=== PATIENT | female | born 1940 | race Caucasian/White ===

== ENCOUNTER 2016-06-06 19:12 | Emergency (ER) | payer MEDICARE ==
[2016-06-06] MEDS ORDERED: MAG HYDROX/AL HYDROX/SIMETH 30 ML, HYOSCYAMINE ELIXIR 10 ML, CIMETIDINE HCL 300 MG, LID... PO STA ×4 (19:51)
--- NOTE | 2016-06-06 20:31 | XR ---
EXAMINATION TYPE: XR chest 1V portable DATE OF EXAM: 06/06/2016 8:16 PM COMPARISON: April 16, 2016 HISTORY: Steak stuck in esophagus TECHNIQUE: 2 portable AP upright views FINDINGS: The prominent hiatal hernia seen on the prior study is redemonstrated. There is no radiopa que foreign body over the expected course of the thoracic esophagus. There is no focal air space opac ity, pleural effusion, or pneumothorax seen. Chronic pulmonary and skeletal changes are noted. The c ardiac silhouette size is within normal limits. No acute bony or soft tissue findings. IMPRESSION: No definite acute radiographic process.
--- NOTE | 2016-06-06 20:41 | ED ---
General Adult HPI - General Chief complaint: ENT Stated complaint: FB /in esophagus Time Seen by Provider: 06/06/16 19:37 Source: patient, RN notes reviewed, old records reviewed Mode of arrival: ambulatory Limitations: no limitations - History of Present Illness Initial comments: This is a 76-year-old female the ER for reevaluation of possible foreign body in esophagus. Patient has history of stricture and history of GI foreign body. Patient states she was eating steak tonight and felt like it got stuck. She did try to drink some water and it did help but she still feels like she can feel a foreign body in there. She denies any shortness of breath. Denies any significant anxiety. Denies any other complaints. - Related Data Home Medications Medication Instructions Recorded Confirmed Budesonide [Pulmicort Flexhaler] 1 puff INHALATION RT-BID 09/10/13 06/06/16 Clopidogrel [Plavix] 75 mg PO AC-SUPPER 09/10/13 06/06/16 Levothyroxine Sodium [Synthroid] 100 mcg PO MOTUWETHFR 09/10/13 06/06/16 Salmeterol Xinafoate [Serevent 1 puff INHALATION RT-BID 09/10/13 06/06/16 Diskus] Albuterol Nebulized [Ventolin 2.5 mg INHALATION RT-Q4H PRN 06/06/16 06/06/16 Nebulized] Albuterol Sulfate [Proair Hfa] 1 - 2 puff INHALATION RT-Q4H PRN 06/06/16 Allergies Allergy/AdvReac Type Severity Reaction Status Date / Time Iodinated Contrast Media - Allergy FLUSHING, Verified 06/06/16 20:00 Oral and ITCHING [Iodinated Contrast Media - IV Dye] Macrolide Antibiotics Allergy Unknown Verified 06/06/16 20:00 Sulfa (Sulfonamide Allergy FLUSHING , Verified 06/06/16 20:00 Antibiotics) ITCHING fungus Allergy ASTHMA Uncoded 06/06/16 19:30 SYMPTOMS SMOKE Allergy ASTHMA Uncoded 06/06/16 20:00 SYMPTOMS Review of Systems ROS Statement: Those systems with pertinent positive or pertinent negative responses have been documented in the HPI. ROS Other: All systems not noted in ROS Statement are negative. Past Medical History Past Medical History: Asthma, COPD, CVA/TIA, GERD/Reflux, Hyperlipidemia, Thyroid Disorder Additional Past Medical History / Comment(s): hiatel hernia, Hypotension, Possible TIA, hypothyroid, deviated septum, states LBBB, chronic constipation, past hx of low blood sugar ., esophageal stricture with difficulty swallowing . Osteoporosis, . states she coughed up a little blood this morning-she will notify the Dr. History of Any Multi-Drug Resistant Organisms: None Reported Past Surgical History: Bowel Resection, Cholecystectomy, Tubal Ligation Additional Past Surgical History / Comment(s): sinus surgery for removal of polyps x3, varicose vein stripping, foot surgery RT, states polyp removed from uterus and bowel and uterus were ruptured . 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 Smoking Status: Never smoker Past Alcohol Use History: None Reported Past Drug Use History: None Reported - Past Family History Brother(s) Family Medical History: Cancer Additional Family Medical History / Comment(s): PROSTATE General Exam Limitations: no limitations General appearance: alert, in no apparent distress Head exam: Present: atraumatic, normocephalic, normal inspection Eye exam: Present: normal appearance, PERRL, EOMI. Absent: scleral icterus, conjunctival injection, periorbital swelling ENT exam: Present: normal exam, mucous membranes moist Neck exam: Present: normal inspection. Absent: tenderness, meningismus, lymphadenopathy Respiratory exam: Present: normal lung sounds bilaterally. Absent: respiratory distress, wheezes, rales, rhonchi, stridor Cardiovascular Exam: Present: regular rate, normal rhythm, normal heart sounds. Absent: systolic murmur, diastolic murmur, rubs, gallop, clicks GI/Abdominal exam: Present: soft, normal bowel sounds. Absent: distended, tenderness, guarding, rebound, rigid Extremities exam: Present: normal inspection, full ROM, normal capillary refill. Absent: tenderness, pedal edema, joint swelling, calf tenderness Back exam: Present: normal inspection Neurological exam: Present: alert, oriented X3, CN II-XII intact Psychiatric exam: Present: normal affect, normal mood Skin exam: Present: warm, dry, intact, normal color. Absent: rash Course Vital Signs 06/06/16 19:26 Temperature 98.6 F Pulse Rate 80 Respiratory 20 Rate Blood Pressure 122/69 O2 Sat by Pulse 98 Oximetry - Reevaluation(s) Reevaluation #1: 06/06/16 20:39 Patient is able to swallow GI cocktail without difficulty, no vomiting, Medical Decision Making - Medical Decision Making 68 female here for evaluation of GI foreign body, foreign body has resolved, patient can be discharged home` - Radiology Data Radiology results: report reviewed (Chest x-ray negative for acute disease), image reviewed Disposition Clinical Impression: Esophageal foreign body Disposition: HOME SELF-CARE Condition: Good Instructions: Esophageal Foreign Body (ED) Referrals: Jace Casas DO [Primary Care Provider] - 1-2 days
[2016-06-06 20:55] VITALS: BP 120/68; PULSE 72; RESP 16; TEMP 97.8
== END 2016-06-06 20:54 | disposition home or self-care (01) ==
LOC: EC 19:12
DX: T18.108A Unspecified foreign body in esophagus causing other injury, initial encounter (principal); J45.909 Unspecified asthma, uncomplicated; E07.9 Disorder of thyroid, unspecified; K21.9 Gastro-esophageal reflux disease without esophagitis; J44.9 Chronic obstructive pulmonary disease, unspecified; Z86.73 Personal history of transient ischemic attack (TIA), and cerebral infarction without residual deficits; Z79.51 Long term (current) use of inhaled steroids; Z79.899 Other long term (current) drug therapy; Z79.02 Long term (current) use of antithrombotics/antiplatelets; Z91.041 Radiographic dye allergy status; Z88.1 Allergy status to other antibiotic agents; Z88.2 Allergy status to sulfonamides
CPT/HCPCS: 71010; 99283

== ENCOUNTER → 2016-06-21 | Outpatient (CLI) | payer MEDICARE ==
--- NOTE | 2016-06-21 15:21 | US ---
EXAMINATION TYPE: US venous doppler duplex LE RT DATE OF EXAM: 06/21/2016 3:12 PM COMPARISON: prior us in pacs CLINICAL HISTORY: edema lower ext right R60.0. rle leg pain and swelling, no prev dvt SIDE PERFORMED: right VESSELS IMAGED: External Iliac Vein (EIV) Common Femoral Vein Deep Femoral Vein Femoral Vein Popliteal Vein Proximal Calf Veins IMPRESSION: l Right Leg: neg for RLE dvt Results called to Xuan Diaz in the office at the time of the exam.
== END ==
LOC: RADUSWWP 14:56
PROVIDERS: ATTEND Family Medicine
DX: R60.0 Localized edema (principal)

== ENCOUNTER 2016-09-14 18:42 | Emergency (ER) | payer MEDICARE ==
[2016-09-14] MEDS ORDERED: GLUCAGON 1 MG/ML VIAL IVP STA (18:59)
--- NOTE | 2016-09-14 19:15 | ED ---
Skin/Abscess/FB HPI - General Chief complaint: Skin/Abscess/Foreign Body Stated complaint: FB in throat Time Seen by Provider: 09/14/16 18:55 Source: patient, RN notes reviewed Mode of arrival: ambulatory Limitations: no limitations - History of Present Illness Initial comments: Patient is a 76-year-old female presents to the emergency room for evaluation of foreign body sensation in esophagus. Patient states she has a history of esophageal stricture. Patient states she will occasionally have get food stuck in her esophagus. Patient states she was eating chicken today and felt that it did not pass through to her stomach. Patient states on the way here she had a bump and feels like it went down a little more. Patient states she is still having trouble swallowing. Patient denies trouble breathing. Patient denies chest pain. - Related Data Home Medications Medication Instructions Recorded Confirmed Budesonide [Pulmicort Flexhaler] 1 puff INHALATION RT-BID 09/10/13 09/14/16 Clopidogrel [Plavix] 75 mg PO AC-SUPPER 09/10/13 09/14/16 Levothyroxine Sodium [Synthroid] 100 mcg PO MOTUWETHFR 09/10/13 09/14/16 Salmeterol Xinafoate [Serevent 1 puff INHALATION RT-BID 09/10/13 09/14/16 Diskus] Albuterol Nebulized [Ventolin 2.5 mg INHALATION RT-Q4H PRN 06/06/16 09/14/16 Nebulized] Albuterol Sulfate [Proair Hfa] 1 - 2 puff INHALATION RT-Q4H PRN 06/06/16 Allergies Allergy/AdvReac Type Severity Reaction Status Date / Time Iodinated Contrast Media - Allergy FLUSHING, Verified 09/14/16 18:47 Oral and ITCHING [Iodinated Contrast Media - IV Dye] Macrolide Antibiotics Allergy Unknown Verified 09/14/16 18:47 Sulfa (Sulfonamide Allergy FLUSHING , Verified 09/14/16 18:47 Antibiotics) ITCHING fungus Allergy ASTHMA Uncoded 09/14/16 18:47 SYMPTOMS SMOKE Allergy ASTHMA Uncoded 09/14/16 18:47 SYMPTOMS Review of Systems ROS Statement: Those systems with pertinent positive or pertinent negative responses have been documented in the HPI. ROS Other: All systems not noted in ROS Statement are negative. Past Medical History Past Medical History: Asthma, COPD, CVA/TIA, GERD/Reflux, Hyperlipidemia, Thyroid Disorder Additional Past Medical History / Comment(s): hiatel hernia, Hypotension, Possible TIA, hypothyroid, deviated septum, states LBBB, chronic constipation, past hx of low blood sugar ., esophageal stricture with difficulty swallowing . Osteoporosis, . states she coughed up a little blood this morning-she will notify the Dr. History of Any Multi-Drug Resistant Organisms: None Reported Past Surgical History: Bowel Resection, Cholecystectomy, Tubal Ligation Additional Past Surgical History / Comment(s): sinus surgery for removal of polyps x3, varicose vein stripping, foot surgery RT, states polyp removed from uterus and bowel and uterus were ruptured . 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 Smoking Status: Never smoker Past Alcohol Use History: None Reported Past Drug Use History: None Reported - Past Family History Brother(s) Family Medical History: Cancer Additional Family Medical History / Comment(s): PROSTATE General Exam - General Exam Comments Initial Comments: Sitting in exam room, no acute distress. Limitations: no limitations General appearance: alert, in no apparent distress Head exam: Present: atraumatic, normocephalic, normal inspection Eye exam: Present: normal appearance ENT exam: Present: normal exam Neck exam: Present: normal inspection Respiratory exam: Present: normal lung sounds bilaterally. Absent: respiratory distress Cardiovascular Exam: Present: regular rate, normal rhythm, normal heart sounds Extremities exam: Present: normal inspection Back exam: Present: normal inspection Neurological exam: Present: alert, oriented X3, CN II-XII intact, normal gait Psychiatric exam: Present: normal affect, normal mood Skin exam: Present: warm, dry, intact, normal color. Absent: rash Course Vital Signs 09/14/16 18:44 Temperature 97.4 F L Pulse Rate 92 Respiratory 16 Rate Blood Pressure 114/56 O2 Sat by Pulse 100 Oximetry Medical Decision Making - Medical Decision Making Patient is a 76-year-old female presents to the emergency room for evaluation of esophageal foreign body. Patient was given glucagon and was able to swallow warm water. Patient states the sensation has subsided. Patient states she is feeling a lot better. Chest x-ray shows no acute findings. Patient will be discharged home and advised follow-up with primary care provider. Patient states she understands everything that was discussed with her. Return parameters discussed. Case discussed with Dr. Pires. - Radiology Data Radiology results: report reviewed, image reviewed Disposition Clinical Impression: Esophageal foreign body Disposition: HOME SELF-CARE Condition: Good Instructions: Esophageal Foreign Body (ED) Additional Instructions: Please follow up with primary care provider in 1-2 days. If any new symptom arises or symptoms worsen, return to ER as soon as possible. Referrals: Jace Casas DO [Primary Care Provider] - 1-2 days Time of Disposition: 19:51
--- NOTE | 2016-09-14 19:51 | XR ---
EXAMINATION TYPE: XR chest 2V DATE OF EXAM: 09/14/2016 7:35 PM COMPARISON: 06/06/2016 and 04/16/2016 HISTORY: 76-year-old female with pain and shortness of breath TECHNIQUE: PA and lateral views FINDINGS: Heart is normal size. Aorta within normal limits. Diffuse interstitial prominence and hyperinflation. There appears to be prior right-sided thoracotomy change. Stable right apical pleural parenchymal sc arring. Moderate sized hiatal hernia. No pleural effusion. IMPRESSION: COPD with chronic parenchymal changes. Moderate-sized hilar hernia. No new infiltrate seen.
[2016-09-14 20:04] VITALS: BP 127/67; PULSE 80; RESP 18; TEMP 97.9
== END 2016-09-14 20:04 | disposition home or self-care (01) ==
LOC: EC 18:42
DX: T18.128A Food in esophagus causing other injury, initial encounter (principal); J45.909 Unspecified asthma, uncomplicated; J44.9 Chronic obstructive pulmonary disease, unspecified; E07.9 Disorder of thyroid, unspecified; Z79.02 Long term (current) use of antithrombotics/antiplatelets; Z79.51 Long term (current) use of inhaled steroids; Z88.1 Allergy status to other antibiotic agents; Z88.2 Allergy status to sulfonamides; Z91.041 Radiographic dye allergy status; Z91.048 Other nonmedicinal substance allergy status; Z86.73 Personal history of transient ischemic attack (TIA), and cerebral infarction without residual deficits; X58.XXXA Exposure to other specified factors, initial encounter
CPT/HCPCS: 71020; 99283; 96374; J1610

== ENCOUNTER 2016-10-19 19:23 | Emergency (ER) | payer MEDICARE ==
[2016-10-19 19:40] VITALS: BP 149/70; PULSE 72; RESP 20; TEMP 97.2
--- NOTE | 2016-10-19 20:03 | ED ---
Fall HPI - General Chief Complaint: Fall Stated Complaint: Fall Time Seen by Provider: 10/19/16 19:43 Source: patient Mode of arrival: wheelchair - History of Present Illness Initial Comments: 76-year-old female presents to clinic after falling when running out her car in the rain. Patient states she fell on a concrete driveway and fell on outstretched hand. Patient states she fell forward onto her knees and wrists. She had multiple abrasions on her knees and wrists. Patient having a lot of pain in that area as well. Patient did try to clean it at home as well. Patient unaware of when her tetanus was updated. Patient states she did ice it at home as well she denies any head injury or dizziness. No loss of consciousness. Patient does admit to slight neck pain that has no numbness or tingling. Patient denies back pain. MD Complaint: fall -: hour(s) Fall From: standing When Fall Occurred: 1-3 hours [employer] Fall Witnessed: no Place Fall Occurred: home Symptoms Prior to Fall: none Associated Symptoms: other - Related Data Home Medications Medication Instructions Recorded Confirmed Budesonide [Pulmicort Flexhaler] 1 puff INHALATION RT-BID 09/10/13 09/14/16 Clopidogrel [Plavix] 75 mg PO AC-SUPPER 09/10/13 09/14/16 Levothyroxine Sodium [Synthroid] 100 mcg PO MOTUWETHFR 09/10/13 09/14/16 Salmeterol Xinafoate [Serevent 1 puff INHALATION RT-BID 09/10/13 09/14/16 Diskus] Albuterol Nebulized [Ventolin 2.5 mg INHALATION RT-Q4H PRN 06/06/16 09/14/16 Nebulized] Albuterol Sulfate [Proair Hfa] 1 - 2 puff INHALATION RT-Q4H PRN 06/06/16 Allergies Allergy/AdvReac Type Severity Reaction Status Date / Time Iodinated Contrast Media - Allergy FLUSHING, Verified 10/19/16 19:40 Oral and ITCHING [Iodinated Contrast Media - IV Dye] Macrolide Antibiotics Allergy Unknown Verified 10/19/16 19:40 Sulfa (Sulfonamide Allergy FLUSHING , Verified 10/19/16 19:40 Antibiotics) ITCHING fungus Allergy ASTHMA Uncoded 10/19/16 19:40 SYMPTOMS SMOKE Allergy ASTHMA Uncoded 10/19/16 19:40 SYMPTOMS Review of Systems ROS Statement: Those systems with pertinent positive or pertinent negative responses have been documented in the HPI. ROS Other: All systems not noted in ROS Statement are negative. Musculoskeletal: Reports: other (left knee pain and right wrist pain) Skin: Reports: other (multiple abrasions on b/l knees and wrists) Neurological: Denies: headache Past Medical History Past Medical History: Asthma, COPD, CVA/TIA, GERD/Reflux, Hyperlipidemia, Thyroid Disorder Additional Past Medical History / Comment(s): hiatel hernia, Hypotension, Possible TIA, hypothyroid, deviated septum, states LBBB, chronic constipation, past hx of low blood sugar ., esophageal stricture with difficulty swallowing . Osteoporosis, . states she coughed up a little blood this morning-she will notify the Dr. History of Any Multi-Drug Resistant Organisms: None Reported Past Surgical History: Bowel Resection, Cholecystectomy, Tubal Ligation Additional Past Surgical History / Comment(s): sinus surgery for removal of polyps x3, varicose vein stripping, foot surgery RT, states polyp removed from uterus and bowel and uterus were ruptured . Past Anesthesia/Blood Transfusion Reactions: Previous Problems w/ Anesthesia Additional Past Anesthesia/Blood Transfusion Reaction / Comment(s): STATES DIFFICULTY WAKING UP Past Psychological History: Depression Smoking Status: Never smoker Past Alcohol Use History: None Reported Past Drug Use History: None Reported - Past Family History Brother(s) Family Medical History: Cancer Additional Family Medical History / Comment(s): PROSTATE General Exam Limitations: no limitations General appearance: alert, in no apparent distress Head exam: Present: atraumatic, normocephalic, normal inspection Eye exam: Present: normal appearance, PERRL, EOMI. Absent: scleral icterus, conjunctival injection, periorbital swelling ENT exam: Present: normal exam, mucous membranes moist Neck exam: Present: normal inspection. Absent: tenderness, meningismus, lymphadenopathy Respiratory exam: Present: normal lung sounds bilaterally. Absent: respiratory distress, wheezes, rales, rhonchi, stridor Cardiovascular Exam: Present: regular rate, normal rhythm, normal heart sounds. Absent: systolic murmur, diastolic murmur, rubs, gallop, clicks Left Shoulder Exam: Present: normal inspection, full ROM. Absent: tenderness, swelling Upper Arm exam: Present: normal inspection, full ROM. Absent: tenderness, swelling Elbow exam: Present: normal inspection, full ROM. Absent: tenderness, swelling Forearm Wrist exam: Present: normal inspection, full ROM, abrasion Hand Wrist exam: Present: full ROM, tenderness, abrasion Right Shoulder Exam: Present: normal inspection, full ROM. Absent: tenderness, swelling Upper Arm exam: Present: normal inspection, full ROM. Absent: tenderness, swelling Elbow exam: Present: normal inspection, full ROM, abrasion. Absent: tenderness , swelling Forearm Wrist exam: Present: normal inspection, full ROM, tenderness, abrasion. Absent: swelling Hand Wrist exam: Present: normal inspection, full ROM, tenderness, abrasion. Absent: swelling Neuro motor exam: Present: wrist extension intact, thumb opposition intact Vascular: Present: normal capillary refill Left Hip exam: Present: normal inspection, full ROM. Absent: tenderness, swelling Upper Leg exam: Present: normal inspection, full ROM. Absent: tenderness, swelling Knee exam: Present: full ROM, tenderness, abrasion, ecchymosis Lower Leg exam: Present: normal inspection. Absent: full ROM, tenderness Ankle exam: Present: normal inspection, full ROM. Absent: tenderness, swelling Foot/Toe exam: Present: normal inspection, full ROM. Absent: tenderness, swelling Gait: observed and normal Right Hip exam: Present: normal inspection, full ROM. Absent: tenderness, swelling Upper Leg exam: Present: normal inspection, full ROM. Absent: tenderness, swelling Knee exam: Present: full ROM, tenderness, swelling, abrasion Lower Leg exam: Present: normal inspection, full ROM. Absent: tenderness, swelling Ankle exam: Present: normal inspection, full ROM. Absent: tenderness, swelling Gait: observed and normal Back exam: Present: normal inspection Course Vital Signs 10/19/16 19:36 Temperature 97.2 F L Pulse Rate 72 Respiratory 20 Rate Blood Pressure 149/70 O2 Sat by Pulse 99 Oximetry Medical Decision Making - Medical Decision Making Reviewed x-ray negative for any acute changes. Patient aware. Patient was prepped and draped appropriately normal saline was used Umanzor's along with bacitracin dressing. Patient Adacel was updated as well. Patient may take over -the-counter Tylenol for aches and pains continue to ice wounds and keep wounds clean dry and covered. Disposition Clinical Impression: Fall, Abrasion, Contusion Disposition: HOME SELF-CARE Condition: Good Instructions: Fall Prevention for Older Adults (ED), Contusion in Adults (ED), Abrasion (ED), Knee Pain (ED) Referrals: Jace Casas DO [Primary Care Provider] - 1-2 days Time of Disposition: 20:41
[2016-10-19] MEDS ORDERED: DIPH,PERTUS(ACELL)TETVAC-LF 0.5 ML VIAL IM ONE (20:29)
--- NOTE | 2016-10-19 20:46 | XR ---
EXAMINATION TYPE: XR knee 4V LT DATE OF EXAM: 10/19/2016 COMPARISON: NONE HISTORY: Knee pain TECHNIQUE: 3 views FINDINGS: I see no fracture nor dislocation. Joint spaces are normal. There is no sign of joint effus ion. There is some soft tissue deformity on the lateral view that could relate to laceration above th e patella. IMPRESSION: No fracture.
--- NOTE | 2016-10-19 20:47 | XR ---
EXAMINATION TYPE: XR wrist complete RT DATE OF EXAM: 10/19/2016 COMPARISON: NONE HISTORY: Fall and wrist pain TECHNIQUE: 4 views FINDINGS: I see no fracture nor dislocation. There is mild deformity of the distal radius that could relate to an old healed fracture. IMPRESSION: No acute abnormality of the right wrist.
--- NOTE | 2016-10-19 20:48 | XR ---
EXAMINATION TYPE: XR cervical spine comp DATE OF EXAM: 10/19/2016 COMPARISON: NONE HISTORY: Pain TECHNIQUE: 5 views FINDINGS: Vertebra have normal alignment. Disc spaces are fairly well-maintained for the patient's ag e. Posterior elements are intact. I see no compression fracture. Atlantoaxial facet joint is normal. There are no cervical ribs. There is minor spurring in the lower cervical spine. IMPRESSION: Mild degenerative changes. No fracture.
== END 2016-10-19 20:52 | disposition home or self-care (01) ==
LOC: EC 19:23
DX: S80.01XA Contusion of right knee, initial encounter (principal); S80.02XA Contusion of left knee, initial encounter; S60.812A Abrasion of left wrist, initial encounter; S60.811A Abrasion of right wrist, initial encounter; S50.319A Abrasion of unspecified elbow, initial encounter; M54.2 Cervicalgia; J45.909 Unspecified asthma, uncomplicated; J44.9 Chronic obstructive pulmonary disease, unspecified; E03.9 Hypothyroidism, unspecified; Z79.02 Long term (current) use of antithrombotics/antiplatelets; Z79.51 Long term (current) use of inhaled steroids; Z79.899 Other long term (current) drug therapy; Z88.1 Allergy status to other antibiotic agents; Z88.2 Allergy status to sulfonamides; Z91.041 Radiographic dye allergy status; Z91.09 Other allergy status, other than to drugs and biological substances; Z86.73 Personal history of transient ischemic attack (TIA), and cerebral infarction without residual deficits; Z23 Encounter for immunization; W01.0XXA Fall on same level from slipping, tripping and stumbling without subsequent striking against object, initial encounter; Y92.480 Sidewalk as the place of occurrence of the external cause; Y93.89 Activity, other specified
CPT/HCPCS: 72050; 90471; 90715; 99283

== ENCOUNTER → 2016-11-20 | Outpatient (CLI) | payer MEDICARE ==
--- NOTE | 2016-11-21 08:13 | MM ---
Reason for exam: screening (asymptomatic). Last mammogram was performed 1 year ago. History: Patient is postmenopausal. Physical Findings: A clinical breast exam by your physician is recommended on an annual basis and results should be correlated with mammographic findings. MG Screening Mammo w CAD Bilateral CC and MLO view(s) were taken. Prior study comparison: November 06, 2015, bilateral MG screening mammo w CAD. May 27, 2014, bilateral MG screening mammo w CAD. December 10, 2012, bilateral digital screening mammo w/CAD. There are scattered fibroglandular densities. Finding: There are typically benign vascular, round calcifications in both breasts. There is a chronic nodularity in the right breast. There is no discrete abnormality. ASSESSMENT: Benign, BI-RAD 2 RECOMMENDATION: Routine screening mammogram of both breasts in 1 year.
== END | disposition home or self-care (01) ==
LOC: RADMAMWWP 16:33
PROVIDERS: ATTEND Family Medicine
DX: Z12.31 Encounter for screening mammogram for malignant neoplasm of breast (principal)

== ENCOUNTER 2017-04-14 09:02 | Emergency (ER) | payer MEDICARE ==
[2017-04-14] MEDS ORDERED: SODIUM CHLORIDE 0.9% 500 ML IV STA (09:08)
[2017-04-14] MEDS ORDERED: RX INFO: IV CONTRAST WAS GIVEN 1 EACH MISC MISCELLANE PRN (09:08)
[2017-04-14] MEDS ORDERED: FAMOTIDINE 20 MG/2 ML VIAL IV STA (09:09)
[2017-04-14] MEDS ORDERED: diphenhydrAMINE 50 MG/ML 1 ML VIAL IVP STA (09:09)
--- NOTE | 2017-04-14 09:22 | ED ---
Abdominal Pain HPI - General Chief Complaint: Abdominal Pain Stated Complaint: ABDOMINAL PAIN, CONSTIPATION/DIARRHEA Time Seen by Provider: 04/14/17 09:08 Source: patient, RN notes reviewed Mode of arrival: ambulatory Limitations: no limitations - History of Present Illness Initial Comments: This a 77-year-old female presents emergency Department chief complaint abdominal pain started on Friday. She states that the night before she ate some waffles and strawberries. She states she woke up and felt that she's had pain from eating. Patient states pain has now resolved it does wax and wane. She primary complaint of upper abdominal pain and left lower quadrant abdominal pain. Patient states that she was told that she had an ulcer in her stomach in the years past and a blockage in her transverse colon. Patient also states that she had perforated bowel secondary to compilations during uterine biopsy. Patient states that she had surgery at the time of Dr. Cade. Patient states she has she's had minimal nausea denies vomiting, dysuria, hematuria. Patient states that she felt constipated yesterday she had 3 episodes of diarrhea. Patient denies fever, chills, chest pain, shortness of breath. Patient has not taken anything for the discomfort this time. Patient went to urgent care who sent her here for evaluation. - Related Data Home Medications Medication Instructions Recorded Confirmed Budesonide [Pulmicort Flexhaler] 1 puff INHALATION RT-BID 09/10/13 04/14/17 Clopidogrel [Plavix] 75 mg PO AC-SUPPER 09/10/13 04/14/17 Levothyroxine Sodium [Synthroid] 100 mcg PO MOTUWETHFR 09/10/13 04/14/17 Salmeterol Xinafoate [Serevent 1 puff INHALATION RT-BID 09/10/13 04/14/17 Diskus] Albuterol Nebulized [Ventolin 2.5 mg INHALATION RT-QID PRN 06/06/16 04/14/17 Nebulized] Albuterol Sulfate [Proair Hfa] 1 - 2 puff INHALATION RT-QID PRN 06/06/16 Previous Rx's Medication Instructions Recorded Ciprofloxacin HCl [Cipro] 500 mg PO Q12HR #14 tablet 04/14/17 metroNIDAZOLE [Flagyl] 500 mg PO TID #21 tab 04/14/17 Allergies Allergy/AdvReac Type Severity Reaction Status Date / Time Iodinated Contrast- Oral and Allergy FLUSHING, Verified 04/14/17 09:28 IV Dye ITCHING [Iodinated Contrast Media - IV Dye] Macrolide Antibiotics Allergy Unknown Verified 04/14/17 09:28 Sulfa (Sulfonamide Allergy FLUSHING , Verified 04/14/17 09:28 Antibiotics) ITCHING fungus Allergy ASTHMA Uncoded 04/14/17 09:07 SYMPTOMS SMOKE Allergy ASTHMA Uncoded 04/14/17 09:07 SYMPTOMS Review of Systems ROS Statement: Those systems with pertinent positive or pertinent negative responses have been documented in the HPI. ROS Other: All systems not noted in ROS Statement are negative. Past Medical History Past Medical History: Asthma, COPD, CVA/TIA, GERD/Reflux, Hyperlipidemia, Thyroid Disorder Additional Past Medical History / Comment(s): hiatel hernia, Hypotension, Possible TIA, hypothyroid, deviated septum, states LBBB, chronic constipation, past hx of low blood sugar ., esophageal stricture with difficulty swallowing . Osteoporosis, History of Any Multi-Drug Resistant Organisms: None Reported Past Surgical History: Bowel Resection, Cholecystectomy, Tubal Ligation Additional Past Surgical History / Comment(s): sinus surgery for removal of polyps x3, varicose vein stripping, foot surgery RT, states polyp removed from uterus and bowel and uterus were ruptured . Past Anesthesia/Blood Transfusion Reactions: Previous Problems w/ Anesthesia Additional Past Anesthesia/Blood Transfusion Reaction / Comment(s): STATES DIFFICULTY WAKING UP Past Psychological History: Depression Smoking Status: Never smoker Past Alcohol Use History: None Reported Past Drug Use History: None Reported - Past Family History Brother(s) Family Medical History: Cancer Additional Family Medical History / Comment(s): PROSTATE General Exam Limitations: no limitations General appearance: alert, in no apparent distress Head exam: Present: atraumatic, normocephalic, normal inspection Eye exam: Present: normal appearance, PERRL, EOMI. Absent: scleral icterus, conjunctival injection, periorbital swelling ENT exam: Present: normal exam, normal oropharynx, mucous membranes moist Neck exam: Present: normal inspection. Absent: tenderness, meningismus, lymphadenopathy Respiratory exam: Present: normal lung sounds bilaterally. Absent: respiratory distress, wheezes, rales, rhonchi, stridor Cardiovascular Exam: Present: regular rate, normal rhythm, normal heart sounds. Absent: systolic murmur, diastolic murmur, rubs, gallop, clicks GI/Abdominal exam: Present: soft, tenderness (Minimal upper left-sided and left lower quadrant), normal bowel sounds, other (Old midline scar noted). Absent: distended, guarding, rebound, rigid Back exam: Absent: CVA tenderness (R), CVA tenderness (L) Skin exam: Present: warm, dry, intact, normal color. Absent: rash Course Vital Signs 04/14/17 04/14/17 09:04 10:18 Temperature 97.0 F L Pulse Rate 73 67 Respiratory 18 18 Rate Blood Pressure 135/62 132/72 O2 Sat by Pulse 98 97 Oximetry - Reevaluation(s) Reevaluation #1: 04/14/17 09:21 Patient states that she has had CTs in the past with no difficulty other than feeling warm and flushed one time. She states she is given Benadryl she's had no difficulty breathing or rash Medical Decision Making - Medical Decision Making 77-year-old female presented emergency tomorrow for abdominal discomfort, episodes of diarrhea. Patient CT shows evidence of mild colitis. Patient will be started on Cipro Flagyl for 7 days will follow-up with PCP for recheck and return for any worsening symptoms. All lab work and diagnostics were reviewed lab work is essentially unremarkable vitals have been stable no fever. - Lab Data Result diagrams: 04/14/17 09:28 04/14/17 09:28 Lab Results 04/14/17 04/14/17 04/14/17 Range/Units 09:21 09:28 09:28 WBC 5.4 (3.8-10.6) k/uL RBC 5.15 (3.80-5.40) m/uL Hgb 14.7 (11.4-16.0) gm/dL Hct 47.6 H (34.0-46.0) % MCV 92.3 (80.0-100.0) fL MCH 28.6 (25.0-35.0) pg MCHC 31.0 (31.0-37.0) g/dL RDW 15.3 (11.5-15.5) % Plt Count 298 (150-450) k/uL Neutrophils % 45 % Lymphocytes % 29 % Monocytes % 10 % Eosinophils % 14 % Basophils % 1 % Neutrophils # 2.4 (1.3-7.7) k/uL Lymphocytes # 1.6 (1.0-4.8) k/uL Monocytes # 0.5 (0-1.0) k/uL Eosinophils # 0.7 (0-0.7) k/uL Basophils # 0.1 (0-0.2) k/uL PT (9.0-12.0) sec INR (<1.2) APTT (22.0-30.0) sec Sodium 139 (137-145) mmol/L Potassium 4.0 (3.5-5.1) mmol/L Chloride 103 (98-107) mmol/L Carbon Dioxide 28 (22-30) mmol/L Anion Gap 8 mmol/L BUN 13 (7-17) mg/dL Creatinine 0.79 (0.52-1.04) mg/dL Est GFR (MDRD) Af Amer >60 (>60 ml/min/1.73 sqM) Est GFR (MDRD) Non-Af >60 (>60 ml/min/1.73 sqM) Glucose 107 H (74-99) mg/dL Plasma Lactic Acid Geo (0.7-2.0) mmol/L Calcium 10.1 (8.4-10.2) mg/dL Total Bilirubin 0.7 (0.2-1.3) mg/dL AST 19 (14-36) U/L ALT 22 (9-52) U/L Alkaline Phosphatase 112 (38-126) U/L Total Protein 7.3 (6.3-8.2) g/dL Albumin 4.4 (3.5-5.0) g/dL Amylase 111 H (30-110) U/L Lipase 121 (23-300) U/L Urine Color Light Yellow Urine Appearance Clear (Clear) Urine pH 7.0 (5.0-8.0) Ur Specific [place] 1.004 (1.001-1.035) Urine Protein Negative (Negative) Urine Glucose (UA) Negative (Negative) Urine Ketones Negative (Negative) Urine Blood Negative (Negative) Urine Nitrite Negative (Negative) Urine Bilirubin Negative (Negative) Urine Urobilinogen <2.0 (<2.0) mg/dL Ur Leukocyte Esterase Negative (Negative) 04/14/17 04/14/17 Range/Units 09:28 09:28 WBC (3.8-10.6) k/uL RBC (3.80-5.40) m/uL Hgb (11.4-16.0) gm/dL Hct (34.0-46.0) % MCV (80.0-100.0) fL MCH (25.0-35.0) pg MCHC (31.0-37.0) g/dL RDW (11.5-15.5) % Plt Count (150-450) k/uL Neutrophils % % Lymphocytes % % Monocytes % % Eosinophils % % Basophils % % Neutrophils # (1.3-7.7) k/uL Lymphocytes # (1.0-4.8) k/uL Monocytes # (0-1.0) k/uL Eosinophils # (0-0.7) k/uL Basophils # (0-0.2) k/uL PT 9.5 (9.0-12.0) sec INR 1.0 (<1.2) APTT 22.7 (22.0-30.0) sec Sodium (137-145) mmol/L Potassium (3.5-5.1) mmol/L Chloride (98-107) mmol/L Carbon Dioxide (22-30) mmol/L Anion Gap mmol/L BUN (7-17) mg/dL Creatinine (0.52-1.04) mg/dL Est GFR (MDRD) Af Amer (>60 ml/min/1.73 sqM) Est GFR (MDRD) Non-Af (>60 ml/min/1.73 sqM) Glucose (74-99) mg/dL Plasma Lactic Acid Geo 0.9 (0.7-2.0) mmol/L Calcium (8.4-10.2) mg/dL Total Bilirubin (0.2-1.3) mg/dL AST (14-36) U/L ALT (9-52) U/L Alkaline Phosphatase (38-126) U/L Total Protein (6.3-8.2) g/dL Albumin (3.5-5.0) g/dL Amylase (30-110) U/L Lipase (23-300) U/L Urine Color Urine Appearance (Clear) Urine pH (5.0-8.0) Ur Specific [place] (1.001-1.035) Urine Protein (Negative) Urine Glucose (UA) (Negative) Urine Ketones (Negative) Urine Blood (Negative) Urine Nitrite (Negative) Urine Bilirubin (Negative) Urine Urobilinogen (<2.0) mg/dL Ur Leukocyte Esterase (Negative) Disposition Clinical Impression: Colitis Disposition: HOME SELF-CARE Condition: Stable Instructions: Colitis (ED) Additional Instructions: Please return to the Emergency Department if symptoms worsen or any other concerns. Prescriptions: Ciprofloxacin HCl [Cipro] 500 mg PO Q12HR #14 tablet metroNIDAZOLE [Flagyl] 500 mg PO TID #21 tab Referrals: Jace Casas DO [Primary Care Provider] - 1-2 days Time of Disposition: 12:02
[2017-04-14 09:38] LABS: Appearance,Urine Clear (Clear); Bilirubin,Urine Negative (Negative); Glucose,Urine (UA) Negative (Negative); Ketones,Urine Negative (Negative); Leukocyte Esterase,Urine Negative (Negative); Nitrite,Urine Negative (Negative); Protein,Urine Negative (Negative); Specific Gravity,Urine 1.004 (1.001-1.035); UA Billing (MACRO vs. MICRO) CHEM; Urobilinogen,Urine <2.0 mg/dL (<2.0)
[2017-04-14 09:46] LABS: Basophils # (A) 0.1 k/uL (0-0.2); Basophils % (A) 1 %; CH 29.1; CHCM 31.7; Eosinophils # (A) 0.7 k/uL (0-0.7); Eosinophils % (A) 14 %; HCT 47.6 % (34.0-46.0); HDW 2.38; HGB 14.7 gm/dL (11.4-16.0); Luc % (Auto) 2; Lymphocytes # (A) 1.6 k/uL (1.0-4.8); Lymphocytes % (A) 29 %; MCH 28.6 pg (25.0-35.0); MCV 92.3 fL (80.0-100.0); Mean Platelet Volume 7.5; Monocytes # (A) 0.5 k/uL (0-1.0); Monocytes % (A) 10 %; Neutrophils # (A) 2.4 k/uL (1.3-7.7); Neutrophils % (A) 45 %; RBC 5.15 m/uL (3.80-5.40); RDW 15.3 % (11.5-15.5); WBC 5.4 k/uL (3.8-10.6); WBC (Perox) 5.39
[2017-04-14 10:04] LABS: ALT 22 U/L (9-52); AST 19 U/L (14-36); Alkaline Phosphatase 112 U/L (38-126); Amylase 111 U/L (30-110); Anion Gap 8 mmol/L; Blood Urea Nitrogen 13 mg/dL (7-17); Calcium 10.1 mg/dL (8.4-10.2); Carbon Dioxide 28 mmol/L (22-30); Chloride 103 mmol/L (98-107); Glucose 107 mg/dL (74-99); Non-African American GFR(MDRD) >60 (>60 ml/min/1.73 sqM); Sodium 139 mmol/L (137-145); Total Bilirubin 0.7 mg/dL (0.2-1.3); Total Protein 7.3 g/dL (6.3-8.2)
[2017-04-14 10:09] LABS: Partial Thromboplastin Time 22.7 sec (22.0-30.0); Prothrombin Time 9.5 sec (9.0-12.0)
--- NOTE | 2017-04-14 11:53 | CT ---
EXAMINATION TYPE: CT abdomen pelvis w con DATE OF EXAM: 04/14/2017 HISTORY: Abdominal pain not further specified per order with constipation and diarrhea per patient. CT DLP: 348.0mGycm Automated Exposure Control for Dose Reduction was Utilized. CONTRAST: CT scan of the abdomen and pelvis is performed without oral but with IV Contrast, patient injected wi th 100 mL of Omnipaque 300. COMPARISON: CT chest January 06, 2012. FINDINGS: LUNG BASES: Dependent atelectatic changes seen. There is additional linear scarring and/or atelectasi s medially in both bases. LIVER/GB: Cholecystectomy clips are redemonstrated. There is mild extrahepatic biliary dilatation wit hout suspicious intrahepatic biliary dilatation. There is mild pancreatic ductal dilatation in the he ad measuring up to 4 mm in size. No obstructing calculus is present. PANCREAS: Mild pancreatic ductal dilatation towards head measuring up to 4 mm in size. SPLEEN: No significant abnormality is seen. ADRENALS: No significant abnormality is seen. KIDNEYS: There is 6.0 cm simple appearing cyst lower pole level left kidney on axial image 29. There are few scattered pelvic phleboliths. Symmetric cortical medullary uptake and excretion is seen. Ther e is prominent bilateral renal pelvis without calyceal dilatation. Findings are consistent with extra renal pelvises. BOWEL: There is large size hiatal hernia with abnormal twisting of herniated stomach. This is not sig nificantly changed from chest CT 2011. Evaluation bowel is suboptimal secondary to lack of enteric co ntrast. There is no suspicious small or large bowel dilatation. Some diverticula are seen in the sigm oid colon. Mild wall thickening at this level is present. A mild colitis cannot be entirely excluded. UTERUS/ADNEXA: Uterus is anteverted in shape. Prominent draining left ovarian vein is noted. Underlyi ng pelvic congestion syndrome is not excluded. LYMPH NODES: No greater than 1cm abdominal or pelvic lymph nodes are appreciated. OSSEOUS STRUCTURES: There is grade 1 anterolisthesis of L4 on L5. There is moderate to advanced disc space narrowing with vacuum disc phenomenon L4-L5 level. There is facet arthropathy lower lumbar leve ls. Slight underlying scoliosis is present. 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 OTHER: No significant additional abnormality is seen. IMPRESSION: Possible mild sigmoid colitis, correlate clinically. No bowel obstruction is seen. Persis tent moderate to large size hiatal hernia. Possible pelvic congestion syndrome on the left, correlate clinically.
[2017-04-14 12:33] VITALS: BP 174/71; PULSE 62; RESP 16; TEMP 96.9
== END 2017-04-14 12:32 | disposition home or self-care (01) ==
LOC: EC 09:02
DX: K52.9 Noninfective gastroenteritis and colitis, unspecified (principal); J44.9 Chronic obstructive pulmonary disease, unspecified; E03.9 Hypothyroidism, unspecified; Z90.49 Acquired absence of other specified parts of digestive tract; Z98.51 Tubal ligation status; Z86.73 Personal history of transient ischemic attack (TIA), and cerebral infarction without residual deficits; Z79.51 Long term (current) use of inhaled steroids; Z79.01 Long term (current) use of anticoagulants; Z79.899 Other long term (current) drug therapy; Z91.041 Radiographic dye allergy status; Z88.1 Allergy status to other antibiotic agents; Z88.2 Allergy status to sulfonamides; Z91.048 Other nonmedicinal substance allergy status
CPT/HCPCS: 36415; 80053; 82150; 83605; 83690; 85025; 85610; 85730; 81003; 74177; 99284; 96374; 96375; J1200; Q9967

== ENCOUNTER → 2017-06-26 | Outpatient (CLI) | payer MEDICARE ==
[2017-06-26 12:24] LABS: HGB 14.7 gm/dL (11.4-16.0); MCH 29.1 pg (25.0-35.0); MCHC 32.1 g/dL (31.0-37.0); MCV 90.8 fL (80.0-100.0); Platelet Count 275 k/uL (150-450); RBC 5.06 m/uL (3.80-5.40); RDW 13.6 % (11.5-15.5); WBC 5.3 k/uL (3.8-10.6)
[2017-06-26 12:37] LABS: ALT 26 U/L (9-52); AST 18 U/L (14-36); Albumin 4.3 g/dL (3.5-5.0); Alkaline Phosphatase 116 U/L (38-126); Anion Gap 11 mmol/L; Blood Urea Nitrogen 16 mg/dL (7-17); Calcium 10.2 mg/dL (8.4-10.2); Carbon Dioxide 25 mmol/L (22-30); Chloride 106 mmol/L (98-107); Glucose 102 mg/dL (74-99); Potassium 4.9 mmol/L (3.5-5.1); Sodium 142 mmol/L (137-145); Total Bilirubin 0.6 mg/dL (0.2-1.3); Total Protein 7.1 g/dL (6.3-8.2)
== END | disposition home or self-care (01) ==
LOC: LABWHC1 11:55
PROVIDERS: ATTEND Nurse Practitioner Adult Health
DX: I44.7 Left bundle-branch block, unspecified (principal); E78.2 Mixed hyperlipidemia
CPT/HCPCS: 36415; 80053; 83704; 85027

== ENCOUNTER 2017-08-25 07:47 | Observation (INO) | payer MEDICARE ==
[2017-08-25] MEDS ORDERED: NITROGLYCERIN OINT 1 INCH/GM PACKET TOPICAL STA (07:55)
--- NOTE | 2017-08-25 08:01 | ED ---
General Adult HPI - General Chief complaint: Chest Pain Stated complaint: Chest Pain Time Seen by Provider: 08/25/17 07:47 Source: patient, EMS, RN notes reviewed Mode of arrival: EMS Limitations: no limitations - History of Present Illness Initial comments: This is a 77-year-old female presents emergency Department stating that when she woke up this when she reached up to get a robe off the hook started having excruciating pain between her shoulder blades. Patient states that subsided and then she started having some chest pressure. Patient denies any associated pain besides back pain previously mentioned. Patient denies any difficulty breathing shortness of breath worsened normal. Patient denies any diaphoresis. Patient denies any nausea vomiting or abdominal pain. Patient states she still has a little bit of back discomfort. But mostly chest pressure at this point. Patient denies any recent fever chills or cough. Patient denies any swelling of the legs. Patient denies any calf tenderness. Patient states the nitro initially seemed to help but then the second nitro didn't help at all. Patient did receive aspirin in route - Related Data Home Medications Medication Instructions Recorded Confirmed Budesonide [Pulmicort Flexhaler] 1 puff INHALATION RT-BID 09/10/13 04/14/17 Clopidogrel [Plavix] 75 mg PO AC-SUPPER 09/10/13 04/14/17 Levothyroxine Sodium [Synthroid] 100 mcg PO MOTUWETHFR 09/10/13 04/14/17 Salmeterol Xinafoate [Serevent 1 puff INHALATION RT-BID 09/10/13 04/14/17 Diskus] Albuterol Nebulized [Ventolin 2.5 mg INHALATION RT-QID PRN 06/06/16 04/14/17 Nebulized] Albuterol Sulfate [Proair Hfa] 1 - 2 puff INHALATION RT-QID PRN 06/06/16 Previous Rx's Medication Instructions Recorded Ciprofloxacin HCl [Cipro] 500 mg PO Q12HR #14 tablet 04/14/17 Ciprofloxacin [Ciprofloxacin Oral 500 mg PO BID #140 ml 04/14/17 Susp] metroNIDAZOLE [Flagyl] 500 mg PO TID #21 tab 04/14/17 Allergies Allergy/AdvReac Type Severity Reaction Status Date / Time Iodinated Contrast- Oral and Allergy FLUSHING, Verified 04/14/17 09:28 IV Dye ITCHING [Iodinated Contrast Media - IV Dye] Macrolide Antibiotics Allergy Unknown Verified 04/14/17 09:28 Sulfa (Sulfonamide Allergy FLUSHING , Verified 04/14/17 09:28 Antibiotics) ITCHING fungus Allergy ASTHMA Uncoded 04/14/17 09:07 SYMPTOMS SMOKE Allergy ASTHMA Uncoded 04/14/17 09:07 SYMPTOMS Review of Systems ROS Statement: Those systems with pertinent positive or pertinent negative responses have been documented in the HPI. ROS Other: All systems not noted in ROS Statement are negative. Past Medical History Past Medical History: Asthma, COPD, CVA/TIA, GERD/Reflux, Hyperlipidemia, Thyroid Disorder Additional Past Medical History / Comment(s): hiatel hernia, Hypotension, Possible TIA, hypothyroid, deviated septum, states LBBB, chronic constipation, past hx of low blood sugar ., esophageal stricture with difficulty swallowing . Osteoporosis, History of Any Multi-Drug Resistant Organisms: None Reported Past Surgical History: Bowel Resection, Cholecystectomy, Tubal Ligation Additional Past Surgical History / Comment(s): sinus surgery for removal of polyps x3, varicose vein stripping, foot surgery RT, states polyp removed from uterus and bowel and uterus were ruptured . Past Anesthesia/Blood Transfusion Reactions: Previous Problems w/ Anesthesia Additional Past Anesthesia/Blood Transfusion Reaction / Comment(s): STATES DIFFICULTY WAKING UP Past Psychological History: Depression Smoking Status: Never smoker Past Alcohol Use History: None Reported Past Drug Use History: None Reported - Past Family History Brother(s) Family Medical History: Cancer Additional Family Medical History / Comment(s): PROSTATE General Exam - General Exam Comments Initial Comments: GENERAL: Patient is well-developed and well-nourished. Patient is nontoxic and well- hydrated and is in mild distress. ENT: Neck is soft and supple. No significant lymphadenopathy is noted. Oropharynx is clear. Moist mucous membranes. Neck has full range of motion without eliciting any pain. EYES: The sclera were anicteric and conjunctiva were pink and moist. Extraocular movements were intact and pupils were equal round and reactive to light. Eyelids were unremarkable. PULMONARY: Unlabored respirations. Good breath sounds bilaterally. No audible rales rhonchi or wheezing was noted. CARDIOVASCULAR: There is a regular rate and rhythm patient is a 1/6 systolic murmur ABDOMEN: Soft and nontender with normal bowel sounds. No palpable organomegaly was noted. There is no palpable pulsatile mass. SKIN: Skin is clear with no lesions or rashes and otherwise unremarkable. NEUROLOGIC: Patient is alert and oriented x3. Cranial nerves II through XII are grossly intact. Motor and sensory are also intact. Normal speech, volume and content. Symmetrical smile. MUSCULOSKELETAL: Normal extremities with adequate strength and full range of motion. Patient has significant scoliosis LYMPHATICS: No significant lymphadenopathy is noted PSYCHIATRIC: Normal psychiatric evaluation. Normal interpersonal interactions appears functionally intact in deals appropriately with others. No signs of depression. No signs of anxiety. Limitations: no limitations Course Vital Signs 08/25/17 07:51 Temperature 98.7 F Pulse Rate 92 Respiratory 16 Rate Blood Pressure 129/73 O2 Sat by Pulse 95 Oximetry Medical Decision Making - Medical Decision Making EKG shows a normal sinus rhythm at 94 bpm MD interval 244 QRS is under 12 QT interval 382 QTC is 477. I compared this EKG to an old EKG there are no significant EKG findings. Patient continues to complain of chest pressure and states that she has back pain which is typical now of her normal back pain. Patient states she also scrubbed the floor yesterday on her hands and knees and she thinks that's what exacerbated her pain now. But because the patient continues to have chest pressure started the patient on heparin. - Lab Data Result diagrams: 08/25/17 08:01 08/25/17 08:01 Lab Results 08/25/17 08/25/17 08/25/17 Range/Units 08:01 08:01 08:01 WBC 5.8 (3.8-10.6) k/uL RBC 4.82 (3.80-5.40) m/uL Hgb 13.9 (11.4-16.0) gm/dL Hct 42.9 (34.0-46.0) % MCV 89.0 (80.0-100.0) fL MCH 28.8 (25.0-35.0) pg MCHC 32.3 (31.0-37.0) g/dL RDW 13.7 (11.5-15.5) % Plt Count 288 (150-450) k/uL Neutrophils % 40 % Lymphocytes % 34 % Monocytes % 8 % Eosinophils % 14 % Basophils % 1 % Neutrophils # 2.3 (1.3-7.7) k/uL Lymphocytes # 2.0 (1.0-4.8) k/uL Monocytes # 0.5 (0-1.0) k/uL Eosinophils # 0.8 H (0-0.7) k/uL Basophils # 0.1 (0-0.2) k/uL PT (9.0-12.0) sec INR (<1.2) APTT (22.0-30.0) sec D-Dimer (<0.60) mg/L FEU Sodium 145 (137-145) mmol/L Potassium 4.2 (3.5-5.1) mmol/L Chloride 107 (98-107) mmol/L Carbon Dioxide 27 (22-30) mmol/L Anion Gap 11 mmol/L BUN 15 (7-17) mg/dL Creatinine 0.73 (0.52-1.04) mg/dL Est GFR (CKD-EPI)AfAm >90 (>60 ml/min/1.73 sqM) Est GFR (CKD-EPI)NonAf 79 (>60 ml/min/1.73 sqM) Glucose 129 H (74-99) mg/dL Calcium 9.9 (8.4-10.2) mg/dL Magnesium 2.5 H (1.6-2.3) mg/dL Total Bilirubin 0.4 (0.2-1.3) mg/dL AST 14 (14-36) U/L ALT 16 (9-52) U/L Alkaline Phosphatase 130 H (38-126) U/L Total Creatine Kinase 62 (30-135) U/L CK-MB (CK-2) 1.6 (0.0-2.4) ng/mL CK-MB (CK-2) Rel Index 2.6 Troponin I <0.012 (0.000-0.034) ng/mL NT-Pro-B Natriuret Pep pg/mL Total Protein 6.2 L (6.3-8.2) g/dL Albumin 3.9 (3.5-5.0) g/dL 08/25/17 08/25/17 Range/Units 08:01 08:01 WBC (3.8-10.6) k/uL RBC (3.80-5.40) m/uL Hgb (11.4-16.0) gm/dL Hct (34.0-46.0) % MCV (80.0-100.0) fL MCH (25.0-35.0) pg MCHC (31.0-37.0) g/dL RDW (11.5-15.5) % Plt Count (150-450) k/uL Neutrophils % % Lymphocytes % % Monocytes % % Eosinophils % % Basophils % % Neutrophils # (1.3-7.7) k/uL Lymphocytes # (1.0-4.8) k/uL Monocytes # (0-1.0) k/uL Eosinophils # (0-0.7) k/uL Basophils # (0-0.2) k/uL PT 9.6 (9.0-12.0) sec INR 1.0 (<1.2) APTT 22.9 (22.0-30.0) sec D-Dimer 0.37 (<0.60) mg/L FEU Sodium (137-145) mmol/L Potassium (3.5-5.1) mmol/L Chloride (98-107) mmol/L Carbon Dioxide (22-30) mmol/L Anion Gap mmol/L BUN (7-17) mg/dL Creatinine (0.52-1.04) mg/dL Est GFR (CKD-EPI)AfAm (>60 ml/min/1.73 sqM) Est GFR (CKD-EPI)NonAf (>60 ml/min/1.73 sqM) Glucose (74-99) mg/dL Calcium (8.4-10.2) mg/dL Magnesium (1.6-2.3) mg/dL Total Bilirubin (0.2-1.3) mg/dL AST (14-36) U/L ALT (9-52) U/L Alkaline Phosphatase (38-126) U/L Total Creatine Kinase (30-135) U/L CK-MB (CK-2) (0.0-2.4) ng/mL CK-MB (CK-2) Rel Index Troponin I (0.000-0.034) ng/mL NT-Pro-B Natriuret Pep 78 pg/mL Total Protein (6.3-8.2) g/dL Albumin (3.5-5.0) g/dL Disposition Clinical Impression: Unstable angina pectoris Disposition: ADMITTED IP TO THIS HOSP Referrals: Jace Casas DO [Primary Care Provider] - 1-2 days Time of Disposition: 09:02
[2017-08-25 08:14] LABS: Basophils # (A) 0.1 k/uL (0-0.2); Basophils % (A) 1 %; Eosinophils # (A) 0.8 k/uL (0-0.7); Eosinophils % (A) 14 %; HCT 42.9 % (34.0-46.0); HGB 13.9 gm/dL (11.4-16.0); Lymphocytes % (A) 34 %; MCH 28.8 pg (25.0-35.0); MCHC 32.3 g/dL (31.0-37.0); Mean Platelet Volume 7.4; Monocytes # (A) 0.5 k/uL (0-1.0); Monocytes % (A) 8 %; Neutrophils # (A) 2.3 k/uL (1.3-7.7); Neutrophils % (A) 40 %; Platelet Count 288 k/uL (150-450); RBC 4.82 m/uL (3.80-5.40); RDW 13.7 % (11.5-15.5); WBC 5.8 k/uL (3.8-10.6)
--- NOTE | 2017-08-25 08:25 | XR ---
EXAMINATION TYPE: XR chest 2V DATE OF EXAM: 08/25/2017 COMPARISON: Chest x-ray September 14, 2016 HISTORY: Chest and upper back pain. TECHNIQUE: Frontal and lateral views of the chest are obtained. FINDINGS: There is chronic parenchymal change without suspicious focal air space opacity, pleural ef fusion, or pneumothorax seen. The cardiac silhouette size is enlarged with ectatic and atherosclerot ic aorta. Retrocardiac opacity is consistent with moderate size hiatal hernia. The osseous structures remain demineralized. Right lateral rib deformities are redemonstrated. IMPRESSION: Chronic changes and cardiomegaly without acute pulmonary process.
[2017-08-25 08:27] LABS: D-Dimer 0.37 mg/L FEU (<0.60); Partial Thromboplastin Time 22.9 sec (22.0-30.0); Prothrombin Time 9.6 sec (9.0-12.0)
[2017-08-25 08:28] LABS: ALT 16 U/L (9-52); AST 14 U/L (14-36); Albumin 3.9 g/dL (3.5-5.0); Alkaline Phosphatase 130 U/L (38-126); Anion Gap 11 mmol/L; Blood Urea Nitrogen 15 mg/dL (7-17); Calcium 9.9 mg/dL (8.4-10.2); Carbon Dioxide 27 mmol/L (22-30); Chloride 107 mmol/L (98-107); Glucose 129 mg/dL (74-99); Magnesium 2.5 mg/dL (1.6-2.3); Potassium 4.2 mmol/L (3.5-5.1); Sodium 145 mmol/L (137-145); Total Bilirubin 0.4 mg/dL (0.2-1.3); Total Protein 6.2 g/dL (6.3-8.2)
[2017-08-25 08:36] LABS: Creatine Kinase 62 U/L (30-135)
[2017-08-25 08:50] LABS: Creatine Kinase MB 1.6 ng/mL (0.0-2.4); Troponin I <0.012 ng/mL (0.000-0.034)
[2017-08-25] MEDS ORDERED: HEPARIN SODIUM,PORCINE 5,000 UNIT/ML 1 ML VIAL IV ONE (09:01)
[2017-08-25] MEDS ORDERED: NITROGLYCERIN SL TABS 0.4 MG TAB SUBLINGUAL PRN (09:02)
[2017-08-25] MEDS ORDERED: HEPARIN SOD,PORK IN 0.45% NACL 25,000 UNIT in 0.45% NACL 1 500ML.BAG IV SCH (09:15)
[2017-08-25] MEDS ORDERED: ALBUTEROL INHALER 60 PUFF/8 GM INHALER INHALATION PRN (12:05)
[2017-08-25] MEDS ORDERED: ALBUTEROL NEBULIZED 2.5 MG/3 ML INHALATION PRN (12:05)
[2017-08-25] MEDS: CHOLECALCIFEROL 1,000 UNIT TAB PO SCH (12:48)
[2017-08-25] MEDS: LEVOTHYROXINE 100 MCG TAB PO SCH (12:49)
[2017-08-25] MEDS: CLOPIDOGREL 75 MG TAB PO SCH (12:49)
[2017-08-25] MEDS: NITROGLYCERIN OINT 1 INCH/GM PACKET TOPICAL SCH ×3 (12:51→23:41)
--- NOTE | 2017-08-25 14:07 | P.CRDCN ---
History of Present Illness Consult date: 08/25/17 History of present illness: Mrs. Bassett is a pleasant 77-year-old female past medical history significant for COPD, gastroesophageal reflux disease, hiatal hernia, TIA, dyslipidemia, esophageal stricture and former tobacco use. She sees Dr. Argueta in the office. We have been asked to see her in consultation for chest pain. She states last night she was washing her floor on her hand and knees and felt some palpitations. No pain, shortness of breath, dizziness or nausea at that time. She went to bed last night with no complaints. She woke up this morning and reached up to get her robe off the hook and felt an intense sharp pain between her shoulder blades that radiated around to her anterior chest wall. She denies shortness of breath, dizziness, palpitations, nausea, vomiting or diaphoresis. EMS gave her nitroglycerin x2 and she felt no relief. The pain in her chest ultimately subsided on its own and the back pain remained. At the time of my exam she is chest pain free. EKG reveals left bundle branch block. Chest xray shows cardiomegaly. Laboratory data reviewed, hemoglobin 13.9, platelets 288, d-dimer 0.37, sodium 145, potassium 4.2, creatinine 0.73, magnesium 2.5, cardiac enzymes negative 1. She currently takes Synthroid, Plavix, vitamin D, Pulmicort, albuterol. She takes plavix secondary to TIA. Most recent echocardiogram and doppler study performed 06/2017 in the office reveals preserved LV systolic function and mild TR. Most recent Lexiscan stress test performed 06/2017 in the office reveals a fixed septal defect secondary to bundle branch block with no reversible cardiac ischemia. Review of Systems At the time of my exam: CONSTITUTIONAL: Denies fever. Denies chills. EYES: Denies blurred vision. Denies vision changes. Denies eye pain. EARS, NOSE, MOUTH & THROAT: Denies headache. Denies sore throat. Denies ear pain. CARDIOVASCULAR: Denies chest pain. Denies shortness of breath. Denies orthopnea. Denies PND. Denies palpitations. RESPIRATORY: Denies cough. GASTROINTESTINAL: Denies abdominal pain. Denies diarrhea. Denies constipation. Denies nausea. Denies vomiting. MUSCULOSKELETAL: Denies myalgias. INTEGUMENTARY: Denies pruitis. Denies rash. NEUROLOGIC: Denies numbness. Denies tingling. Denies weakness. PSYCHIATRIC: Denies anxiety. Denies depression. ENDOCRINE: Denies fatigue. Denies weight change. Denies polydipsia. Denies polyurina. GENITOURINARY: Denies burning, hematuria or urgency with micturation. HEMATOLOGIC: Denies history of anemia. Denies bleeding. Past Medical History Past Medical History: Asthma, COPD, CVA/TIA, GERD/Reflux, Hyperlipidemia, Thyroid Disorder Additional Past Medical History / Comment(s): hiatel hernia, Hypotension, Possible TIA, hypothyroid, deviated septum, states LBBB, chronic constipation, past hx of low blood sugar ., esophageal stricture with difficulty swallowing . Osteoporosis, History of Any Multi-Drug Resistant Organisms: None Reported Past Surgical History: Bowel Resection, Cholecystectomy, Tubal Ligation Additional Past Surgical History / Comment(s): sinus surgery for removal of polyps x3, varicose vein stripping, foot surgery RT, states polyp removed from uterus and bowel and uterus were ruptured . Past Anesthesia/Blood Transfusion Reactions: Previous Problems w/ Anesthesia Additional Past Anesthesia/Blood Transfusion Reaction / Comment(s): STATES DIFFICULTY WAKING UP Past Psychological History: Depression Smoking Status: Never smoker Past Alcohol Use History: None Reported Past Drug Use History: None Reported - Past Family History Brother(s) Family Medical History: Cancer Additional Family Medical History / Comment(s): PROSTATE Mother Family Medical History: Myocardial Infarction ([place]) Additional Family Medical History / Comment(s): Mother of a [place] at the age of 44 yrs. Father Family Medical History: Diabetes Mellitus Medications and Allergies Home Medications Medication Instructions Recorded Confirmed Type Budesonide [Pulmicort Flexhaler] 1 puff INHALATION RT-BID 09/10/13 08/25/17 History Clopidogrel [Plavix] 75 mg PO DAILY 09/10/13 08/25/17 History Levothyroxine Sodium [Synthroid] 100 mcg PO MOTUWETHFR 09/10/13 08/25/17 History Salmeterol Xinafoate [Serevent 1 puff INHALATION RT-BID 09/10/13 08/25/17 History Diskus] Albuterol Nebulized [Ventolin 2.5 mg INHALATION RT-QID PRN 06/06/16 08/25/17 History Nebulized] Albuterol Sulfate [Proair Hfa] 1 - 2 puff INHALATION RT-QID PRN 06/06/16 History Cholecalciferol (Vitamin D3) 2,000 unit PO DAILY 08/25/17 08/25/17 History [Vitamin D3] Allergies Allergy/AdvReac Type Severity Reaction Status Date / Time Iodinated Contrast- Oral and Allergy FLUSHING, Verified 08/25/17 09:55 IV Dye ITCHING [Iodinated Contrast Media - IV Dye] Macrolide Antibiotics Allergy Unknown Verified 08/25/17 09:55 Sulfa (Sulfonamide Allergy FLUSHING , Verified 08/25/17 09:55 Antibiotics) ITCHING fungus Allergy ASTHMA Uncoded 04/14/17 09:07 SYMPTOMS SMOKE Allergy ASTHMA Uncoded 04/14/17 09:07 SYMPTOMS Physical Exam Vitals: Vital Signs Temp Pulse Pulse Resp BP BP Pulse Ox 08/25/17 10:20 97.6 F 68 18 119/73 99 08/25/17 09:48 97.5 F L 72 16 114/65 98 08/25/17 07:51 98.7 F 92 16 129/73 95 Intake and Output 08/24/17 08/25/17 08/25/17 22:59 06:59 14:59 Other: Weight 49.2 kg Blood pressure 119/73 heart rate 68 afebrile maintaining oxygen saturations on room air GENERAL: This is a 77-year-old occasion female in no apparent distress at the time of my examination. HEENT: Head is atraumatic, normocephalic. Pupils are equal, round. Sclerae anicteric. Conjunctivae are clear. Mucous membranes of the mouth are moist. Neck is supple. There is no jugular venous distention. No carotid bruit is heard. LUNGS: Clear to auscultation no wheezes, rales or rhonchi. No chest wall tenderness is noted on palpation or with deep breathing. HEART: Regular rate and rhythm with murmur left sternal border, no rubs or gallops. S1 and S2 heard. ABDOMEN: Soft, nontender. Bowel sounds are heard. No organomegaly noted. EXTREMITIES: No evidence of peripheral edema and no calf tenderness noted. VASCULAR: Radial and dorsalis pedis pulses palpated, no evidence of clubbing. NEUROLOGIC: Patient is awake, alert and oriented x3. Results 08/25/17 08:01 08/25/17 08:01 Cardiac Enzymes 08/25/17 08/25/17 Range/Units 08:01 08:01 AST 14 (14-36) U/L CK-MB (CK-2) 1.6 (0.0-2.4) ng/mL Troponin I <0.012 (0.000-0.034) ng/mL Coagulation 08/25/17 Range/Units 08:01 PT 9.6 (9.0-12.0) sec APTT 22.9 (22.0-30.0) sec CBC 08/25/17 Range/Units 08:01 WBC 5.8 (3.8-10.6) k/uL RBC 4.82 (3.80-5.40) m/uL Hgb 13.9 (11.4-16.0) gm/dL Hct 42.9 (34.0-46.0) % Plt Count 288 (150-450) k/uL Comprehensive Metabolic Panel 08/25/17 Range/Units 08:01 Sodium 145 (137-145) mmol/L Potassium 4.2 (3.5-5.1) mmol/L Chloride 107 (98-107) mmol/L Carbon Dioxide 27 (22-30) mmol/L BUN 15 (7-17) mg/dL Creatinine 0.73 (0.52-1.04) mg/dL Glucose 129 H (74-99) mg/dL Calcium 9.9 (8.4-10.2) mg/dL AST 14 (14-36) U/L ALT 16 (9-52) U/L Alkaline Phosphatase 130 H (38-126) U/L Total Protein 6.2 L (6.3-8.2) g/dL Albumin 3.9 (3.5-5.0) g/dL Current Medications Generic Name Dose Route Start Last Admin Trade Name Freq PRN Reason Stop Dose Admin Aspirin 325 mg 08/26/17 09:00 Aspirin PO DAILY NOEMI Heparin Sodium/Sodium Chloride 500 mls @ 11.97 mls/hr 08/25/17 09:15 09:42 25,000 unit/ Sodium Chloride IV 12 units/kg/hr .Q24H NOEMI 11.97 mls/hr Protocol Administration 12 UNITS/KG/HR Nitroglycerin 1 inch 08/25/17 12:00 Nitro-Bid Oint TOPICAL Q6HR NOEMI Nitroglycerin 0.4 mg 08/25/17 09:02 Nitrostat SUBLINGUAL Q5M PRN Chest Pain Intake and Output 08/24/17 08/25/17 08/25/17 22:59 06:59 14:59 Other: Weight 49.2 kg Patient Weight 08/26/17 06:59 Weight 49.2 kg 08/25/17 08:01 08/25/17 08:01 Assessment and Plan Assessment: ASSESSMENT 1. Chest pain, atypical. Musculoskeletal in nature. Recent normal stress test and echocardiogram. 2. History of TIA 3. COPD 4. GERD 5. Hiatal hernia 6. History of esophageal stricture 7. History of TIA PLAN Continue to obtain serial cardiac enzymes to rule out an acute coronary event. Patient may eat a heart healthy diet. Once second set of enzymes is obtained if negative she is stable from a cardiac perspective. Follow up with Dr. Argueta upon discharge. Thank you kindly for this consultation. Nurse Practitioner note has been reviewed, I agree with a documented findings and plan of care. Patient was seen and examined.
[2017-08-25 15:52] LABS: Creatine Kinase 44 U/L (30-135)
[2017-08-25 16:06] LABS: Creatine Kinase MB 0.9 ng/mL (0.0-2.4); Troponin I <0.012 ng/mL (0.000-0.034)
--- NOTE | 2017-08-25 17:24 | P.HPIM ---
History of Present Illness H&P Date: 08/25/17 Chief Complaint: Chest pressure Ms. Bassett is a 77-year-old female with a past medical history of Asthma, COPD, CVA/TIA, GERD/Reflux, Hyperlipidemia, Thyroid Disorder coming in with the chief complaint of chest pressure behind her sternum since this morning. She states that she has been doing some household work yesterday and woke up this chest pressure this morning. Patient denies having any difficulty in breathing, diaphoresis, nausea vomiting. Patient denies having any orthopnea PND or lower extremity swelling. No history of recent travel. No calf tenderness. Patient denies having any abdominal pain, constipation or diarrhea. No complaints of any fever cough, palpitations or difficulty in breathing. She denies having any hematuria or dysuria. Review of Systems REVIEW OF SYSTEMS: PSYCH: Normal psychiatric exam NEURO:No c/o weakness of the extremties, No facial droop, No speech abnormalities. VASCULAR: Peripheral nervous system within the normal limits no edema HEMATOLOGIC: No history of easy bleeding and bruising . No recent infections . RESPIRATORY: No cough, No SOB IMMUNE: No infections INTEGUMENT: no rashes OPHTHALMOLOGIC: No blurry vision and no eye discharge : No dysuria or hematuria NEWS CLIPPING CUTTER: No bleeding PV CARDIAC: denies any shortness of breath or paroxysmal nocturnal dyspnea MUSCULOSKELETAL : Severe kyphosis GI: No abdominal pain, Nausea or vomiting. No constipation or diarrhea. Past Medical History Past Medical History: Asthma, COPD, CVA/TIA, GERD/Reflux, Hyperlipidemia, Thyroid Disorder Additional Past Medical History / Comment(s): hiatel hernia, Hypotension, Possible TIA, hypothyroid, deviated septum, states LBBB, chronic constipation, past hx of low blood sugar ., esophageal stricture with difficulty swallowing . Osteoporosis, History of Any Multi-Drug Resistant Organisms: None Reported Past Surgical History: Bowel Resection, Cholecystectomy, Tubal Ligation Additional Past Surgical History / Comment(s): sinus surgery for removal of polyps x3, varicose vein stripping, foot surgery RT, states polyp removed from uterus and bowel and uterus were ruptured . Past Anesthesia/Blood Transfusion Reactions: Previous Problems w/ Anesthesia Additional Past Anesthesia/Blood Transfusion Reaction / Comment(s): STATES DIFFICULTY WAKING UP Past Psychological History: Depression Smoking Status: Never smoker Past Alcohol Use History: None Reported Past Drug Use History: None Reported - Past Family History Mother Family Medical History: Myocardial Infarction ([place]) Additional Family Medical History / Comment(s): Mother of a [place] at the age of 44 yrs. Father Family Medical History: Diabetes Mellitus Brother(s) Family Medical History: Cancer Additional Family Medical History / Comment(s): PROSTATE Medications and Allergies Home Medications Medication Instructions Recorded Confirmed Type Budesonide [Pulmicort Flexhaler] 1 puff INHALATION RT-BID 09/10/13 08/25/17 History Clopidogrel [Plavix] 75 mg PO DAILY 09/10/13 08/25/17 History Levothyroxine Sodium [Synthroid] 100 mcg PO MOTUWETHFR 09/10/13 08/25/17 History Salmeterol Xinafoate [Serevent 1 puff INHALATION RT-BID 09/10/13 08/25/17 History Diskus] Albuterol Nebulized [Ventolin 2.5 mg INHALATION RT-QID PRN 06/06/16 08/25/17 History Nebulized] Albuterol Sulfate [Proair Hfa] 1 - 2 puff INHALATION RT-QID PRN 06/06/16 History Cholecalciferol (Vitamin D3) 2,000 unit PO DAILY 08/25/17 08/25/17 History [Vitamin D3] Allergies Allergy/AdvReac Type Severity Reaction Status Date / Time Iodinated Contrast- Oral and Allergy FLUSHING, Verified 08/25/17 09:55 IV Dye ITCHING [Iodinated Contrast Media - IV Dye] Macrolide Antibiotics Allergy Unknown Verified 08/25/17 09:55 Sulfa (Sulfonamide Allergy FLUSHING , Verified 08/25/17 09:55 Antibiotics) ITCHING fungus Allergy ASTHMA Uncoded 04/14/17 09:07 SYMPTOMS SMOKE Allergy ASTHMA Uncoded 04/14/17 09:07 SYMPTOMS Physical Exam Vitals: Vital Signs Temp Pulse Pulse Resp BP BP Pulse Ox 08/25/17 12:00 18 08/25/17 10:20 97.6 F 68 18 119/73 99 08/25/17 09:48 97.5 F L 72 16 114/65 98 08/25/17 07:51 98.7 F 92 16 129/73 95 Intake and Output 08/25/17 08/25/17 08/25/17 06:59 14:59 22:59 Other: Voiding Method Toilet Weight 49.2 kg GENERAL EXAM GEN. APPEARANCE: Thin and not in acute in distress HEAD EXAM: atraumatic, normocephalic, normal inspection EYE EXAM: normal appearance, PERRL, EOMI. Absent: scleral icterus, conjunctival injection, periorbital swelling ENT EXAM: normal exam, mucous membranes moist NECK EXAM: normal inspection. Absent: tenderness, meningismus, full ROM, lymphadenopathy RESPIRATORY EXAM: normal lung sounds bilaterally. Absent: respiratory distress , wheezes, rales, rhonchi, stridor CARDIOVASCULAR EXAM: regular rate, normal rhythm, normal heart sounds. Absent : systolic murmur, diastolic murmur, rubs, gallop, clicks GI/ABDOMINAL EXAM: soft, normal bowel sounds. Absent: distended, tenderness, guarding, rebound, rigid EXTREMITIES EXAM: normal inspection, full ROM, normal capillary refill. Absent : tenderness, pedal edema, joint swelling, calf tenderness BACK EXAM: Severe kyphoscoliosis NEUROLOGICAL EXAM: alert, oriented X3, no focal neurological deficits on gross exam PSYCHIATRIC EXAM: normal affect, normal mood SKIN EXAM: warm, dry, intact, normal color. Absent: rash Results CBC & Chem 7: 08/25/17 08:01 08/25/17 08:01 Labs: Abnormal Lab Results - Last 24 Hours (Table) 08/25/17 08/25/17 08/25/17 Range/Units 08:01 08:01 15:07 Eosinophils # 0.8 H (0-0.7) k/uL APTT 40.9 H (22.0-30.0) sec Glucose 129 H (74-99) mg/dL Magnesium 2.5 H (1.6-2.3) mg/dL Alkaline Phosphatase 130 H (38-126) U/L Total Protein 6.2 L (6.3-8.2) g/dL Thrombosis Risk Factor Assmnt - Choose All That Apply Any of the Below Risk Factors Present?: Yes Each Factor Represents 1 point: Abnormal pulmonary function (COPD) Other Risk Factors: Yes Each Risk Factor Represents 3 Points: Age 75 years or older Other congenital or acquired thrombophilia - If yes, enter type in comment: No Thrombosis Risk Factor Assessment Total Risk Factor Score: 4 Thrombosis Risk Factor Assessment Level: Moderate Risk Assessment and Plan Assessment: ASSESSMENT Unstable angina History of TIA COPD Severe kyphoscoliosis History of esophageal stricture Hiatal hernia PLAN: Patient has been started on IV heparin drip. We'll monitor serial EKGs and troponins. As per cardio reports patient had a recent stress test done couple of months back that was within normal limits. If the enzymes are negative and no EKG changes anticipate discharge. Patient has some epigastric discomfort- will give her trial of Maalox. Resume her home medications.
[2017-08-25] MEDS ORDERED: ACETAMINOPHEN TAB 325 MG TAB PO PRN (17:28)
[2017-08-25] MEDS ORDERED: MAG HYDROX/AL HYDROX/SIMETH 30 ML CUP PO PRN (17:28)
[2017-08-25] MEDS: FORMOTEROL FUMARATE 20 MCG/2 ML NEBU INHALATION SCH (19:13)
[2017-08-25] MEDS: BUDESONIDE 0.5 MG/2 ML NEBU INHALATION SCH (19:13)
[2017-08-25 21:03] LABS: Creatine Kinase 39 U/L (30-135)
[2017-08-25 21:16] LABS: Creatine Kinase MB 0.9 ng/mL (0.0-2.4); Troponin I <0.012 ng/mL (0.000-0.034)
[2017-08-26] MEDS: NITROGLYCERIN OINT 1 INCH/GM PACKET TOPICAL SCH (04:27)
[2017-08-26 05:39] LABS: Cholesterol 238 mg/dL (<200); HDL Cholesterol 78 mg/dL (40-60); LDL Cholesterol,Calculated 141 mg/dL (0-99); Triglycerides 93 mg/dL (<150)
[2017-08-26] MEDS: LEVOTHYROXINE 100 MCG TAB PO SCH (06:15)
[2017-08-26] MEDS: FORMOTEROL FUMARATE 20 MCG/2 ML NEBU INHALATION SCH (08:07)
[2017-08-26] MEDS: BUDESONIDE 0.5 MG/2 ML NEBU INHALATION SCH (08:07)
[2017-08-26 08:30] VITALS: RESP 18; TEMP 97.6
[2017-08-26] MEDS: CHOLECALCIFEROL 1,000 UNIT TAB PO SCH (08:39)
[2017-08-26] MEDS: CLOPIDOGREL 75 MG TAB PO SCH (08:45)
[2017-08-26] MEDS ORDERED: ASPIRIN 325 MG TAB PO SCH (09:00)
[2017-08-26 11:45] VITALS: BP 121/59; PULSE 73
--- NOTE | 2017-08-27 22:38 | P.DS ---
Providers Date of admission: 08/25/17 09:13 Expected date of discharge: 08/26/17 Attending physician: Marii Caicedo Consults: 08/25/17 09:03 Consult Physician Urgent Consulting Provider: [facility] Consult Reason/Comments: Chest pain Do you want consulting provider notified?: Yes Primary care physician: [facility] Course: Ms. Bassett is a 77-year-old female with a past medical history of Asthma, COPD, CVA/TIA, GERD/Reflux, Hyperlipidemia, Thyroid Disorder coming in with the chief complaint of chest pressure behind her sternum since this morning. She states that she has been doing some household work yesterday and woke up this chest pressure this morning. Patient denies having any difficulty in breathing, diaphoresis, nausea vomiting. Patient denies having any orthopnea PND or lower extremity swelling. No history of recent travel. No calf tenderness. Patient denies having any abdominal pain, constipation or diarrhea. No complaints of any fever cough, palpitations or difficulty in breathing. She denies having any hematuria or dysuria. Most recent echocardiogram and doppler study performed 06/2017 in the office reveals preserved LV systolic function and mild TR. Most recent Lexiscan stress test performed 06/2017 in the office reveals a fixed septal defect secondary to bundle branch block with no reversible cardiac ischemia. Cardiology services recommended that the patient have serial troponins and EKGs done. No elevation in troponins or EKG changes after overnight observation. Patient states that her symptoms have resolved completely.Discharge physical examination was done and vitals reviewed. Patient is being discharged home in a stable condition. DISCHARGE DIAGNOSIS Unstable angina History of TIA COPD Severe kyphoscoliosis History of esophageal stricture Hiatal hernia Plan - Discharge Summary Discharge Rx Participant: No New Discharge Prescriptions: Continue Salmeterol Xinafoate [Serevent Diskus] 1 puff INHALATION RT-BID Levothyroxine Sodium [Synthroid] 100 mcg PO MOTUWETHFR Budesonide [Pulmicort Flexhaler] 1 puff INHALATION RT-BID Clopidogrel [Plavix] 75 mg PO DAILY Albuterol Sulfate [Proair Hfa] 1 - 2 puff INHALATION RT-QID PRN PRN Reason: Shortness Of Breath Albuterol Nebulized [Ventolin Nebulized] 2.5 mg INHALATION RT-QID PRN PRN Reason: Shortness Of Breath Cholecalciferol (Vitamin D3) [Vitamin D3] 2,000 unit PO DAILY Discharge Medication List Budesonide [Pulmicort Flexhaler] 1 puff INHALATION RT-BID 09/10/13 [History] Clopidogrel [Plavix] 75 mg PO DAILY 09/10/13 [History] Levothyroxine Sodium [Synthroid] 100 mcg PO MOTUWETHFR 09/10/13 [History] Salmeterol Xinafoate [Serevent Diskus] 1 puff INHALATION RT-BID 09/10/13 [ History] Albuterol Nebulized [Ventolin Nebulized] 2.5 mg INHALATION RT-QID PRN 06/06/16 [ History] Albuterol Sulfate [Proair Hfa] 1 - 2 puff INHALATION RT-QID PRN 06/06/16 [ History] Cholecalciferol (Vitamin D3) [Vitamin D3] 2,000 unit PO DAILY 08/25/17 [History] Follow up Appointment(s)/Referral(s): Jace Casas DO [Primary Care Provider] - 1-2 days Galdino Argueta MD [STAFF PHYSICIAN] - 09/11/17 2:45 pm Patient Instructions/Handouts: Chest Pain (DC) Discharge Disposition: HOME SELF-CARE
== END 2017-08-26 12:50 | disposition home or self-care (01) ==
LOC: EC 07:47 → 3OBS 09:13
PROVIDERS: ADMIT Internal Medicine; ATTEND Internal Medicine
DX: I20.0 Unstable angina (principal); E78.5 Hyperlipidemia, unspecified; F32.9 Major depressive disorder, single episode, unspecified; I44.7 Left bundle-branch block, unspecified; J44.9 Chronic obstructive pulmonary disease, unspecified; K21.9 Gastro-esophageal reflux disease without esophagitis; Z87.891 Personal history of nicotine dependence; K44.9 Diaphragmatic hernia without obstruction or gangrene; M41.9 Scoliosis, unspecified; M81.0 Age-related osteoporosis without current pathological fracture; Z86.73 Personal history of transient ischemic attack (TIA), and cerebral infarction without residual deficits; I51.7 Cardiomegaly; Z82.49 Family history of ischemic heart disease and other diseases of the circulatory system; Z83.3 Family history of diabetes mellitus; Z79.02 Long term (current) use of antithrombotics/antiplatelets; Z79.51 Long term (current) use of inhaled steroids; Z79.899 Other long term (current) drug therapy; Z79.890 Hormone replacement therapy; Z88.1 Allergy status to other antibiotic agents; Z91.041 Radiographic dye allergy status; Z88.2 Allergy status to sulfonamides; Z91.09 Other allergy status, other than to drugs and biological substances
CPT/HCPCS: 96365; 96366; 96372; 99285; 36415; 94640 ×4; 93005; 85379; 83880; 80061; 80053; 82550; 82553; 83735; 84484; 85025; 85610; 85730; 71046; G0378 ×2; J1644 ×2

== ENCOUNTER → 2017-12-10 | Outpatient (CLI) | payer MEDICARE ==
--- NOTE | 2017-12-15 11:26 | MM ---
Reason for exam: screening (asymptomatic). Last mammogram was performed 1 year and 1 month ago. History: Patient is postmenopausal. Physical Findings: A clinical breast exam by your physician is recommended on an annual basis and results should be correlated with mammographic findings. MG Screening Mammo w CAD Bilateral CC and MLO view(s) were taken. Prior study comparison: November 20, 2016, bilateral MG screening mammo w CAD. November 06, 2015, bilateral MG screening mammo w CAD. There are scattered fibroglandular densities. Benign appearing bilateral calcifications. No suspicious abnormality. Stable right intramammary lymph node. No significant changes when compared with prior studies. ASSESSMENT: Benign, BI-RAD 2 RECOMMENDATION: Routine screening mammogram of both breasts in 1 year.
== END | disposition home or self-care (01) ==
LOC: RADMAMWWP 10:08
PROVIDERS: ATTEND Family Medicine
DX: Z12.31 Encounter for screening mammogram for malignant neoplasm of breast (principal)
CPT/HCPCS: 77067

== ENCOUNTER 2018-01-13 10:41 | Day surgery (SDC) | payer MEDICARE ==
[2018-01-08 16:04] VITALS: BMI 21.4
[~2018-01-13 10:41] MED LIST: DEXAMETHASONE SOD PHOSPHATE 10 MG/ML 1 ML VIAL IV ONE; LACTATED RINGERS 1,000 ML IV SCH; LIDOCAINE 1% 20 ML VIAL (10MG/ML) FOR IV START INTRADERMA PRN; MORPHINE SULFATE 2 MG/ML SYRINGE IV PRN; ONDANSETRON 4 MG/2 ML VIAL IVP ONE
[2018-01-13 11:35] VITALS: RESP 16; TEMP 98.6
[2018-01-13] MEDS: PHENYLEPHRINE 10% OPHTH DROPS 5 ML BTL OP ONE ×3 (11:35→11:52)
[2018-01-13] MEDS: CYCLOPENTOLATE 1% OPHTH SOLN 2 ML BTL OP ONE ×3 (11:37→11:55)
[2018-01-13] MEDS: FLURBIPROFEN 0.03% OPHTH DROPS 2.5 ML BTL OP ONE ×3 (11:40→11:59)
[2018-01-13 12:00] LABS: Glucose,Whole Blood 100 mg/dL (75-99)
[2018-01-13] MEDS ORDERED: PROPOFOL 10 MG/ML 20 ML VIAL IV ONE (12:36)
[2018-01-13] MEDS ORDERED: HYALURONATE SODIUM INTRAOCULAR 1 EACH SYRINGE (10MG/ML) INTRAOCULA ONE (12:43)
[2018-01-13] MEDS ORDERED: BALANCED SALT IRRIG SOLN COMB2 15 ML IRRIG.SOLN IRRIGATION ONE (12:43)
[2018-01-13] MEDS ORDERED: EPINEPHrine (PF) 0.5 ML in BALANCED SALT IRRIG SOLN COMB2 500 ML IRRIGATION ONE (12:44)
[2018-01-13] MEDS ORDERED: CHONDROITIN-SOD HYALURONATE 1 EACH SYRINGE (0.75 ML) INTRAOCULA ONE (12:58)
--- NOTE | 2018-01-13 13:09 | P.OP ---
Date of Procedure: 01/13/18 Procedure(s) Performed: PREOPERATIVE DIAGNOSIS: Cataract, right eye. POSTOPERATIVE DIAGNOSIS: Cataract, right eye. OPERATION: Phacoemulsification cataract, right eye. DESCRIPTION OF PROCEDURE: The patient was taken to the preoperative holding area. Intravenous Propofol was given so as to bring about adequate sedation. The following mixture was given for local anesthesia: 5 mL of 2% lidocaine, 5 mL of 0.75% Marcaine, and 1 mL of Wydase. Approximately 4 mL was injected in the retrobulbar space of the surgical eye. Additional 1 mL was then directed to the temporal area of the surgical eye. This was performed to allow adequate neurological block of the facial muscles. The patient was revived and then taken into the operative room. The patient was prepped and draped in the usual sterile manner for the operative eye. A lid speculum was put into position. The conjunctiva was resected back from the limbus in the 12 o'clock position. Bleeding was controlled with electrocautery. A #69 blade was then used and a half-thickness scleral incision approximately 1-mm posterior to the limbus was made on bare sclera. This was shelved in the clear cornea using a crescent knife. Next a 15-degree blade was used to make a stab incision at the 3 o' clock position at the corneolimbal interface. Keratome blade was then used and the superior wound was extended into the anterior chamber. Viscoelastic was injected into the anterior chamber and to maintain its form. Next, a cystotome was used and a continuous anterior capsulotomy was made without difficulty. Hydrodissection using a blunt cannula and BSS was performed. Phaco probe was then employed and a groove extending from 12 to 6 o'clock in the lens was created. A Adebayo wand was used through the stab incision so as to perform a divide and conquer technique. Next an irrigation aspiration probe was utilized and any residual cortex was removed from the eye. Again, viscoelastic was injected into the anterior chamber. An Betito posterior chamber lens implant was placed in the cartridge and injected into the anterior chamber without difficulty. The [employer]comey hook was utilized to spin the lens into position and this was again performed without any difficulty. The irrigation and aspiration probe was again employed and any residual viscoelastic was removed from the eye. Then BSS was injected into the limbal stab incision and the anterior chamber re-inflated. The conjunctiva was reapproximated using electrocautery. One drop of 0.25% Timoptic was placed over the corneal along with TobraDex ophthalmic ointment. Two sterile patches and a Becerril eye shield were taped into position. The patient was transported to the recovery room in stable condition. Pathology: none sent Condition: stable Disposition: same day
[2018-01-13 13:34] VITALS: BP 129/82; PULSE 70
[2018-01-13] MEDS ORDERED: TIMOLOL 0.5% OPHTH DROPS 5 ML BTL OP ONE (23:00)
[2018-01-13] MEDS ORDERED: GENTAMICIN/PREDNISOL AC OPHTH OINT 3.5GM OPHTHALMIC ONE (23:00)
[2018-01-13] MEDS ORDERED: BUPIVACAINE (PF) 0.75% 5 ML, HYALURONIDASE, HUMAN RECOMB 150 UNIT, LIDOCAINE 2% (PF) 10... MISCELLANE ONE ×3 (23:00)
== END 2018-01-13 13:52 | disposition home or self-care (01) ==
LOC: OR 10:41
PROVIDERS: ATTEND Ophthalmology
DX: H25.13 Age-related nuclear cataract, bilateral (principal); H04.129 Dry eye syndrome of unspecified lacrimal gland; E07.9 Disorder of thyroid, unspecified; Z79.02 Long term (current) use of antithrombotics/antiplatelets; Z79.890 Hormone replacement therapy; Z79.51 Long term (current) use of inhaled steroids; Z79.899 Other long term (current) drug therapy; Z88.1 Allergy status to other antibiotic agents; Z88.2 Allergy status to sulfonamides; Z91.041 Radiographic dye allergy status; E78.5 Hyperlipidemia, unspecified; I44.7 Left bundle-branch block, unspecified; R94.39 Abnormal result of other cardiovascular function study; J44.9 Chronic obstructive pulmonary disease, unspecified; G43.909 Migraine, unspecified, not intractable, without status migrainosus; K21.9 Gastro-esophageal reflux disease without esophagitis; K44.9 Diaphragmatic hernia without obstruction or gangrene
CPT/HCPCS: 66984; V2632; J3470; J2001; J0171; J2704

== ENCOUNTER → 2018-02-27 | Outpatient (CLI) | payer MEDICARE ==
--- NOTE | 2018-02-27 11:36 | CT ---
EXAMINATION TYPE: CT image guided sinus DATE OF EXAM: 02/27/2018 COMPARISON: None HISTORY: Pre OP scan. Image guided CT DLP: 511 mGycm. Automated Exposure Control for Dose Reduction was Utilized. TECHNIQUE: CT scan of the sinuses is performed without contrast, axial images are obtained, coronal r eformatted images are also reviewed. FINDINGS: There is circumferential mucosal thickening of the frontal sinuses, maxillary sinuses, ethm oid sinuses, and hypoplastic sphenoid sinuses. Complete opacification is seen of the frontal and left maxillary sinuses. There is leftward bowing of the nasal septum. High density within the left maxill sena sinus and ethmoid sinuses suggests complicated infectious process such as fungal etiology. Multip le osseous septa have developed within the frontal sinuses suggestive of a more chronic etiology. No cortical erosion is appreciated. Mastoid air cells appear well aerated. Mucoperiosteal thickening is seen of the maxillary sinuses also indicative of a chronic nature. Prior surgical augmentation of th e ostia medial complexes is seen although there remains occlusion. No Pito cells or charla bullosa. Osseous fragments are seen within the maxillary sinuses from chronic periosteal thickening presumabl y. Osseous structures appear intact. Visualized portions of the brain are suboptimally evaluated give n technique. Right ocular lenses surgically absent. IMPRESSION: Extensive complicated pansinusitis with findings suggesting of internal hemorrhage or fun gal etiology. No osseous erosion.
== END ==
LOC: RADCTMAIN 10:35
PROVIDERS: ATTEND Otolaryngology
DX: J32.4 Chronic pansinusitis (principal); Z88.2 Allergy status to sulfonamides; Z91.048 Other nonmedicinal substance allergy status
CPT/HCPCS: 70486

== ENCOUNTER 2018-03-12 09:33 | Day surgery (SDC) | payer MEDICARE ==
[2018-03-10 16:26] VITALS: BMI 22.4
[~2018-03-12 09:33] MED LIST changes: +DEXAMETHASONE SOD PHOSPHATE 4 MG/ML 1 ML VIAL IV ONE; +FAMOTIDINE 20 MG/2 ML VIAL IV ONE; +MIDAZOLAM 2 MG/2 ML VIAL IV PRN; -MORPHINE SULFATE 2 MG/ML SYRINGE IV PRN; +OXYMETAZOLINE 0.05% NASL SPRAY 1 SPRAY BOTTLE NASAL ONE; +ceFAZolin 1,000 MG in DEXTROSE/WATER 1 50ML.BAG IV ONE; +fentaNYL (PF) 50 MCG/ML 2 ML AMP IV PRN
[2018-03-12 10:18] LABS: Glucose,Whole Blood 105 mg/dL (75-99)
[2018-03-12] MEDS ORDERED: PROPOFOL 10 MG/ML 20 ML VIAL IV ONE (12:31)
[2018-03-12] MEDS ORDERED: MIDAZOLAM 2 MG/2 ML VIAL ONE (12:31)
[2018-03-12] MEDS ORDERED: SUCCINYLCHOLINE CHLORIDE 100 MG/5 ML SYR IV ONE (12:31)
[2018-03-12] MEDS ORDERED: LABETALOL 5 MG/ML VIAL MDV ONE (12:31)
[2018-03-12] MEDS ORDERED: fentaNYL (PF) 50 MCG/ML 2 ML AMP ONE (12:31)
[2018-03-12] MEDS ORDERED: LIDOCAINE 1% INJ 10MG/ML (20 ML MDV) ONE (12:31)
[2018-03-12] MEDS ORDERED: CIPROFLOXACIN-DEXAMETH 0.3-0.1% DROPS 7.5 ML BTL BOTH EARS ONE (13:00)
[2018-03-12] MEDS ORDERED: EPINEPHrine 1 MG/ML (MDV) 30 ML VIAL IRRIGATION ONE ×2 (13:01)
[2018-03-12] MEDS ORDERED: BUPIVACAIN-EPI 0.5%-1:200,000 30 ML VIAL SQ ONE ×2 (13:01)
[2018-03-12] MEDS ORDERED: LIDOCAINE 1%-EPI 1:100,000 20 ML VIAL SQ ONE ×2 (13:01)
[2018-03-12] MEDS ORDERED: FLUORESCEIN STRIPS 1 MG STRIP MISCELLANE ONE (13:01)
[2018-03-12 14:22] VITALS: TEMP 97.3
[2018-03-12 14:31] VITALS: RESP 16
--- NOTE | 2018-03-12 14:38 | P.OP ---
Date of Procedure: 03/12/18 Preoperative Diagnosis: Chronic sinusitis Sinonasal polyposis Eustachian tube dysfunction Postoperative Diagnosis: Same Procedure(s) Performed: Image guided bilateral functional endoscopic sinus surgery of all sinuses with polypectomy Placement of propel and contour drug-eluting stents bilaterally Bilateral direct microscopic tympanostomy and tube placement utilizing ultraseal tubes. Anesthesia: GETA Surgeon: Robbie Burrell Estimated Blood Loss (ml): 25 Pathology: other (Sinonasal) Condition: stable Disposition: PACU Indications for Procedure: Patient has massive sinonasal polyposis eustachian tube dysfunction middle ear effusion etc. Patient has failed medical therapy was found have chronic pansinusitis with sinonasal polyposis and middle ear effusion. She's failed medical therapy and surgery was recommended. All risks, benefits, and alternative therapies were discussed. Consent was obtained and all questions were answered. Operative Findings: Massive sinonasal polyposis bilateral middle ear effusion. Pus was seen throughout the sinuses with a large amount of in supinated mucus. Description of Procedure: This patient was taken to the operative room and placed in the supine position. A general inhalation anesthetic was administered to the patient by the department of anesthesia with a functioning IV line in place. The patient was monitored throughout the entire case by the department of anesthesia. The eyes were taped shut for protection. The patient was placed in a slight reverse Trendelenburg position. The patient had previously utilize Afrin nasal spray preoperatively. The nose was evaluated and the septum lateral nasal wall and inferior turbinates were injected with lidocaine 1% with epinephrine 1 100,000 bilaterally. Approximately 10 minutes were allowed wait for full vasoconstrictive effects to take place. Both tympanic membranes were visualized with an operating Zeiss microscope. Cerumen and epithelial debris was removed from the external auditory canals bilaterally. The tympanic membranes were visualized under an operative microscope. Tympanostomy incisions were made inferiorly. Fluid was suctioned from the middle ear space with use of a #3 and #5 Timmons suction with care to avoid any trauma to the middle ear structures. Ventilation tubes were then inserted bilaterally. Excellent placement was obtained. We registered this patient with an image guided [employer] system. This patient underwent image guided registration this patient underwent image guided registration. We utilized the system and followed anatomic points throughout the entire surgery. This was used frequently through the entire surgery because of her massive polyps we needed anatomic verification. We then entered the nose with a 0 and 30 Singh carmella endoscope. Previous to this we did inject the lateral nasal wall and middle turbinate and uncinate process with lidocaine 1% with epinephrine 1 100,000. Approximately 10 minutes were allowed wait for full vasoconstrictive effects to take place. Intranasal polyps were noted. They were noted bilaterally. The intranasal polyps were removed with use of a microdebrider. With use of a microdebrider and a pediatric backbiter, we took down the uncinate process bilaterally. We then opened the maxillary sinuses bilaterally. We utilized a microdebrider for this and entered the maxillary sinuses and removed diseased tissue and polypoid tissue. This was done bilaterally. After the maxillary sinuses were opened and the diseased tissue and polyps were removed we entered the ethmoid bulla and with use of a microdebrider and up-biting rajwinder and Na, we remove the anterior septations and remove diseased tissue from the anterior ethmoids with direct visualization. We then followed the fovea frontalis through the basal lamella and into the posterior ethmoid air cells and did a total ethmoidectomy with removal of polypoid material. Once the ethmoids cells were all taken down we then entered the sphenoid sinus medially and inferiorly underneath the inferior attachment of the superior turbinate. The sphenoid sinus was opened entered and diseased tissue and polyps were removed bilaterally. This was done with a microdebrider and Blakesley. We then entered the frontal sinuses with a giraffe and up-biting Blakesley entered on the agar nasi cells. We open the frontal sinuses and removed sinus tissue and polypoid tissue that was diseased. We explored the frontal sinuses bilaterally. To summarize all sinuses were open all sinuses were explored and we remove diseased tissue and polyps from the sphenoid maxillary and frontal sinuses. Polyps were removed from the nose. Ethmoid sinuses were opened totally. Nasal pore was inserted and minimal bleeding was encountered. We reinspected the skull base there is no signs of any orbital penetration or signs of any intracranial penetration. Propel and contour was placed bilaterally is a drug-eluting stent. The sugical site was reinspected after the xerogel propel and Surgicel powder was placed and no bleeding was seen. This patient
[2018-03-12] MEDS ORDERED: HYDROmorphone 1 MG/ML 1 ML SYRINGE IVP ONE ×2 (14:44→14:51)
[2018-03-12] MEDS ORDERED: HYDROcodone/APAP 5-325MG 1 EACH TAB PO ONE (16:10)
[2018-03-12 16:39] VITALS: BP 144/82; PULSE 64
== END 2018-03-12 17:03 | disposition home or self-care (01) ==
LOC: OR 09:33
PROVIDERS: ATTEND Otolaryngology
DX: J32.4 Chronic pansinusitis (principal); J33.8 Other polyp of sinus; H69.90 Unspecified Eustachian tube disorder, unspecified ear; J43.9 Emphysema, unspecified; J45.909 Unspecified asthma, uncomplicated; H93.19 Tinnitus, unspecified ear; H91.90 Unspecified hearing loss, unspecified ear; I51.9 Heart disease, unspecified; E78.5 Hyperlipidemia, unspecified; Z86.73 Personal history of transient ischemic attack (TIA), and cerebral infarction without residual deficits; K21.9 Gastro-esophageal reflux disease without esophagitis; E78.00 Pure hypercholesterolemia, unspecified; M81.0 Age-related osteoporosis without current pathological fracture; E07.9 Disorder of thyroid, unspecified; Z79.02 Long term (current) use of antithrombotics/antiplatelets; Z79.890 Hormone replacement therapy; Z79.51 Long term (current) use of inhaled steroids; Z79.899 Other long term (current) drug therapy; Z91.041 Radiographic dye allergy status; Z88.2 Allergy status to sulfonamides; Z91.048 Other nonmedicinal substance allergy status; Z91.09 Other allergy status, other than to drugs and biological substances
CPT/HCPCS: 88305; 69436; 31267; 31259; 31253; C2625 ×2; C1726; J0171; J2250; J1100; J2405; J2001; J3010; J1170; J0690; J0330; J2704

== ENCOUNTER 2018-04-20 11:15 | Emergency (ER) | payer MEDICARE ==
[2018-04-20 11:34] VITALS: RESP 18
--- NOTE | 2018-04-20 11:42 | ED ---
General Adult HPI - General Chief complaint: Head Injury Stated complaint: Head Injury Source: patient Mode of arrival: ambulatory Limitations: no limitations - History of Present Illness Initial comments: Dictation was produced using Viewglass dictation software. please excuse any grammatical, word or spelling errors. Chief Complaint: 78-year-old female with history of asthma, COPD, dyslipidemia on Plavix presents with head injury. History of Present Illness: Patient was at the local [facility] when she was pulling. Patella out of the dispenser. The front door of the dispenser became loose and struck her on the right frontal forehead. Patient denies any loss of consciousness. This allegedly happened 1 hour prior to arrival. Patient was concerned about a brain bleed because she is on Plavix. Patient has no other complaints at this time. The ROS documented in this emergency department record has been reviewed and confirmed by me. Those systems with pertinent positive or negative responses have been documented in the HPI. All other systems are other negative and/or noncontributory. - Related Data Home Medications Medication Instructions Recorded Confirmed Budesonide [Pulmicort Flexhaler] 1 puff INHALATION RT-BID 09/10/13 04/20/18 Levothyroxine Sodium [Synthroid] 100 mcg PO MOTUWETHFR 09/10/13 04/20/18 Salmeterol Xinafoate [Serevent 1 puff INHALATION RT-BID 09/10/13 04/20/18 Diskus] Albuterol Nebulized [Ventolin 2.5 mg INHALATION RT-Q6H PRN 06/06/16 04/20/18 Nebulized] Albuterol Inhaler [Ventolin Hfa 1 - 2 puff INHALATION RT-Q6H PRN 03/10/18 Inhaler] Cholecalciferol (Vitamin D3) 2,000 unit PO DAILY 04/20/18 04/20/18 [Vitamin D3] Clopidogrel [Plavix] 75 mg PO DAILY 04/20/18 04/20/18 Allergies Allergy/AdvReac Type Severity Reaction Status Date / Time Iodinated Contrast- Oral and Allergy FLUSHING, Verified 04/20/18 12:12 IV Dye ITCHING, [Iodinated Contrast Media - felt warm IV Dye] Macrolide Antibiotics Allergy INTERACTS Verified 04/20/18 12:12 WITH ASTHMA MEDS mold Allergy asthma Verified 04/20/18 12:12 symptoms Sulfa (Sulfonamide Allergy FLUSHING , Verified 04/20/18 12:12 Antibiotics) ITCHING fungus Allergy ASTHMA Uncoded 04/20/18 11:34 SYMPTOMS SMOKE Allergy ASTHMA Uncoded 04/20/18 11:34 SYMPTOMS Review of Systems ROS Statement: Those systems with pertinent positive or pertinent negative responses have been documented in the HPI. ROS Other: All systems not noted in ROS Statement are negative. Past Medical History Past Medical History: Asthma, COPD, CVA/TIA, GERD/Reflux, Hyperlipidemia, Thyroid Disorder Additional Past Medical History / Comment(s): large hiatel hernia, hypotension, possible TIA, hx migraines, deviated septum, chronic constipation, past hx of low blood sugar, esophageal stricture with difficulty swallowing . 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, states polyp removed from uterus (got punctured uterus and intestine and had to have surgery to repair uterus and intestine) Past Anesthesia/Blood Transfusion Reactions: Previous Problems w/ Anesthesia Additional Past Anesthesia/Blood Transfusion Reaction / Comment(s): STATES DIFFICULTY WAKING UP Past Psychological History: Depression Smoking Status: Never smoker Past Alcohol Use History: None Reported Past Drug Use History: None Reported - Past Family History Mother Family Medical History: Myocardial Infarction ([place]) Additional Family Medical History / Comment(s): Mother of a [place] at the age of 44 yrs. Father Family Medical History: Diabetes Mellitus Brother(s) Family Medical History: Cancer Additional Family Medical History / Comment(s): PROSTATE General Exam - General Exam Comments Initial Comments: PHYSICAL EXAM: General Impression: Alert and oriented x3, not in acute distress HEENT: Normocephalic atraumatic, extra-ocular movements intact, pupils equal and reactive to light bilaterally, mucous membranes moist. Cardiovascular: Heart regular rate and rhythm, S1&S2 audible, no murmurs, rubs or gallops Chest: Lungs clear to auscultation bilaterally, no rhonchi, no wheeze, no rales Abdomen: Bowel sounds present, abdomen soft, non-tender, non-distended, no organomegaly Musculoskeletal: Pulses present and equal in all extremities, no peripheral edema Motor: Power 5/5 bilaterally, no focal deficits noted Neurological: CN II-XII grossly intact, no focal motor or sensory deficits noted Skin: Intact with no visualized rashes Psych: Normal affect and mood Limitations: no limitations Course Vital Signs 04/20/18 11:32 Temperature 97.8 F Pulse Rate 82 Respiratory 18 Rate Blood Pressure 111/58 O2 Sat by Pulse 99 Oximetry Medical Decision Making - Medical Decision Making ED course: 78-year-old female presents with concerns of brain bleed after a trauma. History is consistent with low mechanism injury. Physical examination is benign. Vital signs upon arrival are within acceptable limits. CT was obtained showing no acute intracranial processes. Patient does have sinusitis bilaterally that she is informed about. Patient appears well. She is to be discharge. Told to return to emergency Department with any worsening symptoms including worsening headache, lethargy or altered mental status. Patient understandable agreeable to plan. Told to follow-up with primary care physician upon discharge. presentation consistent with head contusion. Disposition Clinical Impression: Head contusion Disposition: HOME SELF-CARE Condition: Good Instructions: Scalp Contusion in Adults (ED) Is patient prescribed a controlled substance at d/c from ED?: No Referrals: Jace Casas DO [Primary Care Provider] - 1-2 days Time of Disposition: 12:18
--- NOTE | 2018-04-20 12:02 | CT ---
EXAMINATION TYPE: CT brain wo con DATE OF EXAM: 04/20/2018 HISTORY: Head injury with headache. CT DLP: 1099.4 mGycm. Automated Exposure Control for Dose Reduction was Utilized. TECHNIQUE: CT scan of the head is performed without contrast. COMPARISON: CT brain October 01, 2014. FINDINGS: There is no acute intracranial hemorrhage or midline shift identified. There is diffuse v entricular and sulcal prominence consistent with diffuse age-related cerebral atrophy. There is more prominent low-attenuation in the periventricular white matter most likely on basis of product of chr onic small vessel ischemic change redemonstrated. There is air-fluid level in the left frontal sinus. There is persistent near complete opacification o f ethmoid sinuses bilaterally. There is moderate mucosal thickening in the left sphenoid sinus. There is patchy fluid in the right sphenoid sinus. Parr are sclerotic and thickened. There is evidence of prior surgery at level of ostiomeatal complex bilaterally. There is moderate to severe mucosal thick ening with dependent air-fluid levels in bilateral maxillary sinuses. Right lens is now not well seen . IMPRESSION: No acute intracranial hemorrhage or midline shift. There is mild diffuse age-related ce rebral atrophy and fairly severe chronic small vessel ischemic change redemonstrated. Persistent acu te on chronic paranasal pansinusitis despite surgery.
[2018-04-20 12:40] VITALS: BP 108/60; PULSE 98; TEMP 97.7
== END 2018-04-20 12:38 | disposition home or self-care (01) ==
LOC: EC 11:15
DX: S00.83XA Contusion of other part of head, initial encounter (principal); J32.9 Chronic sinusitis, unspecified; J44.9 Chronic obstructive pulmonary disease, unspecified; E06.3 Autoimmune thyroiditis; Z88.1 Allergy status to other antibiotic agents; Z88.2 Allergy status to sulfonamides; Z91.041 Radiographic dye allergy status; Z91.048 Other nonmedicinal substance allergy status; Z79.02 Long term (current) use of antithrombotics/antiplatelets; Z79.51 Long term (current) use of inhaled steroids; Z79.899 Other long term (current) drug therapy; Z86.73 Personal history of transient ischemic attack (TIA), and cerebral infarction without residual deficits; Z98.890 Other specified postprocedural states; W22.8XXA Striking against or struck by other objects, initial encounter; Y93.89 Activity, other specified; Y92.511 Restaurant or cafe as the place of occurrence of the external cause
CPT/HCPCS: 70450; 99283

== ENCOUNTER 2018-05-29 18:02 | Emergency (ER) | payer MEDICARE ==
[2018-05-29 18:13] VITALS: TEMP 97.6
--- NOTE | 2018-05-29 19:03 | ED ---
General Adult HPI - General Chief complaint: Abdominal Pain Stated complaint: poss bowel obstruction Time Seen by Provider: 05/29/18 18:19 Source: patient, RN notes reviewed Mode of arrival: ambulatory Limitations: no limitations - History of Present Illness Initial comments: 78-year-old female with a past medical history of hiatal hernia, COPD, TIA, asthma, GERD, chronic constipation presents for chief with constipation. Patient states this has been ongoing her whole life but is worsened in the past few days. Patient states she has a small hard bowel movement earlier today that feels like she has to pass more. Patient has a rectocele states this makes it a difficult. Patient denies any abdominal pain besides pressure over her bladder which she states is from the rectocele. Patient is passing gas without difficulty. Patient has no other complaints at this time including shortness of breath, chest pain, abdominal pain, nausea or vomiting, headache, or visual changes. - Related Data Home Medications Medication Instructions Recorded Confirmed Budesonide [Pulmicort Flexhaler] 1 puff INHALATION RT-BID 09/10/13 05/29/18 Levothyroxine Sodium [Synthroid] 100 mcg PO MOTUWETHFR 09/10/13 05/29/18 Salmeterol Xinafoate [Serevent 1 puff INHALATION RT-BID 09/10/13 05/29/18 Diskus] Albuterol Inhaler [Ventolin Hfa 1 - 2 puff INHALATION RT-Q6H PRN 03/10/18 Inhaler] Clopidogrel [Plavix] 75 mg PO HS 04/20/18 05/29/18 Cephalexin [Keflex] 500 mg PO Q8HR 05/29/18 05/29/18 L.acidoph,Paracasei, B.lactis 1 cap PO DAILY 05/29/18 05/29/18 [Probiotic] Mupirocin 2% Oint [Bactroban 2% 1 applic TOPICAL TID 05/29/18 05/29/18 Oint] Allergies Allergy/AdvReac Type Severity Reaction Status Date / Time Iodinated Contrast- Oral and Allergy FLUSHING, Verified 05/29/18 18:40 IV Dye ITCHING, [Iodinated Contrast Media - felt warm IV Dye] Macrolide Antibiotics Allergy INTERACTS Verified 05/29/18 18:40 WITH ASTHMA MEDS mold Allergy asthma Verified 02/01/19 18:40 symptoms Sulfa (Sulfonamide Allergy FLUSHING , Verified 05/29/18 18:40 Antibiotics) ITCHING fungus Allergy ASTHMA Uncoded 05/29/18 18:13 SYMPTOMS SMOKE Allergy ASTHMA Uncoded 05/29/18 18:13 SYMPTOMS Review of Systems ROS Statement: Those systems with pertinent positive or pertinent negative responses have been documented in the HPI. ROS Other: All systems not noted in ROS Statement are negative. Past Medical History Past Medical History: Asthma, COPD, CVA/TIA, GERD/Reflux, Hyperlipidemia, Thyroid Disorder Additional Past Medical History / Comment(s): large hiatel hernia, hypotension, possible TIA, hx migraines, deviated septum, chronic constipation, past hx of low blood sugar, esophageal stricture with difficulty swallowing . 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, states polyp removed from uterus (got punctured uterus and intestine and had to have surgery to repair uterus and intestine) cataract Past Anesthesia/Blood Transfusion Reactions: Previous Problems w/ Anesthesia Additional Past Anesthesia/Blood Transfusion Reaction / Comment(s): STATES DIFFICULTY WAKING UP Past Psychological History: Depression Smoking Status: Never smoker Past Alcohol Use History: None Reported Past Drug Use History: None Reported - Past Family History Mother Family Medical History: Myocardial Infarction ([place]) Additional Family Medical History / Comment(s): Mother of a [place] at the age of 44 yrs. Father Family Medical History: Diabetes Mellitus Brother(s) Family Medical History: Cancer Additional Family Medical History / Comment(s): PROSTATE General Exam Limitations: no limitations General appearance: alert, in no apparent distress Head exam: Present: atraumatic, normocephalic, normal inspection Eye exam: Present: normal appearance, PERRL, EOMI. Absent: scleral icterus, conjunctival injection, periorbital swelling ENT exam: Present: normal exam, mucous membranes moist Neck exam: Present: normal inspection, full ROM. Absent: tenderness, meningismus, lymphadenopathy Respiratory exam: Present: normal lung sounds bilaterally. Absent: respiratory distress, wheezes, rales, rhonchi, stridor Cardiovascular Exam: Present: regular rate, normal rhythm, normal heart sounds. Absent: systolic murmur, diastolic murmur, rubs, gallop, clicks GI/Abdominal exam: Present: soft, normal bowel sounds. Absent: distended, tenderness (no abdominal tenderness to light or deep palpation), guarding, rebound, rigid Rectal exam: Present: fecal impaction Neurological exam: Present: alert, oriented X3, CN II-XII intact Psychiatric exam: Present: normal affect, normal mood Course Vital Signs 05/29/18 18:09 Temperature 97.6 F Pulse Rate 80 Respiratory 18 Rate Blood Pressure 113/76 O2 Sat by Pulse 99 Oximetry Medical Decision Making - Medical Decision Making 78-year-old female presents to the emergency department for a chief constipation. Patient states she had a small hard bowel movement earlier today and states she feels that she needs to pass more stool. Patient states is a common occurrence because she has a rectocele. On exam patient has no abdominal tenderness whatsoever. She denies any abdominal pain. She is passing gas normally and passed a small stool earlier today. No significant concern for obstruction. On rectal exam patient does have impaction noted. However was unable to digitally disimpact patient. Milk of molasses was given which allowed patient to have 3 large bowel movements. She states the pressure above her bladder is completely gone. Patient states she has MiraLAX at home. She will take this tonight. She will follow up with primary care in 1-2 days. Discussed returning here to the emergency department if patient has worsening symptoms such as abdominal pain. Disposition Clinical Impression: Fecal impaction Disposition: HOME SELF-CARE Condition: Good Instructions (If sedation given, give patient instructions): Constipation (ED) Additional Instructions: Please take MiraLAX tonight and tomorrow. Please follow-up with primary care in 1-2 days. If you start to have abdominal pain or worsening symptoms return immediately to the emergency department. Is patient prescribed a controlled substance at d/c from ED?: No Referrals: Jace Casas DO [Primary Care Provider] - 1-2 days Time of Disposition: 19:58
[2018-05-29 20:08] VITALS: BP 108/72; PULSE 76; RESP 16
== END 2018-05-29 20:09 | disposition home or self-care (01) ==
LOC: EC 18:02
DX: K56.41 Fecal impaction (principal); N81.6 Rectocele; J44.9 Chronic obstructive pulmonary disease, unspecified; E06.3 Autoimmune thyroiditis; Z79.51 Long term (current) use of inhaled steroids; Z79.890 Hormone replacement therapy; Z79.02 Long term (current) use of antithrombotics/antiplatelets; Z88.1 Allergy status to other antibiotic agents; Z88.2 Allergy status to sulfonamides; Z91.041 Radiographic dye allergy status; Z91.018 Allergy to other foods; Z91.048 Other nonmedicinal substance allergy status; Z91.09 Other allergy status, other than to drugs and biological substances; Z86.73 Personal history of transient ischemic attack (TIA), and cerebral infarction without residual deficits; Z95.5 Presence of coronary angioplasty implant and graft
CPT/HCPCS: 99283

== ENCOUNTER 2018-06-26 11:16 | Day surgery (SDC) | payer MEDICARE ==
[2018-06-23 15:42] VITALS: BMI 21.7
[~2018-06-26 11:16] MED LIST changes: -DEXAMETHASONE SOD PHOSPHATE 10 MG/ML 1 ML VIAL IV ONE; -DEXAMETHASONE SOD PHOSPHATE 4 MG/ML 1 ML VIAL IV ONE; -FAMOTIDINE 20 MG/2 ML VIAL IV ONE; -LIDOCAINE 1% 20 ML VIAL (10MG/ML) FOR IV START INTRADERMA PRN; -MIDAZOLAM 2 MG/2 ML VIAL IV PRN; -ONDANSETRON 4 MG/2 ML VIAL IVP ONE; -OXYMETAZOLINE 0.05% NASL SPRAY 1 SPRAY BOTTLE NASAL ONE; -ceFAZolin 1,000 MG in DEXTROSE/WATER 1 50ML.BAG IV ONE; -fentaNYL (PF) 50 MCG/ML 2 ML AMP IV PRN
[2018-06-26 11:32] VITALS: RESP 18; TEMP 97.8
[2018-06-26] MEDS ORDERED: LACTATED RINGERS 1,000 ML IV ONE (11:34)
[2018-06-26] MEDS ORDERED: LIDOCAINE 1% 20 ML VIAL (10MG/ML) FOR IV START INTRADERMA ONE (11:35)
[2018-06-26] MEDS ORDERED: PROPOFOL 10 MG/ML 20 ML VIAL IV ONE (12:14)
[2018-06-26] MEDS ORDERED: LIDOCAINE 1% INJ 10MG/ML (20 ML MDV) ONE (12:14)
--- NOTE | 2018-06-26 12:29 | P.PCN ---
Date of Procedure: 06/26/18 Procedure(s) Performed: BRIEF HISTORY: Patient is a 78-year-old, pleasant, white female, scheduled for an upper endoscopy for progressive dysphagia to solids for the last 1 year duration. She had prior episodes of acute for dysphagia requiring an upper endoscopy on an emergency basis in 2015. However the last 1 year has worsening symptoms and lost 15 pounds.. PROCEDURE PERFORMED: Esophagogastroduodenoscopy with balloon dilation. PREOPERATIVE DIAGNOSIS: Progressive dysphagia to solids and weight loss. IV sedation per anesthesia. PROCEDURE: After informed consent was obtained, the patient was brought into the endoscopy unit. IV sedation was administered by Anesthesia under continuous monitoring. Initially the Olympus GIF-140 video endoscope was inserted into the mouth. Esophagus intubated without any difficulty. It was gradually advanced into the distal esophagus. There was a distal esophageal stricture identified. Scope could not be advanced through the stricture. At this time I proceeded with a balloon dilation using 10-12 TTS balloon and the stricture was dilated in a sequential manner for 90 seconds. Following this there was a brisk oozing identified. I was able to advance the scope into the stomach and duodenum and carefully examined. The bulb and the second part of the duodenum appeared normal. The scope at this time was withdrawn to the stomach, adequately insufflated with air, and upon careful examination, mucosa of the antrum, body, cardia and the fundus appeared normal. The scope was then withdrawn into the esophagus. Moderate size hiatal hernia noted. The GE junction was located at 33 cm from the incisors. There was a mucosal tear noted at the site of dilation. The rest of the esophagus appeared normal. There were no erosions or ulcerations seen and the patient tolerated the procedure well. IMPRESSION: 1. Distal esophageal stricture status post balloon dilation using and 12 mm TTS balloon as described above. 2. Moderate size hiatal hernia. RECOMMENDATIONS: The findings of this examination were discussed with the patient well as her family. She will remain on a clear liquid diet today. She will be started on Prilosec 20 mg daily and will be seen in the office in 6 weeks..
[2018-06-26 13:02] VITALS: BP 120/83; PULSE 67
== END 2018-06-26 13:41 | disposition home or self-care (01) ==
LOC: ORWHC2ENDO 11:16
PROVIDERS: ATTEND Internal Medicine Gastroenterology
DX: K22.2 Esophageal obstruction (principal); K44.9 Diaphragmatic hernia without obstruction or gangrene; E06.3 Autoimmune thyroiditis; I95.9 Hypotension, unspecified; E78.5 Hyperlipidemia, unspecified; J44.9 Chronic obstructive pulmonary disease, unspecified; J33.9 Nasal polyp, unspecified; Z86.73 Personal history of transient ischemic attack (TIA), and cerebral infarction without residual deficits; Z79.02 Long term (current) use of antithrombotics/antiplatelets; Z79.890 Hormone replacement therapy; Z87.11 Personal history of peptic ulcer disease; Z79.51 Long term (current) use of inhaled steroids; Z79.899 Other long term (current) drug therapy; Z88.1 Allergy status to other antibiotic agents; Z88.2 Allergy status to sulfonamides; Z91.048 Other nonmedicinal substance allergy status; Z91.041 Radiographic dye allergy status; Z91.09 Other allergy status, other than to drugs and biological substances
CPT/HCPCS: 43249; J2001; J2704; C1726

== ENCOUNTER 2018-09-24 18:32 | Emergency (ER) | payer MEDICARE ==
[2018-09-24 19:51] VITALS: TEMP 97.7
--- NOTE | 2018-09-24 20:52 | ED ---
General Adult HPI - General Chief complaint: Headache Stated complaint: head pain/bulging vein Time Seen by Provider: 09/24/18 20:31 Source: patient Mode of arrival: ambulatory Limitations: no limitations - History of Present Illness Initial comments: Dictation was produced using [employer] dictation software. please excuse any grammatical, word or spelling errors. Chief Complaint: 78-year-old female presents with episodic right temporal pain. History of Present Illness: 78-year-old female she was at home washing dishes wh en she all of a sudden experience sharp stabbing pain to the right amish area. She did noted that her right eye became watery. She states that this is 1 all the lights are on. Patient states she does complain of some clotting to her vision on the right eye. Patient was concerned this was a stroke so she came to the emergency department. Patient denies any neuro deficits. Denies any weakness to the face. Patient has history of sinusitis. She thinks this is somehow related to her sinus symptoms. Patient did not convert sprints anything like this in the past. The ROS documented in this emergency department record has been reviewed and confirmed by me. Those systems with pertinent positive or negative responses have been documented in the HPI. All other systems are other negative and/or noncontributory. PHYSICAL EXAM: General Impression: Alert and oriented x3, not in acute distress HEENT: Normocephalic atraumatic, extra-ocular movements intact, pupils equal and reactive to light bilaterally, mucous membranes moist, no conjunctival injection, no mid dilated pupil, near vision is intact Cardiovascular: Heart regular rate and rhythm, S1&S2 audible, no murmurs, rubs or gallops Chest: Lungs clear to auscultation bilaterally, no rhonchi, no wheeze, no rales Abdomen: Bowel sounds present, abdomen soft, non-tender, non-distended, no organomegaly Musculoskeletal: Pulses present and equal in all extremities, no peripheral edema Motor: no focal deficits noted Neurological: CN II-XII grossly intact, no focal motor or sensory deficits noted Skin: Intact with no visualized rashes Psych: Normal affect and mood ED course: 78-year-old female with multiple comorbidities presents with 2 minute episode of sharp right-sided temporal pain with some clotting of the vision in the right eye. Signs upon arrival are within acceptable limits. Patient clinical presentation consistent with acute angle closure glaucoma. There is some suspicion of superficial temporal arteritis.Abdomen evaluation obtained showing no acute processes. Patient is negative ESR and CRP. There is no clinical suspicion of giant cell arteritis. Patient reevaluated and is continued to be pain-free. Patient clear for discharge. Return parameters discussed. Told to follow up with primary care physician upon discharge. - Related Data Home Medications Medication Instructions Recorded Confirmed Budesonide [Pulmicort Flexhaler] 1 puff INHALATION RT-BID 09/10/13 09/24/18 Levothyroxine Sodium [Synthroid] 100 mcg PO MOTUWETHFR 09/10/13 09/24/18 Salmeterol Xinafoate [Serevent 1 puff INHALATION RT-BID 09/10/13 09/24/18 Diskus] Albuterol Inhaler [Ventolin Hfa 1 - 2 puff INHALATION RT-Q6H PRN 03/10/18 09/24/18 Inhaler] Clopidogrel [Plavix] 75 mg PO AC-SUPPER 04/20/18 09/24/18 Allergies Allergy/AdvReac Type Severity Reaction Status Date / Time Iodinated Contrast- Oral and Allergy FLUSHING, Verified 09/24/18 21:16 IV Dye ITCHING, [Iodinated Contrast Media - felt warm IV Dye] Macrolide Antibiotics Allergy INTERACTS Verified 09/24/18 21:16 WITH ASTHMA MEDS mold Allergy asthma Verified 09/24/18 21:16 symptoms Sulfa (Sulfonamide Allergy FLUSHING , Verified 09/24/18 21:16 Antibiotics) ITCHING fungus Allergy ASTHMA Uncoded 06/23/18 15:33 SYMPTOMS SMOKE Allergy ASTHMA Uncoded 06/23/18 15:33 SYMPTOMS Review of Systems ROS Statement: Those systems with pertinent positive or pertinent negative responses have been documented in the HPI. ROS Other: All systems not noted in ROS Statement are negative. Past Medical History Past Medical History: Asthma, COPD, CVA/TIA, GERD/Reflux, Hyperlipidemia, Thyroid Disorder Additional Past Medical History / Comment(s): large hiatel hernia, hypotension, possible TIA, hx migraines, deviated septum, chronic constipation, past hx of low blood sugar, esophageal stricture with difficulty swallowing . 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 Father Family Medical History: Diabetes Mellitus Brother(s) Family Medical History: Cancer Additional Family Medical History / Comment(s): PROSTATE General Exam Limitations: no limitations Course Vital Signs 09/24/18 09/24/18 09/24/18 19:47 20:50 22:40 Temperature 97.7 F Pulse Rate 65 74 Respiratory 20 18 16 Rate Blood Pressure 139/93 115/70 O2 Sat by Pulse 97 99 Oximetry Medical Decision Making - Lab Data Result diagrams: 09/24/18 21:45 09/24/18 21:45 Lab Results 09/24/18 09/24/18 09/24/18 Range/Units 21:45 21:45 21:45 WBC 5.2 (3.8-10.6) k/uL RBC 4.54 (3.80-5.40) m/uL Hgb 13.2 (11.4-16.0) gm/dL Hct 40.8 (34.0-46.0) % MCV 89.7 (80.0-100.0) fL MCH 29.1 (25.0-35.0) pg MCHC 32.5 (31.0-37.0) g/dL RDW 14.3 (11.5-15.5) % Plt Count 243 (150-450) k/uL Neutrophils % 43 % Lymphocytes % 32 % Monocytes % 8 % Eosinophils % 13 % Basophils % 1 % Neutrophils # 2.2 (1.3-7.7) k/uL Lymphocytes # 1.7 (1.0-4.8) k/uL Monocytes # 0.4 (0-1.0) k/uL Eosinophils # 0.7 (0-0.7) k/uL Basophils # 0.1 (0-0.2) k/uL ESR 5 (0-20) mm/hr PT 9.9 (9.0-12.0) sec INR 0.9 (<1.2) Sodium 138 (137-145) mmol/L Potassium 4.2 (3.5-5.1) mmol/L Chloride 108 H (98-107) mmol/L Carbon Dioxide 24 (22-30) mmol/L Anion Gap 6 mmol/L BUN 17 (7-17) mg/dL Creatinine 0.78 (0.52-1.04) mg/dL Est GFR (CKD-EPI)AfAm 83 (>60 ml/min/1.73 sqM) Est GFR (CKD-EPI)NonAf 72 (>60 ml/min/1.73 sqM) Glucose 105 H (74-99) mg/dL Calcium 9.8 (8.4-10.2) mg/dL C-Reactive Protein <5.0 (<10.0) mg/L Disposition Clinical Impression: Headache Disposition: HOME SELF-CARE Condition: Good Instructions (If sedation given, give patient instructions): Acute Headache (ED) Is patient prescribed a controlled substance at d/c from ED?: No Referrals: Jace Casas DO [Primary Care Provider] - 1-2 days Time of Disposition: 23:41
[2018-09-24 22:13] LABS: INR 0.9 (<1.2); Prothrombin Time 9.9 sec (9.0-12.0)
[2018-09-24 22:15] LABS: Anion Gap 6 mmol/L; Blood Urea Nitrogen 17 mg/dL (7-17); C Reactive Protein <5.0 mg/L (<10.0); Calcium 9.8 mg/dL (8.4-10.2); Carbon Dioxide 24 mmol/L (22-30); Chloride 108 mmol/L (98-107); Glucose 105 mg/dL (74-99); Potassium 4.2 mmol/L (3.5-5.1); Sodium 138 mmol/L (137-145)
[2018-09-24 22:27] LABS: Basophils # (A) 0.1 k/uL (0-0.2); Basophils % (A) 1 %; Eosinophils # (A) 0.7 k/uL (0-0.7); Eosinophils % (A) 13 %; HCT 40.8 % (34.0-46.0); HGB 13.2 gm/dL (11.4-16.0); Lymphocytes # (A) 1.7 k/uL (1.0-4.8); Lymphocytes % (A) 32 %; MCH 29.1 pg (25.0-35.0); MCHC 32.5 g/dL (31.0-37.0); MCV 89.7 fL (80.0-100.0); Mean Platelet Volume 7.2; Monocytes # (A) 0.4 k/uL (0-1.0); Monocytes % (A) 8 %; Neutrophils # (A) 2.2 k/uL (1.3-7.7); Neutrophils % (A) 43 %; Platelet Count 243 k/uL (150-450); RBC 4.54 m/uL (3.80-5.40); RDW 14.3 % (11.5-15.5); WBC 5.2 k/uL (3.8-10.6)
[2018-09-24 22:42] VITALS: BP 115/70; PULSE 74; RESP 16
[2018-09-24 23:38] LABS: Erythrocyte Sedimentation Rate 5 mm/hr (0-20)
== END 2018-09-24 23:45 | disposition home or self-care (01) ==
LOC: EC 18:32
DX: R51 Headache (principal); H57.89 Other specified disorders of eye and adnexa; J44.9 Chronic obstructive pulmonary disease, unspecified; E06.3 Autoimmune thyroiditis; Z88.1 Allergy status to other antibiotic agents; Z88.2 Allergy status to sulfonamides; Z91.041 Radiographic dye allergy status; Z91.048 Other nonmedicinal substance allergy status; Z79.02 Long term (current) use of antithrombotics/antiplatelets; Z79.51 Long term (current) use of inhaled steroids; Z79.890 Hormone replacement therapy; Z79.899 Other long term (current) drug therapy; Z86.73 Personal history of transient ischemic attack (TIA), and cerebral infarction without residual deficits; Z86.69 Personal history of other diseases of the nervous system and sense organs; Z95.818 Presence of other cardiac implants and grafts
CPT/HCPCS: 36415; 80048; 85025; 85610; 85652; 86140; 99283

== ENCOUNTER 2019-02-28 18:40 | Emergency (ER) | payer MEDICARE ==
[2019-02-28 18:50] VITALS: TEMP 97.6
--- NOTE | 2019-02-28 19:12 | ED ---
General Adult HPI - General Chief complaint: Head Injury Stated complaint: Seeing double, Head injury Time Seen by Provider: 02/28/19 18:54 Source: patient Mode of arrival: ambulatory Limitations: no limitations - History of Present Illness Initial comments: Patient presents the ED with her mayra for evaluation. Patient states that she accidentally struck her left temporal head on a car door 4 days ago, and she states that she has had a left temporal headache since then. Patient states that earlier today, she noticed that she had double vision out of her left eye, but she denies having any double vision currently. Patient states that she is on Plavix. Patient denies any other injury or site of pain, fever or chills, neck pain, eye pain, focal numbness/weakness/neuro deficit, speech difficulty, dizziness, syncope/LOC, chest pain, dyspnea, nausea or vomiting, abdominal pain, or any other symptoms or complaints. - Related Data Home Medications Medication Instructions Recorded Confirmed Budesonide [Pulmicort Flexhaler] 1 puff INHALATION RT-BID 09/10/13 02/28/19 Levothyroxine Sodium [Synthroid] 100 mcg PO MOTUWETHFR 09/10/13 02/28/19 Salmeterol Xinafoate [Serevent 1 puff INHALATION RT-BID 09/10/13 02/28/19 Diskus] Albuterol Inhaler [Ventolin Hfa 1 - 2 puff INHALATION RT-Q6H PRN 03/10/18 Inhaler] Clopidogrel [Plavix] 75 mg PO DAILY 04/20/18 02/28/19 Allergies Allergy/AdvReac Type Severity Reaction Status Date / Time Iodinated Contrast Media Allergy FLUSHING, Verified 02/28/19 20:09 [Iodinated Contrast Media - ITCHING, IV Dye] felt warm Macrolide Antibiotics Allergy INTERACTS Verified 02/28/19 20:09 WITH ASTHMA MEDS mold Allergy asthma Verified 02/28/19 20:09 symptoms Sulfa (Sulfonamide Allergy FLUSHING , Verified 02/28/19 20:09 Antibiotics) ITCHING fungus Allergy ASTHMA Uncoded 02/28/19 20:09 SYMPTOMS SMOKE Allergy ASTHMA Uncoded 02/28/19 20:09 SYMPTOMS Review of Systems ROS Statement: Those systems with pertinent positive or pertinent negative responses have been documented in the HPI. ROS Other: All systems not noted in ROS Statement are negative. Past Medical History Past Medical History: Asthma, COPD, CVA/TIA, GERD/Reflux, Hyperlipidemia, Thyroid Disorder Additional Past Medical History / Comment(s): large hiatel hernia, hypotension, possible TIA, hx migraines, deviated septum, chronic constipation, past hx of low blood sugar, esophageal stricture with difficulty swallowing . 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 Father Family Medical History: Diabetes Mellitus Brother(s) Family Medical History: Cancer Additional Family Medical History / Comment(s): PROSTATE General Exam Limitations: no limitations General appearance: alert, in no apparent distress Head exam: Present: other (mild left temporal swelling, ecchymosis and tenderness is noted on exam) Eye exam: Present: normal appearance, PERRL, EOMI ENT exam: Present: mucous membranes moist, TM's normal bilaterally Neck exam: Present: full ROM, other (Trachea is in midline). Absent: tenderness Respiratory exam: Present: normal lung sounds bilaterally. Absent: respiratory distress, wheezes, rales, rhonchi Cardiovascular Exam: Present: regular rate, normal rhythm, normal heart sounds, other (Normal radial pulses bilaterally) GI/Abdominal exam: Present: soft. Absent: distended, tenderness Neurological exam: Present: alert, oriented X3, CN II-XII intact. Absent: motor sensory deficit Psychiatric exam: Present: normal affect, normal mood Skin exam: Present: warm, dry, intact Course Vital Signs 02/28/19 18:47 Temperature 97.6 F Pulse Rate 80 Respiratory 16 Rate Blood Pressure 140/71 O2 Sat by Pulse 98 Oximetry Medical Decision Making - Medical Decision Making Patient's labs and head CT are unremarkable. Patient reports that her headache began immediately after she struck her head on a car door 4 days ago, and I strongly suspect that her symptoms are secondary to head injury. Patient and fianc are aware of the patient's test results, and patient feels comfortable going home with her fianc at this time. She was counseled about head injuries/contusions. She was instructed to follow up closely with her primary care provider. Return and follow-up instructions were clearly explained to the patient. - Lab Data Result diagrams: 02/28/19 19:41 Lab Results 02/28/19 02/28/19 Range/Units 19:41 19:41 WBC 5.4 (3.8-10.6) k/uL RBC 4.41 (3.80-5.40) m/uL Hgb 13.2 (11.4-16.0) gm/dL Hct 40.5 (34.0-46.0) % MCV 91.9 (80.0-100.0) fL MCH 30.0 (25.0-35.0) pg MCHC 32.7 (31.0-37.0) g/dL RDW 13.1 (11.5-15.5) % Plt Count 263 (150-450) k/uL Neutrophils % 45 % Lymphocytes % 30 % Monocytes % 8 % Eosinophils % 12 % Basophils % 1 % Neutrophils # 2.5 (1.3-7.7) k/uL Lymphocytes # 1.6 (1.0-4.8) k/uL Monocytes # 0.5 (0-1.0) k/uL Eosinophils # 0.7 (0-0.7) k/uL Basophils # 0.1 (0-0.2) k/uL PT 9.5 (9.0-12.0) sec INR 0.9 (<1.2) APTT 24.3 (22.0-30.0) sec - Radiology Data Radiology results: report reviewed (CT head shows no acute intracranial abnormality) Disposition Clinical Impression: Head injury, Head contusion Disposition: HOME SELF-CARE Condition: Stable Instructions (If sedation given, give patient instructions): Head Injury (ED), Scalp Contusion in Adults (ED) Additional Instructions: Return to the ER immediately if you develop new or worsening pain, worsening visual changes, numbness or weakness, vomiting, shortness of breath, feeling dizzy or faint, or new or worsening symptoms. Follow up closely with your primary care provider. Is patient prescribed a controlled substance at d/c from ED?: No Referrals: Jace Casas DO [Primary Care Provider] - 1-2 days Time of Disposition: 20:42
--- NOTE | 2019-02-28 19:48 | CT ---
EXAMINATION TYPE: CT brain wo con DATE OF EXAM: 02/28/2019 COMPARISON: 04/20/2018 HISTORY: Hit injury. Pain. CT DLP: mGycm Automated exposure control for dose reduction was used. FINDINGS: There is patchy hypodensity in the periventricular white matter. There is no mass effect nor midline shift. There is no sign of intracranial hemorrhage. There is mucosal thickening in the ethmoid and fr ontal sinuses. IMPRESSION: CEREBRAL MILD ATROPHY. CHRONIC SMALL VESSEL ISCHEMIA. NO ACUTE INTRACRANIAL ABNORMALITY. SINUSITIS. N O SIGNIFICANT CHANGE.
[2019-02-28 20:01] LABS: Basophils # (A) 0.1 k/uL (0-0.2); Basophils % (A) 1 %; Eosinophils # (A) 0.7 k/uL (0-0.7); Eosinophils % (A) 12 %; HCT 40.5 % (34.0-46.0); HGB 13.2 gm/dL (11.4-16.0); Lymphocytes # (A) 1.6 k/uL (1.0-4.8); Lymphocytes % (A) 30 %; MCHC 32.7 g/dL (31.0-37.0); MCV 91.9 fL (80.0-100.0); Mean Platelet Volume 5.9; Monocytes # (A) 0.5 k/uL (0-1.0); Monocytes % (A) 8 %; Neutrophils # (A) 2.5 k/uL (1.3-7.7); Neutrophils % (A) 45 %; Platelet Count 263 k/uL (150-450); RBC 4.41 m/uL (3.80-5.40); RDW 13.1 % (11.5-15.5); WBC 5.4 k/uL (3.8-10.6)
[2019-02-28 20:23] LABS: INR 0.9 (<1.2); Partial Thromboplastin Time 24.3 sec (22.0-30.0); Prothrombin Time 9.5 sec (9.0-12.0)
[2019-02-28 21:01] VITALS: BP 113/77; PULSE 66; RESP 18
== END 2019-02-28 21:02 | disposition home or self-care (01) ==
LOC: EC 18:40
DX: S00.93XA Contusion of unspecified part of head, initial encounter (principal); J44.9 Chronic obstructive pulmonary disease, unspecified; K21.9 Gastro-esophageal reflux disease without esophagitis; E78.5 Hyperlipidemia, unspecified; E06.3 Autoimmune thyroiditis; F32.9 Major depressive disorder, single episode, unspecified; Z79.51 Long term (current) use of inhaled steroids; Z79.02 Long term (current) use of antithrombotics/antiplatelets; Z79.890 Hormone replacement therapy; Z79.899 Other long term (current) drug therapy; Z91.041 Radiographic dye allergy status; Z88.1 Allergy status to other antibiotic agents; Z88.2 Allergy status to sulfonamides; Z91.048 Other nonmedicinal substance allergy status; Z91.09 Other allergy status, other than to drugs and biological substances; Z86.73 Personal history of transient ischemic attack (TIA), and cerebral infarction without residual deficits; W22.8XXA Striking against or struck by other objects, initial encounter; Y92.009 Unspecified place in unspecified non-institutional (private) residence as the place of occurrence of the external cause
CPT/HCPCS: 36415; 70450; 85025; 85610; 85730; 99284

== ENCOUNTER 2019-09-19 15:18 | Inpatient (IN) | payer MEDICARE ==
[2019-09-19] MEDS ORDERED: MORPHINE SULFATE 4 MG/ML SYRINGE IM STA (15:39)
--- NOTE | 2019-09-19 15:49 | ED ---
General Adult HPI - General Chief complaint: Fall Stated complaint: Fall Time Seen by Provider: 09/19/19 15:23 Source: patient, EMS, RN notes reviewed, old records reviewed Mode of arrival: EMS Limitations: no limitations - History of Present Illness Initial comments: 79-year-old female patient with the chief complaint of fall. Patient states that she was walking into a store she was adjusting her mask on her face when she lost her balance, patient states that she stumbled forward. He had a fall on outstretched left arm, landing on her left hip and also hitting her forehead. Patient is on Plavix denies any other sort of anticoagulation. Denies any loss of consciousness. Denies any other complaints. Systemic: Pt denies fatigue, fever/chills, rash. Pt denies weakness, night sweats, weight loss. Neuro: Pt denies headache, visual disturbances, syncope or pre-syncope. HEENT: Pt denies ocular discharge or irritation, otalgia, rhinorrhea, pharyngitis or notable lymphadenopathy. Cardiopulmonary: Pt denies chest pain, SOB, heart palpitations, dyspnea on exertion. Abdominal/GI: Pt denies abdominal pain, n/v/d. : Pt denies dysuria, burning w/ urination, frequency/urgency. Denies new onset urinary or bowel incontinence. MSK: Pt denies myalgia, loss of strength or function in extremities. Neuro: Pt denies new onset weakness, paresthesias. - Related Data Home Medications Medication Instructions Recorded Confirmed Budesonide [Pulmicort Flexhaler] 1 puff INHALATION RT-BID 09/10/13 02/28/19 Levothyroxine Sodium [Synthroid] 100 mcg PO MOTUWETHFR 09/10/13 02/28/19 Salmeterol Xinafoate [Serevent 1 puff INHALATION RT-BID 09/10/13 02/28/19 Diskus] Albuterol Inhaler (Mhu) [Ventolin 1 - 2 puff INHALATION RT-Q6H PRN 03/10/18 02/28/19 Hfa Inhaler] Clopidogrel [Plavix] 75 mg PO DAILY 04/20/18 02/28/19 Allergies Allergy/AdvReac Type Severity Reaction Status Date / Time Iodinated Contrast Media Allergy FLUSHING, Verified 09/19/19 15:19 [Iodinated Contrast Media - ITCHING, IV Dye] felt warm Macrolide Antibiotics Allergy INTERACTS Verified 09/19/19 15:19 WITH ASTHMA MEDS mold Allergy asthma Verified 09/19/19 15:19 symptoms Sulfa (Sulfonamide Allergy FLUSHING , Verified 09/19/19 15:19 Antibiotics) ITCHING fungus Allergy ASTHMA Uncoded 09/19/19 15:19 SYMPTOMS SMOKE Allergy ASTHMA Uncoded 09/19/19 15:19 SYMPTOMS Review of Systems ROS Statement: Those systems with pertinent positive or pertinent negative responses have been documented in the HPI. ROS Other: All systems not noted in ROS Statement are negative. Past Medical History Past Medical History: Asthma, COPD, CVA/TIA, GERD/Reflux, Hyperlipidemia, Thyroid Disorder Additional Past Medical History / Comment(s): large hiatel hernia, hypotension, possible TIA, hx migraines, deviated septum, chronic constipation, past hx of low blood sugar, esophageal stricture with difficulty swallowing . 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 Father Family Medical History: Diabetes Mellitus Brother(s) Family Medical History: Cancer Additional Family Medical History / Comment(s): PROSTATE General Exam - General Exam Comments Initial Comments: Constitutional: NAD, AOX3, Pt has pleasant affect. HEENT: NC/AT, trachea midline, neck supple, no lymphadenopathy. Posterior pharynx non erythematous, without exudates. External ears appear normal, without discharge. Mucous membranes moist. Eyes PERRLA, EOM intact. There is no scleral icterus. No pallor noted. Cardiopulmonary: RRR, no murmurs, rubs or gallops, no JVD noted. Lungs CTAB in anterior and posterior dorsey. No peripheral edema. Abdominal exam: Abdomen soft and non-distended. Abdomen non-tender to palpation in all 4 quadrants. Bowel sounds active in LLQ. No hepatosplenomegaly. No ecchymosis Neuro: CN II-XII gintact. No nuchal rigidity. No raccon eyes, no dunbar sign, no hemotympanum. No cervical spinal tenderness. MSK: Left hip mildly tender to palpation. Left snuffbox region mild tender to palpation. Neurovascularly intact. No Other areas of tenderness. No posterior calf tenderness bilaterally, homans sign negative bilaterally. Posterior tibialis and radial pulse +2 bilaterally. Sensation intact in upper and lower extremities. Full active ROM in upper and lower extremities, 5/5 stregnth. Limitations: no limitations Course Vital Signs 09/19/19 09/19/19 15:19 18:57 Temperature 98 F Pulse Rate 83 80 Respiratory 18 18 Rate Blood Pressure 118/65 104/73 O2 Sat by Pulse 100 98 Oximetry Medical Decision Making - Medical Decision Making 79-year-old female patient with the chief complaint of fall. Patient states that she was walking into a store she was adjusting her mask on her face when she lost her balance, patient states that she stumbled forward. He had a fall on outstretched left arm, landing on her left hip and also hitting her forehead. Patient is on Plavix denies any other sort of anticoagulation. Denies any loss of consciousness. Denies any other complaints. Patient will symptoms are stable, afebrile. Physical exam is that left hip region mild tenderness to palpation. Hematoma, left forehead region. Neurologic exam is intact. CT bra in and C-spine did not display acute process. Plain film of left hip and AP pelvis displayed subcapital impaction fracture left hip. Chest x-ray did not display any acute process. Old rib fractures on the right side are noted. Plain film hand and wrist are negative. Patient does have some mild snuffbox tenderness placed in a thumb spica splint. There was a delay in obtaining plain films as brain C-spine had a be cleared before radiology would take more images. EKG is a left bundle branch of which patient has history. Case was discussed with Dr. Durbin. Dr. Coffey accepts admission with medicine consult. - Lab Data Result diagrams: 09/19/19 18:50 09/19/19 18:50 Lab Results 09/19/19 09/19/19 09/19/19 Range/Units 18:50 18:50 18:50 WBC 9.9 (3.8-10.6) k/uL RBC 4.79 (3.80-5.40) m/uL Hgb 13.9 (11.4-16.0) gm/dL Hct 44.0 (34.0-46.0) % MCV 91.9 (80.0-100.0) fL MCH 29.1 (25.0-35.0) pg MCHC 31.7 (31.0-37.0) g/dL RDW 13.1 (11.5-15.5) % Plt Count 290 (150-450) k/uL Neutrophils % 69 % Lymphocytes % 17 % Monocytes % 6 % Eosinophils % 6 % Basophils % 1 % Neutrophils # 6.9 (1.3-7.7) k/uL Lymphocytes # 1.7 (1.0-4.8) k/uL Monocytes # 0.6 (0-1.0) k/uL Eosinophils # 0.6 (0-0.7) k/uL Basophils # 0.1 (0-0.2) k/uL PT 9.8 (9.0-12.0) sec INR 0.9 (<1.2) APTT 24.0 (22.0-30.0) sec Sodium 137 (137-145) mmol/L Potassium 4.1 (3.5-5.1) mmol/L Chloride 105 (98-107) mmol/L Carbon Dioxide 26 (22-30) mmol/L Anion Gap 6 mmol/L BUN 12 (7-17) mg/dL Creatinine 0.66 (0.52-1.04) mg/dL Est GFR (CKD-EPI)AfAm >90 (>60 ml/min/1.73 sqM) Est GFR (CKD-EPI)NonAf 83 (>60 ml/min/1.73 sqM) Glucose 90 (74-99) mg/dL Calcium 9.7 (8.4-10.2) mg/dL Total Bilirubin 0.6 (0.2-1.3) mg/dL AST 25 (14-36) U/L ALT 18 (4-34) U/L Alkaline Phosphatase 119 (38-126) U/L Total Protein 7.1 (6.3-8.2) g/dL Albumin 4.4 (3.5-5.0) g/dL - EKG Data -: EKG Interpreted by Me (and Dr. Durbin) EKG Comments: Ventricular rate 76, NJ interval 136, QRS 128, QT/QTc 432/46. Sensory rhythm with premature ventricular complex. Left bundle branch block. Previous left bundle-branch block noted. Disposition Clinical Impression: Hip fracture, Wrist sprain Disposition: ADMITTED IP TO THIS HOSP Condition: Serious Is patient prescribed a controlled substance at d/c from ED?: No Referrals: Jace Casas DO [Primary Care Provider] - 1-2 days
--- NOTE | 2019-09-19 17:29 | CT ---
EXAMINATION TYPE: CT brain cspine wo con DATE OF EXAM: 09/19/2019 COMPARISON: Prior CT brain 02/28/2019 HISTORY: Trip and fall. Left forehead hematoma, pain. CT DLP: 1221.2 mGycm Automated exposure control for dose reduction was used. TECHNIQUE: CT scan of the head and cervical spine are performed without contrast. FINDINGS: There is no acute intracranial hemorrhage, mass effect, or midline shift identified. The ventricles and sulci are within normal limits in size. White matter low-attenuation is extensive an d likely represents chronic small vessel ischemic change The globes are intact and the visualized sin uses are remarkable for extensive inflammatory change involving the frontal sinuses, ethmoid air cell s, maxillary sinuses. Cervical spine is visualized in its entirety from C1 through upper thoracic levels and demonstrates n ear-anatomic alignment without evidence of acute fracture or dislocation. Minimal anterolisthesis gra de 1 C4-5, there is multilevel spondylosis, loss of disc height present C3-4, C5-6 and C6-7. There is multilevel facet arthropathy. Prevertebral soft tissue appears within normal limits. The C1-C2 art iculation is unremarkable. Densely calcified left thyroid nodule is noted incidentally. IMPRESSION: 1. There is no acute fracture or dislocation evident in the cervical spine. 2. No acute intracranial hemorrhage, mass effect, or midline shift is seen.
--- NOTE | 2019-09-19 18:32 | XR ---
Left hand HISTORY: Trauma and pain 3 views of left hand Bone mineralization is reduced. Arthropathy changes are present. No evident fracture. IMPRESSION: Osteoarthritis. No fracture or dislocation evident.
[2019-09-19] MEDS ORDERED: MORPHINE SULFATE 4 MG/ML SYRINGE IV STA (18:34)
--- NOTE | 2019-09-19 18:37 | XR ---
Left wrist HISTORY: Trauma and pain 4 views of the left wrist correlated to the left hand same date Bone mineralization is reduced, joint spaces and alignment are maintained with exception of sclerosis and joint space loss at the carpometacarpal joint of the first digit. IMPRESSION: No fracture or dislocation. Osteoarthritis.
--- NOTE | 2019-09-19 18:39 | XR ---
EXAMINATION TYPE: XR Hip LT and AP Pelvis DATE OF EXAM: 09/19/2019 COMPARISON: NONE HISTORY: Trauma and pain TECHNIQUE: A single AP view of the pelvis is obtained. Two views of the left hip are obtained. FINDINGS: There is impaction fracture in the subcapital region of the proximal left femur. Bone mine ralization is reduced. Spinal curvature noted in the lumbar spine. Vascular calcifications present in the pelvis. IMPRESSION: Subcapital impaction fracture left hip
--- NOTE | 2019-09-19 18:40 | XR ---
Left femur HISTORY: Trauma and pain Frontal and lateral views of the left femur on 4 images Subcapital impacted fracture of the left femoral head is noted. No dislocation. IMPRESSION: Left femoral neck fracture
--- NOTE | 2019-09-19 18:46 | XR ---
EXAMINATION TYPE: XR chest 1V DATE OF EXAM: 09/19/2019 COMPARISON: Prior chest x-ray 08/25/2017 HISTORY: Trauma and pain TECHNIQUE: Single frontal view of the chest is obtained. FINDINGS: There is no focal air space opacity, pleural effusion, or pneumothorax seen. The cardiac silhouette size is within normal limits. Retrocardiac density with central lucency consistent with h iatal hernia. The osseous structures are remarkable for multiple old right-sided rib fractures. Patie nt appears healed. Aorta is dense.. IMPRESSION: No acute process.
[2019-09-19 19:11] LABS: Basophils # (A) 0.1 k/uL (0-0.2); Basophils % (A) 1 %; Eosinophils # (A) 0.6 k/uL (0-0.7); Eosinophils % (A) 6 %; HGB 13.9 gm/dL (11.4-16.0); Lymphocytes # (A) 1.7 k/uL (1.0-4.8); Lymphocytes % (A) 17 %; MCH 29.1 pg (25.0-35.0); MCHC 31.7 g/dL (31.0-37.0); MCV 91.9 fL (80.0-100.0); Mean Platelet Volume 7.2; Monocytes # (A) 0.6 k/uL (0-1.0); Monocytes % (A) 6 %; Neutrophils # (A) 6.9 k/uL (1.3-7.7); Neutrophils % (A) 69 %; Platelet Count 290 k/uL (150-450); RBC 4.79 m/uL (3.80-5.40); RDW 13.1 % (11.5-15.5); WBC 9.9 k/uL (3.8-10.6)
[2019-09-19 19:22] LABS: INR 0.9 (<1.2); Prothrombin Time 9.8 sec (9.0-12.0)
[2019-09-19 19:25] LABS: ALT 18 U/L (4-34); AST 25 U/L (14-36); African American GFR (CKD) >90 (>60 ml/min/1.73 sqM); Albumin 4.4 g/dL (3.5-5.0); Alkaline Phosphatase 119 U/L (38-126); Anion Gap 6 mmol/L; Blood Urea Nitrogen 12 mg/dL (7-17); Calcium 9.7 mg/dL (8.4-10.2); Carbon Dioxide 26 mmol/L (22-30); Chloride 105 mmol/L (98-107); Glucose 90 mg/dL (74-99); Non-African American GFR(CKD) 83 (>60 ml/min/1.73 sqM); Potassium 4.1 mmol/L (3.5-5.1); Sodium 137 mmol/L (137-145); Total Bilirubin 0.6 mg/dL (0.2-1.3); Total Protein 7.1 g/dL (6.3-8.2)
[2019-09-19] MEDS ORDERED: NALOXONE 0.4 MG/ML 1 ML VIAL IV PRN (19:40)
[2019-09-19] MEDS ORDERED: MORPHINE SULFATE 4 MG/ML SYRINGE IV PRN (19:40)
[2019-09-19 20:38] LABS: Appearance,Urine Clear (Clear); Bilirubin,Urine Negative (Negative); Blood,Urine Negative (Negative); Color,Urine Light Yellow; Glucose,Urine (UA) Negative (Negative); Ketones,Urine Negative (Negative); Leukocyte Esterase,Urine Trace (Negative); Mucus,Urine Rare /hpf; Nitrite,Urine Negative (Negative); Protein,Urine Negative (Negative); RBC,Urine 1 /hpf (0-5); Specific Gravity,Urine 1.005 (1.001-1.035); Squamous Epithelial Cell,Urine <1 /hpf (0-4); Urobilinogen,Urine <2.0 mg/dL (<2.0); WBC,Urine 1 /hpf (0-5)
[2019-09-20] MEDS: FORMOTEROL FUMARATE 20 MCG/2 ML NEBU INHALATION SCH ×3 (01:00→19:48)
[2019-09-20] MEDS: FLUTICASONE 110 MCG INHALER INHALATION SCH ×3 (01:07→19:49)
[2019-09-20] MEDS: LEVOTHYROXINE 100 MCG TAB PO SCH (05:33)
--- NOTE | 2019-09-20 10:45 | P.HPOR ---
History of Present Illness H&P Date: 09/20/19 Chief Complaint: Left hip pain The patient is a very pleasant 79-year-old female with a past medical history significant for osteoporosis, COPD, and stroke currently on Plavix who is admitted from the ER following a ground-level fall resulting in an isolated femoral neck fracture. The patient denies pre-existing hip or groin pain. She is relatively active and is able to walk 1 mile a day at the mall 5 times per week. At the time of my evaluation she has no other complaints other than left hip pain. She states she was unable to ambulate following her fall. Past Medical History Past Medical History: Asthma, COPD, CVA/TIA, GERD/Reflux, Hyperlipidemia, Thyroid Disorder Additional Past Medical History / Comment(s): hiatel hernia, hypotension, possible TIA,migraines, deviated septum, chronic constipation, past hx of low blood sugar, esophageal stricture with difficulty swallowing . 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 Smoking Status: Never smoker Past Alcohol Use History: None Reported Additional Past Alcohol Use History / Comment(s): . Past Drug Use History: None Reported - Past Family History Mother Family Medical History: Myocardial Infarction (AR) Additional Family Medical History / Comment(s): Mother of a AR at the age of 44 yrs. Father Family Medical History: Diabetes Mellitus Brother(s) Family Medical History: Cancer Additional Family Medical History / Comment(s): PROSTATE Medications and Allergies Home Medications Medication Instructions Recorded Confirmed Type Budesonide [Pulmicort Flexhaler] 1 puff INHALATION RT-BID 09/10/13 09/19/19 History Levothyroxine Sodium [Synthroid] 100 mcg PO MOTUWETHFR 09/10/13 09/19/19 History Salmeterol Xinafoate [Serevent 1 puff INHALATION RT-BID 09/10/13 09/19/19 History Diskus] Clopidogrel [Plavix] 75 mg PO HS 04/20/18 09/19/19 History Allergies Allergy/AdvReac Type Severity Reaction Status Date / Time Iodinated Contrast Media Allergy FLUSHING, Verified 09/19/19 20:29 [Iodinated Contrast Media - ITCHING, IV Dye] felt warm Macrolide Antibiotics Allergy INTERACTS Verified 09/19/19 20: WITH ASTHMA MEDS mold Allergy asthma Verified 09/19/19 20:29 symptoms Sulfa (Sulfonamide Allergy FLUSHING , Verified 09/19/19 20:29 Antibiotics) ITCHING fungus Allergy ASTHMA Uncoded 09/19/19 20:29 SYMPTOMS SMOKE Allergy ASTHMA Uncoded 09/19/19 20:29 SYMPTOMS Physical Examination The patient is resting comfortably in her bed and is alert and easily able to answer questions. On inspection of her forehead there is a superficial abrasion and area of ecchymosis. She demonstrate nonlabored breathing with symmetric chest expansion. Her abdomen is soft, nontender. She has an Randy wrap over her left wrist, but is minimally tender. On examination of the left leg is externally rotated and slightly shortened. She has pain with any attempts at passive range of motion. Motor and sensory function are intact distally in the leg. Results X-rays of the pelvis and left hip show diffuse osteopenia and mildly displaced subcapital femoral neck fracture. - Labs Labs: Abnormal Lab Results - Last 24 Hours (Table) 09/19/19 Range/Units 20:15 Ur Leukocyte Esterase Trace H (Negative) Urine Mucus Rare H (None) /hpf H & H 09/19/19 Range/Units 18:50 Hgb 13.9 (11.4-16.0) gm/dL Hct 44.0 (34.0-46.0) % Coagulation 09/19/19 Range/Units 18:50 INR 0.9 (<1.2) Result Diagrams: 09/19/19 18:50 09/19/19 18:50 Assessment and Plan (1) Hip fracture Current Visit: Yes Status: Acute Code(s): S72.009A - FRACTURE OF UNSP PART OF NECK OF UNSP FEMUR, INIT SNOMED Code(s): 506400501 Plan: I had a long discussion with the patient on treatment of hip fractures. We discussed her fracture is a mildly displaced subcapital femoral neck fracture. Since the fracture completely traverses the femoral neck, a slightly displaced, and she was unable to ambulate following her fall I recommended arthroplasty over an attempt at in situ screw fixation. We discussed a total hip replacement versus hemiarthroplasty. Due to the patient's age, pre-existing medical problems, no prior groin pain, diffuse osteoporosis, and fracture I recommended a cemented hemiarthroplasty over a total hip replacement. She understands the limitations of a hemiarthroplasty including the possibility for iatrogenic fracture, postoperative fracture, dislocation, leg length discrepancy, ongoing or worsening pain, and the possibility of requiring revision to a total hip replacement. We will plan on a cemented hemiarthroplasty later this morning. She has been cleared for surgery by internal medicine. Time with Patient: Greater than 30
[2019-09-20] MEDS ORDERED: fentaNYL (PF) 50 MCG/ML 2 ML AMP ONE (11:21)
[2019-09-20] MEDS ORDERED: GLYCOPYRROLATE 0.2 MG/ML 2 ML VIAL ONE (11:21)
[2019-09-20] MEDS ORDERED: NEOSTIGMINE 1 MG/ML 10 ML VIAL ONE (11:21)
[2019-09-20] MEDS ORDERED: LIDOCAINE 1% INJ 10MG/ML (20 ML MDV) ONE (11:21)
[2019-09-20] MEDS ORDERED: PHENYLEPHRINE-0.9% NACL SYG 1 MG/10 ML SYRINGE ONE (11:21)
[2019-09-20] MEDS ORDERED: ROCURONIUM BROMIDE 10 MG/ML 5 ML VIAL IV ONE (11:21)
[2019-09-20] MEDS ORDERED: SUCCINYLCHOLINE CHLORIDE 100 MG/5 ML SYR IV ONE (11:21)
[2019-09-20] MEDS ORDERED: PROPOFOL 10 MG/ML 20 ML VIAL IV ONE (11:21)
[2019-09-20] MEDS ORDERED: LACTATED RINGERS 1,000 ML IV ONE (11:24)
--- NOTE | 2019-09-20 11:48 | CONS ---
CONSULTATION DATE OF SERVICE: 09/20/2019 REASON FOR CONSULTATION: Preoperative medical clearance as well as advice regarding COPD, CVA requested by Dr. Bess. HISTORY OF PRESENT ILLNESS: This 79-year-old woman with past medical history of COPD, CVA, GERD, hyperlipidemia, hypothyroidism, asthma, being followed by Dr. Casas in the outpatient setting, was in a [employer]. The patient tripped and fell and suffered left hip fracture. Patient was admitted to the hospital for further evaluation treatment. Patient had left bundle branch block for years, which was stable and being followed by Cardiology. There is no history of chest pain. No palpitations. No headache, loss of consciousness, nausea, diarrhea, fever, rigors. PAST MEDICAL HISTORY: Asthma, COPD, CVA, TIA, GERD, hypertension, hyperlipidemia, hypothyroidism. MEDICATIONS ARE: 1. Plavix 75 mg q.h.s. 2. Synthroid 100 mcg Friday, Friday, Friday, , Friday. 3. Serevent 1 puff b.i.d. 4. Pulmicort 1 puff 1 puff b.i.d. ALLERGIES: IODINATED CONTRAST DYES, MACROLIDE, MOLD, SULFA, FUNGUS and SMOKE. FAMILY HISTORY: History of prostate cancer. SOCIAL HISTORY: No history of smoking. No alcohol intake. REVIEW OF SYSTEMS: ENT: No diminished vision. No diminished hearing. CARDIOVASCULAR no angina, palpitations. RESPIRATION no cough or hemoptysis. GI no nausea or vomiting. no dysuria or hematuria. NERVOUS SYSTEM: No numbness or weakness. ALLERGY/IMMUNOLOGY: No asthma or hayfever. MUSCULOSKELETAL as mentioned earlier. HEMATOLOGY: No history or anemia. ENDOCRINE: Hypothyroidism. CONSTITUTIONAL: As mentioned earlier. DERMATOLOGY: Negative. RHEUMATOLOGY negative. PSYCHIATRY as mentioned earlier. PHYSICAL EXAM: Patient is alert, oriented x3. Pulse is 81. Blood pressure 101/64, respiration 18. Temperature 97.9, pulse ox 94% on room air. HEENT: Conjunctivae normal. NECK: No JVD. CARDIOVASCULAR: S1, S2 muffled. RESPIRATORY: Breath sounds diminished in the bases. No rhonchi. No crackles. ABDOMEN: Soft, nontender. No mass palpable. LEGS: No edema. No swelling. Status post left hip fracture. Nervous system: Higher functions as mentioned. Moves all four limbs. No focal motor or sensory deficits. Lymphatics: No lymph nodes palpable in the neck, axillae or groin. SKIN: No ulcer, rash and no bleeding. JOINTS: No active deforming arthropathy. LABS: CBC within normal limits. INR is 0.9. CMP within normal limits. EKG, left bundle block. Chest x-ray which was personally reviewed by me showed no acute no acute process. CT scan of the head and spine personally reviewed showed no acute fracture and no acute abnormality. ASSESSMENT: 1. Acute left hip fracture. 2. Chronic obstructive pulmonary disease/asthma. 3. Cerebrovascular accident/transient ischemic attack. 4. Gastroesophageal reflux disease. 5. Hyperlipidemia. 6. Hypothyroidism. 7. Hiatal hernia. 8. Hypotension. 9. Transient ischemic attack. 10.History of migraine. 11.Left bundle branch block. Occasional irregular heartbeat. 12.History of rectocele. 13.History of cholecystectomy. 14.History of depression. 15.FULL CODE. RECOMMENDATIONS AND DISCUSSION: This 79-year-old woman who presented with multiple complex medical issues, at this time I recommend to continue the current medications. Patient is medically stable, cleared for surgery. Otherwise, I would optimize the bronchodilator treatment. We will follow the patient closely with you. DVT prophylaxis. Hold antiplatelet agents per Orthopedic surgery and we recommend incentive spirometry and proton pump inhibitors, also. Thank you Dr. Bess, for letting us participate in the care of this patient. MMBRETL / IJN: [id number] /
[2019-09-20] MEDS ORDERED: SODIUM CHLORIDE 0.9% 50 ML with ceFAZolin 1,000 MG IV ONE ×2 (11:55)
[2019-09-20] MEDS ORDERED: HYDROmorphone 0.5 MG/0.5 ML SYRINGE IVP PRN ×3 (13:34)
[2019-09-20] MEDS ORDERED: HYDROcodone/APAP 5-325MG 1 EACH TAB PO PRN (13:34)
[2019-09-20] MEDS ORDERED: hydrOXYzine PAMOATE 25 MG CAP PO PRN (13:34)
[2019-09-20] MEDS ORDERED: ONDANSETRON 4 MG/2 ML VIAL IVP ONE (13:39)
[2019-09-20] MEDS: HYDROmorphone 0.5 MG/0.5 ML SYRINGE IVP ONE ×2 (13:50→14:02)
--- NOTE | 2019-09-20 13:58 | XR ---
EXAMINATION TYPE: XR Hip Limited LT DATE OF EXAM: 09/20/2019 CLINICAL HISTORY: Left hip pain and osteoarthritis. TECHNIQUE: Single AP portable view of left hip is obtained immediately postoperatively. COMPARISON: None. FINDINGS: Metallic hardware from left hip arthroplasty is seen and appears satisfactory in alignment and position. There is evidence of recent surgery with subcutaneous gas noted laterally. IMPRESSION: Metallic hardware from left hip arthroplasty is satisfactory in position.
--- NOTE | 2019-09-20 13:58 | P.OP ---
Date of Procedure: 09/20/19 Preoperative Diagnosis: 1. Displaced left femoral neck fracture 2. Osteoporosis 3. History of stroke currently on Plavix Postoperative Diagnosis: Same Procedure(s) Performed: Left hip hemiarthroplasty Implants: [employer] size 11 cemented femoral stem, 44 mm -3 head Anesthesia: CHRISTIANO Surgeon: Reinier Bess Thermoscrew Operator #1: Marguerite Dolan Estimated Blood Loss (ml): 100 IV fluids (ml): 600 Urine output (ml): 350 Pathology: other (Femoral head to pathology) Condition: stable Disposition: PACU Indications for Procedure: The patient is a very pleasant 79-year-old female with a past medical history significant for prior stroke currently on Plavix, chronic steroid use, and osteoporosis who presented to the ER last night after sustaining a ground level fall resulting in a displaced left femoral neck fracture. She was admitted under my care and cleared for surgery by internal medicine. I met with the patient to discuss operative treatment. We discussed both total hip replacement and hemiarthroplasty. Due to the patient's age, underlying medical comorbidities, poor bone quality, history of trauma, and lack of previous hip pain my recommendation was to perform a cemented hemiarthroplasty. We discussed the potential risks and competitions of surgery including but certainly not limited to risk of anesthesia, infection, damage to blood vessels or nerves, in traoperative fracture, postoperative fracture, dislocation, leg length discrepancy, DVT, PE, other medical complications, worsening hip pain, need for further surgery including revision to total hip replacement, an inability to regain preoperative level of function, and possibly loss of life or limb. The patient also knowledge is a tear other, less common complications possible. She provided her verbal and written consent to go forward with surgery. Operative Findings: There was a displaced left subcapital femoral neck fracture Description of Procedure: The patient was met in preoperative holding and I discussed the procedure with her in detail and marked the left leg. The patient was then brought back to the operating room. She was given a general anesthetic due to being on Plavix and her spinal deformity. Once she was under general anesthesia she was given preoperative antibiotics. She was then transferred to the OR table and placed in the lateral decubitus position with the effected left hip up. She was secured to the OR table with a Montral frame. An axillary roll was placed. All bony prominences were well-padded. The left leg was then prepped and draped in the standard sterile fashion. Prior to starting surgery timeout was performed identifying the correct patient, operative extremity, and procedure. I began by outlining a standard posterior lateral approach to the hip. Skin incision was made with a scalpel and dissection was carried down to the IT band and fascia rashawn with electrocautery. The fascia rashawn was incised longitudinally in line with the skin incision from distal to proximal and the fibers of the gluteus richard were bluntly split at the tip of the greater trochanter. A Charnley retractor was placed. The trochanteric bursa was sharply elevated off the posterior femur. A medium De Leon elevator was used to develop the interval between the piriformis and short external rotators and hip capsule. The piriformis and short external rotators were released off the posterior femur using electrocautery. The posterior hip capsule was then teed up to the level of the labrum with electrocautery. A displaced subcapital femoral neck fracture was immediately identified as well as a small hemarthrosis. Retractors were placed superiorly and inferiorly to the femoral neck and a reciprocating saw was used to make a femoral neck cut 1 thumb breadth above the lesser trochanter. The femoral head was then easily removed from the acetabulum using a corkscrew device, passed off to the back table, sized, and sent to pathology. A 2 pronged femoral neck retractor was then placed under the anterior aspect the femoral neck facilitating visualization. A box osteotome was used to gain entrance to the femoral canal starting laterally on the neck taking care to match her [place] version. I reamed in 1 mm increments up to an 11 mm reamer which generated chatter. An 8 mm broach was then used to lateralize. I then sequentially broached in 1 mm increments up to an 11 mm broach which felt stable enough to trial. A calcar planar was used to bring the femoral neck cut flush with the broach. I initially attempted to use a standard offset 44 mm head but had difficulty reducing the hip. I was able to easily reduce the hip with a -3 mm head. The hip felt stable in all planes of motion. The hip was then carefully dislocated. A wet Ray-Anthony sponge was placed in the acetabulum. An 11 mm cemented stem was dispensed. A cement stricter was then placed and gently tapped into position. I then prepared the proximal femur spur cementing using a scrub brush and clean sponge. Anesthesia was notified that we were going to pressurize cement. I then pressurized cement the proximal femur using a long nozzled cement gun and coal trammer. The final stem was gently tapped into place and held until the cement hardened. The Ray-Anthony sponge was removed from the acetabulum. Both limbs of the posterior capsule were held with hemostats. A -3 mm head was placed on the final stem and reduced. The hip felt stable. The hip was then gently dislocated and the trial head was removed. The trunnion was irrigated and wiped clean and the final head was gently tapped into place to engage the Guerrero taper. The hip was then reduced and felt to be stable. The wound was thoroughly irrigated using pulsatile lavage. The posterior capsule was closed meticulously using interrupted #2 Ethibond. The fascia was reapproximated using #2 Ethibond and then closed using a running Stretta Fitch suture. The deep subcu tennis layer was closed with interrupted 0 Vicryl, the superficial subcu was closed using 2-0 Vicryl, and the skin was closed using a running subcuticular Monocryl barbed suture. The skin incision was reinforced with Dermabond and a sterile dressing was applied. A hip abduction pillow was applied. The patient was then carefully transferred from the OR table to a gurney and brought to recovery having tolerated the procedure well. Marguerite Dolan PA-C was required as a skilled assistant operator for patient positioning, exposure, retraction, placement of implant, reduction of hip, closure of wound, and repetition of dressing. Plan: The patient can weight-bear as tolerated on her left hip and should follow posterior hip precautions. She should use a hip abduction pillow while in bed. She will require 2 doses of postoperative antibiotics. I will defer DVT prophylaxis to internal medicine given her current use of Plavix.
[2019-09-20] MEDS: PANTOPRAZOLE 40 MG TABLET PO SCH (14:48)
[2019-09-20] MEDS: SODIUM CHLORIDE 0.9% 250 ML IV SCH ×2 (15:18)
[2019-09-20] MEDS ORDERED: SODIUM CHLORIDE 0.9% 250 ML IV ONE (15:20)
[2019-09-20 15:48] LABS: Basophils # (A) 0.1 k/uL (0-0.2); Basophils % (A) 1 %; Eosinophils # (A) 0.2 k/uL (0-0.7); Eosinophils % (A) 1 %; HCT 35.5 % (34.0-46.0); Hypochromasia Moderate; Lymphocytes # (A) 1.2 k/uL (1.0-4.8); Lymphocytes % (A) 8 %; MCH 29.1 pg (25.0-35.0); MCHC 30.5 g/dL (31.0-37.0); MCV 95.4 fL (80.0-100.0); Mean Platelet Volume 7.3; Monocytes # (A) 0.7 k/uL (0-1.0); Monocytes % (A) 5 %; Neutrophils % (A) 85 %; Platelet Count 266 k/uL (150-450); RBC 3.72 m/uL (3.80-5.40); RDW 13.3 % (11.5-15.5); WBC 14.2 k/uL (3.8-10.6)
[2019-09-20 15:56] LABS: HGB 10.8 gm/dL (11.4-16.0)
[2019-09-20] MEDS ORDERED: SODIUM CHLORIDE 0.9% 500 ML 500 ML IV ONE (15:58)
[2019-09-20 16:11] LABS: ALT 15 U/L (4-34); AST 22 U/L (14-36); African American GFR (CKD) >90 (>60 ml/min/1.73 sqM); Albumin 2.6 g/dL (3.5-5.0); Alkaline Phosphatase 69 U/L (38-126); Anion Gap 5 mmol/L; Blood Urea Nitrogen 14 mg/dL (7-17); Calcium 7.8 mg/dL (8.4-10.2); Carbon Dioxide 21 mmol/L (22-30); Chloride 110 mmol/L (98-107); Glucose 162 mg/dL (74-99); Non-African American GFR(CKD) 84 (>60 ml/min/1.73 sqM); Potassium 4.3 mmol/L (3.5-5.1); Sodium 136 mmol/L (137-145); Total Bilirubin 0.7 mg/dL (0.2-1.3)
[2019-09-20 16:11] LABS: Glucose,Whole Blood 157 mg/dL (75-99)
[2019-09-20 16:32] LABS: Glucose,Whole Blood 148 mg/dL (75-99)
[2019-09-20] MEDS ORDERED: SODIUM CHLORIDE 0.9% 1,000 ML IV ONE ×2 (17:11→21:44)
[2019-09-20] MEDS: SODIUM CHLORIDE 0.9% 1,000 ML IV SCH (17:23)
[2019-09-20] MEDS: NOREPINEPHRINE 4 MG in SODIUM CHLORIDE 0.9% 250 ML IV SCH (18:05)
--- NOTE | 2019-09-20 18:36 | PN ---
PROGRESS NOTE DATE OF SERVICE: 09/20/2019 This 79-year-old woman who was admitted with left hip fracture underwent left hip hemiarthroplasty. The patient had postoperative hypotension which is not responding to 250 mL of bolus. Recommended the patient to be transferred to ICU with continued bolus administration and possibly Levophed and then consult Cardiology and Dr. Pope for ICU management. The prognosis guarded. Continue the rest of medications. Will also obtain stat labs. MMODL / IJN: [id number] /
[2019-09-20] MEDS: HYDROcodone/APAP 5-325MG 1 EACH TAB PO PRN (20:27)
[2019-09-20] MEDS: SENNOSIDES-DOCUSATE SODIUM 1 EACH TAB PO SCH (20:27)
[2019-09-20 21:43] LABS: Basophils % (A) 0 %; Eosinophils # (A) 0.1 k/uL (0-0.7); Eosinophils % (A) 0 %; HCT 29.5 % (34.0-46.0); Hypochromasia Marked; Lymphocytes # (A) 0.9 k/uL (1.0-4.8); Lymphocytes % (A) 6 %; MCV 100.2 fL (80.0-100.0); Mean Platelet Volume 7.6; Monocytes # (A) 0.7 k/uL (0-1.0); Monocytes % (A) 5 %; Neutrophils # (A) 12.1 k/uL (1.3-7.7); Neutrophils % (A) 87 %; Platelet Count 310 k/uL (150-450); RBC 2.95 m/uL (3.80-5.40); RDW 13.2 % (11.5-15.5); WBC 13.9 k/uL (3.8-10.6)
[2019-09-20] MEDS ORDERED: HYDROCORTISONE SUCCINATE 100 MG/2 ML VIAL IV STA (21:44)
[2019-09-20 21:47] LABS: HGB 8.8 gm/dL (11.4-16.0)
--- NOTE | 2019-09-20 21:58 | XR ---
EXAMINATION TYPE: XR chest 1V portable DATE OF EXAM: 09/20/2019 COMPARISON: Yesterday HISTORY: Short of breath. Chest pain TECHNIQUE: FINDINGS: There is no heart failure. There is some linear density in the right midlung field that is probably some calcified pleural plaque. There are no hilar masses. Heart size is normal. Costophrenic angles are clear. There are chest leads. IMPRESSION: Pleural scarring. No active cardiopulmonary disease. Normal heart. There is clearing of t he atelectasis left lung base compared to yesterday. No pneumothorax.
[2019-09-20 22:14] LABS: Creatine Kinase MB 2.9 ng/mL (0.0-2.4)
[2019-09-20 22:20] LABS: Troponin I 0.036 ng/mL (0.000-0.034)
[2019-09-20] MEDS ORDERED: FAMOTIDINE 20 MG/2 ML VIAL IV STA (22:59)
[2019-09-20] MEDS ORDERED: diphenhydrAMINE 50 MG/ML 1 ML VIAL IVP STA (22:59)
--- NOTE | 2019-09-21 00:33 | CT ---
EXAMINATION TYPE: CT angio chest DATE OF EXAM: 09/21/2019 COMPARISON: 01/06/2012 HISTORY: SOB CT DLP: 488.8 mGycm Automated exposure control for dose reduction was used. CONTRAST: Performed with IV Contrast, patient injected with 100 mL of Isovue 370. There are 3-D post processed images. There is pulmonary hyperinflation and flattening of the diaphragm. There is some mild pleural thicken ing and atelectasis and scarring at the lung bases. Thoracic aorta is atheromatous. Heart size is nor mal. The ascending aorta measures 3.6 cm. There is no mediastinal adenopathy. There are no hilar mass es. There are large pulmonary arteries. I see no filling defects in the pulmonary arteries. There is some reticular interstitial density in both upper lobes and more on the right side. I see no suspicious pulmonary mass. There is mild thoracic kyphotic deformity. There is mild anterior wedging of a few mid thoracic verte bra. Sternum is intact. There is hiatal hernia. IMPRESSION: There is progression of the lung disease compared to old CT scan. Pleural and pulmonary scarring bilaterally. COPD. No evidence of pulmonary embolism.
--- NOTE | 2019-09-21 00:40 | CT ---
EXAMINATION TYPE: CT abdomen pelvis w con DATE OF EXAM: 09/21/2019 COMPARISON: HISTORY: Right lower abdominal pain CT DLP: 547.3 mGycm Automated exposure control for dose reduction was used. CONTRAST: Performed with IV Contrast, patient injected with 100 mL of Isovue 300. FINDINGS: There is pleural and pulmonary thickening and atelectasis at the lung bases. Heart size is normal. Th ere is moderate hiatal hernia. Liver shows no focal defect. There are clips from cholecystectomy. Common bile duct measures 1.3 cm. There is no evidence of pancreatic mass. The spleen is intact. There is no adrenal mass. There is large cyst lower pole left kidney that measures 7 cm. There is no hydronephrosis. Ureters are not dilated. There is no retroperitoneal adenopathy. Abdominal aorta is a theromatous. There is left hip prosthesis. There posterior air bubbles in the soft tissues posterior to the left hip consistent with recent surgery. There is increased density posterior to the left jackie c bone extending into the left buttock consistent with hematoma. Total extent of the hematoma is not evaluated on this exam. The area measures in transverse dimension approximate 12 x 8 cm. There is no free fluid in the pelvis. There is no sign of a bowel obstruction. There is no mesenteric edema. There is no ascites. There are sacral cysts noted in the entire sacrum. IMPRESSION: Postsurgical changes with left hip prosthesis and large hematoma posterior to the hip joint and left iliac bone. No acute intra-abdominal abnormality.
[2019-09-21] MEDS: NOREPINEPHRINE 4 MG in SODIUM CHLORIDE 0.9% 250 ML IV SCH (04:35)
[2019-09-21 05:34] LABS: Albumin 2.5 g/dL (3.5-5.0); Calcium 7.4 mg/dL (8.4-10.2); Total Bilirubin 0.6 mg/dL (0.2-1.3); Total Protein 4.9 g/dL (6.3-8.2)
[2019-09-21] MEDS ORDERED: FORMOTEROL FUMARATE 20 MCG/2 ML NEBU INHALATION ONE (07:04)
[2019-09-21] MEDS: SYMBICORT 160-4.5 MCG INHALER INHALATION SCH ×2 (07:47→21:32)
--- NOTE | 2019-09-21 08:42 | P.CRDCN ---
History of Present Illness Consult date: 09/21/19 History of present illness: This is a very pleasant 79-year-old female patient with a past medical history significant for hypertension, dyslipidemia, history of TIA, as well as multiple comorbid conditions who was admitted to the hospital after she fell at home and fractured her left hip. The patient does not recall any history of chest pain or chest discomfort, dizziness, heart racing or fluttering around episode. The patient somewhat is a poor historian. Subsequently the patient was taken to the OR where she underwent left hip surgery. The surgery itself was uneventful. Postoperatively, the patient was hypotensive. Initially she was given IV fluid without any response a subsequently she was given blood for hemoglobin of 8.1 and in spite of that she continues to be hypotensive. After that the patient underwent a CTA of the chest which failed to show any PE. No history of coronary artery disease or congestive heart failure or cardiac arrhythmia. An echocardiogram from 2018 showed normal left ventricular systolic function with mild MR and mild TR. During this admission the EKG showed left bundle branch block. The troponin came in to be slightly elevated. Currently the patient is chest pain-free. She continues to be tachycardic with a heart rate around 120 beats per minutes. I am going to start the patient on a small dose of aspirin at 81 mg by mouth daily and also small dose of metoprolol at 12.5 mg by mouth twice a day. Beside that I'm going to follow-up with her serial cardiac enzymes. Stat echocardiogram also to be performed. We'll rule out an acute coronary event and at the same time treat her for acute coronary event with metoprolol as well as aspirin. Please note that on examination she does have a systolic murmur at the right upper sternal border. Past Medical History Past Medical History: Asthma, COPD, CVA/TIA, GERD/Reflux, Hyperlipidemia, Thyroid Disorder Additional Past Medical History / Comment(s): hiatel hernia, hypotension, possible TIA,migraines, deviated septum, chronic constipation, past hx of low blood sugar, esophageal stricture with difficulty swallowing . 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 Smoking Status: Never smoker Past Alcohol Use History: None Reported Additional Past Alcohol Use History / Comment(s): . Past Drug Use History: None Reported - Past Family History Mother Family Medical History: Myocardial Infarction ([place]) Additional Family Medical History / Comment(s): Mother of a [place] at the age of 44 yrs. Father Family Medical History: Diabetes Mellitus Brother(s) Family Medical History: Cancer Additional Family Medical History / Comment(s): PROSTATE Medications and Allergies Home Medications Medication Instructions Recorded Confirmed Type Budesonide [Pulmicort Flexhaler] 1 puff INHALATION RT-BID 09/10/13 09/19/19 History Levothyroxine Sodium [Synthroid] 100 mcg PO MOTUWETHFR 09/10/13 09/19/19 History Salmeterol Xinafoate [Serevent 1 puff INHALATION RT-BID 09/10/13 09/19/19 Histor y Diskus] Clopidogrel [Plavix] 75 mg PO HS 04/20/18 09/19/19 History Allergies Allergy/AdvReac Type Severity Reaction Status Date / Time Iodinated Contrast Media Allergy FLUSHING, Verified 09/19/19 20:29 [Iodinated Contrast Media - ITCHING, IV Dye] felt warm Macrolide Antibiotics Allergy INTERACTS Verified 09/19/19 20:29 WITH ASTHMA MEDS mold Allergy asthma Verified 09/19/19 20:29 symptoms Sulfa (Sulfonamide Allergy FLUSHING , Verified 09/19/19 20:29 Antibiotics) ITCHING fungus Allergy ASTHMA Uncoded 09/19/19 20:29 SYMPTOMS SMOKE Allergy ASTHMA Uncoded 09/19/19 20:29 SYMPTOMS Physical Exam Vitals: Vital Signs Temp Pulse Pulse Pulse Resp BP BP 09/21/19 08:01 114 H 09/21/19 07:51 110 H 09/21/19 07:00 98 19 107/67 20 06:45 101 H 20 107/69 20 06:30 96 19 100/66 20 06:15 98 18 110/59 20 06:00 99 19 107/63 20 05:45 102 H 18 99/69 20 05:30 101 H 19 106/74 09/21/19 05:15 107 H 19 104/70 09/21/19 05:00 103 H 22 104/57 09/21/19 04:45 98 18 101/60 09/21/19 04:30 99 19 98/64 05 04:15 100 17 112/59 09/21/19 04:00 97.8 F 105 H 20 105/59 09/21/19 03:50 100 17 99/55 09/21/19 03:40 101 H 17 100/64 09/21/19 03:30 102 H 18 102/71 09/21/19 03:20 98.1 F 102 H 19 93/64 20 03:10 98.1 F 105 H 18 92/62 05//20 03:00 98.1 F 106 H 19 92/63 09/20/20 02:45 108 H 17 94/69 20 02:30 112 H 19 87/67 20 02:15 114 H 18 86/61 05//20 02:00 97.7 F 115 H 19 85/60 05//20 01:45 97.7 F 115 H 19 84/60 05/20 01:30 117 H 19 81/59 05//20 01:15 113 H 21 77/57 05//20 01:00 97.9 F 112 H 17 79/51 05//20 00:45 105 H 16 89/52 05//20 00:30 101 H 15 91/54 05//20 00:23 98 14 91/54 0520 23:45 27 H 83/61 05//20 23:30 117 H 24 79/50 05//20 23:15 111 H 22 67/47 05//20 23:00 114 H 23 70/46 05/25/20 22:45 108 H 20 73/22 05/25/20 22:30 121 H 21 72/49 05/25/20 22:15 114 H 17 75/56 05/25/20 22:00 110 H 12 87/54 05/25/20 21:45 106 H 17 79/52 05/25/20 21:30 109 H 17 74/50 05/25/20 21:15 112 H 17 77/48 05/25/20 21:00 97.1 F L 105 H 16 74/54 05/25/20 20:45 113 H 14 101/59 05/25/20 20:30 116 H 20 71/59 05/25/20 20:15 97.6 F 112 H 19 72/47 05/25/20 20:00 116 H 115 H 27 H 82/34 05/25/20 19:49 101 H 05/25/20 19:45 101 H 21 77/56 05/25/20 19:30 97 18 68/47 05/25/20 19:15 101 H 12 87/52 05/25/20 19:00 90 23 90/40 05/25/20 18:45 100 23 86/52 05/25/20 18:30 87 13 82/46 05/25/20 18:15 88 16 68/46 05/25/20 18:00 89 16 69/41 05/25/20 17:45 92 15 81/44 05/25/20 17:30 95 22 84/57 05/25/20 17:15 93 14 78/42 05/25/20 17:00 97 10 L 64/54 05/25/20 16:45 103 H 17 84/37 05/25/20 16:34 93 16 05/25/20 16:33 106 H 16 05/25/20 16:30 112 H 9 L 05/25/20 16:29 107 H 19 05/25/20 16:05 103 H 05/25/20 15:55 05/25/20 15:52 05/25/20 15:48 109 H 16 05/25/20 15:20 87 16 05/25/20 15:06 92 05/25/20 14:50 90 05/25/20 14:40 97.6 F 94 16 05/25/20 14:16 82 14 105/59 05/25/20 14:00 76 16 105/55 09/20/19 13:46 57 L 16 125/59 09/20/19 13:30 97.0 F L 67 16 94/48 09/20/19 09:45 72 09/20/19 09:37 72 BP Pulse Ox 09/21/19 08:01 09/21/19 07:51 09/21/19 07:00 99 09/21/19 06:45 99 09/21/19 06:30 100 09/21/19 06:15 100 09/21/19 06:00 100 09/21/19 05:45 100 09/21/19 05:30 98 09/21/19 05:15 100 09/21/19 05:00 99 09/21/19 04:45 100 09/21/19 04:30 100 09/21/19 04:15 100 09/21/19 04:00 99 09/21/19 03:50 100 09/21/19 03:40 99 09/21/19 03:30 98 09/21/19 03:20 100 09/21/19 03:10 99 09/21/19 03:00 99 09/21/19 02:45 100 09/21/19 02:30 99 09/21/19 02:15 99 09/21/19 02:00 99 09/21/19 01:45 96 09/21/19 01:30 100 09/21/19 01:15 98 09/21/19 01:00 09/21/19 00:45 09/21/19 00:30 09/21/19 00:23 99 09/20/19 23:45 09/20/19 23:30 99 09/20/19 23:15 99 09/20/19 23:00 09/20/19 22:45 99 09/20/19 22:30 99 09/20/19 22:15 100 09/20/19 22:00 99 09/20/19 21:45 99 09/20/19 21:30 98 09/20/19 21:15 98 09/20/19 21:00 96 09/20/19 20:45 100 09/20/19 20:30 99 09/20/19 20:15 98 09/20/19 20:00 99 09/20/19 19:49 09/20/19 19:45 99 09/20/19 19:30 98 09/20/19 19:15 99 09/20/19 19:00 99 09/20/19 18:45 99 09/20/19 18:30 99 09/20/19 18:15 98 09/20/19 18:00 98 09/20/19 17:45 99 09/20/19 17:30 99 09/20/19 17:15 96 09/20/19 17:00 97 09/20/19 16:45 98 09/20/19 16:34 83/56 99 09/20/19 16:33 47/32 96 09/20/19 16:30 09/20/19 16:29 09/20/19 16:05 83/53 98 09/20/19 15:55 69/44 09/20/19 15:52 56/36 09/20/19 15:48 67/45 98 09/20/19 15:20 85/58 99 09/20/19 15:06 83/56 09/20/19 14:50 88/60 98 09/20/19 14:40 100/68 98 09/20/19 14:16 99 09/20/19 14:00 100 09/20/19 13:46 99 09/20/19 13:30 94 L 09/20/19 09:45 09/20/19 09:37 Intake and Output 09/20/19 09/21/19 09/21/19 22:59 06:59 14:59 Intake Total 2557.615 1572.368 100 Output Total 80 59 20 Balance 2477.615 1513.368 80 Intake: IV 2500 800 100 Sodium Chloride 0.9% 1, 500 800 100 000 ml @ 100 mls/hr IV . Q10H [facility] Rx#:[id number] Sodium Chloride 0.9% 1, 1000 000 ml @ 999 mls/hr IV . Q1H1M [facility] Rx#:[id number] Sodium Chloride 0.9% 500 1000 ml 500 ml @ 999 mls/hr IV .Q31M [facility] Rx#:[id number] Intake, IV Titration 57.615 162.368 Amount Norepinephrine 4 mg In 57.615 162.368 Sodium Chloride 0.9% 250 ml @ 0.05 MCG/KG/MIN 9. 851 mls/hr IV .Q24H [facility] Rx#:[id number] Blood Product 610 Rc As-1 Unit 310 [id number] Output: Urine 80 59 20 Other: Voiding Method Indwelling Catheter Indwelling Catheter # Voids 1 Weight 57 kg - Constitutional General appearance: no acute distress - Respiratory Respiratory: bilateral: CTA - Cardiovascular Rhythm: regular Heart sounds: normal: S1, S2 Abnormal Heart Sounds: systolic murmur Results 09/20/19 21:21 09/21/19 04:58 Cardiac Enzymes 09/20/19 09/20/19 09/20/19 Range/Units 15:27 15:55 21:19 AST 22 (14-36) U/L CK-MB (CK-2) 2.9 H (0.0-2.4) ng/mL Troponin I <0.012 0.036 H* (0.000-0.034) ng/mL 09/21/19 Range/Units 04:58 AST 28 (14-36) U/L CK-MB (CK-2) (0.0-2.4) ng/mL Troponin I (0.000-0.034) ng/mL CBC 09/20/19 09/20/19 Range/Units 15:27 21:21 WBC 14.2 H 13.9 H (3.8-10.6) k/uL RBC 3.72 L 2.95 L (3.80-5.40) m/uL Hgb 10.8 L D 8.8 L D (11.4-16.0) gm/dL Hct 35.5 29.5 L (34.0-46.0) % Plt Count 266 310 (150-450) k/uL Comprehensive Metabolic Panel 09/20/19 09/21/19 Range/Units 15:55 04:58 Sodium 136 L 138 (137-145) mmol/L Potassium 4.3 5.0 (3.5-5.1) mmol/L Chloride 110 H 116 H (98-107) mmol/L Carbon Dioxide 21 L 14 L (22-30) mmol/L BUN 14 19 H (7-17) mg/dL Creatinine 0.63 0.79 (0.52-1.04) mg/dL Glucose 162 H 168 H (74-99) mg/dL Calcium 7.8 L 7.4 L (8.4-10.2) mg/dL AST 22 28 (14-36) U/L ALT 15 15 (4-34) U/L Alkaline Phosphatase 69 56 (38-126) U/L Total Protein 5.0 L 4.9 L (6.3-8.2) g/dL Albumin 2.6 L 2.5 L (3.5-5.0) g/dL Current Medications Generic Name Dose Route Start Last Admin Trade Name Freq PRN Reason Stop Dose Admin Hydrocodone Bitart/Acetaminophen 1 each 09/20/19 13:34 Massena 5-325 PO Q6HR PRN Pain Scale 1 to 5 Hydrocodone Bitart/Acetaminophen 2 each 09/20/19 13:34 09/20/19 20:27 [place] 5-325 PO 2 each Q6HR PRN Administration Pain Scale 6 to 10 Aspirin 81 mg 09/21/19 09:00 Aspirin PO DAILY [facility] Budesonide/Formoterol Fumarate 2 puff 09/21/19 08:00 09/21/19 07:47 Symbicort 160-4.5 Mcg Inhaler INHALATION 2 puff RT-BID [facility] Administration Hydromorphone HCl 0.125 mg 09/20/19 13:34 Dilaudid IVP Q3HR PRN Pain Scale 1 to 3 Hydromorphone HCl 0.25 mg 09/20/19 13:34 Dilaudid IVP Q3HR PRN Pain Scale 4 to 6 Hydromorphone HCl 0.5 mg 09/20/19 13:34 Dilaudid IVP Q3HR PRN Pain Scale 7 to 10 Hydroxyzine Pamoate 25 mg 09/20/19 13:34 Vistaril PO Q4HR PRN Mild Nausea and/or Anxiety Sodium Chloride 1,000 mls @ 100 mls/hr 09/20/19 17:15 09/20/19 17:23 Saline 0.9% IV 100 mls/hr .Q10H [facility] Administration Norepinephrine Bitartrate 4 mg 254 mls @ 9.851 mls/hr 09/20/19 17:15 09/21/19 04:35 / Sodium Chloride IV 0.12 mcg/kg/min .Q24H [facility] 23.642 mls/hr Administration Protocol 0.05 MCG/KG/MIN Levothyroxine Sodium 100 mcg 09/20/19 06:30 09/20/19 05:33 Synthroid PO Not Given [id number] [facility] Metoprolol Tartrate 12.5 mg 09/21/19 09:00 Lopressor PO BID [facility] Naloxone HCl 0.2 mg 09/19/19 19:40 Narcan IV Q2M PRN Opioid Reversal Pantoprazole Sodium 40 mg 09/20/19 10:30 09/20/19 14:48 Protonix PO Not Given AC-BRKFST [facility] Senna/Docusate Sodium 2 each 09/20/19 21:00 09/20/19 20:27 Senokot-S PO 2 each HS [facility] Administration Intake and Output 09/20/19 09/21/19 09/21/19 22:59 06:59 14:59 Intake Total 2557.615 1572.368 100 Output Total 80 59 20 Balance 2477.615 1513.368 80 Intake: IV 2500 800 100 Sodium Chloride 0.9% 1, 500 800 100 000 ml @ 100 mls/hr IV . Q10H [facility] Rx#:[id number] Sodium Chloride 0.9% 1, 1000 000 ml @ 999 mls/hr IV . Q1H1M [facility] Rx#:[id number] Sodium Chloride 0.9% 500 1000 ml 500 ml @ 999 mls/hr IV .Q31M [facility] Rx#:[id number] Intake, IV Titration 57.615 162.368 Amount Norepinephrine 4 mg In 57.615 162.368 Sodium Chloride 0.9% 250 ml @ 0.05 MCG/KG/MIN 9. 851 mls/hr IV .Q24H [facility] Rx#:[id number] Blood Product 610 Rc As-1 Unit 310 [id number] Output: Urine 80 59 20 Other: Voiding Method Indwelling Catheter Indwelling Catheter # Voids 1 Weight 57 kg 09/20/19 21:21 09/21/19 04:58 Assessment and Plan Assessment: assessment #1 status post fall and left hip fracture #2 status post left hip surgery #3 sinus tachycardia of unknown etiology #4 blood loss anemia #5 mildly elevated troponin #6 multiple comorbid conditions Plan #1 start the patient on aspirin as well as metoprolol #2 obtain stat echocardiogram #3 PE was ruled out by a negative CTA of the chest #4 follow-up with the patient
[2019-09-21] MEDS: SODIUM CHLORIDE 0.9% 1,000 ML IV SCH ×2 (08:45→16:33)
[2019-09-21] MEDS: ASPIRIN 81 MG PO SCH (08:45)
[2019-09-21] MEDS: LEVOTHYROXINE 100 MCG TAB PO SCH (08:45)
[2019-09-21] MEDS: PANTOPRAZOLE 40 MG TABLET PO SCH (08:45)
--- NOTE | 2019-09-21 08:54 | P.PN ---
Subjective Progress Note Date: 09/21/19 Acutely following surgery yesterday the patient became hypotensive and required transfer to the ICU. She was given several IV fluid boluses and ultimately required a unit of packed red blood cells. A cardiology consult has been placed and the patient is currently resting comfortably in the ICU. This morning she is complaining of isolated pain in her left hip. She denies chest pain. Objective - Vital Signs Vital signs: Vital Signs Temp 97.8 F 09/21/19 04:00 Pulse 114 H 09/21/19 08:01 Resp 19 09/21/19 07:00 BP 107/67 09/21/19 07:00 Pulse Ox 99 09/21/19 07:00 Intake & Output 09/20/19 09/21/19 09/21/19 18:59 06:59 18:59 Intake Total 2050 2929.983 100 Output Total 495 94 20 Balance 1555 2835.983 80 Weight 57 kg Intake: IV 2050 2100 100 Sodium Chloride 0.9% 1, 200 1100 100 000 ml @ 100 mls/hr IV . Q10H [facility] Rx#:[id number] Sodium Chloride 0.9% 1, 1000 000 ml @ 999 mls/hr IV . Q1H1M [facility] Rx#:[id number] Sodium Chloride 0.9% 500 1000 ml 500 ml @ 999 mls/hr IV .Q31M [facility] Rx#:[id number] Intake, IV Titration 219.983 Amount Norepinephrine 4 mg In 219.983 Sodium Chloride 0.9% 250 ml @ 0.05 MCG/KG/MIN 9. 851 mls/hr IV .Q24H [facility] Rx#:[id number] Blood Product 610 Rc As-1 Unit 310 [id number] Output: Urine 395 94 20 Estimated Blood Loss 100 Other: Voiding Method Indwelling Catheter Indwelling Catheter # Voids 1 - Exam On exam the patient is resting comfortably in her bed. She is somewhat drowsy but is able to converse and answer questions without difficulty. A focused exam of the left leg was conducted. On inspection there is diffuse swelling and ecchymosis throughout the thigh. The dressing is in place with minimal saturated blood. The thigh is soft and compressible. Motor and sensory function are intact distally. - Labs CBC & Chem 7: 09/20/19 21:21 05/26/20 04:58 Labs: Abnormal Lab Results - Last 24 Hours (Table) 09/20/19 09/20/19 09/20/19 Range/Units 15:27 15:55 15:58 WBC 14.2 H (3.8-10.6) k/uL RBC 3.72 L (3.80-5.40) m/uL Hgb 10.8 L D (11.4-16.0) gm/dL Hct (34.0-46.0) % MCV (80.0-100.0) fL MCHC 30.5 L (31.0-37.0) g/dL Neutrophils # 12.0 H (1.3-7.7) k/uL Lymphocytes # (1.0-4.8) k/uL D-Dimer (<0.60) mg/L FEU Sodium 136 L (137-145) mmol/L Chloride 110 H (98-107) mmol/L Carbon Dioxide 21 L (22-30) mmol/L BUN (7-17) mg/dL Glucose 162 H (74-99) mg/dL POC Glucose (mg/dL) 157 H (75-99) mg/dL Calcium 7.8 L (8.4-10.2) mg/dL Total Creatine Kinase (30-135) U/L CK-MB (CK-2) (0.0-2.4) ng/mL Troponin I (0.000-0.034) ng/mL Total Protein 5.0 L (6.3-8.2) g/dL Albumin 2.6 L (3.5-5.0) g/dL Crossmatch 09/20/19 09/20/19 09/20/19 Range/Units 16:30 21:19 21:21 WBC 13.9 H (3.8-10.6) k/uL RBC 2.95 L (3.80-5.40) m/uL Hgb 8.8 L D (11.4-16.0) gm/dL Hct 29.5 L (34.0-46.0) % MCV 100.2 H (80.0-100.0) fL MCHC 30.0 L (31.0-37.0) g/dL Neutrophils # 12.1 H (1.3-7.7) k/uL Lymphocytes # 0.9 L (1.0-4.8) k/uL D-Dimer (<0.60) mg/L FEU Sodium (137-145) mmol/L Chloride (98-107) mmol/L Carbon Dioxide (22-30) mmol/L BUN (7-17) mg/dL Glucose (74-99) mg/dL POC Glucose (mg/dL) 148 H (75-99) mg/dL Calcium (8.4-10.2) mg/dL Total Creatine Kinase 198 H (30-135) U/L CK-MB (CK-2) 2.9 H (0.0-2.4) ng/mL Troponin I 0.036 H* (0.000-0.034) ng/mL Total Protein (6.3-8.2) g/dL Albumin (3.5-5.0) g/dL Crossmatch 09/20/19 09/20/19 09/21/19 Range/Units 21:23 23:19 04:58 WBC (3.8-10.6) k/uL RBC (3.80-5.40) m/uL Hgb (11.4-16.0) gm/dL Hct (34.0-46.0) % MCV (80.0-100.0) fL MCHC (31.0-37.0) g/dL Neutrophils # (1.3-7.7) k/uL Lymphocytes # (1.0-4.8) k/uL D-Dimer 5.82 H (<0.60) mg/L FEU Sodium (137-145) mmol/L Chloride 116 H (98-107) mmol/L Carbon Dioxide 14 L (22-30) mmol/L BUN 19 H (7-17) mg/dL Glucose 168 H (74-99) mg/dL POC Glucose (mg/dL) (75-99) mg/dL Calcium 7.4 L (8.4-10.2) mg/dL Total Creatine Kinase (30-135) U/L CK-MB (CK-2) (0.0-2.4) ng/mL Troponin I (0.000-0.034) ng/mL Total Protein 4.9 L (6.3-8.2) g/dL Albumin 2.5 L (3.5-5.0) g/dL Crossmatch See Detail Assessment and Plan Assessment: Postoperative day #1 status post cemented left hip hemiarthroplasty with postoperative course complicated by hypotension and acute blood loss anemia requiring IV fluid bolus and blood transfusion. (1) Hip fracture Current Visit: Yes Status: Acute Code(s): S72.009A - FRACTURE OF UNSP PART OF NECK OF UNSP FEMUR, INIT SNOMED Code(s): 690551876 Plan: In regard to the patient's left hip she can weight-bear as tolerated and should follow posterior hip precautions. When she is medically stable and would like her to mobilize out of her bed and into a chair. While in bed she should continue to wear her hip abduction brace. I appreciate internal medicine, ICU, and cardiology management and will defer to them for medical management and DVT prophylaxis.
[2019-09-21] MEDS: METOPROLOL TARTRATE 12.5 MG TAB PO SCH ×2 (11:44→22:01)
--- NOTE | 2019-09-21 13:13 | CONS ---
CONSULTATION PULMONARY/CRITICAL CARE CONSULTATION: DATE OF SERVICE: 09/21/2019 This is an 79-year-old female who apparently was admitted on September 18. She apparently had a ground level fall. She apparently was walking into a store, adjusting her face mass when she lost her balance and stumbled forward. She fell out on her outstretched left arm, landing on her left hip and also hitting her forehead. The patient apparently sustained a displaced left femoral neck fracture and had surgery on 09/19. She had a left hip hemiarthroplasty done by Dr. Bess. She is currently here in the ICU recovering. Currently, the patient is on 2 L nasal cannula. She is getting norepinephrine at 7.2 mcg/minute. She is getting saline at 120 mL an hour. She has received 1 unit of PRBCs. She apparently was initially admitted to the floor, had hypotension and then transferred to the ICU. The surgery was done by Dr. Bess. Her COVID testing was negative. . CURRENT MEDICATIONS: Include Pulmicort, levothyroxine, Serevent, albuterol, and Plavix. ALLERGIES: Include IVP DYE, MACROLIDE ANTIBIOTICS, MOLD, SULFA ANTIBIOTICS, FUNGUS, and SMOKE. MEDICAL HISTORY: Apparently positive for COPD/asthma, CVA, GERD, hyperlipidemia, and hypothyroidism. Additional medical surgery includes large hiatal hernia, migraine cephalgia, knee deviated nasal septum, chronic constipation, esophageal stricture, osteoporosis, left bundle branch block, varicose veins, history of Zafar's thyroiditis, thyroid nodule, anemia, and previous history of rectocele. SURGICAL HISTORY: Includes among other things, cholecystectomy, heart catheterization, tubal ligation, sinus surgery x3, varicose vein stripping, cataract surgery, EGD, and colonoscopy. SOCIAL HISTORY: Apparently negative for tobacco use. She denies any alcohol use or illicit drug use. FAMILY HISTORY: Positive for mother with previous myocardial infarction who at an early age. Father with diabetes mellitus and a brother with prostate cancer. REVIEW OF SYSTEMS: CONSTITUTIONAL: Negative. NEUROLOGIC: Negative. HEENT: Negative. CARDIOVASCULAR: Negative. PULMONARY: Negative. GI: Negative. : Negative. RHEUMATOLOGIC: Left hip pain. IMMUNOLOGIC: Negative. ENDOCRINOLOGIC: Negative. DERMATOLOGIC: All negative. Current vital signs include temperature 97.8 heart rate 99, respiratory rate 19, blood pressure 107/63 mean 77, and saturations on 2 L 100%. Appears in no acute distress. HEENT: Examination is grossly unremarkable. Nasal O2 noted. NECK: Supple, full range of motion. No adenopathy, thyromegaly or neck vein distention. CARDIOVASCULAR: Examination reveals regular rhythm and rate. Heart rate about 99 beats per minute. S1, S2 normal. LUNGS: Reveal mostly clear breath sounds. No wheezes, rhonchi, or crackles. ABDOMEN: Soft. EXTREMITIES: Intact. No cyanosis, clubbing, or edema. SKIN: Without rash. NEUROLOGIC: Examination is brief but nonfocal. Again, currently the patient is on O2 at 2 L and norepinephrine at 7.2 mcg/minute. Her saline is running at 120 mL an hour. She has received 1 unit of PRBCs. LABS: Reviewed. White count 13.9, hemoglobin 8.8, hematocrit 29.5, platelet count 310,000. D-dimer 5.82. Sodium 138, potassium 5, chloride 116 and CO2 is 14. Anion gap is 8.. BUN and creatinine were 19 and 0.79. CK-MB was in 0.012 and 0.036. Microbiology is all negative. She had a head and cervical spine CT which showed no acute fracture, no acute intracranial hemorrhage. A hand x-ray that showed no fracture or dislocation. Wrist x- rays likewise, which showed no fracture, dislocation. The hip and pelvic x-rays which showed a subcapital impaction fracture of the left. The femur x-ray which showed a left femoral neck fracture. A chest x-ray which showed no acute process. An EKG which showed sinus rhythm. A followup chest x-ray again which showed nothing acute and then for some reason, a chest CT Angio which shows scarring at the lung bases and some pleural thickening with some interstitial densities in both upper lobes. There is no suspicious pulmonary mass. There were no evidence of pulmonary embolism. Current medications were reviewed. She is on Flovent, formoterol, [place], Dilaudid, Vistaril, levothyroxine, Narcan, norepinephrine, saline IV, and Protonix. ASSESSMENT: 1. Status post ground level fall with a displaced left femoral neck fracture, status post left hip hemiarthroplasty, postoperative day #1. 2. Chronic obstructive pulmonary disease/asthma, currently stable. 3. History of cerebrovascular accident. 4. History of gastroesophageal reflux disease. 5. Hyperlipidemia. 6. Hypothyroidism. 7. Multiple other medical problems and comorbidities as listed in my past medical history. PLAN: The patient seems to be relatively stable. She is requiring some norepinephrine at 7.2 mcg/minute. I did ask for a stat cortisol level. A COVID testing was negative. She may just need additional IV fluids. Will continue to follow closely. Prognosis is guarded given her age. JOSE / LAURA: [id number] /
[2019-09-21 13:30] LABS: HCT 34.6 % (34.0-46.0); HGB 10.6 gm/dL (11.4-16.0); Hypochromasia Moderate; MCH 29.6 pg (25.0-35.0); MCHC 30.7 g/dL (31.0-37.0); MCV 96.5 fL (80.0-100.0); Mean Platelet Volume 9.6; Platelet Count 190 k/uL (150-450); RBC 3.59 m/uL (3.80-5.40); RDW 13.3 % (11.5-15.5); WBC 14.3 k/uL (3.8-10.6)
[2019-09-21] MEDS: PANTOPRAZOLE 40 MG/10 ML VIAL IVP SCH (16:33)
--- NOTE | 2019-09-21 16:49 | PN ---
PROGRESS NOTE DATE OF SERVICE: 09/21/2019 This is an 79-year-old woman who was admitted after acute left hip fracture, underwent left hip hemiarthroplasty by Orthopedic Surgery, possibility patient hypotension most likely due to myocardial infarction. The patient also had multiple evaluations including chest CTA which showed only some COPD and no evidence of pulmonary embolism in the CAT scan. Otherwise, Cardiology following the patient closely. Troponins were found to be 0.115 and CO2 is 14 and white count is elevated at 14.3. The urine was unremarkable. The most recent chest x-ray which evaluated personally by me showed no acute abnormality. PAST MEDICAL HISTORY: Reviewed. REVIEW OF SYSTEMS: CARDIOVASCULAR SYSTEM: No angina or palpitations. RESPIRATORY: No dysuria. GI: As mentioned earlier. : As mentioned earlier. NERVOUS SYSTEM: Diffusely weak. CURRENT MEDICATIONS: Reviewed and include: 1. Thornton 5 mg q.6 p.r.n. 2. Aspirin. 3. Symbicort 160/4.5 b.i.d. 4. Dilaudid. 5. Restoril. 6. Synthroid. 7. Narcan. 9. Senokot. PHYSICAL EXAMINATION: Patient is alert, oriented x2, pulse 103, blood pressure 101/53, respiration 20, temperature normal, pulse ox 98% on 2 L. HEENT: Conjunctivae normal. Oral mucosa moist. NECK: No jugular venous distention. No lymph node enlargement. CARDIOVASCULAR: S1, S2. RESPIRATORY: Breath sounds diminished at the bases, a few scattered rhonchi, no crackles. ABDOMEN: Soft, nontender/ LEGS: No edema. No swelling. NERVOUS SYSTEM: No focal deficits. LABS: WBC 14.2, hemoglobin 10.7, sodium 130, potassium 5 and troponin 0.115. Albumin is 2.5. ASSESSMENT: 1. Acute left hip fracture with displaced left femoral neck fracture, status post left hip hemiarthroplasty. 2. Possible hypotension, possible acute khs-RF-ebkppfj-elevation myocardial infarction. 3. Chronic obstructive pulmonary disease, asthma. 4. History of cerebrovascular accident, transient ischemic attack. 5. Gastroesophageal reflux disease. 6. Anemia. 7. Increased WBC. 8. Hyponatremia, mild. 9. Mild hypoalbuminemia with mild protein calorie malnutrition. 10.History of gastroesophageal reflux disease. 11.Hyperlipidemia. 12.Hypothyroidism. 13.Hiatal hernia. 14.Hypertension. 15.Transient ischemic attack. 16.History of migraine. 17.Left bundle branch block on EKG. 18.History of rectocele. 19.History of cholecystectomy. 20.History of depression. 21.FULL CODE. RECOMMENDATION: Recommend to continue current management and symptomatic treatment, otherwise I would recommend to continue the current medication. Continue with Levophed. Continue with cautious hydration. Continue with the rest of the medications. Small dose of beta blockers has been initiated. Guarded prognosis, because I am going to continue the antiplatelet agents, DVT prophylaxis. Further recommendations to follow. MMODL / IJN: [id number] / MTDD
[2019-09-21] MEDS: SENNOSIDES-DOCUSATE SODIUM 1 EACH TAB PO SCH (22:01)
[2019-09-22] MEDS: NOREPINEPHRINE 4 MG in SODIUM CHLORIDE 0.9% 250 ML IV SCH ×3 (04:13→22:12)
[2019-09-22] MEDS: SODIUM CHLORIDE 0.9% 1,000 ML IV SCH ×2 (04:13→11:31)
[2019-09-22] MEDS: LEVOTHYROXINE 100 MCG TAB PO SCH (06:13)
[2019-09-22 06:15] LABS: ALT 9 U/L (4-34); AST 21 U/L (14-36); African American GFR (CKD) >90 (>60 ml/min/1.73 sqM); Alkaline Phosphatase 52 U/L (38-126); Anion Gap 3 mmol/L; Blood Urea Nitrogen 18 mg/dL (7-17); Calcium 7.6 mg/dL (8.4-10.2); Carbon Dioxide 17 mmol/L (22-30); Chloride 116 mmol/L (98-107); Glucose 125 mg/dL (74-99); Non-African American GFR(CKD) 87 (>60 ml/min/1.73 sqM); Potassium 4.2 mmol/L (3.5-5.1); Sodium 136 mmol/L (137-145); Total Bilirubin 0.5 mg/dL (0.2-1.3)
[2019-09-22 06:36] LABS: Basophils % (A) 0 %; Eosinophils % (A) 0 %; HCT 22.7 % (34.0-46.0); Hypochromasia Moderate; Lymphocytes # (A) 1.1 k/uL (1.0-4.8); Lymphocytes % (A) 13 %; MCHC 32.4 g/dL (31.0-37.0); MCV 95.9 fL (80.0-100.0); Mean Platelet Volume 8.2; Monocytes # (A) 0.7 k/uL (0-1.0); Monocytes % (A) 9 %; Neutrophils # (A) 6.6 k/uL (1.3-7.7); Neutrophils % (A) 76 %; Platelet Count 185 k/uL (150-450); RBC 2.37 m/uL (3.80-5.40); RDW 13.9 % (11.5-15.5); WBC 8.7 k/uL (3.8-10.6)
[2019-09-22 06:41] LABS: HGB 7.4 gm/dL (11.4-16.0)
[2019-09-22] MEDS ORDERED: SODIUM CHLORIDE 0.9% 500 ML 200 ML IV ONE (07:03)
--- NOTE | 2019-09-22 07:30 | P.PN ---
Subjective Progress Note Date: 09/22/19 Principal diagnosis: hypotension/tachycardia This is a very pleasant 79-year-old female patient with a past medical history significant for hypertension, dyslipidemia, history of TIA, as well as multiple comorbid conditions who was admitted to the hospital after she fell at home and fractured her left hip. The patient does not recall any history of chest pain or chest discomfort, dizziness, heart racing or fluttering around episode. The patient somewhat is a poor historian. Subsequently the patient was taken to the OR where she underwent left hip surgery. The surgery itself was uneventful. Postoperatively, the patient was hypotensive. Initially she was given IV fluid without any response a subsequently she was given blood for hemoglobin of 8.1 and in spite of that she continues to be hypotensive. After that the patient underwent a CTA of the chest which failed to show any PE. No history of coronary artery disease or congestive heart failure or cardiac arrhythmia. An echocardiogram from 2017 showed normal left ventricular systolic function with mild MR and mild TR. During this admission the EKG showed left bundle branch block. The troponin came in to be slightly elevated. The patient was seen today, September [id number].Hemodynamically she continues to be unstable and requiring small doses of norepinephrine. The heart rate has improved after she was started on metoprolol 12.5 mg by mouth 3 times a day. Hemoglobin this morning is 7.4 and I am going to give the patient one unit of packed RBC and hoping to wean her from norepinephrine. The troponin overall is slightly elevated. I am going to follow-up on the echocardiogram. Meanwhile will continue the current dose of aspirin as well as current dose of metoprolol and follow-up on the echo. Objective - Vital Signs Vital signs: Vital Signs Temp 98.4 F 09/22/19 04:15 Pulse 86 09/22/19 07:00 Resp 12 09/22/19 07:00 BP 100/56 09/22/19 07:00 Pulse Ox 99 09/22/19 07:00 Intake & Output 09/21/19 09/22/19 09/22/19 18:59 06:59 18:59 Intake Total 4638.429 8802 100 Output Total 525 478 75 Balance 1079.000 622 25 Weight 61.2 kg Intake: IV 1100 1100 100 Sodium Chloride 0.9% 1, 1100 1100 100 000 ml @ 100 mls/hr IV . Q10H [facility] Rx#:[id number] Intake, IV Titration 254.000 Amount Norepinephrine 4 mg In 254.000 Sodium Chloride 0.9% 250 ml @ 0.05 MCG/KG/MIN 9. 851 mls/hr IV .Q24H [facility] Rx#:[id number] Oral 250 Output: Urine 525 478 75 Other: Voiding Method Indwelling Catheter Indwelling Catheter # Voids 1 - Constitutional General appearance: Present: no acute distress - Respiratory Respiratory: bilateral: CTA - Cardiovascular Rhythm: regular Heart sounds: normal: S1, S2 - Labs CBC & Chem 7: 09/22/19 04:43 09/22/19 04:43 Labs: Abnormal Lab Results - Last 24 Hours (Table) 09/20/19 09/21/19 09/21/19 Range/Units 23:19 08:26 08:26 WBC 14.3 H (3.8-10.6) k/uL RBC 3.59 L (3.80-5.40) m/uL Hgb 10.6 L (11.4-16.0) gm/dL Hct (34.0-46.0) % MCHC 30.7 L (31.0-37.0) g/dL Sodium (137-145) mmol/L Chloride (98-107) mmol/L Carbon Dioxide (22-30) mmol/L BUN (7-17) mg/dL Glucose (74-99) mg/dL Calcium (8.4-10.2) mg/dL Troponin I 0.115 H* (0.000-0.034) ng/mL Total Protein (6.3-8.2) g/dL Albumin (3.5-5.0) g/dL Crossmatch See Detail 09/21/19 09/22/19 09/22/19 Range/Units 14:37 04:43 04:43 WBC (3.8-10.6) k/uL RBC 2.37 L (3.80-5.40) m/uL Hgb 7.4 L D (11.4-16.0) gm/dL Hct 22.7 L (34.0-46.0) % MCHC (31.0-37.0) g/dL Sodium 136 L (137-145) mmol/L Chloride 116 H (98-107) mmol/L Carbon Dioxide 17 L (22-30) mmol/L BUN 18 H (7-17) mg/dL Glucose 125 H (74-99) mg/dL Calcium 7.6 L (8.4-10.2) mg/dL Troponin I 0.109 H* (0.000-0.034) ng/mL Total Protein 4.0 L (6.3-8.2) g/dL Albumin 2.0 L (3.5-5.0) g/dL Crossmatch Microbiology - Last 24 Hours (Table) 09/20/19 23:19 Blood Culture - Preliminary Blood No Growth after 24 hours Assessment and Plan Assessment: assessment #1 status post fall and left hip fracture #2 status post left hip surgery #3 sinus tachycardia of unknown etiology #4 blood loss anemia #5 mildly elevated troponin #6 multiple comorbid conditions Plan #1 continue the current dose of aspirin as well as metoprolol #2 give the patient one unit of packed RBC #3 follow-up on the echocardiogram
[2019-09-22] MEDS: SYMBICORT 160-4.5 MCG INHALER INHALATION SCH ×2 (07:31→19:41)
[2019-09-22] MEDS: PANTOPRAZOLE 40 MG/10 ML VIAL IVP SCH (09:32)
[2019-09-22] MEDS: ASPIRIN 81 MG PO SCH (09:32)
[2019-09-22] MEDS: ENOXAPARIN 40 MG/0.4 ML SYRINGE SQ SCH (09:32)
[2019-09-22] MEDS: METOPROLOL TARTRATE 12.5 MG TAB PO SCH ×2 (09:32→20:41)
--- NOTE | 2019-09-22 09:49 | P.PN ---
Subjective Progress Note Date: 09/22/19 This patient is an 79- year old female that is status-post left hip hemiarthroplasty on 09/20/19. Today's postoperative day #2. Patient is examined bedside this morning with Dr. Bess. Patient continues to complain of isolated left hip pain. Patient's hemoglobin is 7.4 this morning, in the plan is to transfuse 1 unit of PRBCs this morning. She denies any additional complaints today. Per nursing, the patient has not yet been up with physical therapy. Vital signs stable. Objective - Vital Signs Vital signs: Vital Signs Temp 98.3 F 09/22/19 09:29 Pulse 90 09/22/19 09:29 Resp 19 09/22/19 09:29 BP 103/50 09/22/19 09:29 Pulse Ox 99 09/22/19 07:00 Intake & Output 09/21/19 09/22/19 09/22/19 18:59 06:59 18:59 Intake Total 1154.104 9718 100 Output Total 525 478 75 Balance 1079.000 622 25 Weight 61.2 kg Intake: IV 1100 1100 100 Sodium Chloride 0.9% 1, 1100 1100 100 000 ml @ 100 mls/hr IV . Q10H [facility] Rx#:[id number] Intake, IV Titration 254.000 Amount Norepinephrine 4 mg In 254.000 Sodium Chloride 0.9% 250 ml @ 0.05 MCG/KG/MIN 9. 851 mls/hr IV .Q24H [facility] Rx#:[id number] Oral 250 Blood Product 0 Rc As-1 Unit 0 [id number] Output: Urine 525 478 75 Other: Voiding Method Indwelling Catheter Indwelling Catheter # Voids 1 - Exam On examination, the patient is sitting up in bed in no apparent distress. She is alert and oriented 3, although appears somewhat drowsy. On inspection of the left hip, there is a clean, dry, intact dressing in place. There is no significant drainage or bleeding. Mild swelling and ecchymosis of the left hip. The left thigh is soft and compressible. Motor and sensory function intact of the left lower extremity. Left lower extremity is warm and well-perfused with brisk capillary refill distally. - Labs CBC & Chem 7: 09/22/19 04:43 09/22/19 04:43 Labs: Abnormal Lab Results - Last 24 Hours (Table) 09/20/19 09/21/19 09/21/19 Range/Units 23:19 08:26 08:26 WBC 14.3 H (3.8-10.6) k/uL RBC 3.59 L (3.80-5.40) m/uL Hgb 10.6 L (11.4-16.0) gm/dL Hct (34.0-46.0) % MCHC 30.7 L (31.0-37.0) g/dL Sodium (137-145) mmol/L Chloride (98-107) mmol/L Carbon Dioxide (22-30) mmol/L BUN (7-17) mg/dL Glucose (74-99) mg/dL Calcium (8.4-10.2) mg/dL Troponin I 0.115 H* (0.000-0.034) ng/mL Total Protein (6.3-8.2) g/dL Albumin (3.5-5.0) g/dL Crossmatch See Detail 09/21/19 09/22/19 09/22/19 Range/Units 14:37 04:43 04:43 WBC (3.8-10.6) k/uL RBC 2.37 L (3.80-5.40) m/uL Hgb 7.4 L D (11.4-16.0) gm/dL Hct 22.7 L (34.0-46.0) % MCHC (31.0-37.0) g/dL Sodium 136 L (137-145) mmol/L Chloride 116 H (98-107) mmol/L Carbon Dioxide 17 L (22-30) mmol/L BUN 18 H (7-17) mg/dL Glucose 125 H (74-99) mg/dL Calcium 7.6 L (8.4-10.2) mg/dL Troponin I 0.109 H* (0.000-0.034) ng/mL Total Protein 4.0 L (6.3-8.2) g/dL Albumin 2.0 L (3.5-5.0) g/dL Crossmatch Microbiology - Last 24 Hours (Table) 09/20/19 23:19 Blood Culture - Preliminary Blood No Growth after 24 hours Assessment and Plan Assessment: Status-post left hip hemiarthroplasty on 09/20/2019. Postoperative day #2. Acute blood loss anemia requiring blood transfusion Plan: - In regards to the left hip, the patient may weight bear as tolerated. She may increase mobilization when she is medically stable. - Continue posterior hip precautions. Patient should use abduction pillow at all times while in bed. - Appreciate internal medicine, cardiology, ICU for medical management and DVT prophylaxis. - We will continue to follow patient closely and make recommendations as needed. Patient was examined bedside with Dr. Bess.
--- NOTE | 2019-09-22 10:07 | P.PN ---
Subjective Progress Note Date: 09/22/19 Principal diagnosis: status post ground-level fall with a displaced left femoral neck fracture, status post left hip hemiarthroplasty on 09/22/2019 patient seen in follow-up in the intensive care unit. She is awake alert alert, oriented 3, and she is in no acute distress, she is on 2 L of oxygen with a pulse ox of 99%, hemodynamically stable, afebrile, she is 7.9 normal saline at 100 ML per hour, and small dose of levophed currently at 5 mics per minute. This is postoperative day 2 status post left hip hemiarthroplasty. Her pain is well controlled, patient has palpable pulses in lower extremities, no complaints of numbness or tingling. Incision in the left hip is clean dry and intact. patient is in sinus rhythm with a rate of 87 BPM, she still required small dose of Levothroid, cortisone level came back normal at 115. today's hemoglobin is down to 7.4, and 1 unit of packed red blood cells has been ordered, patient denied any chest pain, lung sounds are clear, her asthma is stable Objective - Vital Signs Vital signs: Vital Signs Temp 98.3 F 09/22/19 09:29 Pulse 90 09/22/19 09:29 Resp 19 09/22/19 09:29 BP 103/50 09/22/19 09:29 Pulse Ox 99 09/22/19 07:00 Intake & Output 09/21/19 09/22/19 09/22/19 18:59 06:59 18:59 Intake Total 1490.323 7670 100 Output Total 525 478 75 Balance 1079.000 622 25 Weight 61.2 kg Intake: IV 1100 1100 100 Sodium Chloride 0.9% 1, 1100 1100 100 000 ml @ 100 mls/hr IV . Q10H [facility] Rx#:[id number] Intake, IV Titration 254.000 Amount Norepinephrine 4 mg In 254.000 Sodium Chloride 0.9% 250 ml @ 0.05 MCG/KG/MIN 9. 851 mls/hr IV .Q24H [facility] Rx#:[id number] Oral 250 Blood Product 0 Rc As-1 Unit 0 [id number] Output: Urine 525 478 75 Other: Voiding Method Indwelling Catheter Indwelling Catheter # Voids 1 - Exam GENERAL EXAM: Alert. Pleasant, 79-year-old white female, on 2 L of oxygen with a pulse ox of 99% comfortable in no apparent distress. HEAD: Normocephalic/atraumatic. EYES: Normal reaction of pupils, equal size. Conjunctiva pink, sclera white. NOSE: Clear with pink turbinates. THROAT: No erythema or exudates. NECK: No masses, no JVD, no thyroid enlargement, no adenopathy. CHEST: No chest wall deformity. Symmetrical expansion. LUNGS: Equal air entry with no crackles, wheeze, rhonchi or dullness. CVS: Regular rate and rhythm, normal S1 and S2, no gallops, no murmurs, no rubs ABDOMEN: Soft, nontender. No hepatosplenomegaly, normal bowel sounds, no guarding or rigidity. EXTREMITIES: No clubbing, no edema, no cyanosis, 2+ pulses and upper and lower extremities. left hip vision is clean dry and intact, and has a abductor pillow in between her legs, lower extremity pulses are intact, no numbness or tingling MUSCULOSKELETAL: Muscle strength and tone normal. SPINE: No scoliosis or deformity SKIN: No rashes CENTRAL NERVOUS SYSTEM: Alert and oriented -3. No focal deficits, tone is normal in all 4 extremities. PSYCHIATRIC: Alert and oriented -3. Appropriate affect. Intact judgment and insight. - Labs CBC & Chem 7: 09/22/19 04:43 09/22/19 04:43 Labs: Abnormal Lab Results - Last 24 Hours (Table) 09/20/19 09/21/19 09/21/19 Range/Units 23:19 08:26 08:26 WBC 14.3 H (3.8-10.6) k/uL RBC 3.59 L (3.80-5.40) m/uL Hgb 10.6 L (11.4-16.0) gm/dL Hct (34.0-46.0) % MCHC 30.7 L (31.0-37.0) g/dL Sodium (137-145) mmol/L Chloride (98-107) mmol/L Carbon Dioxide (22-30) mmol/L BUN (7-17) mg/dL Glucose (74-99) mg/dL Calcium (8.4-10.2) mg/dL Troponin I 0.115 H* (0.000-0.034) ng/mL Total Protein (6.3-8.2) g/dL Albumin (3.5-5.0) g/dL Crossmatch See Detail 09/21/19 09/22/19 09/22/19 Range/Units 14:37 04:43 04:43 WBC (3.8-10.6) k/uL RBC 2.37 L (3.80-5.40) m/uL Hgb 7.4 L D (11.4-16.0) gm/dL Hct 22.7 L (34.0-46.0) % MCHC (31.0-37.0) g/dL Sodium 136 L (137-145) mmol/L Chloride 116 H (98-107) mmol/L Carbon Dioxide 17 L (22-30) mmol/L BUN 18 H (7-17) mg/dL Glucose 125 H (74-99) mg/dL Calcium 7.6 L (8.4-10.2) mg/dL Troponin I 0.109 H* (0.000-0.034) ng/mL Total Protein 4.0 L (6.3-8.2) g/dL Albumin 2.0 L (3.5-5.0) g/dL Crossmatch Microbiology - Last 24 Hours (Table) 09/20/19 23:19 Blood Culture - Preliminary Blood No Growth after 24 hours Assessment and Plan Plan: Assessment: #1. Status post ground-level fall with a displaced left femoral neck fracture, status post left hip hemiarthroplasty, postoperative day 2 #2. Hypotension, related to hypovolemic state, acute blood loss anemia, inquiring vasopressor infusion #3. Acute blood loss anemia, normal outcome of surgery #4. Hyperchloremic non-anion gap metabolic acidosis related to sodium chloride a dministration #5. mildly elevated troponin, cardiology is following #6. COPD/chronic bronchial asthma, currently stable #7. History of CVA #8. History of GERD/reflux #9. Hyperlipidemia #10. Hypothyroidism #11. Multiple other medical problems and comorbidities Plan: Patient will receive 1 unit of packed red blood cells today, wean levofed. We'll switch to IV fluids from 0.9 to half normal saline at 100 ML per hour. Encourage incentive spirometry use, maintain pain control, patient's COPD/bronchial asthma is stable at the time. Doing well, no acute complaints, no complaints chest pain, will do follow-up blood work CBC and BMP tomorrow. continue to monitor patient in the ICU. I performed a history & physical examination of the patient and discussed their management with my nurse practitioner, Nataliia Lindo. I reviewed the nurse practitioner's note and agree with the documented findings and plan of care. Lung sounds are positive for clear breath sounds. The findings and the impression was discussed with the patient. I attest to the documentation by the nurse practitioner. Time with Patient: Less than 30
[2019-09-22] MEDS: SODIUM CHLORIDE 0.45% 1,000 ML IV SCH ×2 (11:11→20:41)
[2019-09-22] MEDS: HYDROcodone/APAP 5-325MG 1 EACH TAB PO PRN (11:28)
[2019-09-22 15:29] LABS: Basophils % (A) 0 %; Eosinophils % (A) 0 %; HCT 27.4 % (34.0-46.0); HGB 8.5 gm/dL (11.4-16.0); Hypochromasia Marked; Lymphocytes % (A) 11 %; MCHC 30.8 g/dL (31.0-37.0); MCV 97.4 fL (80.0-100.0); Mean Platelet Volume 8.5; Monocytes # (A) 0.7 k/uL (0-1.0); Monocytes % (A) 8 %; Neutrophils # (A) 7.5 k/uL (1.3-7.7); Neutrophils % (A) 80 %; Platelet Count 172 k/uL (150-450); RBC 2.82 m/uL (3.80-5.40); RDW 13.8 % (11.5-15.5); WBC 9.4 k/uL (3.8-10.6)
[2019-09-22 16:24] LABS: Polychromasia Present
--- NOTE | 2019-09-22 17:38 | PN ---
PROGRESS NOTE DATE OF SERVICE: 09/22/2019 This 79-year-old woman who was admitted with acute left hip fracture with displaced left femoral neck fracture had hemiarthroplasty. Postoperatively patient developed hypotension, most likely secondary to a cardiac event. Cardiology is following the patient closely. The patient has received multiple IV fluid boluses and also transfusions. Patient completed her second unit of transfusion today. Cardiology has seen the patient and recommended continued monitoring. A follow-up 2D echo was also noted. The patient is complaining of some right-sided upper abdominal discomfort as well as leg pain. The patient also had metabolic acidosis which was hypochloremic and [id number] acidosis. The patient is being closely monitored in the ICU. Past medical history reviewed. REVIEW OF SYSTEMS: CARDIOVASCULAR SYSTEM: No angina, palpitations. RESPIRATORY SYSTEM: As mentioned earlier. GI: No nausea, vomiting. : No dysuria or retention. NERVOUS SYSTEM: No numbness, weakness. CURRENT MEDICATIONS: Reviewed. They include: 1. Weir 5 mg q.6 p.r.n. 2. Symbicort 160/4.5 b.i.d. 3. Lovenox 40 mg subcutaneously. 4. Dilaudid p.r.n. 5. Synthroid 100 mcg p.o. daily. 6. Lopressor. 7. Narcan. 8. Protonix. 9. Senokot. PHYSICAL EXAMINATION: Patient is alert, oriented x2. Pulse 71, blood pressure 96/50, respiration 18, temperature normal, pulse ox 94% on room air. HEENT: Conjunctivae normal. NECK: No jugular venous distention. CARDIOVASCULAR SYSTEM: S1, S2 muffled. C RESPIRATORY SYSTEM: Breath sounds diminished at the bases. A few scattered rhonchi. ABDOMEN: Soft, non-tender. LEGS: Status post surgery. NERVOUS SYSTEM: No focal deficit. LABS/IMAGING: WBC 9.4, hemoglobin 8.5. Sodium 136, potassium 4.2. Troponins are noted. CT scan of abdomen and pelvis done yesterday showed post-surgical changes and a large hematoma posterior to the hip joint. Chest CTA showed progression of lung disease. ASSESSMENT: 1. Acute left hip fracture with displaced left femoral neck fracture, status post left hip hemiarthroplasty. 2. Hypotension, possibly acute pls-YW-wvroxse-elevation myocardial infarction, acute coronary event postoperatively. 3. Anemia with large hematoma posterior to the left hip and acute blood loss anemia possibly. 4. Byp-krhrp-kze metabolic acidosis, hypochloremic, probably secondary to saline administration. 5. Chronic obstructive pulmonary disease, asthma. 6. History of cerebrovascular accident, transient ischemic attack. 7. Gastroesophageal reflux disease. 8. Anemia. 9. Increased white count. 10.Hyponatremia, mild. 11.Mild hypoalbuminemia with mild protein-calorie malnutrition. 12.History of gastroesophageal reflux disease. 13.Hyperlipidemia. 14.Hypothyroidism. 15.Hiatal hernia. 16.Hypertension. 17.History of transient ischemic attack. 18.History of migraine. 19.Left bundle branch block on EKG. 20.History of rectocele. 21.History of cholecystectomy. 22.History of depression. 23.FULL CODE. RECOMMENDATIONS AND DISCUSSION: I recommend to continue current medications, continue with the monitoring, symptomatic treatment. Otherwise, monitor hemoglobin closely. Otherwise, continue with incentive spirometry. Continue to monitor. Pulmonary input appreciated. Will closely follow with Orthopedic Surgery. DVT prophylaxis. Further recommendations to follow. MMODL / IJN: [id number] /
[2019-09-22] MEDS: SENNOSIDES-DOCUSATE SODIUM 1 EACH TAB PO SCH (20:41)
--- NOTE | 2019-09-22 21:17 | ECHOF ---
Referral Reason:hypotension MEASUREMENTS -------- HEIGHT: 152.4 cm WEIGHT: 56.2 kg BP: 99/60 IVSd: 1.4 cm (0.6 - 1.1) LVIDd: 1.6 cm (3.9 - 5.3) LVPWd: 1.0 cm (0.6 - 1.1) IVSs: 1.3 cm LVIDs: 0.9 cm LVPWs: 1.1 cm RVIDd: 2.6 cm (< 3.3) LAESV Index (A-L): 20.04 ml/m MV E Carlos: 0.68 m/s MV DecT: 199 ms MV A Carlos: 1.45 m/s MV E/A Ratio: 0.47 AV maxP.84 mmHg AV meanP.01 mmHg FINDINGS -------- Resting tachycardia (HR>100bpm). This was a technically difficult study with suboptimal views. Pt unable to turn due to hip fx. The left ventricular size is normal. There is moderate concentric left ventricular hypertrophy. O verall left ventricular systolic function is normal with, an EF between 65 - 70 %. Possible LVOT Ob struction. The right ventricle is normal in size. Normal LA size by volume 22+/-6 ml/m2. The right atrial size is normal. Lumason used Interatrial and interventricular septum intact. The aortic valve was not well visualized. There is no evidence of aortic regurgitation. Peak/mean gradient across the Aortic Valve is 59.84mmHg / 30.01mmHg. Aortic valve is not well visualized and cannot exclude possible moderate stenosis. There is a gradient. Michael recommended. Mild mitral annular calcification present. Mild mitral regurgitation is present. The tricuspid valve was not well visualized. Unable to estimate RVSP due to inadequate TR jet spect ral doppler profile. The pulmonic valve was not well visualized. Normal inferior vena cava with normal inspiratory collapse consistent with estimated right atrial pre ssure of 5 mmHg. There is a trivial pericardial effusion present. CONCLUSIONS -------- 1. Resting tachycardia (HR>100bpm). 2. This was a technically difficult study with suboptimal views. 3. Pt unable to turn due to hip fx. 4. The left ventricular size is normal. 5. There is moderate concentric left ventricular hypertrophy. 6. Possible LVOT Obstruction. 7. The right ventricle is normal in size. 8. Normal LA size by volume 22+/-6 ml/m2. 9. The right atrial size is normal. 10. Lumason used 11. Interatrial and interventricular septum intact. 12. The aortic valve was not well visualized. 13. There is no evidence of aortic regurgitation. 14. Peak/mean gradient across the Aortic Valve is 59.84mmHg / 30.01mmHg. 15. Aortic valve is not well visualized and cannot exclude possible moderate stenosis. There is a gra dient. Michael recommended. 16. Mild mitral annular calcification present. 17. Mild mitral regurgitation is present. 18. The tricuspid valve was not well visualized. 19. Unable to estimate RVSP due to inadequate TR jet spectral doppler profile. 20. The pulmonic valve was not well visualized. 21. Normal inferior vena cava with normal inspiratory collapse consistent with estimated right atrial pressure of 5 mmHg. 22. There is a trivial pericardial effusion present. WOMEN'S SWIM COACH: Deya Redd RDCS
[2019-09-23 05:54] LABS: Basophils % (A) 0 %; Eosinophils # (A) 0.1 k/uL (0-0.7); Eosinophils % (A) 1 %; HCT 25.3 % (34.0-46.0); Hypochromasia Slight; Lymphocytes % (A) 13 %; MCH 29.6 pg (25.0-35.0); MCHC 31.8 g/dL (31.0-37.0); Mean Platelet Volume 8.3; Monocytes # (A) 0.5 k/uL (0-1.0); Monocytes % (A) 6 %; Neutrophils # (A) 6.2 k/uL (1.3-7.7); Neutrophils % (A) 78 %; Platelet Count 166 k/uL (150-450); RBC 2.72 m/uL (3.80-5.40); RDW 14.1 % (11.5-15.5); WBC 7.9 k/uL (3.8-10.6)
[2019-09-23 06:02] LABS: ALT 10 U/L (4-34); AST 23 U/L (14-36); African American GFR (CKD) >90 (>60 ml/min/1.73 sqM); Alkaline Phosphatase 56 U/L (38-126); Anion Gap 2 mmol/L; Blood Urea Nitrogen 12 mg/dL (7-17); Calcium 7.4 mg/dL (8.4-10.2); Carbon Dioxide 20 mmol/L (22-30); Chloride 115 mmol/L (98-107); Glucose 120 mg/dL (74-99); Non-African American GFR(CKD) >90 (>60 ml/min/1.73 sqM); Potassium 3.8 mmol/L (3.5-5.1); Sodium 137 mmol/L (137-145); Total Bilirubin 0.6 mg/dL (0.2-1.3); Total Protein 4.1 g/dL (6.3-8.2)
[2019-09-23] MEDS: SODIUM CHLORIDE 0.45% 1,000 ML IV SCH (06:40)
[2019-09-23] MEDS: SYMBICORT 160-4.5 MCG INHALER INHALATION SCH ×2 (07:35→20:17)
[2019-09-23] MEDS ORDERED: SODIUM CHLORIDE 0.9% 500 ML 250 ML IV ONE (08:13)
[2019-09-23] MEDS: PANTOPRAZOLE 40 MG/10 ML VIAL IVP SCH ×2 (08:59→20:13)
[2019-09-23] MEDS ORDERED: DIGOXIN 250 MCG/ML 2 ML AMP IVP SCH (09:00)
[2019-09-23] MEDS: ASPIRIN 81 MG PO SCH (09:00)
[2019-09-23] MEDS: ENOXAPARIN 40 MG/0.4 ML SYRINGE SQ SCH (09:01)
--- NOTE | 2019-09-23 09:07 | P.PN ---
Subjective Progress Note Date: 09/23/19 Principal diagnosis: hypotension/tachycardia This is a very pleasant 79-year-old female patient with a past medical history significant for hypertension, dyslipidemia, history of TIA, as well as multiple comorbid conditions who was admitted to the hospital after she fell at home and fractured her left hip. The patient does not recall any history of chest pain or chest discomfort, dizziness, heart racing or fluttering around episode. The patient somewhat is a poor historian. Subsequently the patient was taken to the OR where she underwent left hip surgery. The surgery itself was uneventful. Postoperatively, the patient was hypotensive. Initially she was given IV fluid without any response a subsequently she was given blood for hemoglobin of 8.1 and in spite of that she continues to be hypotensive. After that the patient underwent a CTA of the chest which failed to show any PE. No history of coronary artery disease or congestive heart failure or cardiac arrhythmia. An echocardiogram from 2017 showed normal left ventricular systolic function with mild MR and mild TR. During this admission the EKG showed left bundle branch block. The troponin came in to be slightly elevated. The patient was seen today, 09/23/2019. Unfortunately she continues to be unstable hemodynamically and required small doses of norepinephrine. 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 I'm going to give the patient a bolus of 252.9 normal saline and try to wean her from the norepinephrine and at the same time stop the metoprolol. She was having mild ongoing chest discomfort this morning. I am going to schedule the patient tentatively to undergo coronary angiogram tomorrow. Objective - Vital Signs Vital signs: Vital Signs Temp 97.4 F L 09/23/19 05:00 Pulse 80 09/23/19 07:00 Resp 17 09/23/19 07:00 BP 90/48 09/23/19 07:00 Pulse Ox 97 09/23/19 07:00 Intake & Output 09/22/19 09/23/19 09/23/19 18:59 06:59 18:59 Intake Total 2295.491 1362.784 579.204 Output Total 615 504 75 Balance 1680.491 858.784 504.204 Weight 65.3 kg Intake: IV 700 1100 100 Sodium Chloride 0.45% 1, 400 1100 100 000 ml @ 100 mls/hr IV . Q10H NOEMI Rx#:[id number] Sodium Chloride 0.9% 1, 300 000 ml @ 100 mls/hr IV . Q10H NOEMI Rx#:[id number] Intake, IV Titration 685.491 62.784 79.204 Amount Norepinephrine 4 mg In 185.491 62.784 79.204 Sodium Chloride 0.9% 250 ml @ 0.05 MCG/KG/MIN 9. 851 mls/hr IV .Q24H NOEMI Rx#:[id number] Sodium Chloride 0.45% 1, 500 000 ml @ 100 mls/hr IV . Q10H NOEMI Rx#:[id number] Oral 600 200 400 Blood Product 310 Rc As-1 Unit 310 [id number] Output: Urine 615 504 75 Other: Voiding Method Indwelling Catheter Indwelling Catheter - Constitutional General appearance: Present: no acute distress - Respiratory Respiratory: bilateral: CTA - Cardiovascular Rhythm: regular Heart sounds: normal: S1, S2 - Labs CBC & Chem 7: 09/23/19 04:41 09/23/19 04:41 Labs: Abnormal Lab Results - Last 24 Hours (Table) 09/20/19 09/22/19 09/23/19 Range/Units 23:19 14:37 04:41 RBC 2.82 L (3.80-5.40) m/uL Hgb 8.5 L (11.4-16.0) gm/dL Hct 27.4 L (34.0-46.0) % MCHC 30.8 L (31.0-37.0) g/dL Chloride 115 H (98-107) mmol/L Carbon Dioxide 20 L (22-30) mmol/L Creatinine 0.49 L (0.52-1.04) mg/dL Glucose 120 H (74-99) mg/dL Calcium 7.4 L (8.4-10.2) mg/dL Total Protein 4.1 L (6.3-8.2) g/dL Albumin 2.0 L (3.5-5.0) g/dL Crossmatch See Detail 09/23/19 Range/Units 04:41 RBC 2.72 L (3.80-5.40) m/uL Hgb 8.0 L (11.4-16.0) gm/dL Hct 25.3 L (34.0-46.0) % MCHC (31.0-37.0) g/dL Chloride (98-107) mmol/L Carbon Dioxide (22-30) mmol/L Creatinine (0.52-1.04) mg/dL Glucose (74-99) mg/dL Calcium (8.4-10.2) mg/dL Total Protein (6.3-8.2) g/dL Albumin (3.5-5.0) g/dL Crossmatch Microbiology - Last 24 Hours (Table) 09/20/19 23:19 Blood Culture - Preliminary Blood No Growth after 48 hours Assessment and Plan Assessment: assessment #1 status post fall and left hip fracture #2 status post left hip surgery #3 sinus tachycardia of unknown etiology #4 blood loss anemia #5 mildly elevated troponin #6 multiple comorbid conditions plan DC metoprolol and start digoxin Consider coronary angiogram 0.9 normal saline with 250 bolus Follow-up with the patient
[2019-09-23] MEDS: LEVOTHYROXINE 100 MCG TAB PO SCH (09:23)
--- NOTE | 2019-09-23 09:38 | P.PN ---
Subjective Progress Note Date: 09/23/19 Principal diagnosis: status post ground-level fall with a displaced left femoral neck fracture, status post left hip hemiarthroplasty on 09/22/2019 patient seen in follow-up in the intensive care unit. She is awake alert alert, oriented 3, and she is in no acute distress, she is on 2 L of oxygen with a pulse ox of 99%, hemodynamically stable, afebrile, she is 7.9 normal saline at 100 ML per hour, and small dose of levophed currently at 5 mics per minute. This is postoperative day 2 status post left hip hemiarthroplasty. Her pain is well controlled, patient has palpable pulses in lower extremities, no complaints of numbness or tingling. Incision in the left hip is clean dry and intact. patient is in sinus rhythm with a rate of 87 BPM, she still required small dose of Levothroid, cortisone level came back normal at 115. today's hemoglobin is down to 7.4, and 1 unit of packed red blood cells has been ordered, patient denied any chest pain, lung sounds are clear, her asthma is stable On 09/15/2019 patient seen in follow-up in intensive care unit, she is resting comfortably in bed, she is in no acute distress, she is currently on 2 L of oxygen her pulse ox is 97%, denies any worsening dyspnea, no wheezing or congestion. Lung sounds revealed only a few basilar crackles, patient is working on incentive spirometer. she received 2 units of packed red blood cells, 1 on 09/21/2019, and 1 on 09/22/2023 acute blood loss anemia related to her recent surgery for repair of the left hip fracture. today's labs have been reviewed, showing white blood cell count of 7.9, hemoglobin of 8.0, serum sodium is 137, potassium 3.8, chloride is 115, CO2 is 20, BUN of 12, creatinine 0.49. patient is in sinus mechanism, with a controlled rate. She is having some chest discomfort today, and cardiology is following. She is also hypotensive, her levo fed was discontinued early this morning, and currently her blood pressure 74/42, however clinically patient is awake and alert, and she will be given a small IV fluid bolus in the form of 250 ML per hour, patient's maintenance IV fluids is 0.9 normal saline at a rate of 100 ML per hour.and Lopressor has been discontinued by cardiology. she continues on oral pain medications her pain seems to be reasonably controlled, she is on anticoagulation a form of Lovenox, breathing treatments. Objective - Vital Signs Vital signs: Vital Signs Temp 97.4 F L 09/23/19 05:00 Pulse 80 09/23/19 07:00 Resp 17 09/23/19 07:00 BP 90/48 09/23/19 07:00 Pulse Ox 97 09/23/19 07:00 Intake & Output 09/22/19 09/23/19 09/23/19 18:59 06:59 18:59 Intake Total 2295.491 5423.658 3663.204 Output Total 615 504 215 Balance 1680.491 034.055 6375.204 Weight 65.3 kg Intake: IV 700 1100 550 Sodium Chloride 0.45% 1, 400 1100 300 000 ml @ 100 mls/hr IV . Q10H NOEMI Rx#:[id number] Sodium Chloride 0.9% 1, 300 000 ml @ 100 mls/hr IV . Q10H NOEMI Rx#:[id number] Sodium Chloride 0.9% 500 250 ml 250 ml @ 999 mls/hr IV .Q16M ONE Rx#:[id number] Intake, IV Titration 685.491 62.784 79.204 Amount Norepinephrine 4 mg In 185.491 62.784 79.204 Sodium Chloride 0.9% 250 ml @ 0.05 MCG/KG/MIN 9. 851 mls/hr IV .Q24H NOEMI Rx#:[id number] Sodium Chloride 0.45% 1, 500 000 ml @ 100 mls/hr IV . Q10H NOEMI Rx#:[id number] Oral 600 200 640 Blood Product 310 Rc As-1 Unit 310 [id number] Output: Urine 615 504 215 Other: Voiding Method Indwelling Catheter Indwelling Catheter - Exam GENERAL EXAM: Alert. Pleasant, 79-year-old white female, on 2 L of oxygen with a pulse ox of 99% comfortable in no apparent distress. HEAD: Normocephalic/atraumatic. EYES: Normal reaction of pupils, equal size. Conjunctiva pink, sclera white. NOSE: Clear with pink turbinates. THROAT: No erythema or exudates. NECK: No masses, no JVD, no thyroid enlargement, no adenopathy. CHEST: No chest wall deformity. Symmetrical expansion. LUNGS: Equal air entry with no crackles, wheeze, rhonchi or dullness. CVS: Regular rate and rhythm, normal S1 and S2, no gallops, no murmurs, no rubs ABDOMEN: Soft, nontender. No hepatosplenomegaly, normal bowel sounds, no guarding or rigidity. EXTREMITIES: No clubbing, no edema, no cyanosis, 2+ pulses and upper and lower extremities. left hip vision is clean dry and intact, and has a abductor pillow in between her legs, lower extremity pulses are intact, no numbness or tingling MUSCULOSKELETAL: Muscle strength and tone normal. SPINE: No scoliosis or deformity SKIN: No rashes CENTRAL NERVOUS SYSTEM: Alert and oriented -3. No focal deficits, tone is normal in all 4 extremities. PSYCHIATRIC: Alert and oriented -3. Appropriate affect. Intact judgment and insight. - Labs CBC & Chem 7: 09/23/19 04:41 09/23/19 04:41 Labs: Abnormal Lab Results - Last 24 Hours (Table) 09/20/19 09/22/19 09/23/19 Range/Units 23:19 14:37 04:41 RBC 2.82 L (3.80-5.40) m/uL Hgb 8.5 L (11.4-16.0) gm/dL Hct 27.4 L (34.0-46.0) % MCHC 30.8 L (31.0-37.0) g/dL Chloride 115 H (98-107) mmol/L Carbon Dioxide 20 L (22-30) mmol/L Creatinine 0.49 L (0.52-1.04) mg/dL Glucose 120 H (74-99) mg/dL Calcium 7.4 L (8.4-10.2) mg/dL Total Protein 4.1 L (6.3-8.2) g/dL Albumin 2.0 L (3.5-5.0) g/dL Crossmatch See Detail 09/23/19 Range/Units 04:41 RBC 2.72 L (3.80-5.40) m/uL Hgb 8.0 L (11.4-16.0) gm/dL Hct 25.3 L (34.0-46.0) % MCHC (31.0-37.0) g/dL Chloride (98-107) mmol/L Carbon Dioxide (22-30) mmol/L Creatinine (0.52-1.04) mg/dL Glucose (74-99) mg/dL Calcium (8.4-10.2) mg/dL Total Protein (6.3-8.2) g/dL Albumin (3.5-5.0) g/dL Crossmatch Microbiology - Last 24 Hours (Table) 09/20/19 23:19 Blood Culture - Preliminary Blood No Growth after 48 hours Assessment and Plan Plan: Assessment: #1. Status post ground-level fall with a displaced left femoral neck fracture, status post left hip hemiarthroplasty, postoperative day 3 #2. Hypotension, related to hypovolemic state, acute blood loss anemia, requiring vasopressor infusion #3. Acute blood loss anemia, normal outcome of surgery, requiring blood transfusion, so far patient received 2 units of packed red blood cells #4. Hyperchloremic non-anion gap metabolic acidosis related to sodium chloride administration #5. mildly elevated troponin, cardiology is following #6. COPD/chronic bronchial asthma, currently stable #7. History of CVA #8. History of GERD/reflux #9. Hyperlipidemia #10. Hypothyroidism #11. Multiple other medical problems and comorbidities Plan: Patient is receiving a small IV fluid bolus, Lopressor has been discontinued, and she is having some chest discomfort, and cardiology is following, and patient will possibly have a heart catheterization tomorrow, continue encouraging deep breathing and coughing, continue encouraging incentive spirometry use. Continue GI and DVT prophylaxis, no new chest x-ray today, no wheezing or congestion auscultated on today's physical exam, any with breathing treatments and inhalers. Maintain pain control. I performed a history & physical examination of the patient and discussed their management with my nurse practitioner, Nataliia Lindo. I reviewed the nurse practitioner's note and agree with the documented findings and plan of care. Lung sounds are positive for clear breath sounds. The findings and the impression was discussed with the patient. I attest to the documentation by the nurse practitioner. Time with Patient: Less than 30
[2019-09-23 10:50] VITALS: BMI 28.0
--- NOTE | 2019-09-23 11:19 | CDI ---
Documentation Clarification Form Date: 09/22/2019 1232 CDS: Nayeli Murphy RN, CCDS Admit Date: 09/19/20192016 Patient Name: Inez Bassett ATTENTION: The Clinical Documentation Specialists (CDI) and [facility] Coding Staff appreciate your assistance in clarifying documentation. Please respond to the clarification below the line at the bottom and electronically sign. The CDI & [facility] Coding staff will review the response and follow-up if needed. Please note: Queries are made part of the Legal Health Record. If you have any questions, please contact the author of this message via ITS. Dr. Worthy Hypotension requiring vasopressors has been documented and requires further specificity. Patient history/risk factors: Hypotension, LBBB Clinical Indicators: 09/19 Op Note: "Displaced left femoral neck fracture 2. Osteoporosis 3. History of stroke currently on Plavix. EBL 100 CC." 09/21 Pulmonary Progress note: "Hypotension, related to hypovolemic state, acute blood loss anemia, inquiring vasopressor infusion." 09/20 Medical Progress note: "Possible hypotension, possible acute scx-CK-oxkvsxs-elevation myocardial infarction." 09/20 Ortho Progress note: "Postoperative day #1 status post cemented left hip hemiarthroplasty with postoperative course complicated by hypotension and acute blood loss anemia requiring IV fluid bolus and blood transfusion." 09/19 Medical Progress note: "The patient had postoperative hypotension which is not responding to 250 mL Labs 09/19 Pre-op Hgb 10.8, Post- op Hgb 8.8, 09/20 Hgb 10.6, 09/21 Hgb 7.4 09/19 1450 Vitals: HR 90, RR 16, Spo2 98% 2L NC, B/P 88/60, 83/56, 85/58, 67/45, 83/53 Treatment: 2 units PRBC's Transfused 09/19 100 mg IV Solucortef 09/19 IV Levophed Gtt titrate for B/P 09/19 2,250 cc IVF 0.9% NS Bolus In your professional opinion, can you please specify the type of shock if known? Hypovolemic Shock Cause Cardiogenic Shock Cause Other, please specify Unable to determine Please also include Unexpected related to surgical procedure Expected related to surgical procedure Due to comorbid condition (please specify) (Last Revision: January 2017) Cardiogenic Shock: cad, mi MTDD
--- NOTE | 2019-09-23 12:50 | P.PN ---
Progress Note - Text Progress Note Date: 09/23/19 Orthopedics: History of present illness: Patient is a very pleasant 79-year-old female who is seen and examined the bedside today for follow-up evaluation in regards to her left hip. She is status post left hip hemiarthroplasty performed on 09/20/2019. Her left hip pain has been better controlled. She has been able to ambulate better with the assistance of physical therapy. Her left hip pain is exacerbated with ambulation. She continues to remain in the ICU. Patient's hemoglobin had decreased from 10.6 down to 7.4. She received one unit of packed red blood cells and her hemoglobin improved to 8.5. Hemoglobin is currently 8.0. Imaging did show evidence of hematoma at the left hip. Cates catheter remains intact. Splint over the left upper extremity remains intact. Patient was placed in a splint due to snuffbox pain. Imaging of the left wrist and hand were negative for fracture. Patient is not currently complaining of a significant pain at the left wrist. She continues to be seen by multiple medical providers including medicine, cardiology, and pulmonology. Patient is currently on Lovenox 40 mg subcu daily for anticoagulation per medicine. Patient has been experiencing some mild ongoing chest discomfort and had evidence of a mildly elevated troponin on 09/21/2019. Cardiology is planning for a coronary angiogram tomorrow, 09/24/2019. Physical Exam Hip Hemiarthroplasty: Status post surgical day number 3 Patient is examined sitting bedside upright in a chair Patient is awake, alert, and oriented 3 Vital signs stable Adequate chest excursion with deep inspiration and expiration No signs or symptoms of DVT; no calf pain Lower extremity cuffs not currently in place bilaterally Dressing of the left hip is clean, dry, and intact; no erythema, purulence, or signs of infection No significant pain with palpation over the surgical site at the left hip Some mild bruising around the surgical site at the left hip Evidence of some swelling over the left thigh but left thigh is soft Full range of motion of ankles bilaterally Dorsiflexion, plantarflexion, and extensor hallucis longus positive sustained bilaterally Neurovascularly intact bilateral lower extremities Capillary refill less than 2 seconds bilateral lower extremities Splint remains intact over the left upper extremity Pertinent studies: CT abdomen and pelvis with contrast taken on 09/21/2019: Postsurgical changes with left hip prosthesis and large hematoma posterior to the left hip joint and left iliac bone; no acute intra-abdominal abnormalities Assessment: Status post left hip hemiarthroplasty performed on 09/20/2019 Left hip pain Left hip hematoma Acute blood loss anemia requiring transfusion Ongoing chest discomfort Mild elevated troponin on 09/21/2019 Plan: 1. Patient may continue to weight-bear as tolerated on the left lower extremity; patient may work with physical therapy to increase mobility and ambulation 2. Continue pain control 3. Abductor pillow to remain in place at all times except while working with therapy 4. Continue with posterior hip precautions 5. She will continue to be seen by medicine and pulmonology 6. Patient will continue to receive examined by cardiology who is currently planning for coronary angiogram tomorrow, 09/24/2019 7. Continue with with anticoagulation therapy as prescribed by medicine 8. We'll continue to follow the patient closely. Once cleared by all other medical providers as well as orthopedics, patient will plan to follow-up with Dr. Bess at [facility] in 2-3 weeks following discharge
[2019-09-23] MEDS: SIMETHICONE 80 MG CHEWABLE PO PRN ×2 (13:42→20:13)
--- NOTE | 2019-09-23 15:59 | P.PN ---
Progress Note - Text Progress Note Date: 09/23/19 Presenting complaint: Left hip fracture Interval history: 79-year-old patient admitted with acute left hip fracture with displaced left femoral like and had a hemiarthroplasty. Postoperatively he developed hypertension and felt to be a possible acute non-Q-wave AL. Patient did receive 2 units of packed red blood cells. Patient had been on levo fed taken off on September 21. Received IV fluid boluses. [id number] up in a chair. Nasal cannula. On a clear liquid diet. Complaining of some right chest wall pain. Off-and-on. Also complaining of gas pains and feels better with burping. Has a hematoma at the fracture and repair site stable. As per orthopedics. Patient does state that she uses a heating pad at home for her right-sided chest pain.-This is present on the right lateral chest wall. Review of systems: Was done for constitutional, cardiovascular, GI, pulmonary. Musculoskeletal relevant finding as above Active Medications Hydrocodone Bitart/Acetaminophen ([place] 5-325) 1 each PO Q6HR PRN PRN Reason: Pain Scale 1 to 5 Hydrocodone Bitart/Acetaminophen ([place] 5-325) 2 each PO Q6HR PRN PRN Reason: Pain Scale 6 to 10 Last Admin: 09/22/19 11:28 Dose: 2 each Documented by: Aspirin (Aspirin) 81 mg PO DAILY [facility] Last Admin: 09/23/19 09:00 Dose: 81 mg Documented by: Budesonide/Formoterol Fumarate (Symbicort 160-4.5 Mcg Inhaler) 2 puff INHALATION RT-BID [facility] Last Admin: 09/23/19 07:35 Dose: 2 puff Documented by: Digoxin (Lanoxin) 125 mcg IVP DAILY [facility] Last Admin: 09/23/19 09:00 Dose: 125 mcg Documented by: Enoxaparin Sodium (Lovenox) 40 mg SQ DAILY [facility] Last Admin: 09/23/19 09:01 Dose: 40 mg Documented by: Hydromorphone HCl (Dilaudid) 0.125 mg IVP Q3HR PRN PRN Reason: Pain Scale 1 to 3 Hydromorphone HCl (Dilaudid) 0.25 mg IVP Q3HR PRN PRN Reason: Pain Scale 4 to 6 Hydromorphone HCl (Dilaudid) 0.5 mg IVP Q3HR PRN PRN Reason: Pain Scale 7 to 10 Last Admin: 09/23/19 05:09 Dose: 0.5 mg Documented by: Hydroxyzine Pamoate (Vistaril) 25 mg PO Q4HR PRN PRN Reason: Mild Nausea and/or Anxiety Last Admin: 09/23/19 04:16 Dose: 25 mg Documented by: Norepinephrine Bitartrate 4 mg (/ Sodium Chloride) 254 mls @ 9.851 mls/hr IV .Q24H [facility]; Protocol Last Titration: 09/23/19 08:15 Dose: 0 mcg/kg/min, 0 mls/hr Documented by: Sodium Chloride (Saline 0.45%) 1,000 mls @ 100 mls/hr IV .Q10H [facility] Last Admin: 09/23/19 06:40 Dose: 100 mls/hr Documented by: Levothyroxine Sodium (Synthroid) 100 mcg PO [id number] [facility] Last Admin: 09/23/19 09:23 Dose: 100 mcg Documented by: Melatonin (Melatonin) 3 mg PO HS [facility] Naloxone HCl (Narcan) 0.2 mg IV Q2M PRN PRN Reason: Opioid Reversal Pantoprazole Sodium (Protonix) 40 mg IVP BID [facility] Senna/Docusate Sodium (Senokot-S) 2 each PO HS [facility] Last Admin: 09/22/19 20:41 Dose: 2 each Documented by: Simethicone (Mylicon Chew) 40 mg PO Q8H PRN PRN Reason: GI Upset Last Admin: 09/23/19 13:42 Dose: 40 mg Documented by: On examination: VITAL SIGNS: 97.8, 90, 20, 97-53, 94% on 2 L nasal cannula GENERAL APPEARANCE: Sitting up in a chair, tired and weak HEENT: Normal external appearance of nose and ear. Oral cavity normal EYES: Pupils equal. Conjunctiva pale NECK: JVD not raised. Mass not palpable. RESPIRATORY: Respiratory effort increased Lungs decreased breath sounds CARDIOVASCULAR: First and second sounds normal. Minimal edema. ABDOMEN: Soft. Liver and spleen not palpable. No tenderness. No mass palpable. PSYCHIATRY: Alert and oriented x3. Mood and affect normal. MUSCULAR skeletal: Some bruising hematoma along the left hip fracture site INVESTIGATIONS, reviewed in the clinical context: White count 7.9 hemoglobin 8 potassium 3.8 creatinine 0.49 Previous testing: Troponin I-less than 0.012, 0.115, 0.109 Hemoglobin was 13.9 preoperatively did call down to 7.4 2-D echocardiogram-moderate concentric LVH, EF 65-70%, possible LVOT obstruction Assessment: -Displaced left femoral neck fracture followed by a left hip hemiarthroplasty on September 19 -Acute postprocedure blood loss anemia-patient has received 2 units of blood. Still symptomatic with hypotension and tachycardia.-Uncontrolled -Hypotensive shock secondary to blood loss anemia requiring blood products and pressor support -Hypothyroidism -Hyperlipidemia -GERD -Acute non-Q-wave myocardial infarction secondary to hemodynamic mismatch -Non-anion gap metabolic acidosis -Moderate persistent Asthma -Hiatal hernia -Chronic left bundle branch block -Chronic dysphagia from esophageal stricture Plan: Patient currently in the ICU. Seen by cardiology earlier today. Metoprolol was discontinued. Digoxin was added. Patient's blood pressure still running low. Has been significant amount of drop in hemoglobin. Given the acute AL. And tachycardia but according give another unit of blood. Care was discussed with the patient.
[2019-09-23] MEDS: MELATONIN 3 MG TABLET PO SCH (20:13)
[2019-09-23] MEDS: SENNOSIDES-DOCUSATE SODIUM 1 EACH TAB PO SCH (20:13)
[2019-09-24] MEDS: NOREPINEPHRINE 4 MG in SODIUM CHLORIDE 0.9% 250 ML IV SCH (02:29)
[2019-09-24] MEDS: SODIUM CHLORIDE 0.45% 1,000 ML IV SCH ×2 (03:31→03:34)
[2019-09-24 05:04] LABS: Basophils % (A) 0 %; Eosinophils # (A) 0.1 k/uL (0-0.7); Eosinophils % (A) 2 %; HCT 27.6 % (34.0-46.0); Lymphocytes # (A) 0.9 k/uL (1.0-4.8); Lymphocytes % (A) 16 %; MCH 29.5 pg (25.0-35.0); MCHC 32.6 g/dL (31.0-37.0); MCV 90.5 fL (80.0-100.0); Monocytes # (A) 0.4 k/uL (0-1.0); Monocytes % (A) 8 %; Neutrophils % (A) 72 %; Platelet Count 170 k/uL (150-450); RBC 3.06 m/uL (3.80-5.40); RDW 14.2 % (11.5-15.5); WBC 5.6 k/uL (3.8-10.6)
[2019-09-24 05:26] LABS: African American GFR (CKD) >90 (>60 ml/min/1.73 sqM); Anion Gap 2 mmol/L; Blood Urea Nitrogen 7 mg/dL (7-17); Calcium 7.4 mg/dL (8.4-10.2); Carbon Dioxide 21 mmol/L (22-30); Chloride 113 mmol/L (98-107); Glucose 120 mg/dL (74-99); Non-African American GFR(CKD) >90 (>60 ml/min/1.73 sqM); Potassium 3.2 mmol/L (3.5-5.1); Sodium 136 mmol/L (137-145)
[2019-09-24] MEDS: LEVOTHYROXINE 100 MCG TAB PO SCH (06:45)
[2019-09-24] MEDS: POTASSIUM BICARBONATE/CIT AC 20 MEQ TABLET.EFF NG-TUBE SCH ×2 (06:45→08:03)
[2019-09-24] MEDS: SYMBICORT 160-4.5 MCG INHALER INHALATION SCH ×2 (07:25→20:28)
--- NOTE | 2019-09-24 08:30 | P.PN ---
Subjective Progress Note Date: 09/24/19 Principal diagnosis: hypotension/tachycardia This is a very pleasant 79-year-old female patient with a past medical history significant for hypertension, dyslipidemia, history of TIA, as well as multiple comorbid conditions who was admitted to the hospital after she fell at home and fractured her left hip. The patient does not recall any history of chest pain or chest discomfort, dizziness, heart racing or fluttering around episode. The patient somewhat is a poor historian. Subsequently the patient was taken to the OR where she underwent left hip surgery. The surgery itself was uneventful. Postoperatively, the patient was hypotensive. Initially she was given IV fluid without any response a subsequently she was given blood for hemoglobin of 8.1 and in spite of that she continues to be hypotensive. After that the patient underwent a CTA of the chest which failed to show any PE. No history of coronary artery disease or congestive heart failure or cardiac arrhythmia. An echocardiogram from 2018 showed normal left ventricular systolic function with mild MR and mild TR. During this admission the EKG showed left bundle branch block. The troponin came in to be slightly elevated. The patient was seen today, September [id number]. She is chest pain-free today. She is quite hesitant to undergo coronary angiogram. I did inform the patient as far as she is chest pain-free she doesn't need this. Beside that her chest discomfort could have a component of esophageal etiology since she was given GI cocktail with improvement in her chest pain. Beside that hemodynamically she is stable today after we stopped the metoprolol yesterday and I put her on digoxin. The heart rate has been within normal limits as well. The hemoglobin is stable. From a cardiac vascular standpoint of view, she can be transferred to the third floor. Objective - Vital Signs Vital signs: Vital Signs Temp 97.8 F 09/24/19 08:00 Pulse 90 09/24/19 08:00 Resp 20 09/24/19 08:00 BP 107/60 09/24/19 08:00 Pulse Ox 99 09/24/19 08:00 Intake & Output 09/23/19 09/24/19 09/24/19 18:59 06:59 18:59 Intake Total 2959.204 1339.045 260 Output Total 580 1210 310 Balance 2379.204 129.045 -50 Weight 65.3 kg 68.1 kg Intake: IV 1450 1200 200 Sodium Chloride 0.45% 1, 1200 1200 200 000 ml @ 100 mls/hr IV . Q10H [facility] Rx#:[id number] Sodium Chloride 0.9% 500 250 ml 250 ml @ 999 mls/hr IV .Q16M ONE Rx#:[id number] Intake, IV Titration 79.204 19.045 Amount Norepinephrine 4 mg In 79.204 19.045 Sodium Chloride 0.9% 250 ml @ 0.05 MCG/KG/MIN 9. 851 mls/hr IV .Q24H [facility] Rx#:[id number] Oral 1120 120 60 Blood Product 310 Rc As-3 Unit 310 [id number] Output: Urine 580 1210 310 Other: Voiding Method Indwelling Catheter Indwelling Catheter - Constitutional General appearance: Present: no acute distress - Respiratory Respiratory: bilateral: CTA - Cardiovascular Rhythm: regular Heart sounds: normal: S1, S2 - Labs CBC & Chem 7: 09/24/19 04:29 09/24/19 04:29 Labs: Abnormal Lab Results - Last 24 Hours (Table) 09/20/19 09/24/19 09/24/19 Range/Units 23:19 04:29 04:29 RBC 3.06 L (3.80-5.40) m/uL Hgb 9.0 L (11.4-16.0) gm/dL Hct 27.6 L (34.0-46.0) % Lymphocytes # 0.9 L (1.0-4.8) k/uL Sodium 136 L (137-145) mmol/L Potassium 3.2 L (3.5-5.1) mmol/L Chloride 113 H (98-107) mmol/L Carbon Dioxide 21 L (22-30) mmol/L Creatinine 0.41 L (0.52-1.04) mg/dL Glucose 120 H (74-99) mg/dL Calcium 7.4 L (8.4-10.2) mg/dL Crossmatch See Detail Microbiology - Last 24 Hours (Table) 09/20/19 23:19 Blood Culture - Preliminary Blood No Growth after 72 hours Assessment and Plan Assessment: assessment #1 status post fall and left hip fracture #2 status post left hip surgery #3 sinus tachycardia of unknown etiology #4 blood loss anemia #5 mildly elevated troponin #6 multiple comorbid conditions plan #1 continue the current medical regimen #2 no need to undergo coronary angiogram at this point #3 continue digoxin #4 the patient can be transferred out of the ICU
[2019-09-24] MEDS: ENOXAPARIN 40 MG/0.4 ML SYRINGE SQ SCH (09:28)
[2019-09-24] MEDS: DIGOXIN 125 MCG TAB PO SCH (09:28)
[2019-09-24] MEDS: PANTOPRAZOLE 40 MG/10 ML VIAL IVP SCH ×2 (09:28→21:24)
[2019-09-24] MEDS: ASPIRIN 81 MG PO SCH (09:28)
[2019-09-24] MEDS: SODIUM CHLORIDE 0.9% 1,000 ML IV SCH ×2 (09:29→19:59)
--- NOTE | 2019-09-24 10:30 | P.PN ---
Subjective Progress Note Date: 09/24/19 Principal diagnosis: status post ground-level fall with a displaced left femoral neck fracture, status post left hip hemiarthroplasty on 09/22/2019 patient seen in follow-up in the intensive care unit. She is awake alert alert, oriented 3, and she is in no acute distress, she is on 2 L of oxygen with a pulse ox of 99%, hemodynamically stable, afebrile, she is 7.9 normal saline at 100 ML per hour, and small dose of levophed currently at 5 mics per minute. This is postoperative day 2 status post left hip hemiarthroplasty. Her pain is well controlled, patient has palpable pulses in lower extremities, no complaints of numbness or tingling. Incision in the left hip is clean dry and intact. patient is in sinus rhythm with a rate of 87 BPM, she still required small dose of Levothroid, cortisone level came back normal at 115. today's hemoglobin is down to 7.4, and 1 unit of packed red blood cells has been ordered, patient denied any chest pain, lung sounds are clear, her asthma is stable On 09/23/2019 patient seen in follow-up in intensive care unit, she is resting comfortably in bed, she is in no acute distress, she is currently on 2 L of oxygen her pulse ox is 97%, denies any worsening dyspnea, no wheezing or congestion. Lung sounds revealed only a few basilar crackles, patient is working on incentive spirometer. she received 2 units of packed red blood cells, 1 on 09/21/2019, and 1 on 09/22/2023 acute blood loss anemia related to her recent surgery for repair of the left hip fracture. today's labs have been reviewed, showing white blood cell count of 7.9, hemoglobin of 8.0, serum sodium is 137, potassium 3.8, chloride is 115, CO2 is 20, BUN of 12, creatinine 0.49. patient is in sinus mechanism, with a controlled rate. She is having some chest discomfort today, and cardiology is following. She is also hypotensive, her levo fed was discontinued early this morning, and currently her blood pressure 74/42, however clinically patient is awake and alert, and she will be given a small IV fluid bolus in the form of 250 ML per hour, patient's maintenance IV fluids is 0.9 normal saline at a rate of 100 ML per hour.and Lopressor has been discontinued by cardiology. she continues on oral pain medications her pain seems to be reasonably controlled, she is on anticoagulation a form of Lovenox, breathing treatments. On 09/24/2019 patient is seen in follow-up in the intensive care unit, she is calm and comfortable, awake and alert oriented 3, no complaints of chest pain, no difficulty breathing, she is working on incentive spirometer, lung sounds are clear, her asthma is stable, no cough or congestion, she is currently on 2 L of oxygen with pulse ox of 99%, she has been off the levo fed infusion for last 24 hours, blood pressure is 107/60, patient is hemodynamically stable, she did receive an additional unit of packed red blood cells for a total of 3 units of packed red blood cells during this admission, and today's hemoglobin is 9.0. IV 0.9 normal saline at 100 mL an hour. Cardiology is following, and a decision has been made to hold.cardiac catheterization right now. Medically treated. Pain controlled, physical therapy is working with the patient, patient still has the abductor pillow, left hip incisions clean dry and intact, no complaints of numbness, tingling in bilateral feet. Objective - Vital Signs Vital signs: Vital Signs Temp 97.8 F 09/24/19 08:00 Pulse 92 09/24/19 09:00 Resp 18 09/24/19 09:00 BP 99/51 09/24/19 09:00 Pulse Ox 99 09/24/19 09:00 Intake & Output 09/23/19 09/24/19 09/24/19 18:59 06:59 18:59 Intake Total 2959.204 1339.045 260 Output Total 580 1210 310 Balance 2379.204 129.045 -50 Weight 65.3 kg 68.1 kg Intake: IV 1450 1200 200 Sodium Chloride 0.45% 1, 1200 1200 200 000 ml @ 100 mls/hr IV . Q10H [facility] Rx#:[id number] Sodium Chloride 0.9% 500 250 ml 250 ml @ 999 mls/hr IV .Q16M ONE Rx#:[id number] Intake, IV Titration 79.204 19.045 Amount Norepinephrine 4 mg In 79.204 19.045 Sodium Chloride 0.9% 250 ml @ 0.05 MCG/KG/MIN 9. 851 mls/hr IV .Q24H [facility] Rx#:[id number] Oral 1120 120 60 Blood Product 310 Rc As-3 Unit 310 [id number] Output: Urine 580 1210 310 Other: Voiding Method Indwelling Catheter Indwelling Catheter - Exam GENERAL EXAM: Alert. Pleasant, 79-year-old white female, on 2 L of oxygen with a pulse ox of 99% comfortable in no apparent distress. HEAD: Normocephalic/atraumatic. EYES: Normal reaction of pupils, equal size. Conjunctiva pink, sclera white. NOSE: Clear with pink turbinates. THROAT: No erythema or exudates. NECK: No masses, no JVD, no thyroid enlargement, no adenopathy. CHEST: No chest wall deformity. Symmetrical expansion. LUNGS: Equal air entry with no crackles, wheeze, rhonchi or dullness. CVS: Regular rate and rhythm, normal S1 and S2, no gallops, no murmurs, no rubs ABDOMEN: Soft, nontender. No hepatosplenomegaly, normal bowel sounds, no guarding or rigidity. EXTREMITIES: No clubbing, no edema, no cyanosis, 2+ pulses and upper and lower extremities. left hip vision is clean dry and intact, and has a abductor pillow in between her legs, lower extremity pulses are intact, no numbness or tingling MUSCULOSKELETAL: Muscle strength and tone normal. SPINE: No scoliosis or deformity SKIN: No rashes CENTRAL NERVOUS SYSTEM: Alert and oriented -3. No focal deficits, tone is normal in all 4 extremities. PSYCHIATRIC: Alert and oriented -3. Appropriate affect. Intact judgment and insight. - Labs CBC & Chem 7: 09/24/19 04:29 09/24/19 04:29 Labs: Abnormal Lab Results - Last 24 Hours (Table) 09/20/19 09/24/19 09/24/19 Range/Units 23:19 04:29 04:29 RBC 3.06 L (3.80-5.40) m/uL Hgb 9.0 L (11.4-16.0) gm/dL Hct 27.6 L (34.0-46.0) % Lymphocytes # 0.9 L (1.0-4.8) k/uL Sodium 136 L (137-145) mmol/L Potassium 3.2 L (3.5-5.1) mmol/L Chloride 113 H (98-107) mmol/L Carbon Dioxide 21 L (22-30) mmol/L Creatinine 0.41 L (0.52-1.04) mg/dL Glucose 120 H (74-99) mg/dL Calcium 7.4 L (8.4-10.2) mg/dL Crossmatch See Detail Microbiology - Last 24 Hours (Table) 09/20/19 23:19 Blood Culture - Preliminary Blood No Growth after 72 hours Assessment and Plan Plan: Assessment: #1. Status post ground-level fall with a displaced left femoral neck fracture, status post left hip hemiarthroplasty, postoperative day 4 #2. Hypotension, related to hypovolemic state, acute blood loss anemia, requiring vasopressor infusion, improved, patient received IV fluids, and blood transfusions #3. Acute blood loss anemia, normal outcome of surgery, requiring blood transfusion, so far patient received 2 units of packed red blood cells #4. Hyperchloremic non-anion gap metabolic acidosis related to sodium chloride administration #5. mildly elevated troponin, cardiology is following #6. COPD/chronic bronchial asthma, currently stable #7. History of CVA #8. History of GERD/reflux #9. Hyperlipidemia #10. Hypothyroidism #11. Multiple other medical problems and comorbidities Plan: Patient is doing well, no acute issues overnight, no complaints of chest pain, cardiology is following, and medically treating the patient, was stable, hypotension has improved, patient has received an additional unit of packed red blood cells, no evidence of active bleeding. Her asthma is stable at this time, continue with current inhalers and nebulized treatments, he is working with the patient, from pulmonary perspective patient is stable to transfer out of the intensive care unit to [facility]. today I performed a history & physical examination of the patient and discussed their management with my nurse practitioner, Nataliia Lindo. I reviewed the nurse practitioner's note and agree with the documented findings and plan of care. L noemi sounds are positive for clear breath sounds. The findings and the impression was discussed with the patient. I attest to the documentation by the nurse practitioner. Time with Patient: Less than 30
[2019-09-24] MEDS: SIMETHICONE 80 MG CHEWABLE PO PRN ×2 (12:11→21:48)
--- NOTE | 2019-09-24 12:18 | P.PN ---
Subjective Progress Note Date: 09/24/19 This patient is an 79- year old female that is status-post left hip hemiarthroplasty on 09/20/19. Today's postoperative day #4. Patient is examined bedside this morning in the ICU. Patient's hemoglobin is 9.0 this morning. She received 1 unit of PRBCs yesterday, for a total of 3 units postoperatively. Cardiology is not planning for a coronary angiogram at this point, as patient's chest pain has resolved. Patient states she was up with physical therapy to the chair yesterday. She is complaining of no hip pain at the time of my exam. The plan is to transfer the patient out of the ICU to [address] [place] [address] today. Overall, the patient states she feels well. She has no orthopedic complaints. Vital signs stable. Objective - Vital Signs Vital signs: Vital Signs Temp 97.8 F 09/24/19 08:00 Pulse 91 09/24/19 11:00 Resp 20 09/24/19 11:00 BP 111/65 09/24/19 11:00 Pulse Ox 100 09/24/19 11:00 Intake & Output 09/23/19 09/24/19 09/24/19 18:59 06:59 18:59 Intake Total 2959.204 1339.045 629 Output Total 580 1210 860 Balance 2379.204 129.045 -231 Weight 65.3 kg 68.1 kg Intake: IV 1450 1200 329 Sodium Chloride 0.45% 1, 1200 1200 329 000 ml @ 100 mls/hr IV . Q10H [facility] Rx#:[id number] Sodium Chloride 0.9% 500 250 ml 250 ml @ 999 mls/hr IV .Q16M ONE Rx#:[id number] Intake, IV Titration 79.204 19.045 Amount Norepinephrine 4 mg In 79.204 19.045 Sodium Chloride 0.9% 250 ml @ 0.05 MCG/KG/MIN 9. 851 mls/hr IV .Q24H [facility] Rx#:[id number] Oral 1120 120 300 Blood Product 310 Rc As-3 Unit 310 [id number] Output: Urine 580 1210 860 Other: Voiding Method Indwelling Catheter Indwelling Catheter - Exam On examination, the patient is sitting up in bed in no apparent distress. She is alert and oriented 3. She appears more alert compared today. On inspection of the left hip, there is a clean, dry, intact dressing in place. There is no significant drainage or bleeding. Mild swelling and ecchymosis of the left hip. The left thigh is soft and compressible. Motor and sensory function intact of the left lower extremity. Left lower extremity is warm and well-perfused with brisk capillary refill distally. Abductor pillow in place. - Labs CBC & Chem 7: 09/24/19 04:29 09/24/19 04:29 Labs: Abnormal Lab Results - Last 24 Hours (Table) 09/20/19 09/24/19 09/24/19 Range/Units 23:19 04:29 04:29 RBC 3.06 L (3.80-5.40) m/uL Hgb 9.0 L (11.4-16.0) gm/dL Hct 27.6 L (34.0-46.0) % Lymphocytes # 0.9 L (1.0-4.8) k/uL Sodium 136 L (137-145) mmol/L Potassium 3.2 L (3.5-5.1) mmol/L Chloride 113 H (98-107) mmol/L Carbon Dioxide 21 L (22-30) mmol/L Creatinine 0.41 L (0.52-1.04) mg/dL Glucose 120 H (74-99) mg/dL Calcium 7.4 L (8.4-10.2) mg/dL Crossmatch See Detail Microbiology - Last 24 Hours (Table) 09/20/19 23:19 Blood Culture - Preliminary Blood No Growth after 72 hours Assessment and Plan Assessment: Status-post left hip hemiarthroplasty on 09/20/2019. Postoperative day #4. Acute blood loss anemia requiring blood transfusion Plan: - In regards to the left hip, the patient may weight bear as tolerated. Up with assistance, up with a walker. - She may continue to increase mobilization as tolerated. Physical therapy for gait and balance training. - Continue posterior hip precautions. Patient should use abduction pillow at all times while in bed. - Appreciate internal medicine, cardiology, ICU for medical management and DVT prophylaxis. - Pain management as needed. - We will continue to follow patient closely and make recommendations as needed. She is ok for discharge from an orthopedic standpoint when medically cleared. She will follow up with Dr. Bess in the office in 2 weeks following discharge. Patient discussed with Dr. Bess.
[2019-09-24] MEDS: SODIUM CHLORIDE 0.9% 250 ML IV SCH (14:05)
[2019-09-24 14:44] VITALS: RESP 18
[2019-09-24] MEDS: MELATONIN 3 MG TABLET PO SCH (21:24)
[2019-09-24] MEDS: SENNOSIDES-DOCUSATE SODIUM 1 EACH TAB PO SCH (21:24)
--- NOTE | 2019-09-24 21:49 | P.PN ---
Progress Note - Text Progress Note Date: 09/24/19 Presenting complaint: Left hip fracture Interval history: 79-year-old patient admitted with acute left hip fracture with displaced left femoral like and had a hemiarthroplasty. Postoperatively he developed hypertension and felt to be a possible acute non-Q-wave RI. Patient did receive 2 units of packed red blood cells. Patient had been on levo fed taken off on September 21. Received IV fluid boluses. [id number] received a third unit of blood. Yesterday. Blood pressure came up. Heart is gone down. Feeling much better. Eating much better. Cardiology has decided against cardiac catheterization. Patient's GI symptoms of burping of improved. Review of systems: Was done for constitutional, cardiovascular, GI, pulmonary. Musculoskeletal relevant finding as above Active Medications Hydrocodone Bitart/Acetaminophen (Kanorado 5-325) 1 each PO Q6HR PRN PRN Reason: Pain Scale 1 to 5 Hydrocodone Bitart/Acetaminophen (Kanorado 5-325) 2 each PO Q6HR PRN PRN Reason: Pain Scale 6 to 10 Last Admin: 09/22/19 11:28 Dose: 2 each Documented by: Aspirin (Aspirin) 81 mg PO DAILY [facility] Last Admin: 09/24/19 09:28 Dose: 81 mg Documented by: Budesonide/Formoterol Fumarate (Symbicort 160-4.5 Mcg Inhaler) 2 puff INHALATION RT-BID [facility] Last Admin: 09/24/19 20:28 Dose: 2 puff Documented by: Digoxin (Lanoxin) 125 mcg PO DAILY [facility] Last Admin: 09/24/19 09:28 Dose: 125 mcg Documented by: Enoxaparin Sodium (Lovenox) 40 mg SQ DAILY [facility] Last Admin: 09/24/19 09:28 Dose: 40 mg Documented by: Hydromorphone HCl (Dilaudid) 0.125 mg IVP Q3HR PRN PRN Reason: Pain Scale 1 to 3 Hydromorphone HCl (Dilaudid) 0.25 mg IVP Q3HR PRN PRN Reason: Pain Scale 4 to 6 Hydromorphone HCl (Dilaudid) 0.5 mg IVP Q3HR PRN PRN Reason: Pain Scale 7 to 10 Last Admin: 09/23/19 05:09 Dose: 0.5 mg Documented by: Hydroxyzine Pamoate (Vistaril) 25 mg PO Q4HR PRN PRN Reason: Mild Nausea and/or Anxiety Last Admin: 09/23/19 04:16 Dose: 25 mg Documented by: Sodium Chloride (Saline 0.9%) 1,000 mls @ 43 mls/hr IV .[id number] [facility] Last Admin: 09/24/19 19:59 Dose: 43 mls/hr Documented by: Levothyroxine Sodium (Synthroid) 100 mcg PO [id number] [facility] Last Admin: 09/24/19 06:45 Dose: 100 mcg Documented by: Melatonin (Melatonin) 3 mg PO [facility] Last Admin: 09/24/19 21:24 Dose: 3 mg Documented by: Naloxone HCl (Narcan) 0.2 mg IV Q2M PRN PRN Reason: Opioid Reversal Pantoprazole Sodium (Protonix) 40 mg IVP BID [facility] Last Admin: 09/24/19 21:24 Dose: 40 mg Documented by: Senna/Docusate Sodium (Senokot-S) 2 each PO [facility] Last Admin: 09/24/19 21:24 Dose: 2 each Documented by: Simethicone (Mylicon Chew) 40 mg PO Q8H PRN PRN Reason: GI Upset Last Admin: 09/24/19 12:11 Dose: 40 mg Documented by: On examination: VITAL SIGNS: 98, 90, 24, 113/61, 95% room air GENERAL APPEARANCE: Sitting up in a chair, looking more comfortable. HEENT: Normal external appearance of nose and ear. Oral cavity normal EYES: Pupils equal. Conjunctiva pale NECK: JVD not raised. Mass not palpable. RESPIRATORY: Respiratory effort increased Lungs decreased breath sounds CARDIOVASCULAR: First and second sounds normal. Minimal edema. ABDOMEN: Soft. Liver and spleen not palpable. No tenderness. No mass palpable. PSYCHIATRY: Alert and oriented x3. Mood and affect normal. MUSCULAR skeletal: Some bruising hematoma along the left hip fracture site INVESTIGATIONS, reviewed in the clinical context: White count 5.6 hemoglobin 9 potassium 3.2 creatinine 0.41 Previous testing: Troponin I-less than 0.012, 0.115, 0.109 Hemoglobin was 13.9 preoperatively did call down to 7.4 2-D echocardiogram-moderate concentric LVH, EF 65-70%, possible LVOT obstruction Assessment: -Displaced left femoral neck fracture followed by a left hip hemiarthroplasty on September 19 -Acute postprocedure blood loss anemia-patient has received 3 units of blood. -Hypotensive shock secondary to blood loss anemia requiring blood products and pressor support-improved -Hypothyroidism -Hyperlipidemia -GERD -Acute non-Q-wave myocardial infarction secondary to hemodynamic mismatch -Non-anion gap metabolic acidosis -Moderate persistent Asthma -Hiatal hernia -Chronic left bundle branch block -Chronic dysphagia from esophageal stricture Plan: Patient doing well after receiving 3 units of blood. Continue current medication treatment plan. No cardiac catheterization per cardiology. Discussed with the nurse. Patient to be moved out of the ICU. Encouraged ambulation. Hopefully discharge in next 24-48 hours depending how she does clinically.
[2019-09-25] MEDS: SYMBICORT 160-4.5 MCG INHALER INHALATION SCH ×2 (07:41→07:43)
[2019-09-25 08:54] LABS: Basophils % (A) 0 %; Eosinophils # (A) 0.3 k/uL (0-0.7); Eosinophils % (A) 5 %; HCT 28.8 % (34.0-46.0); HGB 9.7 gm/dL (11.4-16.0); Lymphocytes % (A) 16 %; MCH 30.7 pg (25.0-35.0); MCHC 33.7 g/dL (31.0-37.0); MCV 91.2 fL (80.0-100.0); Mean Platelet Volume 7.9; Monocytes # (A) 0.4 k/uL (0-1.0); Monocytes % (A) 7 %; Neutrophils # (A) 4.4 k/uL (1.3-7.7); Neutrophils % (A) 69 %; Platelet Count 228 k/uL (150-450); RBC 3.16 m/uL (3.80-5.40); RDW 14.3 % (11.5-15.5); WBC 6.3 k/uL (3.8-10.6)
[2019-09-25] MEDS: PANTOPRAZOLE 40 MG/10 ML VIAL IVP SCH (09:01)
[2019-09-25] MEDS: DIGOXIN 125 MCG TAB PO SCH (09:01)
[2019-09-25] MEDS: ASPIRIN 81 MG PO SCH (09:01)
[2019-09-25] MEDS: ENOXAPARIN 40 MG/0.4 ML SYRINGE SQ SCH (09:02)
[2019-09-25 09:05] LABS: African American GFR (CKD) >90 (>60 ml/min/1.73 sqM); Anion Gap 2 mmol/L; Blood Urea Nitrogen 7 mg/dL (7-17); Calcium 7.9 mg/dL (8.4-10.2); Carbon Dioxide 25 mmol/L (22-30); Chloride 111 mmol/L (98-107); Glucose 145 mg/dL (74-99); Non-African American GFR(CKD) >90 (>60 ml/min/1.73 sqM); Potassium 3.6 mmol/L (3.5-5.1); Sodium 138 mmol/L (137-145)
[2019-09-25 11:01] VITALS: TEMP 98.1
--- NOTE | 2019-09-25 11:11 | P.PN ---
Subjective Progress Note Date: 09/25/19 This patient is an 79- year old female that is status-post left hip hemiarthroplasty on 09/20/19. Today's postoperative day #5. Patient is examined bedside this morning on . Patient's hemoglobin is 9.7 this morning. She has received a total of 3 units of PRBCs postoperatively. The patient states she feels well this morning and is complaining of only mild pain in the left hip. She states she has been up this morning with a walker to the bedside commode. She did have a bowel movement this morning. She is tolerating her diet well, she states she is breakfast today. Patient denies chest pain, shortness breath, nausea, vomiting, fevers, chills. Overall she feels well today. She has no orthopedic complaints. Vital signs stable. Objective - Vital Signs Vital signs: Vital Signs Temp 98.1 F 09/25/19 08:00 Pulse 98 09/25/19 08:00 Resp 18 09/25/19 06:07 BP 94/53 09/25/19 08:00 Pulse Ox 98 09/25/19 08:00 Intake & Output 09/24/19 09/25/19 09/25/19 18:59 06:59 18:59 Intake Total 917 1175 240 Output Total 1010 2350 Balance -93 -1175 240 Weight 73.5 kg Intake: IV 372 172 Sodium Chloride 0.45% 1, 372 172 000 ml @ 100 mls/hr IV . Q10H [facility] Rx#:[id number] Intake, IV Titration 301 Amount Sodium Chloride 0.9% 1, 301 000 ml @ 43 mls/hr IV . [id number] [facility] Rx#:[id number] Oral 545 702 240 Output: Urine 1010 2350 Other: Voiding Method Indwelling Catheter Indwelling Catheter Indwelling Catheter # Bowel Movements 1 - Exam On examination, the patient is sitting up in bed in no apparent distress. She is alert and oriented 3. On inspection of the left hip, there is a clean, dry, intact dressing in place. There is no significant drainage or bleeding. Mild swelling and ecchymosis of the left hip. The left thigh is soft and compressible. Motor and sensory function intact of the left lower extremity. Left lower extremity is warm and well-perfused with brisk capillary refill distally. Abductor pillow in place. - Labs CBC & Chem 7: 09/25/19 08:16 09/25/19 08:16 Labs: Abnormal Lab Results - Last 24 Hours (Table) 09/25/19 09/25/19 Range/Units 08:16 08:16 RBC 3.16 L (3.80-5.40) m/uL Hgb 9.7 L (11.4-16.0) gm/dL Hct 28.8 L (34.0-46.0) % Chloride 111 H (98-107) mmol/L Creatinine 0.44 L (0.52-1.04) mg/dL Glucose 145 H (74-99) mg/dL Calcium 7.9 L (8.4-10.2) mg/dL Microbiology - Last 24 Hours (Table) 09/20/19 23:19 Blood Culture - Preliminary Blood No Growth after 96 hours Assessment and Plan Assessment: Status-post left hip hemiarthroplasty on 09/20/2019. Postoperative day #5. Acute blood loss anemia requiring blood transfusion Plan: - In regards to the left hip, the patient may weight bear as tolerated. Up with assistance, up with a walker. - She may continue to increase mobilization as tolerated. Physical therapy for gait and balance training. - Continue posterior hip precautions. Patient should use abduction pillow at all times while in bed. - Appreciate internal medicine and cardiology for medical management and DVT prophylaxis. - Pain management as needed. - We will continue to follow patient closely and make recommendations as needed. She is ok for discharge from an orthopedic standpoint when medically cleared, patient plans to discharge home with her son. She will follow up with Dr. Bess in the office in 2 weeks following discharge.
[2019-09-25 12:24] VITALS: BP 116/66; PULSE 86
--- NOTE | 2019-09-25 13:27 | P.PN ---
Subjective Progress Note Date: 09/25/19 This is a jose roberto 79-year-old female with documented history of hypertension, hyperlipidemia, prior TIA, initially presented to the hospital after experiencing a fall and a fracture to her left hip. She was seen and examined this morning on the cardiac unit. Dr. Kitchen did have a discussion with the patient yesterday about proceeding with coronary angiogram, she was quite hesitant to do that. Hemodynamically she is stable, her heart rate remained stable today in the 80s, hemoglobin is stable. Objective - Vital Signs Vital signs: Vital Signs Temp 98.1 F 09/25/19 08:00 Pulse 86 09/25/19 12:00 Resp 18 09/25/19 06:07 BP 116/66 09/25/19 12:00 Pulse Ox 97 09/25/19 12:00 Intake & Output 09/24/19 09/25/19 09/25/19 18:59 06:59 18:59 Intake Total 917 1175 240 Output Total 1010 2350 Balance -93 -1175 240 Weight 73.5 kg Intake: IV 372 172 Sodium Chloride 0.45% 1, 372 172 000 ml @ 100 mls/hr IV . Q10H NOEMI Rx#:[id number] Intake, IV Titration 301 Amount Sodium Chloride 0.9% 1, 301 000 ml @ 43 mls/hr IV . [id number] NOEMI Rx#:[id number] Oral 545 702 240 Output: Urine 1010 2350 Other: Voiding Method Indwelling Catheter Indwelling Catheter Indwelling Catheter # Bowel Movements 1 - Exam GENERAL EXAM: Alert. Jose Roberto, 79-year-old white female, on 2 L of oxygen with a pulse ox of 99% comfortable in no apparent distress. HEAD: Normocephalic/atraumatic. EYES: Normal reaction of pupils, equal size. Conjunctiva pink, sclera white. NOSE: Clear with pink turbinates. THROAT: No erythema or exudates. NECK: No masses, no JVD, no thyroid enlargement, no adenopathy. CHEST: No chest wall deformity. Symmetrical expansion. LUNGS: Equal air entry with no crackles, wheeze, rhonchi or dullness. CVS: Regular rate and rhythm, normal S1 and S2, no gallops, no murmurs, no rubs ABDOMEN: Soft, nontender. No hepatosplenomegaly, normal bowel sounds, no guarding or rigidity. EXTREMITIES: No clubbing, no edema, no cyanosis, 2+ pulses and upper and lower extremities. left hip vision is clean dry and intact, and has a abductor pillow in between her legs, lower extremity pulses are intact, no numbness or tingling MUSCULOSKELETAL: Muscle strength and tone normal. SPINE: No scoliosis or deformity SKIN: No rashes CENTRAL NERVOUS SYSTEM: Alert and oriented -3. No focal deficits, tone is normal in all 4 extremities. PSYCHIATRIC: Alert and oriented -3. Appropriate affect. Intact judgment and insight. - Labs CBC & Chem 7: 09/25/19 08:16 09/25/19 08:16 Labs: Abnormal Lab Results - Last 24 Hours (Table) 09/25/19 09/25/19 Range/Units 08:16 08:16 RBC 3.16 L (3.80-5.40) m/uL Hgb 9.7 L (11.4-16.0) gm/dL Hct 28.8 L (34.0-46.0) % Chloride 111 H (98-107) mmol/L Creatinine 0.44 L (0.52-1.04) mg/dL Glucose 145 H (74-99) mg/dL Calcium 7.9 L (8.4-10.2) mg/dL Microbiology - Last 24 Hours (Table) 09/20/19 23:19 Blood Culture - Preliminary Blood No Growth after 96 hours Assessment and Plan Plan: Assessment and plan: #1. Status post ground-level fall with a displaced left femoral neck fracture, status post left hip hemiarthroplasty, postoperative day 4 #2. Hypotension, improved #3. Acute blood loss anemia #4. Hyperchloremic non-anion gap metabolic acidosis related to sodium chloride administration #5. mildly elevated troponin, we will continue maximal medical therapy #6. COPD/chronic bronchial asthma, currently stable #7. History of CVA #8. History of GERD/reflux #9. Hyperlipidemia #10. Hypothyroidism Plan Patient's heart rate today is under much better control, her blood pressure remained stable. We will continue with current medications. DNP note has been reviewed, I agree with a documented findings and plan of care. Patient was seen and examined.
[2019-09-25] MEDS ORDERED: RIVAROXABAN 10 MG TAB PO SCH (13:30)
--- NOTE | 2019-09-25 15:20 | P.PN ---
Subjective Progress Note Date: 09/25/19 Principal diagnosis: Status post ground-level fall with displaced left femoral neck fracture, status post left hip hemiarthroplasty The patient is seen today 09/25/2019 in follow-up on the selective care unit. She is currently awake and alert in no acute distress. She is working well with the incentive spirometer. She is maintaining good O2 saturations in the 90s on room air. She's been afebrile. Hemodynamically stable. She did receive 3 units of packed red blood cells this admission. Current hemoglobin 9.7. Blood cultures reveal no growth. White count 6.3. Sodium 138. Potassium 3.6. Creatinine 0.44. She is to be anticoagulated with Xarelto. Objective - Vital Signs Vital signs: Vital Signs Temp 98.1 F 09/25/19 08:00 Pulse 86 09/25/19 12:00 Resp 18 09/25/19 06:07 BP 116/66 09/25/19 12:00 Pulse Ox 97 09/25/19 12:00 Intake & Output 09/24/19 09/25/19 09/25/19 18:59 06:59 18:59 Intake Total 917 1175 480 Output Total 1010 2350 Balance -93 -1175 480 Weight 73.5 kg Intake: IV 372 172 Sodium Chloride 0.45% 1, 372 172 000 ml @ 100 mls/hr IV . Q10H NOEMI Rx#:[id number] Intake, IV Titration 301 Amount Sodium Chloride 0.9% 1, 301 000 ml @ 43 mls/hr IV . [id number] NOEMI Rx#:[id number] Oral 545 702 480 Output: Urine 1010 2350 Other: Voiding Method Indwelling Catheter Indwelling Catheter Indwelling Catheter # Bowel Movements 1 - Exam GENERAL EXAM: Alert. Pleasant, 79-year-old white female, on room air with a pulse ox of 97% comfortable in no apparent distress. HEAD: Normocephalic/atraumatic. EYES: Normal reaction of pupils, equal size. Conjunctiva pink, sclera white. NOSE: Clear with pink turbinates. THROAT: No erythema or exudates. NECK: No masses, no JVD, no thyroid enlargement, no adenopathy. CHEST: No chest wall deformity. Symmetrical expansion. LUNGS: Equal air entry with no crackles, wheeze, rhonchi or dullness. CVS: Regular rate and rhythm, normal S1 and S2, no gallops, no murmurs, no rubs ABDOMEN: Soft, nontender. No hepatosplenomegaly, normal bowel sounds, no guarding or rigidity. EXTREMITIES: No clubbing, no edema, no cyanosis, 2+ pulses and upper and lower extremities. left hip vision is clean dry and intact, and has a abductor pillow in between her legs, lower extremity pulses are intact, no numbness or tingling MUSCULOSKELETAL: Muscle strength and tone normal. SPINE: No scoliosis or deformity SKIN: No rashes CENTRAL NERVOUS SYSTEM: No focal deficits, tone is normal in all 4 extremities. PSYCHIATRIC: Alert and oriented -3. Appropriate affect. Intact judgment and insight. - Labs CBC & Chem 7: 09/25/19 08:16 09/25/19 08:16 Labs: Abnormal Lab Results - Last 24 Hours (Table) 09/25/19 09/25/19 Range/Units 08:16 08:16 RBC 3.16 L (3.80-5.40) m/uL Hgb 9.7 L (11.4-16.0) gm/dL Hct 28.8 L (34.0-46.0) % Chloride 111 H (98-107) mmol/L Creatinine 0.44 L (0.52-1.04) mg/dL Glucose 145 H (74-99) mg/dL Calcium 7.9 L (8.4-10.2) mg/dL Microbiology - Last 24 Hours (Table) 09/20/19 23:19 Blood Culture - Preliminary Blood No Growth after 96 hours Assessment and Plan Assessment: #1. Status post ground-level fall with a displaced left femoral neck fracture, status post left hip hemiarthroplasty, postoperative day 5 #2. Hypotension, related to hypovolemic state, acute blood loss anemia, req uiring vasopressor infusion, improved, patient received IV fluids, and blood transfusions 3, current hemoglobin 9.7 #3. Acute blood loss anemia, normal outcome of surgery, requiring blood transfusion, so far patient received 3 units of packed red blood cells #4. Hyperchloremic non-anion gap metabolic acidosis related to sodium chloride administration #5. mildly elevated troponin, cardiology is following #6. COPD/chronic bronchial asthma, currently stable #7. History of CVA #8. History of GERD/reflux #9. Hyperlipidemia #10. Hypothyroidism #11. Multiple other medical problems and comorbidities Plan: The patient was seen and evaluated by Dr. Santos She is currently stable from the pulmonary and critical care standpoint Continue to monitor hemoglobin Increase her activity as tolerated We'll continue to follow I, the cosigning physician, performed a history & physical examination of the patient. Lungs sounds are clear. Maintaining good O2 saturations in the 90s on room air. I discussed the assessment and plan of care with my nurse practitioner, Rajni Crooks. I attest to the above note as dictated by her.
--- NOTE | 2019-09-25 23:35 | P.DS ---
Providers Date of admission: 09/19/19 20:17 Expected date of discharge: 09/25/19 Attending physician: Kane Jose Consults: 09/19/19 19:40 Consult Physician Stat Consulting Provider: Sudhir Crews Consult Reason/Comments: Hip Fracture medical clearance Do you want consulting provider notified?: Yes, Notify in am 09/20/19 16:06 Consult Physician Stat Consulting Provider: Abel Pope Consult Reason/Comments: hypotension Do you want consulting provider notified?: Yes 09/20/19 17:10 Consult Physician Routine Consulting Provider: [facility] Consult Reason/Comments: hypotension Do you want consulting provider notified?: Yes, Notify in am [facility] care physician[facility] Course: Presenting complaint: Left hip fracture Interval history: 79-year-old patient admitted with acute left hip fracture with displaced left femoral lneck and had a hemiarthroplasty. Postoperatively developed hypotension and felt to be a possible acute non-Q-wave [place]. Patient did receive 2 units of packed red blood cells. Patient had been on levo fed taken off on September 21. Received IV fluid boluses.subsequently received a third unit of blood.Cardiology has decided against cardiac catheterization.was in the ICU for a short spell. Today-feeling well. Starting a diet. Did set up. Discussed with the patient. Keen to go home. She has good family support she states. Cleared by orthopedics. No chest pain. Cardiology will followed up as an outpatient. Medications were adjusted.patient being started on xarelto from tomorrow for DVT prophylaxis Discussion and discharge planning more than 35 minutes consultation: Dr. Santos from critical care Dr. Dee from cardiology Dr. Bess from orthopedics On examination: VITAL SIGNS:98.1, 98, 1606, 97% on room air GENERAL APPEARANCE: Sitting up bed, comfortable. HEENT: Normal external appearance of nose and ear. Oral cavity normal EYES: Pupils equal. Conjunctiva pale NECK: JVD not raised. Mass not palpable. RESPIRATORY: Respiratory effort increased Lungs decreased breath sounds CARDIOVASCULAR: First and second sounds normal. Minimal edema. ABDOMEN: Soft. Liver and spleen not palpable. No tenderness. No mass palpable. PSYCHIATRY: Alert and oriented x3. Mood and affect normal. MUSCULAR skeletal: Some bruising hematoma along the left hip fracture site INVESTIGATIONS, reviewed in the clinical context: Today's hemoglobin 9.7 potassium 3.6 White count 5.6 hemoglobin 9 potassium 3.2 creatinine 0.41 Previous testing: Troponin I-less than 0.012, 0.115, 0.109 Hemoglobin was 13.9 preoperatively did call down to 7.4 2-D echocardiogram-moderate concentric LVH, EF 65-70%, possible LVOT obstruction Assessment: -Displaced left femoral neck fracture followed by a left hip hemiarthroplasty on September 19 -Acute postprocedure blood loss anemia-patient received 3 units of blood. -Hypotensive shock secondary to blood loss anemia requiring blood products and pressor support-improved -Hypothyroidism -Hyperlipidemia -GERD -Acute non-Q-wave myocardial infarction secondary to hemodynamic mismatch -Non-anion gap metabolic acidosis -Moderate persistent Asthma -Hiatal hernia -Chronic left bundle branch block -Chronic dysphagia from esophageal stricture disposition: Home with family Patient Condition at Discharge: Stable Plan - Discharge Summary Discharge Rx Participant: Yes New Discharge Prescriptions: New Aspirin 81 mg PO DAILY chew Digoxin [Digitek] 125 mcg PO DAILY #30 tab Atorvastatin Calcium [Lipitor] 20 mg PO HS #30 tab Melatonin 3 mg PO HS #30 tablet Famotidine [Pepcid] 20 mg PO BID #120 tablet Rivaroxaban [Xarelto] 10 mg PO DAILY #30 tab Continue Salmeterol Xinafoate [Serevent Diskus] 1 puff INHALATION RT-BID Levothyroxine Sodium [Synthroid] 100 mcg PO MOTUWETHFR Budesonide [Pulmicort Flexhaler] 1 puff INHALATION RT-BID Discontinued Clopidogrel [Plavix] 75 mg PO HS Discharge Medication List Budesonide [Pulmicort Flexhaler] 1 puff INHALATION RT-BID 09/10/13 [History] Levothyroxine Sodium [Synthroid] 100 mcg PO MOTUWETHFR 09/10/13 [History] Salmeterol Xinafoate [Serevent Diskus] 1 puff INHALATION RT-BID 09/10/13 [History] Aspirin 81 mg PO DAILY chew 09/25/19 [Rx] Atorvastatin Calcium [Lipitor] 20 mg PO HS #30 tab 09/25/19 [Rx] Digoxin [Digitek] 125 mcg PO DAILY #30 tab 09/25/19 [Rx] Famotidine [Pepcid] 20 mg PO BID #120 tablet 09/25/19 [Rx] Melatonin 3 mg PO HS #30 tablet 09/25/19 [Rx] Rivaroxaban [Xarelto] 10 mg PO DAILY #30 tab 09/25/19 [Rx] Follow up Appointment(s)/Referral(s): Jace Casas DO [Primary Care Provider] - 1-2 days Jaswant Dee MD [STAFF PHYSICIAN] - 10 Days [facility] [NON-STAFF] - As Needed [facility], [NON-STAFF] - 1-2 Days Reinier Bess MD [Medical Doctor] - 2 Weeks Patient Instructions/Handouts: Precautions after Total Joint Replacement Surgery (DC), Hip Fracture (GEN) Activity/Diet/Wound Care/Special Instructions: Weight bear as tolerated on your operative leg. Use walker for ambulation. Posterior hip precautions for 6 weeks postoperatively. Keep abductor pillow in place at all times while lying in bed. DVT prophylaxis per internal medicine team. Follow-up with Dr. Bess in the office in 2 weeks. Call the office with any questions or concerns Discharge Disposition: HOME WITH HOME HEALTH SERVICES
[2019-09-26] MEDS ORDERED: RIVAROXABAN 10 MG TAB PO SCH (09:00)
== END 2019-09-25 15:35 | disposition home health service (06) | DRG 469 ==
LOC: EC 15:18 → 5NMEDONC 20:17 → 2SICU 09-20 16:57 → 3SCARD 09-24 14:29
PROVIDERS: ADMIT Orthopaedic Surgery; ATTEND Hospitalist
PROC: 3E033XZ Introduction of Vasopressor into Peripheral Vein, Percutaneous Approach (ICD-10-PCS; 2019-09-20)
PROC: 0SRS019 Replacement of Left Hip Joint, Femoral Surface with Metal Synthetic Substitute, Cemented, Open Approach (ICD-10-PCS; principal; 2019-09-20 11:30)
PROC: 30233N1 Transfusion of Nonautologous Red Blood Cells into Peripheral Vein, Percutaneous Approach (ICD-10-PCS; 2019-09-21)
DX: S72.012A Unspecified intracapsular fracture of left femur, initial encounter for closed fracture (principal); I21.4 Non-ST elevation (NSTEMI) myocardial infarction; R57.0 Cardiogenic shock; E44.1 Mild protein-calorie malnutrition; E87.2 Acidosis; E87.1 Hypo-osmolality and hyponatremia; D62 Acute posthemorrhagic anemia; K22.2 Esophageal obstruction; E87.8 Other disorders of electrolyte and fluid balance, not elsewhere classified; J44.9 Chronic obstructive pulmonary disease, unspecified; Z11.59 Encounter for screening for other viral diseases; S63.502A Unspecified sprain of left wrist, initial encounter; S00.83XA Contusion of other part of head, initial encounter; E86.1 Hypovolemia; I10 Essential (primary) hypertension; J45.40 Moderate persistent asthma, uncomplicated; E06.3 Autoimmune thyroiditis; R13.10 Dysphagia, unspecified; I44.7 Left bundle-branch block, unspecified; I08.1 Rheumatic disorders of both mitral and tricuspid valves; K21.9 Gastro-esophageal reflux disease without esophagitis; E78.5 Hyperlipidemia, unspecified; R00.0 Tachycardia, unspecified; J33.9 Nasal polyp, unspecified; I83.90 Asymptomatic varicose veins of unspecified lower extremity; M81.0 Age-related osteoporosis without current pathological fracture; Z79.51 Long term (current) use of inhaled steroids; Z79.890 Hormone replacement therapy; Z79.02 Long term (current) use of antithrombotics/antiplatelets; Z87.11 Personal history of peptic ulcer disease; Z90.49 Acquired absence of other specified parts of digestive tract; Z86.69 Personal history of other diseases of the nervous system and sense organs; Z86.73 Personal history of transient ischemic attack (TIA), and cerebral infarction without residual deficits; Z86.59 Personal history of other mental and behavioral disorders; Z98.51 Tubal ligation status; Z98.890 Other specified postprocedural states; Z98.49 Cataract extraction status, unspecified eye; Z91.041 Radiographic dye allergy status; Z88.2 Allergy status to sulfonamides; Z91.048 Other nonmedicinal substance allergy status; W01.0XXA Fall on same level from slipping, tripping and stumbling without subsequent striking against object, initial encounter; Y92.512 Supermarket, store or market as the place of occurrence of the external cause; Z82.49 Family history of ischemic heart disease and other diseases of the circulatory system; Z83.3 Family history of diabetes mellitus; Z80.42 Family history of malignant neoplasm of prostate; K59.09 Other constipation
CPT/HCPCS: 36415; 70450; 71045; 71275; 72125; 73501; 73502; 74177; 80048; 80053; 81001; 82533; 82550; 82553; 84132; 84484; 85025; 85027; 85379; 85610; 85730; 86850; 86900; 86901; 86920; 87040; 87635; 88305; 88311; 93005; 93306; 94640; 96372; 99285

== ENCOUNTER 2019-10-04 16:05 | Emergency (ER) | payer MEDICARE ==
[2019-10-04 16:10] VITALS: BP 107/72; PULSE 83; RESP 18; TEMP 98
--- NOTE | 2019-10-04 17:07 | US ---
EXAMINATION TYPE: US venous doppler duplex LE LT DATE OF EXAM: 10/04/2019 4:20 PM COMPARISON: NONE CLINICAL HISTORY: LLE popliteal pain s/p hip replacement. Left knee pain. On blood thinners. SIDE PERFORMED: Left TECHNIQUE: The lower extremity deep venous system is examined utilizing real time linear array sonog raymond with graded compression, doppler sonography and color-flow sonography. VESSELS IMAGED: External Iliac Vein (EIV) Common Femoral Vein Deep Femoral Vein Greater Saphenous Vein * Femoral Vein Popliteal Vein Small Saphenous Vein * Proximal Calf Veins (* superficial vessels) Left Leg: Negative for DVT IMPRESSION: No evidence of deep vein thrombosis in the left leg.
--- NOTE | 2019-10-04 18:02 | ED ---
General Adult HPI - General Chief complaint: Extremity Injury, Lower Stated complaint: poss blood clot behind lt knee Time Seen by Provider: 10/04/19 16:11 Source: patient, RN notes reviewed, old records reviewed Mode of arrival: ambulatory Limitations: no limitations - History of Present Illness Initial comments: 79-year-old female patient presents to ED for shift complaining of left knee pain. Patient did have a left partial hip replacement by Dr. Bess 10 days ago. Has been having pain in her left knee since the surgery. This pain is in the popliteal region. Denies any chest pain or shortness of breath. Patient is taking xaralto for prophylaxis. Denies any recent falls or trauma. Denies any other complaints. Patient was at physical therapy today and is complaining of the back for her left knee hurting, reports a physical therapist called Dr. Bess who recommended coming to Hospital for ultrasound. Systemic: Pt denies fatigue, fever/chills, rash. Pt denies weakness, night sweats, weight loss. Neuro: Pt denies headache, visual disturbances, syncope or pre-syncope. HEENT: Pt denies ocular discharge or irritation, otalgia, rhinorrhea, pharyngitis or notable lymphadenopathy. Cardiopulmonary: Pt denies chest pain, SOB, heart palpitations, dyspnea on exertion. Abdominal/GI: Pt denies abdominal pain, n/v/d. : Pt denies dysuria, burning w/ urination, frequency/urgency. Denies new onset urinary or bowel incontinence. MSK: Pt denies loss of strength or function in extremities. Neuro: Pt denies new onset weakness, paresthesias. - Related Data Home Medications Medication Instructions Recorded Confirmed Budesonide [Pulmicort Flexhaler] 1 puff INHALATION RT-BID 09/10/13 09/19/19 Levothyroxine Sodium [Synthroid] 100 mcg PO MOTUWETHFR 09/10/13 09/19/19 Salmeterol Xinafoate [Serevent 1 puff INHALATION RT-BID 09/10/13 09/19/19 Diskus] Previous Rx's Medication Instructions Recorded Aspirin 81 mg PO DAILY chew 09/25/19 Atorvastatin Calcium [Lipitor] 20 mg PO HS #30 tab 09/25/19 Digoxin [Digitek] 125 mcg PO DAILY #30 tab 09/25/19 Famotidine [Pepcid] 20 mg PO BID #120 tablet 09/25/19 Melatonin 3 mg PO HS #30 tablet 09/25/19 Rivaroxaban [Xarelto] 10 mg PO DAILY #30 tab 09/25/19 Allergies Allergy/AdvReac Type Severity Reaction Status Date / Time Iodinated Contrast Media Allergy FLUSHING, Verified 10/04/19 16:07 [Iodinated Contrast Media - ITCHING, IV Dye] felt warm Macrolide Antibiotics Allergy INTERACTS Verified 10/04/19 16:07 WITH ASTHMA MEDS mold Allergy asthma Verified 10/04/19 16:07 symptoms Sulfa (Sulfonamide Allergy FLUSHING , Verified 10/04/19 16:07 Antibiotics) ITCHING fungus Allergy ASTHMA Uncoded 09/19/19 20:29 SYMPTOMS SMOKE Allergy ASTHMA Uncoded 09/19/19 20:29 SYMPTOMS Review of Systems ROS Statement: Those systems with pertinent positive or pertinent negative responses have been documented in the HPI. ROS Other: All systems not noted in ROS Statement are negative. Past Medical History Past Medical History: Asthma, COPD, CVA/TIA, GERD/Reflux, Hyperlipidemia, Thyroid Disorder Additional Past Medical History / Comment(s): hiatel hernia, hypotension, possible TIA,migraines, deviated septum, chronic constipation, past hx of low blood sugar, esophageal stricture with difficulty swallowing . 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, states polyp removed from uterus (got punctured uterus and intestine and had to have surgery to repair uterus and intestine) cataract, EGD, COLONOSCOPY, L hip Past Anesthesia/Blood Transfusion Reactions: Previous Problems w/ Anesthesia Additional Past Anesthesia/Blood Transfusion Reaction / Comment(s): STATES DIFFICULTY WAKING UP Past Psychological History: Depression Smoking Status: Never smoker Past Alcohol Use History: None Reported Past Drug Use History: None Reported - Past Family History Mother Family Medical History: Myocardial Infarction (VT) Additional Family Medical History / Comment(s): Mother of a VT at the age of 44 yrs. Father Family Medical History: Diabetes Mellitus Brother(s) Family Medical History: Cancer Additional Family Medical History / Comment(s): PROSTATE General Exam - General Exam Comments Initial Comments: Constitutional: NAD, AOX3, Pt has pleasant affect. HEENT: NC/AT, trachea midline, neck supple, no lymphadenopathy. Posterior pharynx non erythematous, without exudates. External ears appear normal, without discharge. Mucous membranes moist. Eyes PERRLA, EOM intact. There is no scleral icterus. No pallor noted. Cardiopulmonary: RRR, no murmurs, rubs or gallops, no JVD noted. Lungs CTAB in anterior and posterior dorsey. No peripheral edema. Abdominal exam: Abdomen soft and non-distended. Abdomen non-tender to palpation in all 4 quadrants. Bowel sounds active in LLQ. No hepatosplenomegaly. No ecchymosis Neuro: CN II-XII grossly intact. No nuchal rigidity. No raccon eyes, no dunbar sign, no hemotympanum. No cervical spinal tenderness. MSK: Left lower extremity some posterior popliteal tenderness. No unilateral swelling. Incision site is clean and dry no erythema or discharge. Neurovascularly intact bilaterally. Limitations: no limitations Course Vital Signs 10/04/19 16:07 Temperature 98 F Pulse Rate 83 Respiratory 18 Rate Blood Pressure 107/72 O2 Sat by Pulse 97 Oximetry Medical Decision Making - Medical Decision Making 79-year-old female patient presents to ED for shift complaining of left knee pain. Patient did have a left partial hip replacement by Dr. Bess 10 days ago. Has been having pain in her left knee since the surgery. This pain is in the popliteal region. Denies any chest pain or shortness of breath. Patient is taking xaralto for prophylaxis. Denies any recent falls or trauma. Denies any other complaints. Patient was at physical therapy today and is complaining of the back for her left knee hurting, reports a physical therapist called Dr. Bess who recommended coming to Hospital for ultrasound. Pt VSS, afebrile. Physical exam displayed: Left lower extremity some posterior popliteal tenderness. No unilateral swelling. Incision site is clean and dry no erythema or discharge. Neurovascularly intact bilaterally. Ultrasound is negative for DVT in the left leg. She'll be discharged with follow-up with primary care provider, orthopedics and will return to ER if condition worsens. Case discussed with Dr. Méndez. Disposition Clinical Impression: Leg pain Disposition: HOME SELF-CARE Condition: Stable Instructions (If sedation given, give patient instructions): Musculoskeletal Pain (ED) Additional Instructions: Follow up with PCP and Dr. Bess tomorrow. Return to ED if condition worsens. Is patient prescribed a controlled substance at d/c from ED?: No Referrals: Jace Casas DO [Primary Care Provider] - 1-2 days Reinier Bess MD [Medical Doctor] - 1-2 days
== END 2019-10-04 18:15 | disposition home or self-care (01) ==
LOC: EC 16:05
DX: M25.562 Pain in left knee (principal); E06.3 Autoimmune thyroiditis; J44.9 Chronic obstructive pulmonary disease, unspecified; Z79.51 Long term (current) use of inhaled steroids; Z79.890 Hormone replacement therapy; Z96.642 Presence of left artificial hip joint; Z91.041 Radiographic dye allergy status; Z91.048 Other nonmedicinal substance allergy status; Z88.1 Allergy status to other antibiotic agents; Z88.2 Allergy status to sulfonamides; Z95.5 Presence of coronary angioplasty implant and graft
CPT/HCPCS: 99284

== ENCOUNTER → 2019-10-22 | Outpatient (CLI) | payer MEDICARE ==
[2019-10-22 15:05] LABS: Appearance,Urine Clear (Clear); Bilirubin,Urine Negative (Negative); Blood,Urine Negative (Negative); Color,Urine Yellow; Glucose,Urine (UA) Negative (Negative); Ketones,Urine Negative (Negative); Leukocyte Esterase,Urine Negative (Negative); Nitrite,Urine Negative (Negative); PH, Urine 6.5 (5.0-8.0); Protein,Urine Negative (Negative); Specific Gravity,Urine 1.009 (1.001-1.035); Urobilinogen,Urine <2.0 mg/dL (<2.0)
== END | disposition home or self-care (01) ==
LOC: LABWHC1 13:59
PROVIDERS: ATTEND Family Medicine
DX: M54.5 Low back pain (principal)
CPT/HCPCS: 81003; 87086

== ENCOUNTER 2020-10-13 10:36 | Emergency (ER) | payer MEDICARE ==
[2020-10-13 10:40] VITALS: TEMP 97.7
[2020-10-13] MEDS ORDERED: SODIUM CHLORIDE 0.9% 500 ML 500 ML IV STA (11:02)
[2020-10-13] MEDS ORDERED: MORPHINE SULFATE 2 MG/ML SYRINGE IVP STA (11:02)
--- NOTE | 2020-10-13 11:13 | ED ---
General Adult HPI - General Chief complaint: Abdominal Pain Stated complaint: Abd pain, Asthma Time Seen by Provider: 10/13/20 10:43 Source: patient Mode of arrival: ambulatory Limitations: no limitations - History of Present Illness Initial comments: 80-year-old female with a past medical history of asthma, COPD, hyperlipidemia, bowel obstruction presents to the emergency room for a chief complaint of abdominal pain. Patient reports she has had left-sided mid abdominal pain since this morning. Patient reports she thinks she is constipated. States she has been trying to have a bowel movement and she is chronically constipated but has only been able to produce a small amount of stool. Patient came in today because she started to have abdominal pain and felt she could no longer bear down have a bowel movement with this pain so came in. Patient denies shortness of breath.Patient has no other complaints at this time including shortness of b reath, chest pain, nausea or vomiting, headache, or visual changes. - Related Data Home Medications Medication Instructions Recorded Confirmed RX: Budesonide [Pulmicort 1 puff INHALATION RT-BID 09/10/13 09/19/19 Flexhaler] RX: Levothyroxine Sodium 100 mcg PO MOTUWETHFR 09/10/13 09/19/19 [Synthroid] RX: Salmeterol Xinafoate [Serevent 1 puff INHALATION RT-BID 09/10/13 09/19/19 Diskus] Previous Rx's Medication Instructions Recorded Atorvastatin Calcium [Lipitor] 20 mg PO HS #30 tab 09/25/19 Famotidine [Pepcid] 20 mg PO BID #120 tablet 09/25/19 RX: Aspirin 81 mg PO DAILY chew 09/25/19 RX: Digoxin [Digitek] 125 mcg PO DAILY #30 tab 09/25/19 RX: Melatonin 3 mg PO HS #30 tablet 09/25/19 Rivaroxaban [Xarelto] 10 mg PO DAILY #30 tab 09/25/19 Allergies Allergy/AdvReac Type Severity Reaction Status Date / Time Iodinated Contrast Media Allergy FLUSHING, Verified 10/13/20 10:41 [Iodinated Contrast Media - ITCHING, IV Dye] felt warm Macrolide Antibiotics Allergy INTERACTS Verified 10/13/20 10:41 WITH ASTHMA MEDS mold Allergy asthma Verified 10/13/20 10:41 symptoms Sulfa (Sulfonamide Allergy FLUSHING , Verified 10/13/20 10:41 Antibiotics) ITCHING fungus Allergy ASTHMA Uncoded 10/13/20 10:41 SYMPTOMS SMOKE Allergy ASTHMA Uncoded 10/13/20 10:41 SYMPTOMS Review of Systems ROS Statement: Those systems with pertinent positive or pertinent negative responses have been documented in the HPI. ROS Other: All systems not noted in ROS Statement are negative. Past Medical History Past Medical History: Asthma, COPD, CVA/TIA, GERD/Reflux, Hyperlipidemia, Thyroid Disorder Additional Past Medical History / Comment(s): hiatel hernia, hypotension, possible TIA,migraines, deviated septum, chronic constipation, past hx of low blood sugar, esophageal stricture with difficulty swallowing . 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, states polyp removed from uterus (got punctured uterus and intestine and had to have surgery to repair uterus and intestine) cataract, EGD, COLONOSCOPY, L hip Past Anesthesia/Blood Transfusion Reactions: Previous Problems w/ Anesthesia Additional Past Anesthesia/Blood Transfusion Reaction / Comment(s): STATES DIFFICULTY WAKING UP Past Psychological History: Depression Smoking Status: Never smoker Past Alcohol Use History: None Reported Past Drug Use History: None Reported - Past Family History Mother Family Medical History: Myocardial Infarction (ME) Additional Family Medical History / Comment(s): Mother of a ME at the age of 44 yrs. Father Family Medical History: Diabetes Mellitus Brother(s) Family Medical History: Cancer Additional Family Medical History / Comment(s): PROSTATE General Exam Limitations: no limitations General appearance: alert, in no apparent distress Head exam: Present: atraumatic, normocephalic, normal inspection Eye exam: Present: normal appearance, PERRL, EOMI. Absent: scleral icterus, conjunctival injection, periorbital swelling ENT exam: Present: normal exam, mucous membranes moist Neck exam: Present: normal inspection, full ROM. Absent: tenderness, meningismus, lymphadenopathy Respiratory exam: Present: normal lung sounds bilaterally. Absent: respiratory distress, wheezes, rales, rhonchi, stridor Cardiovascular Exam: Present: regular rate, normal rhythm, normal heart sounds. Absent: systolic murmur, diastolic murmur, rubs, gallop, clicks GI/Abdominal exam: Present: soft, tenderness (mild L sided mid abdominal tenderness, no guarding or rebound.), normal bowel sounds. Absent: distended, guarding, rebound, rigid Course Vital Signs 10/13/20 10/13/20 10/13/20 10:37 10:48 11:43 Temperature 97.7 F Pulse Rate 74 74 66 Respiratory 20 20 16 Rate Blood Pressure 134/86 126/87 127/75 O2 Sat by Pulse 99 99 98 Oximetry 10/13/20 13:11 Temperature Pulse Rate 76 Respiratory 16 Rate Blood Pressure 136/70 O2 Sat by Pulse 99 Oximetry EKG Findings - EKG Comments: EKG Findings:: Sinus bradycardia, ventricular rate 56, ND interval 188, QTC 426 Medical Decision Making - Medical Decision Making Those are stable. Patient is well-appearing. Minimal abdominal tenderness however patient states it is more pressure than pain. CBC CMP unremarkable. Urinalysis does not show any evidence of infection. CT abdomen and pelvis does show mild wall thickening of sigmoid colon, consider mild colitis. This is likely the cause of patient's pain. Patient also does have a large hiatal hernia that was present previously. She follows with Dr. Tran for this and takes Pepcid. At this time patient pain is likely secondary to colitis. Clinically she is mildly constipated. We will add MiraLAX to her senna which Dr. Tran has told her to do before. She declines enema at this time. Patient is feeling well enough to go home and is denying any pain at this time.. If symptoms worsen she will return here. - Lab Data Result diagrams: 10/13/20 11:12 10/13/20 11:12 Lab Results 10/13/20 10/13/20 10/13/20 Range/Units 11:12 11:12 11:12 WBC 6.0 (3.8-10.6) k/uL RBC 4.67 (3.80-5.40) m/uL Hgb 14.5 (11.4-16.0) gm/dL Hct 42.7 (34.0-46.0) % MCV 91.6 (80.0-100.0) fL MCH 31.1 (25.0-35.0) pg MCHC 33.9 (31.0-37.0) g/dL RDW 12.8 (11.5-15.5) % Plt Count 247 (150-450) k/uL MPV 7.3 Neutrophils % 48 % Lymphocytes % 25 % Monocytes % 8 % Eosinophils % 17 % Basophils % 1 % Neutrophils # 2.9 (1.3-7.7) k/uL Lymphocytes # 1.5 (1.0-4.8) k/uL Monocytes # 0.5 (0-1.0) k/uL Eosinophils # 1.0 H (0-0.7) k/uL Basophils # 0.1 (0-0.2) k/uL Sodium 140 (137-145) mmol/L Potassium 4.3 (3.5-5.1) mmol/L Chloride 106 (98-107) mmol/L Carbon Dioxide 27 (22-30) mmol/L Anion Gap 7 mmol/L BUN 14 (7-17) mg/dL Creatinine 0.73 (0.52-1.04) mg/dL Est GFR (CKD-EPI)AfAm 89 (>60 ml/min/1.73 sqM) Est GFR (CKD-EPI)NonAf 77 (>60 ml/min/1.73 sqM) Glucose 111 H (74-99) mg/dL Plasma Lactic Acid Geo (0.7-2.0) mmol/L Calcium 10.2 (8.4-10.2) mg/dL Total Bilirubin 0.5 (0.2-1.3) mg/dL AST 20 (14-36) U/L ALT 15 (4-34) U/L Alkaline Phosphatase 101 (38-126) U/L Total Protein 6.9 (6.3-8.2) g/dL Albumin 4.2 (3.5-5.0) g/dL Amylase 106 (30-110) U/L Lipase 92 (23-300) U/L Urine Color Light Yellow Urine Appearance Clear (Clear) Urine pH 7.5 (5.0-8.0) Ur Specific [place] 1.004 (1.001-1.035) Urine Protein Negative (Negative) Urine Glucose (UA) Negative (Negative) Urine Ketones Negative (Negative) Urine Blood Negative (Negative) Urine Nitrite Negative (Negative) Urine Bilirubin Negative (Negative) Urine Urobilinogen <2.0 (<2.0) mg/dL Ur Leukocyte Esterase Negative (Negative) 10/13/20 Range/Units 11:12 WBC (3.8-10.6) k/uL RBC (3.80-5.40) m/uL Hgb (11.4-16.0) gm/dL Hct (34.0-46.0) % MCV (80.0-100.0) fL MCH (25.0-35.0) pg MCHC (31.0-37.0) g/dL RDW (11.5-15.5) % Plt Count (150-450) k/uL MPV Neutrophils % % Lymphocytes % % Monocytes % % Eosinophils % % Basophils % % Neutrophils # (1.3-7.7) k/uL Lymphocytes # (1.0-4.8) k/uL Monocytes # (0-1.0) k/uL Eosinophils # (0-0.7) k/uL Basophils # (0-0.2) k/uL Sodium (137-145) mmol/L Potassium (3.5-5.1) mmol/L Chloride (98-107) mmol/L Carbon Dioxide (22-30) mmol/L Anion Gap mmol/L BUN (7-17) mg/dL Creatinine (0.52-1.04) mg/dL Est GFR (CKD-EPI)AfAm (>60 ml/min/1.73 sqM) Est GFR (CKD-EPI)NonAf (>60 ml/min/1.73 sqM) Glucose (74-99) mg/dL Plasma Lactic Acid Geo 1.3 (0.7-2.0) mmol/L Calcium (8.4-10.2) mg/dL Total Bilirubin (0.2-1.3) mg/dL AST (14-36) U/L ALT (4-34) U/L Alkaline Phosphatase (38-126) U/L Total Protein (6.3-8.2) g/dL Albumin (3.5-5.0) g/dL Amylase (30-110) U/L Lipase (23-300) U/L Urine Color Urine Appearance (Clear) Urine pH (5.0-8.0) Ur Specific [place] (1.001-1.035) Urine Protein (Negative) Urine Glucose (UA) (Negative) Urine Ketones (Negative) Urine Blood (Negative) Urine Nitrite (Negative) Urine Bilirubin (Negative) Urine Urobilinogen (<2.0) mg/dL Ur Leukocyte Esterase (Negative) Disposition Clinical Impression: Abdominal pain Disposition: HOME SELF-CARE Condition: Good Instructions (If sedation given, give patient instructions): Abdominal Pain (ED ) Additional Instructions: Please take MiraLAX in addition to your senna. Do this for 3 days and reevaluate. If your symptoms worsen return to the emergency room. Otherwise follow-up with your GI doctor and primary care doctor as soon as possible. Is patient prescribed a controlled substance at d/c from ED?: No Referrals: Jace Casas DO [Primary Care Provider] - 1-2 days Meagan Tran MD [STAFF PHYSICIAN] - 1-2 days Time of Disposition: 13:39
[2020-10-13 11:24] LABS: Basophils # (A) 0.1 k/uL (0-0.2); Basophils % (A) 1 %; Eosinophils % (A) 17 %; HCT 42.7 % (34.0-46.0); HGB 14.5 gm/dL (11.4-16.0); Lymphocytes # (A) 1.5 k/uL (1.0-4.8); Lymphocytes % (A) 25 %; MCH 31.1 pg (25.0-35.0); MCHC 33.9 g/dL (31.0-37.0); MCV 91.6 fL (80.0-100.0); Mean Platelet Volume 7.3; Monocytes # (A) 0.5 k/uL (0-1.0); Monocytes % (A) 8 %; Neutrophils # (A) 2.9 k/uL (1.3-7.7); Neutrophils % (A) 48 %; Platelet Count 247 k/uL (150-450); RBC 4.67 m/uL (3.80-5.40); RDW 12.8 % (11.5-15.5)
[2020-10-13 11:31] LABS: Albumin 4.2 g/dL (3.5-5.0); Appearance,Urine Clear (Clear); Bilirubin,Urine Negative (Negative); Blood,Urine Negative (Negative); Calcium 10.2 mg/dL (8.4-10.2); Color,Urine Light Yellow; Glucose,Urine (UA) Negative (Negative); Ketones,Urine Negative (Negative); Leukocyte Esterase,Urine Negative (Negative); Nitrite,Urine Negative (Negative); PH, Urine 7.5 (5.0-8.0); Potassium 4.3 mmol/L (3.5-5.1); Protein,Urine Negative (Negative); Specific Gravity,Urine 1.004 (1.001-1.035); Total Bilirubin 0.5 mg/dL (0.2-1.3); Total Protein 6.9 g/dL (6.3-8.2); Urobilinogen,Urine <2.0 mg/dL (<2.0)
[2020-10-13] MEDS ORDERED: diphenhydrAMINE 50 MG/ML 1 ML VIAL IVP STA (11:35)
[2020-10-13] MEDS ORDERED: methylPREDNISolone SOD SUCCI 125 MG/2 ML VIAL IV STA (11:35)
[2020-10-13] MEDS ORDERED: FAMOTIDINE 20 MG/2 ML VIAL IV STA (11:35)
[2020-10-13 11:44] VITALS: RESP 16
[2020-10-13 13:12] VITALS: BP 136/70; PULSE 76
--- NOTE | 2020-10-13 13:15 | CT ---
EXAMINATION TYPE: CT abdomen pelvis w con DATE OF EXAM: 10/13/2020 COMPARISON: 09/20/2019 INDICATION: Abd pain DLP: 567.2 mGycm, Automated exposure control for dose reduction was used. CONTRAST: 100 mL of Isovue 300. Study performed without Oral Contrast TECHNIQUE: Axial images were obtained from above the diaphragm to the pubic rami in the axial plane a t 5 mm thick sections. Reconstructed images are reviewed on the computer in the coronal plane. FINDINGS: Limited CT sections are obtained the lung bases. There is a large hiatal hernia. Remainder of the l noemi bases appear clear. CT ABDOMEN: Liver: There is mild diffuse fatty infiltration liver. No discrete masses are evident. Spleen: Normal Pancreas: Normal Adrenal glands: The adrenal glands are normal. Gallbladder: Surgically absent. Kidneys: No masses are evident. No hydronephrosis is present. There is a 5.4 cm cyst on the mid to lower pole left kidney measuring 9 Hounsfield units. Delayed images were obtained through the kidney s, which remain unremarkable. Aorta: Vascular calcification is within the aorta. Inferior vena cava: Normal. CT PELVIS: There is some limitation to the pelvis due to beam hardening artifact from the left hip pr osthesis Loops of bowel within the abdomen and pelvis are normal. This study is without oral contrast limi ting bowel evaluation. Fecal debris is within the rectum. Mild diffuse wall thickening within the sig moid colon is not excluded. Consider colitis. The study is without oral contrast limiting bowel eval uation. Appendix: Not identified. No suspicious inflammatory changes are evident. Urinary bladder: Normal. Genitourinary structures: Uterus is normal. Adnexal regions are clear Osseous structures: No suspicious lytic or sclerotic lesions. Left hip prosthesis is present. Degener ative disc changes are present in the lower lumbar spine. IMPRESSIONS: 1. Mild wall thickening within the sigmoid colon. Consider mild colitis. 2. Large hiatal hernia present previously. 3. Mild fatty infiltration of the liver
== END 2020-10-13 13:47 | disposition home or self-care (01) ==
LOC: EC 10:36
DX: K52.9 Noninfective gastroenteritis and colitis, unspecified (principal); J44.9 Chronic obstructive pulmonary disease, unspecified; E07.9 Disorder of thyroid, unspecified; Z79.51 Long term (current) use of inhaled steroids; Z86.73 Personal history of transient ischemic attack (TIA), and cerebral infarction without residual deficits; Z88.2 Allergy status to sulfonamides; Z91.041 Radiographic dye allergy status; Z88.1 Allergy status to other antibiotic agents; Z91.048 Other nonmedicinal substance allergy status; Z91.09 Other allergy status, other than to drugs and biological substances; Z79.890 Hormone replacement therapy; Z90.49 Acquired absence of other specified parts of digestive tract
CPT/HCPCS: 99284; 96374; 96375; 96361; 36415; 80053; 82150; 83605; 83690; 85025; 81003; 74177; J1200; J2930; Q9967

== ENCOUNTER 2020-11-18 00:21 | Emergency (ER) | payer MEDICARE ==
[2020-11-18 00:27] VITALS: TEMP 97.5
[2020-11-18] MEDS ORDERED: SODIUM CHLORIDE 0.9% 500 ML 500 ML IV STA (00:56)
--- NOTE | 2020-11-18 01:00 | ED ---
Abdominal Pain HPI - General Source: patient Mode of arrival: ambulatory Limitations: no limitations <Topher Coleman - Last Filed: 11/18/20 03:10> <Bernardo Guidry - Last Filed: 11/18/20 08:18> - General Chief Complaint: Abdominal Pain Stated Complaint: Abd Pain Time Seen by Provider: 11/18/20 00:31 - History of Present Illness Initial Comments: 80-year-old female with history of bowel obstruction presents to the emergency department with a chief complaint of abdominal distention. States she has been experiencing increased abdominal bloating over the last month with irregular bowel movements. States she had multiple small bowel movements over the last 2 days. States she has not been able to pass any gas since this morning. Denies any nausea or vomiting or diarrhea. Reports her abdomen is more distended than usual. And now she is beginning to experience pain in the left side of the abdomen without any radiation. Does not seem to be postprandial. Denies any associated chest pain or shortness of breath. Denies hematuria, hematochezia or melena. Denies any urinary or vaginal symptoms. Abdominal surgical history of hysterectomy and cholecystectomy. (Topher Coleman) - Related Data Home Medications Medication Instructions Recorded Confirmed Budesonide [Pulmicort Flexhaler] 1 puff INHALATION RT-BID 09/10/13 09/19/19 Levothyroxine Sodium [Synthroid] 100 mcg PO MOTUWETHFR 09/10/13 09/19/19 Salmeterol Xinafoate [Serevent 1 puff INHALATION RT-BID 09/10/13 09/19/19 Diskus] Previous Rx's Medication Instructions Recorded Aspirin 81 mg PO DAILY chew 09/25/19 Atorvastatin Calcium [Lipitor] 20 mg PO HS #30 tab 09/25/19 Digoxin [Digitek] 125 mcg PO DAILY #30 tab 09/25/19 Famotidine [Pepcid] 20 mg PO BID #120 tablet 09/25/19 Melatonin 3 mg PO HS #30 tablet 09/25/19 Rivaroxaban [Xarelto] 10 mg PO DAILY #30 tab 09/25/19 Allergies Allergy/AdvReac Type Severity Reaction Status Date / Time Iodinated Contrast Media Allergy FLUSHING, Verified 11/18/20 00:27 [Iodinated Contrast Media - ITCHING, IV Dye] felt warm Macrolide Antibiotics Allergy INTERACTS Verified 11/18/20 00:27 WITH ASTHMA MEDS mold Allergy asthma Verified 11/18/20 00:27 symptoms Sulfa (Sulfonamide Allergy FLUSHING , Verified 11/18/20 00:27 Antibiotics) ITCHING fungus Allergy ASTHMA Uncoded 11/18/20 00:27 SYMPTOMS SMOKE Allergy ASTHMA Uncoded 11/18/20 00:27 SYMPTOMS Review of Systems ROS Other: All systems not noted in ROS Statement are negative. <Topher Coleman - Last Filed: 11/18/20 03:10> ROS Other: All systems not noted in ROS Statement are negative. <Bernardo Guidry - Last Filed: 11/18/20 08:18> ROS Statement: Those systems with pertinent positive or pertinent negative responses have been documented in the HPI. Past Medical History Past Medical History: Asthma, COPD, CVA/TIA, GERD/Reflux, Hyperlipidemia, Thyroid Disorder Additional Past Medical History / Comment(s): hiatel hernia, hypotension, possible TIA,migraines, deviated septum, chronic constipation, past hx of low blood sugar, esophageal stricture with difficulty swallowing . 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, states polyp removed from uterus (got punctured uterus and intestine and had to have surgery to repair uterus and intestine) cataract, EGD, COLONOSCOPY, L hip Past Anesthesia/Blood Transfusion Reactions: Previous Problems w/ Anesthesia Additional Past Anesthesia/Blood Transfusion Reaction / Comment(s): STATES DIFFICULTY WAKING UP Past Psychological History: Depression Smoking Status: Never smoker Past Alcohol Use History: None Reported Past Drug Use History: None Reported - Past Family History Mother Family Medical History: Myocardial Infarction (SC) Additional Family Medical History / Comment(s): Mother of a SC at the age of 44 yrs. Father Family Medical History: Diabetes Mellitus Brother(s) Family Medical History: Cancer Additional Family Medical History / Comment(s): PROSTATE <Topher Coleman - Last Filed: 11/18/20 03:10> General Exam Limitations: no limitations General appearance: alert, in no apparent distress Head exam: Present: atraumatic, normocephalic, normal inspection Eye exam: Present: normal appearance, PERRL, EOMI ENT exam: Present: normal exam, normal oropharynx, mucous membranes moist Neck exam: Present: normal inspection, full ROM. Absent: tenderness, lymphadenopathy Respiratory exam: Present: normal lung sounds bilaterally. Absent: respiratory distress Cardiovascular Exam: Present: regular rate, normal rhythm, normal heart sounds. Absent: systolic murmur GI/Abdominal exam: Present: soft, distended, tenderness (Left-sided abdominal tenderness). Absent: guarding, rebound Extremities exam: Present: normal inspection, full ROM, normal capillary refill. Absent: tenderness, pedal edema, joint swelling Back exam: Present: normal inspection, full ROM. Absent: tenderness, CVA tenderness (R), CVA tenderness (L) Neurological exam: Present: alert, oriented X3, normal gait Psychiatric exam: Present: normal affect, normal mood Skin exam: Present: warm, dry, intact, normal color <Topher Coleman - Last Filed: 11/18/20 03:10> Course <Bernardo Guidry - Last Filed: 11/18/20 08:18> Vital Signs 11/18/20 11/18/20 11/18/20 00:24 02:04 04:06 Temperature 97.5 F L Pulse Rate 71 72 67 Respiratory 20 18 17 Rate Blood Pressure 118/77 117/71 121/70 O2 Sat by Pulse 98 98 99 Oximetry 11/18/20 11/18/20 06:30 08:15 Temperature Pulse Rate 86 Respiratory 17 Rate Blood Pressure 121/76 123/53 O2 Sat by Pulse 99 95 Oximetry - Reevaluation(s) Reevaluation #1: 11/18/20 08:17 Patient was resting comfortably in the emergency department this morning she will be discharged she had her in agreement with this she will follow-up with her doctor (Bernardo Guidry) Medical Decision Making - Lab Data Result diagrams: 11/18/20 01:10 11/18/20 01:10 <Topher Coleman - Last Filed: 11/18/20 03:10> - Lab Data Result diagrams: 11/18/20 01:10 11/18/20 01:10 <Bernardo Guidry - Last Filed: 11/18/20 08:18> - Medical Decision Making 80-year-old female with history of bowel obstruction presents to the emergency department with a chief complaint of abdominal distention. On physical examin ation, mild abdominal distention but the abdomen is soft and nontender. Nonacute abdomen. She does have tenderness over the left side of the abdomen. Laboratory work is unremarkable. UA is pending. KUB shows no acute findings. CT of abdomen and pelvis pending. At this time, patient care signed off to (Topher Coleman) - Lab Data Lab Results 11/18/20 11/18/20 11/18/20 Range/Units 01:10 01:10 01:10 WBC 6.4 (3.8-10.6) k/uL RBC 4.29 (3.80-5.40) m/uL Hgb 13.3 (11.4-16.0) gm/dL Hct 39.8 (34.0-46.0) % MCV 92.8 (80.0-100.0) fL MCH 30.9 (25.0-35.0) pg MCHC 33.3 (31.0-37.0) g/dL RDW 13.5 (11.5-15.5) % Plt Count 256 (150-450) k/uL MPV 7.8 Neutrophils % 49 % Lymphocytes % 26 % Monocytes % 8 % Eosinophils % 15 % Basophils % 1 % Neutrophils # 3.1 (1.3-7.7) k/uL Lymphocytes # 1.7 (1.0-4.8) k/uL Monocytes # 0.5 (0-1.0) k/uL Eosinophils # 0.9 H (0-0.7) k/uL Basophils # 0.1 (0-0.2) k/uL Sodium 138 (137-145) mmol/L Potassium 3.9 (3.5-5.1) mmol/L Chloride 107 (98-107) mmol/L Carbon Dioxide 25 (22-30) mmol/L Anion Gap 6 mmol/L BUN 14 (7-17) mg/dL Creatinine 0.63 (0.52-1.04) mg/dL Est GFR (CKD-EPI)AfAm >90 (>60 ml/min/1.73 sqM) Est GFR (CKD-EPI)NonAf 84 (>60 ml/min/1.73 sqM) Glucose 110 H (74-99) mg/dL Plasma Lactic Acid Geo (0.7-2.0) mmol/L Calcium 9.9 (8.4-10.2) mg/dL Total Bilirubin 0.4 (0.2-1.3) mg/dL AST 18 (14-36) U/L ALT 13 (4-34) U/L Alkaline Phosphatase 100 (38-126) U/L Total Protein 6.4 (6.3-8.2) g/dL Albumin 3.9 (3.5-5.0) g/dL Amylase 95 (30-110) U/L Lipase 127 (23-300) U/L Urine Color Light Yellow Urine Appearance Clear (Clear) Urine pH 6.5 (5.0-8.0) Ur Specific [place] 1.021 (1.001-1.035) Urine Protein Negative (Negative) Urine Glucose (UA) Negative (Negative) Urine Ketones Negative (Negative) Urine Blood Negative (Negative) Urine Nitrite Negative (Negative) Urine Bilirubin Negative (Negative) Urine Urobilinogen <2.0 (<2.0) mg/dL Ur Leukocyte Esterase Trace H (Negative) Urine RBC 1 (0-5) /hpf Urine WBC 1 (0-5) /hpf Ur Squamous Epith Cells 1 (0-4) /hpf 11/18/20 Range/Units 01:10 WBC (3.8-10.6) k/uL RBC (3.80-5.40) m/uL Hgb (11.4-16.0) gm/dL Hct (34.0-46.0) % MCV (80.0-100.0) fL MCH (25.0-35.0) pg MCHC (31.0-37.0) g/dL RDW (11.5-15.5) % Plt Count (150-450) k/uL MPV Neutrophils % % Lymphocytes % % Monocytes % % Eosinophils % % Basophils % % Neutrophils # (1.3-7.7) k/uL Lymphocytes # (1.0-4.8) k/uL Monocytes # (0-1.0) k/uL Eosinophils # (0-0.7) k/uL Basophils # (0-0.2) k/uL Sodium (137-145) mmol/L Potassium (3.5-5.1) mmol/L Chloride (98-107) mmol/L Carbon Dioxide (22-30) mmol/L Anion Gap mmol/L BUN (7-17) mg/dL Creatinine (0.52-1.04) mg/dL Est GFR (CKD-EPI)AfAm (>60 ml/min/1.73 sqM) Est GFR (CKD-EPI)NonAf (>60 ml/min/1.73 sqM) Glucose (74-99) mg/dL Plasma Lactic Acid Geo 0.9 (0.7-2.0) mmol/L Calcium (8.4-10.2) mg/dL Total Bilirubin (0.2-1.3) mg/dL AST (14-36) U/L ALT (4-34) U/L Alkaline Phosphatase (38-126) U/L Total Protein (6.3-8.2) g/dL Albumin (3.5-5.0) g/dL Amylase (30-110) U/L Lipase (23-300) U/L Urine Color Urine Appearance (Clear) Urine pH (5.0-8.0) Ur Specific [place] (1.001-1.035) Urine Protein (Negative) Urine Glucose (UA) (Negative) Urine Ketones (Negative) Urine Blood (Negative) Urine Nitrite (Negative) Urine Bilirubin (Negative) Urine Urobilinogen (<2.0) mg/dL Ur Leukocyte Esterase (Negative) Urine RBC (0-5) /hpf Urine WBC (0-5) /hpf Ur Squamous Epith Cells (0-4) /hpf - EKG Data EKG Comments: Sinus rhythm with occasional PVC, left bundle branch block A code rate 73, P1 156, QRS 130, QTC 482. (Topher Coleman) Disposition <Topher Coleman - Last Filed: 11/18/20 03:10> Is patient prescribed a controlled substance at d/c from ED?: No <Bernardo Guidry - Last Filed: 11/18/20 08:18> Clinical Impression: Abdominal pain, Spastic colon Disposition: HOME SELF-CARE Condition: Good Instructions (If sedation given, give patient instructions): Abdominal Pain (ED), Irritable Bowel Syndrome (ED) Referrals: Jace Casas DO [Primary Care Provider] - 1-2 days
[2020-11-18 01:31] LABS: Basophils # (A) 0.1 k/uL (0-0.2); Basophils % (A) 1 %; Eosinophils # (A) 0.9 k/uL (0-0.7); Eosinophils % (A) 15 %; HCT 39.8 % (34.0-46.0); HGB 13.3 gm/dL (11.4-16.0); Lymphocytes # (A) 1.7 k/uL (1.0-4.8); Lymphocytes % (A) 26 %; MCH 30.9 pg (25.0-35.0); MCHC 33.3 g/dL (31.0-37.0); MCV 92.8 fL (80.0-100.0); Mean Platelet Volume 7.8; Monocytes # (A) 0.5 k/uL (0-1.0); Monocytes % (A) 8 %; Neutrophils # (A) 3.1 k/uL (1.3-7.7); Neutrophils % (A) 49 %; Platelet Count 256 k/uL (150-450); RBC 4.29 m/uL (3.80-5.40); RDW 13.5 % (11.5-15.5); WBC 6.4 k/uL (3.8-10.6)
[2020-11-18 02:06] LABS: ALT 13 U/L (4-34); AST 18 U/L (14-36); African American GFR (CKD) >90 (>60 ml/min/1.73 sqM); Albumin 3.9 g/dL (3.5-5.0); Alkaline Phosphatase 100 U/L (38-126); Amylase 95 U/L (30-110); Anion Gap 6 mmol/L; Blood Urea Nitrogen 14 mg/dL (7-17); Calcium 9.9 mg/dL (8.4-10.2); Carbon Dioxide 25 mmol/L (22-30); Chloride 107 mmol/L (98-107); Glucose 110 mg/dL (74-99); Lipase 127 U/L (23-300); Non-African American GFR(CKD) 84 (>60 ml/min/1.73 sqM); Potassium 3.9 mmol/L (3.5-5.1); Sodium 138 mmol/L (137-145); Total Bilirubin 0.4 mg/dL (0.2-1.3); Total Protein 6.4 g/dL (6.3-8.2)
--- NOTE | 2020-11-18 02:12 | XR ---
EXAMINATION TYPE: XR KUB DATE OF EXAM: 11/18/2020 COMPARISON: 01/05/2015 HISTORY: Abdominal pain TECHNIQUE: 2 views upright FINDINGS: There is no sign of intestinal obstruction or pneumoperitoneum. Fecal pattern is normal. Th ere are clips from cholecystectomy. Rectum appears low in the pelvis and could be some rectal prolaps e. There are no pathologic calcifications over the kidneys. IMPRESSION: Nonacute abdomen.
[2020-11-18] MEDS ORDERED: methylPREDNISolone SOD SUCCI 125 MG/2 ML VIAL IV STA (02:20)
[2020-11-18] MEDS ORDERED: diphenhydrAMINE 50 MG/ML 1 ML VIAL IVP STA (02:20)
[2020-11-18] MEDS ORDERED: FAMOTIDINE 20 MG/2 ML VIAL IV STA (02:20)
[2020-11-18 04:07] VITALS: RESP 17
--- NOTE | 2020-11-18 04:08 | CT ---
EXAMINATION TYPE: CT abdomen pelvis w con DATE OF EXAM: 11/18/2020 COMPARISON: 10/13/2020 HISTORY: LLQ pain. prior on PACS CT DLP: 603.3 mGycm Automated exposure control for dose reduction was used. CONTRAST: Performed with IV Contrast, patient injected with 100ml mL of Isovue 300. Images obtained from the diaphragm to the floor the pelvis with IV contrast. There is some patchy atelectasis at the lung bases. Heart size is normal. There is large hiatal herni a. There is atelectasis in the right paraspinal right lower lobe. There are clips from cholecystectomy. Spleen is intact. There is no pancreatic mass. There is mild ec donaldo of the common bile duct but the intrahepatic bile ducts are not dilated. There is 13 mm low-density nodule left adrenal gland suggestive of benign disease. Kidneys show [employer] contrast opacification. There is no hydronephrosis. There is 7 cm cortical cyst lower pole le ft kidney. Ureters are not dilated. There is no retroperitoneal adenopathy. Bladder distends smoothly . There is left hip prosthesis. There is no free fluid in the pelvis. I see no pelvic mass. There is no mesenteric edema. There is no ascites or free air. There is no sign of a bowel obstructio n. There is no evidence of thickened appendix. Appendix not well seen. Abdominal aorta is atheromatou s. There is thoracolumbar dextroscoliosis. There are spondylotic changes in the lumbar spine. There is a first-degree L4-5 spondylolisthesis. There is no lumbar compression fracture. There is left hip pros thesis. Bony pelvis appears intact. There are some pelvic varices on the left side. IMPRESSION: Left-sided pelvic varices. No pelvic mass. No sign of appendicitis.
[2020-11-18 05:52] LABS: Appearance,Urine Clear (Clear); Bilirubin,Urine Negative (Negative); Blood,Urine Negative (Negative); Color,Urine Light Yellow; Glucose,Urine (UA) Negative (Negative); Ketones,Urine Negative (Negative); Leukocyte Esterase,Urine Trace (Negative); Nitrite,Urine Negative (Negative); PH, Urine 6.5 (5.0-8.0); Protein,Urine Negative (Negative); RBC,Urine 1 /hpf (0-5); Specific Gravity,Urine 1.021 (1.001-1.035); Squamous Epithelial Cell,Urine 1 /hpf (0-4); Urobilinogen,Urine <2.0 mg/dL (<2.0); WBC,Urine 1 /hpf (0-5)
[2020-11-18] MEDS ORDERED: SIMETHICONE 40 MG/0.6 ML DROPS 2,000 MG/30 ML BOTTLE PO STA (06:26)
[2020-11-18] MEDS ORDERED: SIMETHICONE 80 MG CHEWABLE PO STA (06:49)
[2020-11-18 07:05] VITALS: PULSE 86
[2020-11-18 08:15] VITALS: BP 123/53
[2020-11-18] MEDS ORDERED: SIMETHICONE 40 MG/0.6 ML DROPS 2,000 MG/30 ML BOTTLE PO SCH (09:00)
== END 2020-11-18 08:20 | disposition home or self-care (01) ==
LOC: EC 00:21
DX: K58.9 Irritable bowel syndrome, unspecified (principal); J44.9 Chronic obstructive pulmonary disease, unspecified; E04.9 Nontoxic goiter, unspecified; Z79.51 Long term (current) use of inhaled steroids; Z79.899 Other long term (current) drug therapy; Z79.890 Hormone replacement therapy; Z90.49 Acquired absence of other specified parts of digestive tract; Z88.8 Allergy status to other drugs, medicaments and biological substances; Z88.1 Allergy status to other antibiotic agents; Z88.2 Allergy status to sulfonamides; Z91.048 Other nonmedicinal substance allergy status
CPT/HCPCS: 36415; 93005; 80053; 82150; 83605; 83690; 85025; 81001; 74018; 74177; 99284; 96374; 96375; J2930; Q9967

== ENCOUNTER 2021-05-23 12:34 | Emergency (ER) | payer MEDICARE ==
[2021-05-23 12:45] VITALS: BP 118/72; TEMP 98.4
[2021-05-23] MEDS ORDERED: IPRATROPIUM-ALBUTEROL 3 ML NEB INHALATION STA (13:08)
[2021-05-23] MEDS ORDERED: methylPREDNISolone SOD SUCCI 125 MG/2 ML VIAL IV STA (13:08)
--- NOTE | 2021-05-23 13:19 | ED ---
General Adult HPI - General Chief complaint: Shortness of Breath Stated complaint: SOB Time Seen by Provider: 05/23/21 12:45 Source: patient, RN notes reviewed Mode of arrival: ambulatory Limitations: no limitations - History of Present Illness Initial comments: Patient is a pleasant 81-year-old female presenting to the emergency department with difficulty breathing. Onset of symptoms was within the past week or 2. Patient has symptoms similar to her chronic asthma. Patient has had minimal cough. No fevers. Patient has been vaccinated and boosted for COVID-19 infection. - Related Data Home Medications Medication Instructions Recorded Confirmed Levothyroxine Sodium [Synthroid] 100 mcg PO MOTUWETHFR 09/10/13 05/23/21 Aspirin 81 mg PO HS 05/23/21 05/23/21 Budesonide/Formoterol Fumarate 1 - 2 puff INHALATION RT-BID 05/23/21 05/23/21 [Symbicort 160-4.5 Mcg Inhaler] Cholecalciferol [Vitamin D3 (25 50 mcg PO DAILY 05/23/21 05/23/21 Mcg = 1000 Iu)] Rosuvastatin Calcium [Crestor] 5 mg PO HS 05/23/21 05/23/21 Sennosides/Docusate Sodium 2 tab PO BID 05/23/21 05/23/21 [Senna-S 8.6-50 mg Tablet] Previous Rx's Medication Instructions Recorded Famotidine [Pepcid] 20 mg PO BID #120 tablet 09/25/19 Melatonin 3 mg PO HS #30 tablet 09/25/19 predniSONE [Deltasone] 20 mg PO BID #10 tab 05/23/21 Allergies Allergy/AdvReac Type Severity Reaction Status Date / Time Iodinated Contrast Media Allergy FLUSHING, Verified 05/23/21 13:51 [Iodinated Contrast Media - ITCHING, IV Dye] felt warm Macrolide Antibiotics Allergy INTERACTS Verified 05/23/21 13:51 WITH ASTHMA MEDS mold Allergy asthma Verified 05/23/21 13:51 symptoms Sulfa (Sulfonamide Allergy FLUSHING , Verified 05/23/21 13:51 Antibiotics) ITCHING fungus Allergy ASTHMA Uncoded 11/18/20 00:27 SYMPTOMS SMOKE Allergy ASTHMA Uncoded 11/18/20 00:27 SYMPTOMS Review of Systems ROS Statement: Those systems with pertinent positive or pertinent negative responses have been documented in the HPI. ROS Other: All systems not noted in ROS Statement are negative. Constitutional: Denies: fever Eyes: Denies: eye pain ENT: Denies: ear pain Respiratory: Reports: as per HPI, dyspnea Cardiovascular: Denies: chest pain Endocrine: Denies: fatigue Gastrointestinal: Denies: abdominal pain Genitourinary: Denies: dysuria Musculoskeletal: Denies: back pain Skin: Denies: rash Neurological: Denies: weakness Past Medical History Past Medical History: Asthma, COPD, CVA/TIA, GERD/Reflux, Hyperlipidemia, Thyroid Disorder Additional Past Medical History / Comment(s): hiatel hernia, hypotension, possible TIA,migraines, deviated septum, chronic constipation, past hx of low blood sugar, esophageal stricture with difficulty swallowing . 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, states polyp removed from uterus (got punctured uterus and intestine and had to have surgery to repair uterus and intestine) cataract, EGD, COLONOSCOPY, L hip Past Anesthesia/Blood Transfusion Reactions: Previous Problems w/ Anesthesia Additional Past Anesthesia/Blood Transfusion Reaction / Comment(s): STATES DIFFICULTY WAKING UP Past Psychological History: Depression Smoking Status: Never smoker Past Alcohol Use History: None Reported Past Drug Use History: None Reported - Past Family History Mother Family Medical History: Myocardial Infarction ([place]) Additional Family Medical History / Comment(s): Mother of a [place] at the age of 44 yrs. Father Family Medical History: Diabetes Mellitus Brother(s) Family Medical History: Cancer Additional Family Medical History / Comment(s): PROSTATE General Exam Limitations: no limitations General appearance: alert, in no apparent distress Head exam: Present: normocephalic Eye exam: Present: normal appearance Neck exam: Present: normal inspection Respiratory exam: Present: decreased breath sounds Cardiovascular Exam: Present: regular rate, normal rhythm GI/Abdominal exam: Present: soft. Absent: tenderness Extremities exam: Present: normal inspection. Absent: pedal edema, calf tenderness Neurological exam: Present: alert Psychiatric exam: Present: normal affect, normal mood Skin exam: Present: normal color Course Vital Signs 05/23/21 05/23/21 05/23/21 12:40 12:55 14:04 Temperature 98.4 F Pulse Rate 84 68 Respiratory 18 22 18 Rate Blood Pressure 118/72 O2 Sat by Pulse 100 Oximetry 05/23/21 14:11 Temperature Pulse Rate 76 Respiratory 18 Rate Blood Pressure O2 Sat by Pulse Oximetry EKG Findings - EKG Comments: EKG Findings:: No sinus rhythm rate 78. OH 144. QRS 114. QT 390. QTC 444. Neural axis. Incomplete left bundle-branch block. No acute ST change. Medical Decision Making - Medical Decision Making Patient reevaluated following nebulizer and is feeling better. Patient has improved air exchange. Patient is requesting discharge home. Patient was offered admission but refuses. - Lab Data Result diagrams: 05/23/21 13:13 05/23/21 13:13 Lab Results 05/23/21 05/23/21 05/23/21 Range/Units 13:13 13:13 13:13 WBC 6.2 (3.8-10.6) k/uL RBC 4.72 (3.80-5.40) m/uL Hgb 14.4 (11.4-16.0) gm/dL Hct 45.1 (34.0-46.0) % MCV 95.7 (80.0-100.0) fL MCH 30.6 (25.0-35.0) pg MCHC 32.0 (31.0-37.0) g/dL RDW 13.1 (11.5-15.5) % Plt Count 239 (150-450) k/uL MPV 7.7 Neutrophils % 46 % Lymphocytes % 26 % Monocytes % 8 % Eosinophils % 15 % Basophils % 2 % Neutrophils # 2.9 (1.3-7.7) k/uL Lymphocytes # 1.6 (1.0-4.8) k/uL Monocytes # 0.5 (0-1.0) k/uL Eosinophils # 0.9 H (0-0.7) k/uL Basophils # 0.1 (0-0.2) k/uL PT 9.6 (9.0-12.0) sec INR 0.9 (<1.2) APTT 23.3 (22.0-30.0) sec Sodium 138 (137-145) mmol/L Potassium 4.5 (3.5-5.1) mmol/L Chloride 105 (98-107) mmol/L Carbon Dioxide 25 (22-30) mmol/L Anion Gap 8 mmol/L BUN 21 H (7-17) mg/dL Creatinine 0.82 (0.52-1.04) mg/dL Est GFR (CKD-EPI)AfAm 77 (>60 ml/min/1.73 sqM) Est GFR (CKD-EPI)NonAf 66 (>60 ml/min/1.73 sqM) Glucose 112 H (74-99) mg/dL Plasma Lactic Acid Geo (0.7-2.0) mmol/L Calcium 10.2 (8.4-10.2) mg/dL Total Bilirubin 0.6 (0.2-1.3) mg/dL AST 19 (14-36) U/L ALT 15 (4-34) U/L Alkaline Phosphatase 130 H (38-126) U/L Total Protein 7.4 (6.3-8.2) g/dL Albumin 4.4 (3.5-5.0) g/dL Coronavirus (PCR) (Not Detectd) 05/23/21 05/23/21 Range/Units 13:13 13:13 WBC (3.8-10.6) k/uL RBC (3.80-5.40) m/uL Hgb (11.4-16.0) gm/dL Hct (34.0-46.0) % MCV (80.0-100.0) fL MCH (25.0-35.0) pg MCHC (31.0-37.0) g/dL RDW (11.5-15.5) % Plt Count (150-450) k/uL MPV Neutrophils % % Lymphocytes % % Monocytes % % Eosinophils % % Basophils % % Neutrophils # (1.3-7.7) k/uL Lymphocytes # (1.0-4.8) k/uL Monocytes # (0-1.0) k/uL Eosinophils # (0-0.7) k/uL Basophils # (0-0.2) k/uL PT (9.0-12.0) sec INR (<1.2) APTT (22.0-30.0) sec Sodium (137-145) mmol/L Potassium (3.5-5.1) mmol/L Chloride (98-107) mmol/L Carbon Dioxide (22-30) mmol/L Anion Gap mmol/L BUN (7-17) mg/dL Creatinine (0.52-1.04) mg/dL Est GFR (CKD-EPI)AfAm (>60 ml/min/1.73 sqM) Est GFR (CKD-EPI)NonAf (>60 ml/min/1.73 sqM) Glucose (74-99) mg/dL Plasma Lactic Acid Geo 1.2 (0.7-2.0) mmol/L Calcium (8.4-10.2) mg/dL Total Bilirubin (0.2-1.3) mg/dL AST (14-36) U/L ALT (4-34) U/L Alkaline Phosphatase (38-126) U/L Total Protein (6.3-8.2) g/dL Albumin (3.5-5.0) g/dL Coronavirus (PCR) Not Detected (Not Detectd) - Radiology Data Radiology results: image reviewed (Chest x-ray shows no acute process) Disposition Clinical Impression: Acute exacerbation of chronic obstructive pulmonary disease Disposition: HOME SELF-CARE Condition: Stable Instructions (If sedation given, give patient instructions): COPD (Chronic Obstructive Pulmonary Disease) (ED) Additional Instructions: Please follow-up to in the next day or 2 for recheck. Return for difficulty breathing, fevers, worsening or changing symptoms or other concerns. Prescription for steroids has been sent to pharmacy. Prescriptions: predniSONE [Deltasone] 20 mg PO BID #10 tab Is patient prescribed a controlled substance at d/c from ED?: No Referrals: Jace Casas DO [Primary Care Provider] - 1-2 days Time of Disposition: 14:27
--- NOTE | 2021-05-23 13:29 | XR ---
EXAMINATION TYPE: XR chest 2V DATE OF EXAM: 05/23/2021 COMPARISON: Chest x-ray and CTA chest September 20, 2019 HISTORY: Shortness of breath TECHNIQUE: Frontal and lateral views of the chest are obtained. FINDINGS: Background chronic emphysematous and pulmonary fibrotic changes bilaterally are redemonstra paz. Osseous structures are demineralized. Fractures of the posterolateral right mid ribs again seen. There is no suspicious new focal air space opacity, pleural effusion, or pneumothorax seen. The car diac silhouette size remains within normal limits. Moderate sized fixed hiatal hernia again seen. Und erlying scoliosis is redemonstrated. Cholecystectomy clips again seen. IMPRESSION: Chronic changes without acute pulmonary process.
[2021-05-23 13:32] LABS: Basophils # (A) 0.1 k/uL (0-0.2); Basophils % (A) 2 %; Eosinophils # (A) 0.9 k/uL (0-0.7); Eosinophils % (A) 15 %; HCT 45.1 % (34.0-46.0); HGB 14.4 gm/dL (11.4-16.0); Lymphocytes # (A) 1.6 k/uL (1.0-4.8); Lymphocytes % (A) 26 %; MCH 30.6 pg (25.0-35.0); MCV 95.7 fL (80.0-100.0); Mean Platelet Volume 7.7; Monocytes # (A) 0.5 k/uL (0-1.0); Monocytes % (A) 8 %; Neutrophils # (A) 2.9 k/uL (1.3-7.7); Neutrophils % (A) 46 %; Platelet Count 239 k/uL (150-450); RBC 4.72 m/uL (3.80-5.40); RDW 13.1 % (11.5-15.5); WBC 6.2 k/uL (3.8-10.6)
[2021-05-23 13:44] LABS: INR 0.9 (<1.2); Partial Thromboplastin Time 23.3 sec (22.0-30.0); Prothrombin Time 9.6 sec (9.0-12.0)
[2021-05-23 14:03] LABS: Albumin 4.4 g/dL (3.5-5.0); Calcium 10.2 mg/dL (8.4-10.2); Potassium 4.5 mmol/L (3.5-5.1); Total Bilirubin 0.6 mg/dL (0.2-1.3); Total Protein 7.4 g/dL (6.3-8.2)
[2021-05-23 14:04] VITALS: RESP 18
[2021-05-23 15:00] VITALS: PULSE 65
== END 2021-05-23 15:00 | disposition home or self-care (01) ==
LOC: EC 12:34
DX: J44.1 Chronic obstructive pulmonary disease with (acute) exacerbation (principal); K21.9 Gastro-esophageal reflux disease without esophagitis; E78.5 Hyperlipidemia, unspecified; E07.9 Disorder of thyroid, unspecified; Z86.73 Personal history of transient ischemic attack (TIA), and cerebral infarction without residual deficits; Z20.822 Contact with and (suspected) exposure to COVID-19; Z91.041 Radiographic dye allergy status; Z88.8 Allergy status to other drugs, medicaments and biological substances; Z91.048 Other nonmedicinal substance allergy status; Z88.2 Allergy status to sulfonamides; Z79.82 Long term (current) use of aspirin; Z79.899 Other long term (current) drug therapy; Z79.51 Long term (current) use of inhaled steroids
CPT/HCPCS: 36415; 94640; 93005; 80053; 83605; 85025; 85610; 85730; 87635; 71046; 99285; 96374; J2930

== ENCOUNTER 2021-10-02 18:23 | Observation (INO) | payer MEDICARE ==
[2021-10-02] MEDS ORDERED: ASPIRIN 81 MG PO STA (20:07)
[2021-10-02] MEDS ORDERED: NITROGLYCERIN OINT 1 INCH/GM PACKET TOPICAL STA (20:07)
--- NOTE | 2021-10-02 20:13 | ED ---
General Adult HPI - General Chief complaint: Chest Pain Stated complaint: Chest pain Time Seen by Provider: 10/02/21 20:00 Source: patient, RN notes reviewed, old records reviewed Mode of arrival: wheelchair Limitations: no limitations - History of Present Illness Initial comments: This is an 81-year-old female has past medical history significant for high cholesterol has a family history there is very significant for coronary artery disease. Patient states she started having intermittent chest pain about 2 days ago she continues today is pretty significant when encouraged describes it as as pressure. Patient denies any difficulty breathing radiation or diaphoretic episodes with chest pain. Patient states that Dr. Dee in the past as told her she needs a stress test but she canceled the test after he set it up. Patient states her next opportunity to the stresses in January. Patient denies any smoking history. Patient denies any recent fever chills or cough. Patient states she went to an urgent care today and they sent her in the emergency department. - Related Data Home Medications Medication Instructions Recorded Confirmed Levothyroxine Sodium [Synthroid] 100 mcg PO MOTUWETHFR 09/10/13 10/02/21 Aspirin 81 mg PO HS 05/23/21 10/02/21 Budesonide/Formoterol Fumarate 2 puff INHALATION RT-BID 05/23/21 10/02/21 [Symbicort 160-4.5 Mcg Inhaler] Cholecalciferol [Vitamin D3 (25 50 mcg PO DAILY 05/23/21 10/02/21 Mcg = 1000 Iu)] Rosuvastatin Calcium [Crestor] 5 mg PO HS 05/23/21 10/02/21 Sennosides/Docusate Sodium 2 tab PO BID 05/23/21 10/02/21 [Senna-S 8.6-50 mg Tablet] Inulin/Chromium Picolinate [Fiber 1 tab PO DAILY 10/02/21 10/02/21 Gummies Chew] Melatonin 3 mg PO HS 10/02/21 10/02/21 Previous Rx's Medication Instructions Recorded Pantoprazole Sodium [Protonix] 40 mg PO BID #60 tab 10/04/21 Allergies Allergy/AdvReac Type Severity Reaction Status Date / Time Iodinated Contrast Media Allergy FLUSHING, Verified 10/02/21 22:18 [Iodinated Contrast Media - ITCHING, IV Dye] felt warm Macrolide Antibiotics Allergy INTERACTS Verified 10/02/21 22:18 WITH ASTHMA MEDS mold Allergy asthma Verified 10/02/21 22:18 symptoms Sulfa (Sulfonamide Allergy FLUSHING , Verified 10/02/21 22:18 Antibiotics) ITCHING fungus Allergy ASTHMA Uncoded 10/02/21 22:18 SYMPTOMS SMOKE Allergy ASTHMA Uncoded 10/02/21 22:18 SYMPTOMS Review of Systems ROS Statement: Those systems with pertinent positive or pertinent negative responses have been documented in the HPI. ROS Other: All systems not noted in ROS Statement are negative. Past Medical History Past Medical History: Asthma, COPD, CVA/TIA, GERD/Reflux, Hyperlipidemia, Thyroid Disorder Additional Past Medical History / Comment(s): hiatel hernia, hypotension, po ssible TIA,migraines, deviated septum, chronic constipation, past hx of low blood sugar, esophageal stricture with difficulty swallowing . 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, states polyp removed from uterus (got punctured uterus and intestine and had to have surgery to repair uterus and intestine) cataract, EGD, COLONOSCOPY, L hip Past Anesthesia/Blood Transfusion Reactions: Previous Problems w/ Anesthesia Additional Past Anesthesia/Blood Transfusion Reaction / Comment(s): STATES DIFFICULTY WAKING UP Past Psychological History: Depression Smoking Status: Never smoker Past Alcohol Use History: None Reported Past Drug Use History: None Reported - Past Family History Mother Family Medical History: Myocardial Infarction ([place]) Additional Family Medical History / Comment(s): Mother of a [place] at the age of 44 yrs. Father Family Medical History: Diabetes Mellitus Brother(s) Family Medical History: Cancer Additional Family Medical History / Comment(s): PROSTATE General Exam - General Exam Comments Initial Comments: GENERAL: Patient is well-developed and well-nourished. Patient is nontoxic and well- hydrated and is in mild distress. ENT: Neck is soft and supple. No significant lymphadenopathy is noted. Oropharynx is clear. Moist mucous membranes. Neck has full range of motion without eliciting any pain. EYES: The sclera were anicteric and conjunctiva were pink and moist. Extraocular movements were intact and pupils were equal round and reactive to light. Eyelids were unremarkable. PULMONARY: Unlabored respirations. Good breath sounds bilaterally. No audible rales rhonchi or wheezing was noted. CARDIOVASCULAR: There is a regular rate and rhythm without any murmurs gallops or rubs. ABDOMEN: Soft and nontender with normal bowel sounds. SKIN: Skin is clear with no lesions or rashes and otherwise unremarkable. NEUROLOGIC: Patient is alert and oriented x3. Cranial nerves II through XII are grossly intact. Motor and sensory are also intact. Normal speech, volume and content. Symmetrical smile. MUSCULOSKELETAL: Normal extremities with adequate strength and full range of motion. No lower extremity swelling or edema. No calf tenderness. LYMPHATICS: No significant lymphadenopathy is noted PSYCHIATRIC: Normal psychiatric evaluation. Limitations: no limitations Course Vital Signs 10/02/21 10/02/21 10/02/21 18:28 19:49 20:23 Pulse Rate 77 71 65 Respiratory 18 16 16 Rate Blood Pressure 112/70 119/73 125/75 O2 Sat by Pulse 97 98 100 Oximetry 10/02/21 10/03/21 10/03/21 22:37 01:00 05:00 Pulse Rate 69 65 63 Respiratory 16 18 16 Rate Blood Pressure 114/69 104/68 109/68 O2 Sat by Pulse 100 93 L 93 L Oximetry 10/03/21 06:00 Pulse Rate 68 Respiratory 16 Rate Blood Pressure 110/68 O2 Sat by Pulse 95 Oximetry Medical Decision Making - Medical Decision Making EKG shows sinus rhythm at 70 bpm AL interval 240 QRS is 121 Q-T intervals 41 QTC is 426 per patient's EKG shows left bundle branch block. Dr. Jesus will be taking over the care of this patient at 9 PM - Lab Data Result diagrams: 10/02/21 20:18 10/02/21 20:18 Lab Results 10/02/21 10/02/21 10/02/21 Range/Units 20:18 20:18 20:18 WBC 8.0 (3.8-10.6) k/uL RBC 4.61 (3.80-5.40) m/uL Hgb 13.5 (11.4-16.0) gm/dL Hct 44.3 (34.0-46.0) % MCV 96.1 (80.0-100.0) fL MCH 29.3 (25.0-35.0) pg MCHC 30.5 L (31.0-37.0) g/dL RDW 13.0 (11.5-15.5) % Plt Count 242 (150-450) k/uL MPV 7.6 Neutrophils % 35 % Lymphocytes % 33 % Monocytes % 6 % Eosinophils % 22 % Basophils % 1 % Neutrophils # 2.8 (1.3-7.7) k/uL Lymphocytes # 2.6 (1.0-4.8) k/uL Monocytes # 0.5 (0-1.0) k/uL Eosinophils # 1.8 H (0-0.7) k/uL Basophils # 0.1 (0-0.2) k/uL PT 9.7 (9.0-12.0) sec INR 0.9 (<1.2) APTT 23.3 (22.0-30.0) sec Sodium 139 (137-145) mmol/L Potassium 4.0 (3.5-5.1) mmol/L Chloride 104 (98-107) mmol/L Carbon Dioxide 26 (22-30) mmol/L Anion Gap 9 mmol/L BUN 15 (7-17) mg/dL Creatinine 0.73 (0.52-1.04) mg/dL Est GFR (CKD-EPI)AfAm 88 (>60 ml/min/1.73 sqM) Est GFR (CKD-EPI)NonAf 77 (>60 ml/min/1.73 sqM) Glucose 91 (74-99) mg/dL Calcium 9.3 (8.4-10.2) mg/dL Magnesium 2.3 (1.6-2.3) mg/dL Total Bilirubin 0.4 (0.2-1.3) mg/dL AST 21 (14-36) U/L ALT 16 (4-34) U/L Alkaline Phosphatase 120 (38-126) U/L Troponin I (0.000-0.034) ng/mL NT-Pro-B Natriuret Pep pg/mL Total Protein 7.1 (6.3-8.2) g/dL Albumin 4.3 (3.5-5.0) g/dL 10/02/21 10/02/21 Range/Units 20:18 20:18 WBC (3.8-10.6) k/uL RBC (3.80-5.40) m/uL Hgb (11.4-16.0) gm/dL Hct (34.0-46.0) % MCV (80.0-100.0) fL MCH (25.0-35.0) pg MCHC (31.0-37.0) g/dL RDW (11.5-15.5) % Plt Count (150-450) k/uL MPV Neutrophils % % Lymphocytes % % Monocytes % % Eosinophils % % Basophils % % Neutrophils # (1.3-7.7) k/uL Lymphocytes # (1.0-4.8) k/uL Monocytes # (0-1.0) k/uL Eosinophils # (0-0.7) k/uL Basophils # (0-0.2) k/uL PT (9.0-12.0) sec INR (<1.2) APTT (22.0-30.0) sec Sodium (137-145) mmol/L Potassium (3.5-5.1) mmol/L Chloride (98-107) mmol/L Carbon Dioxide (22-30) mmol/L Anion Gap mmol/L BUN (7-17) mg/dL Creatinine (0.52-1.04) mg/dL Est GFR (CKD-EPI)AfAm (>60 ml/min/1.73 sqM) Est GFR (CKD-EPI)NonAf (>60 ml/min/1.73 sqM) Glucose (74-99) mg/dL Calcium (8.4-10.2) mg/dL Magnesium (1.6-2.3) mg/dL Total Bilirubin (0.2-1.3) mg/dL AST (14-36) U/L ALT (4-34) U/L Alkaline Phosphatase (38-126) U/L Troponin I <0.012 (0.000-0.034) ng/mL NT-Pro-B Natriuret Pep 75 pg/mL Total Protein (6.3-8.2) g/dL Albumin (3.5-5.0) g/dL Disposition
[2021-10-02 20:32] LABS: Basophils # (A) 0.1 k/uL (0-0.2); Basophils % (A) 1 %; Eosinophils # (A) 1.8 k/uL (0-0.7); Eosinophils % (A) 22 %; HCT 44.3 % (34.0-46.0); HGB 13.5 gm/dL (11.4-16.0); Lymphocytes # (A) 2.6 k/uL (1.0-4.8); Lymphocytes % (A) 33 %; MCH 29.3 pg (25.0-35.0); MCHC 30.5 g/dL (31.0-37.0); MCV 96.1 fL (80.0-100.0); Mean Platelet Volume 7.6; Monocytes # (A) 0.5 k/uL (0-1.0); Monocytes % (A) 6 %; Neutrophils # (A) 2.8 k/uL (1.3-7.7); Neutrophils % (A) 35 %; Platelet Count 242 k/uL (150-450); RBC 4.61 m/uL (3.80-5.40)
[2021-10-02 20:37] LABS: INR 0.9 (<1.2); Partial Thromboplastin Time 23.3 sec (22.0-30.0); Prothrombin Time 9.7 sec (9.0-12.0)
[2021-10-02 20:40] LABS: Albumin 4.3 g/dL (3.5-5.0); Calcium 9.3 mg/dL (8.4-10.2); Magnesium 2.3 mg/dL (1.6-2.3); Total Bilirubin 0.4 mg/dL (0.2-1.3); Total Protein 7.1 g/dL (6.3-8.2)
[2021-10-02] MEDS ORDERED: NITROGLYCERIN SL TABS 0.4 MG TAB SUBLINGUAL PRN (21:32)
--- NOTE | 2021-10-02 21:38 | XR ---
EXAMINATION TYPE: XR chest 2V DATE OF EXAM: 10/02/2021 COMPARISON: 05/23/2021 HISTORY: Short of breath. Chest pain TECHNIQUE: 3 views FINDINGS: Heart is normal. There is moderate hiatal hernia. There is flattening of the diaphragm. No heart failure seen. There is evidence of old posterior right-sided rib fractures. There are chest pedro ds. There is osteopenia and anterior wedging of mid thoracic vertebra. IMPRESSION: COPD. No definite acute lung disease. No change compared to old exam. No heart failure.
[2021-10-03] MEDS: SYMBICORT 160-4.5 MCG INHALER INHALATION SCH ×2 (07:06→20:35)
[2021-10-03] MEDS: LEVOTHYROXINE 100 MCG TAB PO SCH (07:33)
[2021-10-03] MEDS ORDERED: AMINOPHYLLINE 500 MG/20 ML VIAL IV PRN (07:40)
[2021-10-03] MEDS ORDERED: CAFFEINE CITRATE 60 MG/3 ML VIAL IV PRN (07:40)
[2021-10-03] MEDS ORDERED: REGADENOSON 0.4 MG/5 ML SYRINGE IV PRN (07:40)
[2021-10-03] MEDS ORDERED: ASPIRIN 325 MG TAB PO SCH (09:00)
[2021-10-03] MEDS ORDERED: FAMOTIDINE 20 MG TAB PO SCH (09:00)
--- NOTE | 2021-10-03 09:26 | P.CRDCN ---
History of Present Illness Consult date: 10/03/21 History of present illness: HISTORY OF PRESENT ILLNESS: This is a 81-year-old female with a past medical history significant for hyperlipidemia, hypothyroidism, esophageal stricture, and TIA. Patient follows in the office with Dr. Dee. We have been asked to see the patient in consultation for chest pain. Patient examined at the bedside. She presented to hospitals a chief complaint of chest pain. Patient states the pain started yesterday after she ate. She denied any radiation of the pain. She denied any nausea or vomiting. Denied diaphoresis. She denies any shortness of breath. She reports a history of a hiatal hernia and also esophageal stricture so when she began to have chest discomfort after she ate she was unsure if this was related to her hiatal hernia and esophageal stricture or if it was cardiac in nature. She states she did not take anything for the pain. At the time of my examination this morning, she denies any chest pain or pressure. The patient reports she was supposed to have a stress test at the beginning of the year but canceled it due to the weather and has yet to have it completed in the office. She reports a family history of coronary artery disease and states her daughter in her 50s of a heart attack and her mother in her 40s of a heart attack. * EKG reveals sinus mechanism with left bundle branch block * Chest xray no definite acute lung disease. No change compared to exam. No he art failure. COPD.. * Laboratory data: WBC 8.0. Hemoglobin 13.5. Platelet count 242. Sodium 139. Potassium 4.0. BUN 15. Creatinine 0.73. Magnesium 2.3. Troponin negative 3. Pro BNP 75. * Current home cardiac medications include aspirin 81 mg at night and Crestor 5 mg at night * Most recent echocardiogram obtained in January 2021 revealed ejection fraction 60%, mild mitral regurgitation, mild tricuspid regurgitation REVIEW OF SYSTEMS: At the time of my exam: CONSTITUTIONAL: Denies fever or chills. HEENT: Denies blurred vision, vision changes, or eye pain. Denies hemoptysis CARDIOVASCULAR: Denies chest pain. Denies orthopnea. Denies PND. Denies palpit ations RESPIRATORY: Denies shortness of breath. GASTROINTESTINAL: Denies abdominal pain. Denies nausea or vomiting. HEMATOLOGIC: Denies bleeding disorders. GENITOURINARY: Denies any blood in urine. SKIN: Denies pruitis. Denies rash. PHYSICAL EXAM: VITAL SIGNS: Reviewed. GENERAL: Well-developed in no acute distress. HEENT: Head is normocephalic. Pupils are equal, round. Sclerae anicteric. Mucous membranes of the mouth are moist. Neck supple. No JVD or thyromegaly LUNGS: Respirations even and unlabored. Lungs essentially clear to auscultation bilaterally. HEART: Regular rate and rhythm. S1 and S2 heard. ABDOMEN: Soft. Nondistended. Nontender. EXTREMITIES: Normal range of motion. No clubbing or cyanosis. Peripheral pulses intact. No lower extremity edema NEUROLOGIC: Awake and alert. Oriented x 3. ASSESSMENT: Chest pain Hypertension Hypothyroidism Esophageal stricture History of TIA Aortic stenosis PLAN: An acute coronary event has been ruled out Resume home cardiac medications Obtain 2-D echo to assess cardiac structure and function Patient to undergo Lexiscan stress test today to assess for ischemia Further recommendations pending patient's course Nurse practitioner note has been reviewed by physician. Signing provider agrees with the documented findings, assessment, and plan of care. Past Medical History Past Medical History: Asthma, COPD, CVA/TIA, GERD/Reflux, Hyperlipidemia, Thyroid Disorder Additional Past Medical History / Comment(s): hiatel hernia, hypotension, possible TIA,migraines, deviated septum, chronic constipation, past hx of low blood sugar, esophageal stricture with difficulty swallowing . 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, states polyp removed from uterus (got punctured uterus and intestine and had to have surgery to repair uterus and intestine) cataract, EGD, COLONOSCOPY, L hip Past Anesthesia/Blood Transfusion Reactions: Previous Problems w/ Anesthesia Additional Past Anesthesia/Blood Transfusion Reaction / Comment(s): STATES DIFFICULTY WAKING UP Past Psychological History: Depression Smoking Status: Never smoker Past Alcohol Use History: None Reported Past Drug Use History: None Reported - Past Family History Mother Family Medical History: Myocardial Infarction ([place]) Additional Family Medical History / Comment(s): Mother of a NH at the age of 44 yrs. Father Family Medical History: Diabetes Mellitus Brother(s) Family Medical History: Cancer Additional Family Medical History / Comment(s): PROSTATE Medications and Allergies Home Medications Medication Instructions Recorded Confirmed Type Levothyroxine Sodium [Synthroid] 100 mcg PO MOTUWETHFR 09/10/13 10/02/21 History Aspirin 81 mg PO HS 05/23/21 10/02/21 History Budesonide/Formoterol Fumarate 2 puff INHALATION RT-BID 05/23/21 10/02/21 History [Symbicort 160-4.5 Mcg Inhaler] Cholecalciferol [Vitamin D3 (25 50 mcg PO DAILY 05/23/21 10/02/21 History Mcg = 1000 Iu)] Rosuvastatin Calcium [Crestor] 5 mg PO HS 05/23/21 10/02/21 History Sennosides/Docusate Sodium 2 tab PO BID 05/23/21 10/02/21 History [Senna-S 8.6-50 mg Tablet] Famotidine [Pepcid] 20 mg PO HS 10/02/21 10/02/21 History Inulin/Chromium Picolinate [Fiber 1 tab PO DAILY 10/02/21 10/02/21 History Gummies Chew] Melatonin 3 mg PO HS 10/02/21 10/02/21 History Allergies Allergy/AdvReac Type Severity Reaction Status Date / Time Iodinated Contrast Media Allergy FLUSHING, Verified 10/02/21 22:18 [Iodinated Contrast Media - ITCHING, IV Dye] felt warm Macrolide Antibiotics Allergy INTERACTS Verified 10/02/21 22:18 WITH ASTHMA MEDS mold Allergy asthma Verified 10/02/21 22:18 symptoms Sulfa (Sulfonamide Allergy FLUSHING , Verified 10/02/21 22:18 Antibiotics) ITCHING fungus Allergy ASTHMA Uncoded 10/02/21 22:18 SYMPTOMS SMOKE Allergy ASTHMA Uncoded 10/02/21 22:18 SYMPTOMS Physical Exam Vitals: Vital Signs Pulse Resp BP Pulse Ox 10/03/21 06:00 68 16 110/68 95 10/03/21 05:00 63 16 109/68 93 L 10/03/21 01:00 65 18 104/68 93 L 10/02/21 22:37 69 16 114/69 100 10/02/21 20:23 65 16 125/75 100 10/02/21 19:49 71 16 119/73 98 10/02/21 18:28 77 18 112/70 97 Intake and Output 10/02/21 10/03/21 10/03/21 22:59 06:59 14:59 Other: Weight 47.174 kg Results 10/02/21 20:18 10/02/21 20:18 Cardiac Enzymes 10/02/21 10/02/21 10/02/21 Range/Units 20:18 20:18 22:30 AST 21 (14-36) U/L Troponin I <0.012 <0.012 (0.000-0.034) ng/mL 10/03/21 Range/Units 01:23 AST (14-36) U/L Troponin I <0.012 (0.000-0.034) ng/mL Coagulation 10/02/21 Range/Units 20:18 PT 9.7 (9.0-12.0) sec APTT 23.3 (22.0-30.0) sec CBC 10/02/21 Range/Units 20:18 WBC 8.0 (3.8-10.6) k/uL RBC 4.61 (3.80-5.40) m/uL Hgb 13.5 (11.4-16.0) gm/dL Hct 44.3 (34.0-46.0) % Plt Count 242 (150-450) k/uL Comprehensive Metabolic Panel 10/02/21 Range/Units 20:18 Sodium 139 (137-145) mmol/L Potassium 4.0 (3.5-5.1) mmol/L Chloride 104 (98-107) mmol/L Carbon Dioxide 26 (22-30) mmol/L BUN 15 (7-17) mg/dL Creatinine 0.73 (0.52-1.04) mg/dL Glucose 91 (74-99) mg/dL Calcium 9.3 (8.4-10.2) mg/dL AST 21 (14-36) U/L ALT 16 (4-34) U/L Alkaline Phosphatase 120 (38-126) U/L Total Protein 7.1 (6.3-8.2) g/dL Albumin 4.3 (3.5-5.0) g/dL Current Medications Generic Name Dose Route Start Last Admin Trade Name Freq PRN Reason Stop Dose Admin Aspirin 325 mg 10/03/21 09:00 Aspirin 325 Mg Tab PO DAILY [facility] Atorvastatin Calcium 10 mg 10/03/21 21:00 Atorvastatin 10 Mg Tab PO HS [facility] Budesonide/Formoterol Fumarate 2 puff 10/03/21 08:00 10/03/21 07:06 Symbicort 160-4.5 Mcg Inhaler INHALATION 2 puff RT-BID NOEMI Administration Cholecalciferol 50 mcg 10/03/21 09:00 Cholecalciferol 25 Mcg (1000 Iu) Tablet PO DAILY NOEMI Famotidine 20 mg 10/03/21 09:00 Famotidine 20 Mg Tab PO DAILY [facility] Levothyroxine Sodium 100 mcg 10/03/21 06:30 10/03/21 07:33 Levothyroxine 100 Mcg Tab PO 100 mcg [id number] [facility] Administration Melatonin 3 mg 10/03/21 21:00 Melatonin 3 Mg Tablet PO HS [facility] Nitroglycerin 0.4 mg 10/02/21 21:32 Nitroglycerin Sl Tabs 0.4 Mg Tab SUBLINGUAL Q5M PRN Chest Pain Senna/Docusate Sodium 2 each 10/03/21 09:00 Sennosides-Docusate Sodium 1 Each Tab PO BID [facility] Intake and Output 10/02/21 10/03/21 10/03/21 22:59 06:59 14:59 Other: Weight 47.174 kg 10/02/21 20:18 10/02/21 20:18
--- NOTE | 2021-10-03 11:04 | CA ---
Lexiscan Nuclear Stress Test Report Name: Inez Bassett Exam Date: 10/03/2021 10:12 Exam Location: [facility] Ht (in): 58 Wt (lb): 104 BSA: 1.38 Ordering Phys: Eleni Arnold Referring Phys: VIRGEN,, Technologist: Aaron Jeffery Age: 81 Gender: F : 1940 Procedure CPT: Indications: Reflex order-Stress test ICD-10 Codes: Patient History: CHEST PAIN, DIFFICULTY IN BREATHING, PALPATATIONS, NUMBNESS IN FACE/NECK, ELEVATED CHOLESTEROL LEVELS, COPD AND AHTHMA Medications: Meds past 24 hrs: Pretest Chest Pain: STRESS TEST Lexiscan Protocol Exercise Duration (min:sec): 01:[address] Depressions (mm): Angina Score: Herndon Score: Resting HR (bpm): 82 Peak HR (bpm): 104 Resting BP (mmHg): 130 / 83 Peak BP (mmHg): 131 / 79 MPHR: 137 Target HR: 116 % MPHR: 76 METS: 1.0 Total Dose: Peak Dose: Atropine: Double Product: 22037 BP Response: Stress Termination: Completion of Infusion Stress Symptoms: DIFFICULTY IN BREATHING Stress Summary: ECG ANALYSIS Resting ECG: Sinus rhythm with left bundle-branch block Stress ECG: Sinus rhythm with left bundle branch block CONCLUSIONS #1. Inconclusive Lexiscan stress test because of baseline EKG changes. #2. Report on the nuclear images to be provided by the radiologist Dr. Pineda Thorne MD (Electronically Signed) Final Date: 03 October 2021 11:03
--- NOTE | 2021-10-03 11:06 | CA ---
Transthoracic Echo Report Name: Inez Bassett Age: 81 Gender: F : 1940 Exam Date: 10/03/2021 08:11 Exam Location: [facility] Ht (in): 58 Wt (lb): 104 Ordering Physician: Eleni Arnold Attending/Referring Phys: [id number], [place] Academic Records Specialist Deya Redd RDCS Procedure CPT: Indications: LV function Cardiac Hx: Technical Quality: Fair Contrast 1: Total Dose (mL): Contrast 2: Total Dose (mL): MEASUREMENTS (Male / Female) Normal Values 2D ECHO LV Diastolic Diameter PLAX 2.6 cm 4.2 - 5.9 / 3.9 - 5.3 cm LV Systolic Diameter PLAX 1.6 cm IVS Diastolic Thickness 1.0 cm 0.6 - 1.0 / 0.6 - 0.9 cm LVPW Diastolic Thickness 1.0 cm 0.6 - 1.0 / 0.6 - 0.9 cm LV Relative Wall Thickness 0.8 LA Volume 49.6 cm??? 18 - 58 / 22 - 52 cm??? M-MODE Aortic Root Diameter MM 2.5 cm LA Systolic Diameter MM 4.5 cm LA Ao Ratio MM 1.8 DOPPLER AV Peak Velocity 196.8 cm/s AV Peak Gradient 15.5 mmHg AV Mean Velocity 127.4 cm/s AV Mean Gradient 7.4 mmHg AV Velocity Time Integral 37.8 cm LVOT Peak Velocity 121.3 cm/s LVOT Peak Gradient 5.9 mmHg MV Peak Velocity 144.6 cm/s MV Peak Gradient 8.4 mmHg MV Mean Velocity 98.5 cm/s MV Mean Gradient 4.1 mmHg MV Velocity Time Integral 37.1 cm MV Area PHT 2.4 cm??? Mitral E Point Velocity 78.1 cm/s Mitral A Point Velocity 130.5 cm/s Mitral E to A Ratio 0.6 MV Deceleration Time 314.8 ms MV E' Velocity 4.8 cm/s Mitral E to MV E' Ratio 16.3 TR Peak Velocity 221.3 cm/s TR Peak Gradient 19.6 mmHg Right Ventricular Systolic Press 22.8 mmHg FINDINGS Left Ventricle Mildly increased left ventricular wall thickness. Normal left ventricular systolic function with no obvious regional wall motion abnormalities. Normal left ventricular diastolic filling pattern. Left ventricular ejection fraction is estimated at 55-60 %. Right Ventricle Normal right ventricular size and function. Right ventricular systolic pressure within normal limits. Right Atrium Normal right atrial size. Left Atrium Normal left atrial size. No evidence for an atrial septal defect. Mitral Valve Mitral valve thickened. Mild mitral annular calcification.trace mitral regurgitation. Mild mitral stenosis. Aortic Valve Thickened aortic valve without stenosis. Trace aortic regurgitation. Tricuspid Valve Mild tricuspid regurgitation. Pulmonic Valve Trace pulmonic regurgitation. Pericardium No pericardial effusion. Aorta Normal size aortic root and proximal ascending aorta. CONCLUSIONS #1. Normal left ventricle size and function. #2. Mitral valve getting in and or calcification with minimal regurgitation. #3. Thickened aortic valve leaflets without stenosis Previewed by: Dr. Pineda Thorne MD (Electronically Signed) Final Date: 03 October 2021 11:05
[2021-10-03] MEDS: SENNOSIDES-DOCUSATE SODIUM 1 EACH TAB PO SCH ×2 (11:47→21:39)
[2021-10-03] MEDS: FAMOTIDINE 20 MG TAB PO SCH (11:48)
[2021-10-03] MEDS: ASPIRIN 81 MG PO SCH (11:48)
[2021-10-03] MEDS: CHOLECALCIFEROL 25 MCG (1000 IU) TABLET PO SCH (11:48)
--- NOTE | 2021-10-03 12:02 | NM ---
EXAMINATION TYPE: NM stress lexiscan cardiolite DATE OF EXAM: 10/03/2021 COMPARISON: NONE HISTORY: Chest pain TECHNIQUE: After the intravenous administration of 9.7 mCi Tc 99m Sestamibi - Cardiolite resting SPE CT images acquired 65 minutes post injection. The patient received 0.4mg Lexiscan, 25.1 mCi Tc 99m Sestamibi - Stress images obtained [address] injection FINDINGS: Review of stress and rest SPECT images demonstrates reversibility involving the inferior septal wall. Stress-induced ischemia is not excluded. Gated analysis shows normal wall motion with an estimated l eft ventricular ejection of 100% which is inaccurate. IMPRESSION: SPECT images demonstrates reversibility involving the inferior septal wall. Stress-induced ischemia i s not excluded.
[2021-10-03] MEDS ORDERED: NITROGLYCERIN SL TABS 0.4 MG TAB SUBLINGUAL PRN (14:10)
[2021-10-03] MEDS ORDERED: ALPRAZolam 0.5 MG TAB PO PRN (14:10)
[2021-10-03] MEDS ORDERED: ALPRAZolam 0.25 MG TAB PO PRN (14:10)
[2021-10-03 15:50] LABS: Chol/HDL Ratio 2.35 Ratio; LDL Cholesterol,Calculated 93.9 mg/dL (0.0-131.0); VLDL Calculation 19.88 mg/dL (5.00-40.00)
--- NOTE | 2021-10-03 16:59 | P.HPIM ---
History of Present Illness H&P Date: 10/03/21 Chief Complaint: Chest pressure This is a pleasant 81-year-old patient follows with Dr. Casas. Chronic stable medical conditions include asthma, questionable TIA, GERD, hyperlipidemia, hypothyroid, large hiatal hernia, chronic constipation, normally has one or 2 BMs a week, esophageal stricture with some dysphagia with prior dilatation by Dr. Danyel Tran, left bundle-branch block, osteoporosis varicose veins thyroid nodules slight goiter. Patient sometimes get up. In the chest. Has to really bite intake a soft diet. Patient yesterday had pressure in the chest after dinner off and on for about one hour. It felt by better putting some heat. Patient also is dizzy li ghtheaded. No perspiration. Patient is unable to distinguish symptoms from a hiatal hernia is a little stricture and other chest pain. Has decided to come in. Normally able to get from the house. Some limitation from arthritis Review of systems: GEN.: Tired EYES: None HEENT: None NECK: None RESPIRATORY: As above CARDIOVASCULAR: As above GASTROINTESTINAL: As above GENITOURINARY: None MUSCULOSKELETAL: Some joint pains LYMPHATICS: None HEMATOLOGICAL: None PSYCHIATRY: None NEUROLOGICAL: None Past medical history to include: Asthma, questionable TIA, GERD, hyperlipidemia, hiatal hernia, chronic constipation, esophageal stricture with dilatation with dysphagia, osteoporosis, (blood block, chronic bronchitis, varicose veins, history of ulcers, Zafar's, thyroid nodule with goiter, anemia, Social history: No history of smoking or alcohol. Lives with [facility]. Family history: Prostate cancer Physical examination: VITAL SIGNS: Afebrile, 77, 18, 1 12 x 17, 97% room air upon presentation GENERAL: BMI 21.7, sitting up in bed awake, tired. EYES: Pupils equal. Conjunctiva normal. HEENT: External appearance of nose and ears normal, oral cavity grossly normal. NECK: JVD not raised; masses not palpable. HEART: First and second heart sounds are normal; no edema. LUNGS: Respiratory rate normal; clear to auscultation. ABDOMEN: Soft, nontender, liver spleen not palpable, no masses palpable. PSYCH: Alert and oriented x3; mood and affect normal. MUSCULOSKELETAL:No Clubbing/cyanosis;muscles-grossly intact. Evidence of OA in several joints NEUROLOGICAL: Cranial nerves grossly intact; no facial asymmetry, power and sensation grossly intact. LYMPHATICS: No lymph nodes palpable in the axilla and neck INVESTIGATIONS, reviewed in the clinical context: White count 8 hemoglobin 13.5 platelets 242 potassium 4. 15 creatinine 0.73 Troponin I 3 negative LDL 93 EKG tracing personally reviewed by me-normal sinus rhythm. Rate 72. Left bundle-branch block. Chest x-ray film personally reviewed by me-some chronic changes. Kyphosis. Hyperinflation.-Hernia. 2-D echocardiogram: EF 55-60%. Assessment and plan: -Possible unstable angina with negative troponins. Patient has significant GI symptoms from esophageal stricture and hiatal hernia unable to distinguish to s eufemia. Seen by cardiology. Telemetry. Nuclear stress test. -Moderate hiatal hernia Pepcid -GERD Pepcid -Chronic esophageal stricture with prior history of dilatation by Dr. Danyel Tran We'll give pured diet -Chronic constipation Uses laxatives -Hyperlipidemia Crestor 5 mg daily at bedtime -Hypothyroid Synthroid 100 g Friday and Friday -Moderate persistent asthma Symbicort 11/08.52 puffs twice a day Home medications resumed. Check thyroid status in the morning. Nuclear stress was ordered by cardiology. Telemetry. Care was discussed with the patient and family at the bedside. Pured diet. Past Medical History Past Medical History: Asthma, COPD, CVA/TIA, GERD/Reflux, Hyperlipidemia, Thyroid Disorder Additional Past Medical History / Comment(s): hiatel hernia, hypotension, possible TIA,migraines, deviated septum, chronic constipation, past hx of low blood sugar, esophageal stricture with difficulty swallowing . 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, states polyp removed from uterus (got punctured uterus and intestine and had to have surgery to repair uterus and intestine) cataract, EGD, COLONOSCOPY, L hip Past Anesthesia/Blood Transfusion Reactions: Previous Problems w/ Anesthesia Additional Past Anesthesia/Blood Transfusion Reaction / Comment(s): STATES DIFFICULTY WAKING UP Past Psychological History: Depression Smoking Status: Never smoker Past Alcohol Use History: None Reported Past Drug Use History: None Reported - Past Family History Mother Family Medical History: Myocardial Infarction (GA) Additional Family Medical History / Comment(s): Mother of a GA at the age of 44 yrs. Father Family Medical History: Diabetes Mellitus Brother(s) Family Medical History: Cancer Additional Family Medical History / Comment(s): PROSTATE Medications and Allergies Home Medications Medication Instructions Recorded Confirmed Type Levothyroxine Sodium [Synthroid] 100 mcg PO MOTUWETHFR 09/10/13 10/02/21 History Aspirin 81 mg PO HS 05/23/21 10/02/21 History Budesonide/Formoterol Fumarate 2 puff INHALATION RT-BID 05/23/21 10/02/21 History [Symbicort 160-4.5 Mcg Inhaler] Cholecalciferol [Vitamin D3 (25 50 mcg PO DAILY 05/23/21 10/02/21 History Mcg = 1000 Iu)] Rosuvastatin Calcium [Crestor] 5 mg PO HS 05/23/21 10/02/21 History Sennosides/Docusate Sodium 2 tab PO BID 05/23/21 10/02/21 History [Senna-S 8.6-50 mg Tablet] Famotidine [Pepcid] 20 mg PO HS 10/02/21 10/02/21 History Inulin/Chromium Picolinate [Fiber 1 tab PO DAILY 10/02/21 10/02/21 History Gummies Chew] Melatonin 3 mg PO HS 10/02/21 10/02/21 History Allergies Allergy/AdvReac Type Severity Reaction Status Date / Time Iodinated Contrast Media Allergy FLUSHING, Verified 10/02/21 22:18 [Iodinated Contrast Media - ITCHING, IV Dye] felt warm Macrolide Antibiotics Allergy INTERACTS Verified 10/02/21 22:18 WITH ASTHMA MEDS mold Allergy asthma Verified 10/02/21 22:18 symptoms Sulfa (Sulfonamide Allergy FLUSHING , Verified 10/02/21 22:18 Antibiotics) ITCHING fungus Allergy ASTHMA Uncoded 10/02/21 22:18 SYMPTOMS SMOKE Allergy ASTHMA Uncoded 10/02/21 22:18 SYMPTOMS Physical Exam Vitals: Vital Signs Temp Pulse Pulse Resp BP BP Pulse Ox 10/03/21 07:00 97.7 F 69 16 102/66 96 10/03/21 06:00 68 16 110/68 95 10/03/21 05:00 63 16 109/68 93 L 10/03/21 01:00 65 18 104/68 93 L 10/02/21 22:37 69 16 114/69 100 10/02/21 20:23 65 16 125/75 100 10/02/21 19:49 71 16 119/73 98 10/02/21 18:28 77 18 112/70 97 Intake and Output 10/02/21 10/03/21 10/03/21 22:59 06:59 14:59 Other: Weight 47.174 kg 47.174 kg Results CBC & Chem 7: 10/02/21 20:18 10/02/21 20:18 Labs: Abnormal Lab Results - Last 24 Hours (Table) 10/02/21 Range/Units 20:18 MCHC 30.5 L (31.0-37.0) g/dL Eosinophils # 1.8 H (0-0.7) k/uL
[2021-10-03] MEDS ORDERED: MELATONIN 3 MG TABLET PO SCH (21:00)
[2021-10-03] MEDS ORDERED: ATORVASTATIN 10 MG TAB PO SCH (21:00)
[2021-10-03] MEDS ORDERED: SODIUM CHLORIDE 0.9% 1,000 ML in EMPTY BAG 1 BAG IV SCH (23:00)
[2021-10-04] MEDS ORDERED: ASPIRIN 325 MG TAB PO ONE (05:00)
[2021-10-04] MEDS ORDERED: ATORVASTATIN 80 MG TAB PO ONE (05:00)
[2021-10-04] MEDS: SENNOSIDES-DOCUSATE SODIUM 1 EACH TAB PO SCH (05:34)
[2021-10-04] MEDS: CHOLECALCIFEROL 25 MCG (1000 IU) TABLET PO SCH (05:34)
[2021-10-04] MEDS: FAMOTIDINE 20 MG TAB PO SCH (05:34)
[2021-10-04] MEDS: LEVOTHYROXINE 100 MCG TAB PO SCH (05:34)
[2021-10-04] MEDS: ASPIRIN 81 MG PO SCH (05:35)
[2021-10-04] MEDS ORDERED: HEPARIN SODIUM,PORCINE 2,500 UNIT in SODIUM CHLORIDE 0.9% 250 ML IRRIGATION PRN (07:00)
[2021-10-04] MEDS ORDERED: HEPARIN SODIUM,PORCINE 10,000 UNIT in SODIUM CHLORIDE 0.9% 1,000 ML IRRIGATION PRN (07:00)
[2021-10-04 07:06] LABS: Glucose,Whole Blood 110 mg/dL (75-99)
[2021-10-04] MEDS: SYMBICORT 160-4.5 MCG INHALER INHALATION SCH (07:19)
[2021-10-04] MEDS ORDERED: SODIUM CHLORIDE 0.9% 1,000 ML IV ONE (07:25)
[2021-10-04] MEDS ORDERED: SODIUM CHLORIDE 0.9% 500 ML 500 ML IV ONE (07:25)
[2021-10-04] MEDS ORDERED: VERAPAMIL 2.5 MG/ML 2 ML AMP ONE (07:36)
[2021-10-04] MEDS ORDERED: HEPARIN SODIUM 1,000 UN/ML (10ML VL) ONE (07:36)
[2021-10-04] MEDS ORDERED: MIDAZOLAM 2 MG/2 ML VIAL IV ONE ×2 (07:44)
[2021-10-04] MEDS ORDERED: LIDOCAINE 1% INJ 10MG/ML (5 ML VIAL-PF) SQ ONE (07:45)
[2021-10-04] MEDS: VERAPAMIL SYRINGE (5 MG/10 ML) INTRAARTER ONE ×2 (07:47→07:57)
[2021-10-04 07:49] VITALS: RESP 18
[2021-10-04] MEDS ORDERED: HEPARIN SODIUM 1,000 UN/ML (10ML VL) IV ONE (07:51)
[2021-10-04] MEDS ORDERED: IOPAMIDOL-370 125ML BTL INJ ONE (07:56)
[2021-10-04] MEDS ORDERED: RX INFO: IV CONTRAST WAS GIVEN 1 EACH MISC MISCELLANE PRN (08:01)
--- NOTE | 2021-10-04 08:04 | P.PCN ---
Date of Procedure: 10/04/21 Operative Findings: CARDIAC CATHETERIZATION PERFORMING PHYSICIAN: Jaswant Dee MD, RPVI PROCEDURE PERFORMED: 1. Selective right and left coronary angiogram 2. Left heart catheterization INDICATION: Chest discomfort in this 81-year-old female patient who was admitted to the hospital with a chest discomfort and underwent myocardial perfusion imaging stress test that revealed ischemia. COMPLICATION: None APPROACH: Right radial artery LEVEL OF SEDATION: Moderate with a sedation length of 14 minutes PROCEDURE DESCRIPTION: After obtaining an informed consent, the patient was brought to cardiac landscape and yardwork laborer. Local anesthesia was performed using lidocaine subcutaneously. The right radial artery was cannulated using Seldinger technique, the guidewire passed easily, following that we advanced a 5-Belarusian sheath dilator assembly, the wire and dilator were removed and sheath was flushed. Following that, 2 mg of verapamil along with 5000 unit heparin were given. Selective right and left coronary angiogram using a 6-[place]arusian JR4 and JL 3.5 catheters. Following that we did left heart catheterization using 6-Belarusian pigtail catheter. The procedure was completed there was no complication. SELECTIVE CORONARY ANGIOGRAM: The right coronary artery: Is a large caliber vessel and a dominant vessel. Its angiographically normal. Distally bifurcates into PDA and PLV branches both appeared to be an giographically normal. Left main: It is angiographically normal and bifurcates into a LCx and LAD The left circumflex: Is a large caliber vessel nondominant vessel. The LCx appeared to be angiograp hically normal and gives rises into the first and second obtuse marginal branches appeared to be angiographically no The left anterior descending artery: The proximal LAD has a lesion appeared to be in the range of 30%. Its calcified. The mid and distal LAD appeared to be angiographically normal. The LAD proximally gives rises into a large diagonal branch which has mild disease only. HEMODYNAMICS: The LVEDP was about 5 mmHg with no significant gradient across aortic valve CONCLUSION: 1. Mild disease involving the proximal LAD appeared to be in the range of 20- 30% 2. And normal left-sided filling pressure POSTPROCEDURE MANAGEMENT: Medical treatment
[2021-10-04] MEDS ORDERED: SODIUM CHLORIDE 0.9% 1,000 ML IV SCH (08:15)
[2021-10-04 09:01] VITALS: TEMP 97.5
[2021-10-04 12:47] VITALS: BP 130/82; PULSE 79
--- NOTE | 2021-10-04 17:04 | P.DS ---
Providers Date of admission: 10/02/21 21:32 Expected date of discharge: 10/04/21 Attending physician: Kane Jose Primary care physician: Jace Casas [facility] Course: Chief Complaint: Chest pressure This is a pleasant 81-year-old patient follows with Dr. Casas. Chronic stable medical conditions include asthma, questionable TIA, GERD, hyperlipidemia, hypothyroid, large hiatal hernia, chronic constipation, normally has one or 2 BMs a week, esophageal stricture with some dysphagia with prior dilatation by Dr. Danyel Tran, left bundle-branch block, osteoporosis varicose veins thyroid nodules slight goiter. Patient sometimes get up. In the chest. Has to really bite intake a soft diet. Patient yesterday had pressure in the chest after dinner off and on for about one hour. It felt by better putting some heat. Patient also is dizzy lightheaded. No perspiration. Patient is unable to distinguish symptoms from a hiatal hernia is a little stricture and other chest pain. Has decided to come in. Normally able to get from the house. Some limitation from arthritis October 04: Patient underwent cardiac cath. Minimal disease. Chest pain likely from esophageal spasm. Started on PPI. Follow up with Dr. Danyel Tran from GI. Patient told to take a baby aspirin in the morning. Past medical history to include: Asthma, questionable TIA, GERD, hyperlipidemia, hiatal hernia, chronic constipation, esophageal stricture with dilatation with dysphagia, osteoporosis, (blood block, chronic bronchitis, varicose veins, history of ulcers, Zafar's, thyroid nodule with goiter, anemia, Social history: No history of smoking or alcohol. Lives with fianc. Family history: Prostate cancer Physical examination: VITAL SIGNS: 1 05/05/1984, 97% room air GENERAL: Comfortable EYES: Pupils equal. Conjunctiva normal. HEENT: External appearance of nose and ears normal, oral cavity grossly normal. NECK: JVD not raised; masses not palpable. HEART: First and second heart sounds are normal; no edema. LUNGS: Respiratory rate normal; clear to auscultation. ABDOMEN: Soft, nontender, liver spleen not palpable, no masses palpable. PSYCH: Alert and oriented x3; mood and affect normal. MUSCULOSKELETAL:No Clubbing/cyanosis;muscles-grossly intact. Evidence of OA in several joints INVESTIGATIONS, reviewed in the clinical context: LDL 93 White count 8 hemoglobin 13.5 platelets 242 potassium 4. 15 creatinine 0.73 Troponin I 3 negative LDL 93 EKG tracing personally reviewed by me-normal sinus rhythm. Rate 72. Left bundle-branch block. Chest x-ray film personally reviewed by me-some chronic changes. Kyphosis. Hyperinflation.-Hernia. 2-D echocardiogram: EF 55-60%. Assessment and plan: -Anterior chest wall pain likely from esophageal spasm -Esophageal spasm likely from esophagitis/GERD Protonix -Cardiac catheterization showing minimal disease -Moderate hiatal hernia Pepcid -GERD Pepcid -Chronic esophageal stricture with prior history of dilatation by Dr. Danyel Tran We'll give pured diet -Chronic constipation Uses laxatives -Hyperlipidemia Crestor 5 mg daily at bedtime -Hypothyroid Synthroid 100 g Friday and Friday -Moderate persistent asthma Symbicort 16/4.52 puffs twice a day -Chronic left bundle-branch block Disposition: Home Plan - Discharge Summary New Discharge Prescriptions: New Pantoprazole Sodium [Protonix] 40 mg PO BID #60 tab Continue Levothyroxine Sodium [Synthroid] 100 mcg PO MOTUWETHFR Budesonide/Formoterol Fumarate [Symbicort 160-4.5 Mcg Inhaler] 2 puff INHALATION RT-BID Aspirin 81 mg PO HS Rosuvastatin Calcium [Crestor] 5 mg PO HS Sennosides/Docusate Sodium [Senna-S 8.6-50 mg Tablet] 2 tab PO BID Cholecalciferol [Vitamin D3 (25 Mcg = 1000 Iu)] 50 mcg PO DAILY Inulin/Chromium Picolinate [Fiber Gummies Chew] 1 tab PO DAILY Melatonin 3 mg PO HS Discontinued Famotidine [Pepcid] 20 mg PO HS Discharge Medication List Levothyroxine Sodium [Synthroid] 100 mcg PO MOTUWETHFR 09/10/13 [History] Aspirin 81 mg PO HS 05/23/21 [History] Budesonide/Formoterol Fumarate [Symbicort 160-4.5 Mcg Inhaler] 2 puff INHALATION RT-BID 05/23/21 [History] Cholecalciferol [Vitamin D3 (25 Mcg = 1000 Iu)] 50 mcg PO DAILY 05/23/21 [History] Rosuvastatin Calcium [Crestor] 5 mg PO HS 05/23/21 [History] Sennosides/Docusate Sodium [Senna-S 8.6-50 mg Tablet] 2 tab PO BID 05/23/21 [History] Inulin/Chromium Picolinate [Fiber Gummies Chew] 1 tab PO DAILY 10/02/21 [History] Melatonin 3 mg PO HS 10/02/21 [History] Pantoprazole Sodium [Protonix] 40 mg PO BID #60 tab 10/04/21 [Rx] Follow up Appointment(s)/Referral(s): Jace Casas DO [Primary Care Provider] - 1-2 days Jaswant Dee MD [STAFF PHYSICIAN] - 10/25/21 9:30 am Meagan Tran MD [STAFF PHYSICIAN] - 3 Weeks (Please keep appointment previously made on November 14 @ 2:00pm) Discharge Disposition: HOME SELF-CARE
== END 2021-10-04 14:10 | disposition home or self-care (01) ==
LOC: EC 18:23 → 6NMEDSUR 21:32
PROVIDERS: ADMIT Hospitalist; ATTEND Hospitalist
DX: R07.89 Other chest pain (principal); K22.4 Dyskinesia of esophagus; K44.9 Diaphragmatic hernia without obstruction or gangrene; K21.9 Gastro-esophageal reflux disease without esophagitis; K59.09 Other constipation; E78.5 Hyperlipidemia, unspecified; E06.3 Autoimmune thyroiditis; E04.2 Nontoxic multinodular goiter; J45.40 Moderate persistent asthma, uncomplicated; E78.00 Pure hypercholesterolemia, unspecified; I44.7 Left bundle-branch block, unspecified; I10 Essential (primary) hypertension; I35.0 Nonrheumatic aortic (valve) stenosis; J44.9 Chronic obstructive pulmonary disease, unspecified; K22.2 Esophageal obstruction; M19.90 Unspecified osteoarthritis, unspecified site; M81.0 Age-related osteoporosis without current pathological fracture; F32.A Depression, unspecified; D64.9 Anemia, unspecified; I83.90 Asymptomatic varicose veins of unspecified lower extremity; Z79.890 Hormone replacement therapy; Z79.899 Other long term (current) drug therapy; Z79.51 Long term (current) use of inhaled steroids; Z79.82 Long term (current) use of aspirin; Z88.1 Allergy status to other antibiotic agents; Z91.048 Other nonmedicinal substance allergy status; Z88.2 Allergy status to sulfonamides; Z91.09 Other allergy status, other than to drugs and biological substances; Z98.41 Cataract extraction status, right eye; Z98.42 Cataract extraction status, left eye; Z96.1 Presence of intraocular lens; Z86.73 Personal history of transient ischemic attack (TIA), and cerebral infarction without residual deficits; Z90.49 Acquired absence of other specified parts of digestive tract; Z82.49 Family history of ischemic heart disease and other diseases of the circulatory system; Z83.3 Family history of diabetes mellitus; Z80.42 Family history of malignant neoplasm of prostate
CPT/HCPCS: 93458; 99285; 36415; 94640 ×2; 93005 ×2; 93017; 93306; 83880; 80061; 80053; 83735; 84484 ×2; 85025; 85610; 85730; 71046; 78452; G0378 ×3; C1894; C1769; A9500; J2250; J2001; J1644; J2785; Q9967

== ENCOUNTER 2022-07-11 08:54 | Emergency (ER) | payer MEDICARE ==
[2022-07-11] MEDS ORDERED: MONTELUKAST 10 MG TAB PO STA (09:30)
[2022-07-11] MEDS ORDERED: diphenhydrAMINE 50 MG/ML 1 ML VIAL IVP STA (09:30)
[2022-07-11 09:58] LABS: HCT 44.6 % (34.0-46.0); HGB 14.3 gm/dL (11.4-16.0); MCV 93.7 fL (80.0-100.0); Mean Platelet Volume 7.9; Platelet Count 195 k/uL (150-450); RBC 4.75 m/uL (3.80-5.40); RDW 13.4 % (11.5-15.5); WBC 6.3 k/uL (3.8-10.6)
--- NOTE | 2022-07-11 10:04 | XR ---
EXAMINATION TYPE: XR chest 2V DATE OF EXAM: 07/11/2022 COMPARISON: Chest x-ray October 02, 2021 HISTORY: Difficulty in breathing. TECHNIQUE: Frontal and lateral views of the chest are obtained. FINDINGS: The osseous structures are demineralized. There is exaggerated thoracic kyphosis redemonst rated. There are mild compression type fractures in the midthoracic spine again seen. There is dextro convex scoliosis redemonstrated centered in the lower thoracic spine. Cardiomegaly is redemonstrated. Retrocardiac opacity consistent with moderate to large size hiatal hernia is redemonstrated. Old rig ht lateral mid rib deformities are redemonstrated. Elevated left hemidiaphragm is redemonstrated. Lef t basilar horizontal opacity again seen. No new focal airspace opacity, pleural effusion, or pneumoth orax seen bilaterally. IMPRESSION: Chronic changes and cardiomegaly without with persistent left basilar opacity favoring l inear atelectasis and/or scarring. No new acute pulmonary process is seen.
[2022-07-11 10:09] LABS: Albumin 4.2 g/dL (3.5-5.0); Calcium 9.7 mg/dL (8.4-10.2); Total Bilirubin 0.8 mg/dL (0.2-1.3); Total Protein 7.2 g/dL (6.3-8.2)
[2022-07-11 10:11] LABS: Magnesium 2.6 mg/dL (1.6-2.3); Potassium 4.5 mmol/L (3.5-5.1)
[2022-07-11 10:16] LABS: INR 0.9 (<1.2); Prothrombin Time 9.5 sec (9.0-12.0)
[2022-07-11 10:32] LABS: Partial Thromboplastin Time 19.5 sec (22.0-30.0)
--- NOTE | 2022-07-11 10:32 | ED ---
SOB HPI - General Chief Complaint: Shortness of Breath Stated Complaint: RADHA Time Seen by Provider: 07/11/22 09:14 Source: patient, EMS, RN notes reviewed Mode of arrival: EMS Limitations: no limitations - History of Present Illness Initial Comments: 82-year-old female presents emergency Department chief complaint of shortness of breath. Patient states she's been sick, congestive for last 2-3 weeks. She states that she was more short of breath this morning so she called EMS. Upon arrival she had some mild hypoxia was given breathing treatment symptoms have resolved. She does admit that she has underlying ALLERGIES and asthma. Patient states she is to new parakeets at home and she believes she may be ALLERGIC to them. Patient denies any reported fever. - Related Data Home Medications Medication Instructions Recorded Confirmed Levothyroxine Sodium [Synthroid] 100 mcg PO MOTUWETHFR 09/10/13 10/02/21 Aspirin 81 mg PO HS 05/23/21 10/02/21 Budesonide/Formoterol Fumarate 2 puff INHALATION RT-BID 05/23/21 10/02/21 [Symbicort 160-4.5 Mcg Inhaler] Cholecalciferol [Vitamin D3 (25 50 mcg PO DAILY 05/23/21 10/02/21 Mcg = 1000 Iu)] Rosuvastatin Calcium [Crestor] 5 mg PO HS 05/23/21 10/02/21 Sennosides/Docusate Sodium 2 tab PO BID 05/23/21 10/02/21 [Senna-S 8.6-50 mg Tablet] Inulin/Chromium Picolinate [Fiber 1 tab PO DAILY 10/02/21 10/02/21 Gummies Chew] Melatonin 3 mg PO HS 10/02/21 10/02/21 Previous Rx's Medication Instructions Recorded Pantoprazole Sodium [Protonix] 40 mg PO BID #60 tab 10/04/21 Doxycycline [Vibramycin] 100 mg PO BID #20 capsule 07/11/22 predniSONE 50 mg PO DAILY #5 tab 07/11/22 Allergies Allergy/AdvReac Type Severity Reaction Status Date / Time Iodinated Contrast Media Allergy FLUSHING, Verified 07/11/22 09:13 [Iodinated Contrast Media - ITCHING, IV Dye] felt warm Macrolide Antibiotics Allergy INTERACTS Verified 07/11/22 09:13 WITH ASTHMA MEDS mold Allergy asthma Verified 07/11/22 09:13 symptoms Sulfa (Sulfonamide Allergy FLUSHING , Verified 07/11/22 09:13 Antibiotics) ITCHING fungus Allergy ASTHMA Uncoded 07/11/22 09:13 SYMPTOMS SMOKE Allergy ASTHMA Uncoded 07/11/22 09:13 SYMPTOMS Review of Systems ROS Statement: Those systems with pertinent positive or pertinent negative responses have been documented in the HPI. ROS Other: All systems not noted in ROS Statement are negative. Past Medical History Past Medical History: Asthma, COPD, CVA/TIA, GERD/Reflux, Hyperlipidemia, Thyroid Disorder Additional Past Medical History / Comment(s): hiatel hernia, hypotension, po ssible TIA,migraines, deviated septum, chronic constipation, past hx of low blood sugar, esophageal stricture with difficulty swallowing . 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, states polyp removed from uterus (got punctured uterus and intestine and had to have surgery to repair uterus and intestine) cataract, EGD, COLONOSCOPY, L hip Past Anesthesia/Blood Transfusion Reactions: Previous Problems w/ Anesthesia Additional Past Anesthesia/Blood Transfusion Reaction / Comment(s): STATES DIFFICULTY WAKING UP Past Psychological History: Depression Smoking Status: Never smoker Past Alcohol Use History: None Reported Past Drug Use History: None Reported - Past Family History Mother Family Medical History: Myocardial Infarction (CT) Additional Family Medical History / Comment(s): Mother of a CT at the age of 44 yrs. Father Family Medical History: Diabetes Mellitus Brother(s) Family Medical History: Cancer Additional Family Medical History / Comment(s): PROSTATE General Exam Limitations: no limitations General appearance: alert, in no apparent distress Head exam: Present: atraumatic, normocephalic, normal inspection Eye exam: Present: normal appearance, PERRL, EOMI. Absent: scleral icterus, conjunctival injection, periorbital swelling ENT exam: Present: normal oropharynx, mucous membranes moist, TM's normal bilaterally, normal external ear exam. Absent: normal exam (Nasal congestion noted) Neck exam: Present: normal inspection, full ROM. Absent: tenderness, meningismus, lymphadenopathy Respiratory exam: Present: normal lung sounds bilaterally. Absent: respiratory distress, wheezes, rales, rhonchi, stridor Cardiovascular Exam: Present: regular rate, normal rhythm, normal heart sounds. Absent: systolic murmur, diastolic murmur, rubs, gallop, clicks Course Vital Signs 07/11/22 07/11/22 07/11/22 09:06 09:30 09:50 Temperature 97.9 F Pulse Rate 71 71 Respiratory 24 18 16 Rate Blood Pressure 119/62 111/86 O2 Sat by Pulse 99 100 Oximetry 07/11/22 07/11/22 07/11/22 10:00 10:30 11:29 Temperature Pulse Rate 75 80 Respiratory 18 18 Rate Blood Pressure 117/70 116/71 O2 Sat by Pulse 99 98 94 L Oximetry 07/11/22 12:13 Temperature 98.1 F Pulse Rate 72 Respiratory 18 Rate Blood Pressure 113/82 O2 Sat by Pulse 97 Oximetry Medical Decision Making - Medical Decision Making Was pt. sent in by a medical professional or institution (, PA, SENIOR ANALYTIC CONSULTANT, urgent care, hospital, or jail...) When possible be specific @ -No Did you speak to anyone other than the patient for history (EMS, parent, family, police, friend...)? What history was obtained from this source @ -EMS and family ride history Did you review nursing and triage notes (agree or disagree)? Why? @ -I reviewed and agree with nursing and triage notes Were old charts reviewed (outside hosp., previous admission, EMS record, old EKG, old radiological studies, urgent care reports/EKG's, jail records)? Report findings @ -No old charts were reviewed Differential Diagnosis (chest pain, altered mental status, abdominal pain women, abdominal pain men, vaginal bleeding, weakness, fever, dyspnea, syncope, headache, dizziness, GI bleed, back pain, seizure, CVA, palpatations, mental health, musculoskeletal)? @ -nDifferential Dyspnea: Coronary syndrome, arrhythmia, tamponade, asthma, COPD, pulmonary embolism, pneumonia, pneumothorax, pulmonary effusion, anaphylaxis, diabetic ketoacidosis, flailed chest, pulmonary contusion, diaphragmatic rupture, anemia, neuromuscular, this is not meant to be an all-inclusive list. le EKG interpreted by me (3pts min.). @ -As above X-rays interpreted by me (1pt min.). @ -Chest x-ray shows improvement from prior CT interpreted by me (1pt min.). @ -None done U/S interpreted by me (1pt. min.). @ -None done What testing was considered but not performed or refused? (CT, X-rays, U/S, labs)? Why? @ -None What meds were considered but not given or refused? Why? @ -None Did you discuss the management of the patient with other professionals (professionals i.e. , PA, SENIOR ANALYTIC CONSULTANT, lab, RT, psych nurse, web content & social media manager, flower shop manager, t eacher, security public safety officer, case assembler)? Give summary @ -No Was smoking cessation discussed for >3mins.? @ -No Was critical care preformed (if so, how long)? @ -No Were there social determinants of health that impacted care today? How? (Homelessness, low income, unemployed, alcoholism, drug addiction, transportation, low edu. Level, literacy, decrease access to med. care, half-way, rehab)? @ -No Was there de-escalation of care discussed even if they declined (Discuss DNR or withdrawal of care, Hospice)? DNR status @ -No What co-morbidities impacted this encounter? (DM, HTN, Smoking, COPD, CAD, Cancer, CVA, ARF, Chemo, Hep., AIDS, mental health diagnosis, sleep apnea, morbid obesity)? @ -None Was patient admitted / discharged? Hospital course, mention meds given and [place], prescriptions, significant lab abnormalities, going to OR and other pertinent info. @ -Discharge patient is setting 100% she had a normal ambulatory pulse ox I discussed the family this may related to her birds causing her allergens and asthma exacerbation. Patient feels comfortable discharged with close follow-up return parameters were discussed Undiagnosed new problem with uncertain prognosis? @ -No Drug Therapy requiring intensive monitoring for toxicity (Heparin, Nitro, Insulin, Cardizem)? @ -No Were any procedures done? @ -No Diagnosis/symptom? @ -Asthma exacerbation Acute, or Chronic, or Acute on Chronic? @ -Acute Uncomplicated (without systemic symptoms) or Complicated (systemic symptoms)? @ -Uncomplicated Side effects of treatment? @ -No Exacerbation, Progression, or Severe Exacerbation? @ -No Poses a threat to life or bodily function? How? (Chest pain, USA, CT, pneumonia, PE, COPD, DKA, ARF, appy, cholecystitis, CVA, Diverticulitis, Homicidal, Suicidal, threat to staff... and all critical care pts) @ -No - Lab Data Result diagrams: 07/11/22 09:45 07/11/22 09:45 Lab Results 07/11/22 07/11/22 07/11/22 Range/Units 09:45 09:45 09:45 WBC 6.3 (3.8-10.6) k/uL RBC 4.75 (3.80-5.40) m/uL Hgb 14.3 (11.4-16.0) gm/dL Hct 44.6 (34.0-46.0) % MCV 93.7 (80.0-100.0) fL MCH 30.0 (25.0-35.0) pg MCHC 32.0 (31.0-37.0) g/dL RDW 13.4 (11.5-15.5) % Plt Count 195 (150-450) k/uL MPV 7.9 Manual Slide Review Performed PT 9.5 (9.0-12.0) sec INR 0.9 (<1.2) APTT 19.5 L (22.0-30.0) sec Sodium 140 (137-145) mmol/L Potassium 4.5 (3.5-5.1) mmol/L Chloride 106 (98-107) mmol/L Carbon Dioxide 27 (22-30) mmol/L Anion Gap 7 mmol/L BUN 13 (7-17) mg/dL Creatinine 0.78 (0.52-1.04) mg/dL Est GFR (CKD-EPI)AfAm 81 (>60 ml/min/1.73 sqM) Est GFR (CKD-EPI)NonAf 70 (>60 ml/min/1.73 sqM) Glucose 115 H (74-99) mg/dL Plasma Lactic Acid Geo (0.7-2.0) mmol/L Calcium 9.7 (8.4-10.2) mg/dL Magnesium 2.6 H (1.6-2.3) mg/dL Total Bilirubin 0.8 (0.2-1.3) mg/dL AST 25 (14-36) U/L ALT 18 (4-34) U/L Alkaline Phosphatase 133 H (38-126) U/L Troponin I (0.000-0.034) ng/mL NT-Pro-B Natriuret Pep pg/mL Total Protein 7.2 (6.3-8.2) g/dL Albumin 4.2 (3.5-5.0) g/dL Influenza Type A (PCR) (Not Detectd) Influenza Type B (PCR) (Not Detectd) RSV (PCR) (Not Detectd) SARS-CoV-2 (PCR) (Not Detectd) 07/11/22 07/11/22 07/11/22 Range/Units 09:45 09:45 09:45 WBC (3.8-10.6) k/uL RBC (3.80-5.40) m/uL Hgb (11.4-16.0) gm/dL Hct (34.0-46.0) % MCV (80.0-100.0) fL MCH (25.0-35.0) pg MCHC (31.0-37.0) g/dL RDW (11.5-15.5) % Plt Count (150-450) k/uL MPV Manual Slide Review PT (9.0-12.0) sec INR (<1.2) APTT (22.0-30.0) sec Sodium (137-145) mmol/L Potassium (3.5-5.1) mmol/L Chloride (98-107) mmol/L Carbon Dioxide (22-30) mmol/L Anion Gap mmol/L BUN (7-17) mg/dL Creatinine (0.52-1.04) mg/dL Est GFR (CKD-EPI)AfAm (>60 ml/min/1.73 sqM) Est GFR (CKD-EPI)NonAf (>60 ml/min/1.73 sqM) Glucose (74-99) mg/dL Plasma Lactic Acid Geo 2.0 (0.7-2.0) mmol/L Calcium (8.4-10.2) mg/dL Magnesium (1.6-2.3) mg/dL Total Bilirubin (0.2-1.3) mg/dL AST (14-36) U/L ALT (4-34) U/L Alkaline Phosphatase (38-126) U/L Troponin I <0.012 (0.000-0.034) ng/mL NT-Pro-B Natriuret Pep 113 pg/mL Total Protein (6.3-8.2) g/dL Albumin (3.5-5.0) g/dL Influenza Type A (PCR) (Not Detectd) Influenza Type B (PCR) (Not Detectd) RSV (PCR) (Not Detectd) SARS-CoV-2 (PCR) (Not Detectd) 07/11/22 Range/Units 09:45 WBC (3.8-10.6) k/uL RBC (3.80-5.40) m/uL Hgb (11.4-16.0) gm/dL Hct (34.0-46.0) % MCV (80.0-100.0) fL MCH (25.0-35.0) pg MCHC (31.0-37.0) g/dL RDW (11.5-15.5) % Plt Count (150-450) k/uL MPV Manual Slide Review PT (9.0-12.0) sec INR (<1.2) APTT (22.0-30.0) sec Sodium (137-145) mmol/L Potassium (3.5-5.1) mmol/L Chloride (98-107) mmol/L Carbon Dioxide (22-30) mmol/L Anion Gap mmol/L BUN (7-17) mg/dL Creatinine (0.52-1.04) mg/dL Est GFR (CKD-EPI)AfAm (>60 ml/min/1.73 sqM) Est GFR (CKD-EPI)NonAf (>60 ml/min/1.73 sqM) Glucose (74-99) mg/dL Plasma Lactic Acid Geo (0.7-2.0) mmol/L Calcium (8.4-10.2) mg/dL Magnesium (1.6-2.3) mg/dL Total Bilirubin (0.2-1.3) mg/dL AST (14-36) U/L ALT (4-34) U/L Alkaline Phosphatase (38-126) U/L Troponin I (0.000-0.034) ng/mL NT-Pro-B Natriuret Pep pg/mL Total Protein (6.3-8.2) g/dL Albumin (3.5-5.0) g/dL Influenza Type A (PCR) Not Detected (Not Detectd) Influenza Type B (PCR) Not Detected (Not Detectd) RSV (PCR) Not Detected (Not Detectd) SARS-CoV-2 (PCR) Not Detected (Not Detectd) - EKG Data -: EKG Interpreted by Me EKG Comments: EKG performed at 9:08 sinus rhythm noted PVC, rate of 76 GA 149/142 QT/QTc 449/479 Disposition Clinical Impression: Asthma, Asthma attack, Allergic arthritis Disposition: HOME SELF-CARE Condition: Stable Instructions (If sedation given, give patient instructions): Asthma (ED) Additional Instructions: Please return to the Emergency Department if symptoms worsen or any other concerns. Prescriptions: predniSONE 50 mg PO DAILY #5 tab Doxycycline [Vibramycin] 100 mg PO BID #20 capsule Is patient prescribed a controlled substance at d/c from ED?: No Referrals: Jace Casas DO [Primary Care Provider] - 1-2 days Bernardo Santos DO [Doctor of Osteopathic Medicine] - 07/23/22 11:15 am (Hospice visit follow up) Time of Disposition: 12:04
[2022-07-11 10:38] VITALS: RESP 18
[2022-07-11 12:14] VITALS: BP 113/82; PULSE 72; TEMP 98.1
== END 2022-07-11 12:30 | disposition home or self-care (01) ==
LOC: EC 08:54
DX: J45.909 Unspecified asthma, uncomplicated (principal); T78.40XA Allergy, unspecified, initial encounter; E07.9 Disorder of thyroid, unspecified; E78.5 Hyperlipidemia, unspecified; F32.A Depression, unspecified; Z79.82 Long term (current) use of aspirin; Z79.890 Hormone replacement therapy; Z79.899 Other long term (current) drug therapy; Z79.51 Long term (current) use of inhaled steroids; Z91.048 Other nonmedicinal substance allergy status; Z88.6 Allergy status to analgesic agent; Z91.018 Allergy to other foods; Z88.2 Allergy status to sulfonamides; Z88.8 Allergy status to other drugs, medicaments and biological substances; Z20.822 Contact with and (suspected) exposure to COVID-19; Z86.73 Personal history of transient ischemic attack (TIA), and cerebral infarction without residual deficits
CPT/HCPCS: 36415; 71046; 80053; 83605; 83735; 83880; 84484; 85025; 85610; 85730; 87636; 93005; 99285

== ENCOUNTER 2023-02-16 16:02 | Observation (INO) | payer MEDICARE ==
[2023-02-16] MEDS ORDERED: HYDROcodone/APAP 7.5-325MG 1 EACH TAB PO ONE (16:34)
--- NOTE | 2023-02-16 16:56 | ED ---
Extremity Problem HPI - General Chief complaint: Extremity Problem,Nontraumatic Stated complaint: hip/neck/groin pain Time Seen by Provider: 02/16/23 16:13 Source: patient Mode of arrival: wheelchair Limitations: no limitations - History of Present Illness Initial comments: 83-year-old female presenting with chief complaint of right leg pain. Patient admits to pain in the hip and knee. Pain was present when she woke up this morning. No injury or trauma. She states that "it feels like my leg wants to give out". No discoloration or swelling. Patient does admit to some numbness and tingling in the right foot. No fevers or chills. No nausea or vomiting. No abdominal pain, chest pain, difficulty breathing. - Related Data Home Medications Medication Instructions Recorded Confirmed Levothyroxine Sodium [Synthroid] 100 mcg PO MOTUWETHFR 09/10/13 02/16/23 Aspirin 81 mg PO HS 05/23/21 02/16/23 Budesonide/Formoterol Fumarate 2 puff INHALATION RT-BID 05/23/21 02/16/23 [Symbicort 160-4.5 Mcg Inhaler] Cholecalciferol [Vitamin D3 (25 25 mcg PO DAILY 05/23/21 02/16/23 Mcg = 1000 Iu)] Rosuvastatin Calcium [Crestor] 5 mg PO HS 05/23/21 02/16/23 Sennosides/Docusate Sodium 2 tab PO BID 05/23/21 02/16/23 [Senna-S 8.6-50 mg Tablet] Melatonin 3 mg PO HS 10/02/21 02/16/23 Albuterol Sulfate [Ventolin HFA] 2 puff INHALATION RT-QID PRN 02/16/23 02/16/23 Famotidine [Pepcid] 20 mg PO BID 02/16/23 02/16/23 Vit C/E/Zn/Coppr/Lutein/Zeaxan 1 cap PO BID 02/16/23 02/16/23 [Preservision Areds 2 Softgel] Allergies Allergy/AdvReac Type Severity Reaction Status Date / Time Iodinated Contrast Media Allergy FLUSHING, Verified 02/16/23 16:12 [Iodinated Contrast Media - ITCHING, IV Dye] felt warm Macrolide Antibiotics Allergy INTERACTS Verified 02/16/23 16:12 WITH ASTHMA MEDS mold Allergy asthma Verified 02/16/23 16:12 symptoms Sulfa (Sulfonamide Allergy FLUSHING , Verified 02/16/23 16:12 Antibiotics) ITCHING fungus Allergy ASTHMA Uncoded 07/11/22 09:13 SYMPTOMS SMOKE Allergy ASTHMA Uncoded 07/11/22 09:13 SYMPTOMS Review of Systems ROS Statement: Those systems with pertinent positive or pertinent negative responses have been documented in the HPI. ROS Other: All systems not noted in ROS Statement are negative. Past Medical History Past Medical History: Asthma, COPD, CVA/TIA, GERD/Reflux, Hyperlipidemia, Thyroid Disorder Additional Past Medical History / Comment(s): hiatel hernia, hypotension, possible TIA,migraines, deviated septum, chronic constipation, past hx of low blood sugar, esophageal stricture with difficulty swallowing . 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, states polyp removed from uterus (got punctured uterus and intestine and had to have surgery to repair uterus and intestine) cataract, EGD, COLONOSCOPY, L hip Past Anesthesia/Blood Transfusion Reactions: Previous Problems w/ Anesthesia Additional Past Anesthesia/Blood Transfusion Reaction / Comment(s): STATES DIFFICULTY WAKING UP Past Psychological History: Depression Smoking Status: Never smoker Past Alcohol Use History: None Reported Past Drug Use History: None Reported - Past Family History Mother Family Medical History: Myocardial Infarction ([place]) Additional Family Medical History / Comment(s): Mother of a [place] at the age of 44 yrs. Father Family Medical History: Diabetes Mellitus Brother(s) Family Medical History: Cancer Additional Family Medical History / Comment(s): PROSTATE General Exam Limitations: no limitations General appearance: alert, in no apparent distress Head exam: Present: atraumatic, normocephalic, normal inspection Eye exam: Present: normal appearance, EOMI Neck exam: Present: normal inspection, full ROM Respiratory exam: Present: normal lung sounds bilaterally. Absent: respiratory distress, wheezes, rales, rhonchi, stridor Cardiovascular Exam: Present: regular rate, normal rhythm, normal heart sounds. Absent: systolic murmur, diastolic murmur, rubs, gallop, clicks Right Hip exam: Present: normal inspection. Absent: tenderness Knee exam: Present: normal inspection. Absent: tenderness, swelling Lower Leg exam: Present: normal inspection. Absent: tenderness, swelling Ankle exam: Present: normal inspection. Absent: tenderness, swelling Neurovascular tendon exam: Present: pulse deficit (Difficult to palpate pulse, leg feels warm and Doppler is able to detect a signal from the posterior tibial pulse). Absent: abnormal cap refill Neurological exam: Present: alert, oriented X3 Psychiatric exam: Present: normal affect, normal mood Skin exam: Present: warm, dry, intact, normal color. Absent: rash Course Vital Signs 02/16/23 02/16/23 02/16/23 16:10 19:20 21:07 Temperature 97.9 F Pulse Rate 86 70 65 Pulse Rate [ Pulse Oximetery ] Respiratory 19 16 16 Rate Blood Pressure 110/74 115/78 125/77 Blood Pressure [Left Arm] O2 Sat by Pulse 97 97 97 Oximetry 02/16/23 21:50 Temperature 97.4 F L Pulse Rate Pulse Rate [ 66 Pulse Oximetery ] Respiratory 20 Rate Blood Pressure Blood Pressure 121/80 [Left Arm] O2 Sat by Pulse 95 Oximetry Medical Decision Making - Medical Decision Making Was pt. sent in by a medical professional or institution (, PA, ELEVATOR TENDER, urgent care, hospital, or jail...) When possible be specific @ -No Did you speak to anyone other than the patient for history (EMS, parent, family, police, friend...)? What history was obtained from this source @ -History supplemented by family at bedside Did you review nursing and triage notes (agree or disagree)? Why? @ -I reviewed and agree with nursing and triage notes Were old charts reviewed (outside hosp., previous admission, EMS record, old EKG, old radiological studies, urgent care reports/EKG's, jail records)? Report findings @ -No old charts were reviewed Differential Diagnosis (chest pain, altered mental status, abdominal pain women, abdominal pain men, vaginal bleeding, weakness, fever, dyspnea, syncope, headache, dizziness, GI bleed, back pain, seizure, CVA, palpatations, mental health, musculoskeletal)? @ -Differential Musculoskeletal Muscular strain, contusion, ligament sprain, fracture, arthritis, septic arthritis, bursitis, cellulitis, muscle spasm, nerve compression, DVT, arterial occlusion, herpes zoster, electrolyte abnormality, tumor.... This is not meant to be in all inclusive list EKG interpreted by me (3pts min.). @ -As above X-rays interpreted by me (1pt min.). @ -X-rays of the right hip and pelvis, right knee, lumbar spine show no fracture or dislocation CT interpreted by me (1pt min.). @ -None done U/S interpreted by me (1pt. min.). @ -None done What testing was considered but not performed or refused? (CT, X-rays, U/S, labs)? Why? @ -None What meds were considered but not given or refused? Why? @ -None Did you discuss the management of the patient with other professionals (professionals i.e. , PA, ELEVATOR TENDER, lab, RT, psych nurse, social services aide, woods laborer, teacher, business enterprise officer, correctional counselor/case manager)? Give summary @ -I spoke with Dr. Jose who accepted admission Was smoking cessation discussed for >3mins.? @ -No Was critical care preformed (if so, how long)? @ -No Were there social determinants of health that impacted care today? How? ( Homelessness, low income, unemployed, alcoholism, drug addiction, transportation, low edu. Level, literacy, decrease access to med. care, fci, rehab)? @ -Patient lives alone Was there de-escalation of care discussed even if they declined (Discuss DNR or withdrawal of care, Hospice)? DNR status @ -No What co-morbidities impacted this encounter? (DM, HTN, Smoking, COPD, CAD, Cancer, CVA, ARF, Chemo, Hep., AIDS, mental health diagnosis, sleep apnea, morbid obesity)? @ -None Was patient admitted / discharged? Hospital course, mention meds given and route, prescriptions, significant lab abnormalities, going to OR and other pertinent info. @ -83-year-old female presenting with chief complaint of right leg pain that started when she woke up this morning. Worse with weightbearing. On physical exam the leg is warm, difficult to palpate a pulse but we are able to get a Doppler signal from the posterior tibial pulse. No obvious deformity or pain on palpation of the hip or knee. Lab work shows no leukocytosis or anemia. Urine shows no signs of infection. X-rays are negative for fracture or dislocation. Patient is unable to ambulate. Family is concerned because the patient lives alone. Patient will be admitted for evaluation by physical therapy as well as orthopedics and vascular surgery. Patient and family are agreeable with this plan. I discussed this case with my attending Dr. Paniagua. Undiagnosed new problem with uncertain prognosis? @ -No Drug Therapy requiring intensive monitoring for toxicity (Heparin, Nitro, Insulin, Cardizem)? @ -No Were any procedures done? @ -No Diagnosis/symptom? @ -Right leg pain Acute, or Chronic, or Acute on Chronic? @ -Acute Uncomplicated (without systemic symptoms) or Complicated (systemic symptoms)? @ -Complicated Side effects of treatment? @ -No Exacerbation, Progression, or Severe Exacerbation? @ -No Poses a threat to life or bodily function? How? (Chest pain, USA, CT, pneumonia, PE, COPD, DKA, ARF, appy, cholecystitis, CVA, Diverticulitis, Homicidal, Suicidal, threat to staff... and all critical care pts) @ -Patient unable to ambulate at this time due to her pain - Lab Data Result diagrams: 02/16/23 16:44 02/16/23 16:44 Lab Results 02/16/23 02/16/23 Range/Units 16:44 16:44 WBC 5.7 (3.8-10.6) k/uL RBC 4.36 (3.80-5.40) m/uL Hgb 13.3 (11.4-16.0) gm/dL Hct 40.4 (34.0-46.0) % MCV 92.8 (80.0-100.0) fL MCH 30.4 (25.0-35.0) pg MCHC 32.8 (31.0-37.0) g/dL RDW 13.4 (11.5-15.5) % Plt Count 236 (150-450) k/uL MPV 8.5 Neutrophils % 52 % Lymphocytes % 28 % Monocytes % 5 % Eosinophils % 12 % Basophils % 1 % Neutrophils # 2.9 (1.3-7.7) k/uL Lymphocytes # 1.6 (1.0-4.8) k/uL Monocytes # 0.3 (0-1.0) k/uL Eosinophils # 0.7 (0-0.7) k/uL Basophils # 0.0 (0-0.2) k/uL Sodium 139 (137-145) mmol/L Potassium 3.8 (3.5-5.1) mmol/L Chloride 106 (98-107) mmol/L Carbon Dioxide 24 (22-30) mmol/L Anion Gap 9 mmol/L BUN 14 (7-17) mg/dL Creatinine 0.70 (0.52-1.04) mg/dL Est GFR (CKD-EPI)AfAm >90 (>60 ml/min/1.73 sqM) Est GFR (CKD-EPI)NonAf 79 (>60 ml/min/1.73 sqM) Glucose 143 H (74-99) mg/dL Calcium 9.7 (8.4-10.2) mg/dL Total Bilirubin 0.5 (0.2-1.3) mg/dL AST 18 (14-36) U/L ALT 13 (4-34) U/L Alkaline Phosphatase 105 (38-126) U/L Total Protein 6.5 (6.3-8.2) g/dL Albumin 3.6 (3.5-5.0) g/dL Disposition Clinical Impression: Difficulty in walking, Right leg pain Disposition: ADMITTED IP TO THIS [facility] Condition: Fair Time of Disposition: 19:11
--- NOTE | 2023-02-16 17:16 | XR ---
Lumbar spine. HISTORY: Pain without injury. COMPARISON: None. TECHNIQUE: 3 views lumbar spine were obtained. FINDINGS: There is dextrorotoscoliosis lumbar spine. There is no acute fracture or subluxation. There is moderate to marked degenerative disc disease throughout the lumbar region. There is marked calcification abdominal aorta without evidence of aneurysm. The osseous structures are diffusely osteopenic. There are probable significant degenerative changes of the facet joints in the mid lower lumbar spine. IMPRESSION: 1. Diffuse osteopenia. 2. Mild dextrorotoscoliosis lumbar spine. 3. Moderate to marked degenerative disease throughout the lumbar spine. 4. Facet degeneration in the mid lower lumbar spine. 5. No evidence of acute fracture.
--- NOTE | 2023-02-16 17:17 | XR ---
Right knee HISTORY: Pain without trauma COMPARISON: None. TECHNIQUE: 3 views the right knee were obtained. EYES: There are marked arteriovascular calcifications. There is mild narrowing of the medial and lateral compartment the knee consistent mild osteoarthritic change. The patella, compartment is intact. There is no joint effusion. There is no fracture or focal intraosseous abnormality. IMPRESSION: Mild osteoarthritic changes of the medial lateral compartment. There is no fracture, focal intraosseo us abnormality or joint effusion.
--- NOTE | 2023-02-16 17:19 | XR ---
EXAMINATION TYPE: XR Hip RT and AP Pelvis DATE OF EXAM: 02/16/2023 COMPARISON: NONE HISTORY: Pain without trauma TECHNIQUE: A single AP view of the pelvis is obtained. Two views of the right hip are obtained. FINDINGS: There is no acute fracture/dislocation evident in the pelvis. The hip and sacroiliac join ts appear symmetric and unremarkable. The overlying soft tissue appears unremarkable. Two views of right hip show no acute fracture or dislocation. No focal lytic or sclerotic lesion see n in the proximal right femur. The joint space is well-maintained but there is marginal hypertrophic spurring indicating mild osteoarthritic change. The overlying soft tissue is unremarkable. IMPRESSION: There is no acute fracture or dislocation in the pelvis or right hip. Mild osteoarthriti c change of the right hip. Note is made of a left hip prosthesis which appears anatomic.
[2023-02-16 17:21] LABS: Basophils % (A) 1 %; Eosinophils # (A) 0.7 k/uL (0-0.7); Eosinophils % (A) 12 %; HCT 40.4 % (34.0-46.0); HGB 13.3 gm/dL (11.4-16.0); Lymphocytes # (A) 1.6 k/uL (1.0-4.8); Lymphocytes % (A) 28 %; MCH 30.4 pg (25.0-35.0); MCHC 32.8 g/dL (31.0-37.0); MCV 92.8 fL (80.0-100.0); Mean Platelet Volume 8.5; Monocytes # (A) 0.3 k/uL (0-1.0); Monocytes % (A) 5 %; Neutrophils # (A) 2.9 k/uL (1.3-7.7); Neutrophils % (A) 52 %; Platelet Count 236 k/uL (150-450); RBC 4.36 m/uL (3.80-5.40); RDW 13.4 % (11.5-15.5); WBC 5.7 k/uL (3.8-10.6)
[2023-02-16 18:00] LABS: ALT 13 U/L (4-34); AST 18 U/L (14-36); African American GFR (CKD) >90 (>60 ml/min/1.73 sqM); Albumin 3.6 g/dL (3.5-5.0); Alkaline Phosphatase 105 U/L (38-126); Anion Gap 9 mmol/L; Blood Urea Nitrogen 14 mg/dL (7-17); Calcium 9.7 mg/dL (8.4-10.2); Carbon Dioxide 24 mmol/L (22-30); Chloride 106 mmol/L (98-107); Glucose 143 mg/dL (74-99); Non-African American GFR(CKD) 79 (>60 ml/min/1.73 sqM); Potassium 3.8 mmol/L (3.5-5.1); Sodium 139 mmol/L (137-145); Total Bilirubin 0.5 mg/dL (0.2-1.3); Total Protein 6.5 g/dL (6.3-8.2)
[2023-02-16] MEDS ORDERED: ONDANSETRON 4 MG/2 ML VIAL IVP PRN (19:05)
[2023-02-16] MEDS ORDERED: HYDROmorphone 1 MG/ML 1 ML SYRINGE IVP PRN (19:05)
[2023-02-16] MEDS ORDERED: IBUPROFEN 400 MG TAB PO PRN (19:05)
[2023-02-16] MEDS ORDERED: ACETAMINOPHEN TAB 325 MG TAB PO PRN (19:05)
[2023-02-16] MEDS ORDERED: NALOXONE 0.4 MG/ML 1 ML VIAL IV PRN (19:05)
[2023-02-16] MEDS ORDERED: HYDROcodone/APAP 5-325MG 1 EACH TAB PO PRN (19:05)
[2023-02-16 21:27] LABS: Appearance,Urine Clear (Clear); Bilirubin,Urine Negative (Negative); Blood,Urine Negative (Negative); Color,Urine Colorless; Glucose,Urine (UA) Negative (Negative); Ketones,Urine Negative (Negative); Leukocyte Esterase,Urine Negative (Negative); Nitrite,Urine Negative (Negative); PH, Urine 6.5 (5.0-8.0); Protein,Urine Negative (Negative); Specific Gravity,Urine 1.009 (1.001-1.035); Urobilinogen,Urine <2.0 mg/dL (<2.0)
[2023-02-16] MEDS ORDERED: ALBUTEROL NEBULIZED 2.5 MG/3 ML INHALATION PRN (23:58)
[2023-02-16] MEDS ORDERED: SYMBICORT 160-4.5 MCG INHALER INHALATION SCH (23:58)
[2023-02-17] MEDS: SYMBICORT 160-4.5 MCG INHALER INHALATION SCH ×3 (02:10→20:15)
[2023-02-17] MEDS: FAMOTIDINE 20 MG TAB PO SCH (08:23)
[2023-02-17] MEDS: VIT A,C & E-LUTEIN-MINERALS 1 EACH TAB PO SCH ×3 (08:23→20:10)
[2023-02-17] MEDS: LEVOTHYROXINE 100 MCG TAB PO SCH (08:23)
[2023-02-17] MEDS: SENNOSIDES-DOCUSATE SODIUM 1 EACH TAB PO SCH ×3 (08:23→20:10)
[2023-02-17] MEDS ORDERED: FAMOTIDINE 20 MG TAB PO SCH ×2 (09:00→11:45)
[2023-02-17] MEDS ORDERED: CHOLECALCIFEROL 25 MCG (1000 IU) TABLET PO SCH (09:00)
--- NOTE | 2023-02-17 09:51 | P.GSCN ---
History of Present Illness Consult date: 02/17/23 Reason for Consult: Right leg pain Requesting physician: Haroon Ng History of present illness: This is a pleasant 83-year-old female with a past medical history including hypertension, hyperlipidemia, hypothyroidism, COPD, TIA, osteoporosis, and varicose veins who presented to the emergency department for complaints of right lower extremity pain and concerns for leg feeling like it wants to give out and buckle beneath her. She states that she has had pain in her right lower extremity for the last several years. She's had a history of a left hip replacement. States that she ambulates with a walker otherwise does not walk much. Pain mostly in the knee however had a recent fall and she does have some discomfort now in her dunne with bruising. She denies any history of vascular disease other than varicose veins with history of vein stripping. She underwent x-ray of the lumbar spine, right knee, and right hip pelvis without any acute findings. Vascular surgery was consulted for right lower extremity pain. Patient currently states that she has some discomfort in the right dunne where she had fallen and is bruised. Otherwise she reports good range of motion of bilateral lower extremities. Denies any shortness of breath, chest pain, abdominal pain, fevers or chills. Review of Systems A 14 point review systems was completed all pertinent positives and negatives as stated in the HPI. Past Medical History Past Medical History: Asthma, COPD, CVA/TIA, GERD/Reflux, Hyperlipidemia, Thyroid Disorder Additional Past Medical History / Comment(s): hiatel hernia, hypotension, possible TIA,migraines, deviated septum, chronic constipation, past hx of low blood sugar, esophageal stricture with difficulty swallowing . 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, states polyp removed from uterus (got punctured uterus and intestine and had to have surgery to repair uterus and intestine) cataract, EGD, COLONOSCOPY, L hip Past Anesthesia/Blood Transfusion Reactions: Previous Problems w/ Anesthesia Additional Past Anesthesia/Blood Transfusion Reaction / Comm: STATES DIFFICULTY WAKING UP Past Psychological History: Depression Smoking Status: Never smoker Past Alcohol Use History: None Reported Past Drug Use History: None Reported - Past Family History Mother Family Medical History: Myocardial Infarction ([place]) Additional Family Medical History / Comment(s): Mother of a [place] at the age of 44 yrs. Father Family Medical History: Diabetes Mellitus Brother(s) Family Medical History: Cancer Additional Family Medical History / Comment(s): PROSTATE Medications and Allergies Home Medications Medication Instructions Recorded Confirmed Type Levothyroxine Sodium [Synthroid] 100 mcg PO MOTUWETHFR 09/10/13 02/16/23 History Aspirin 81 mg PO HS 05/23/21 02/16/23 History Budesonide/Formoterol Fumarate 2 puff INHALATION RT-BID 05/23/21 02/16/23 History [Symbicort 160-4.5 Mcg Inhaler] Cholecalciferol [Vitamin D3 (25 25 mcg PO DAILY 05/23/21 02/16/23 History Mcg = 1000 Iu)] Rosuvastatin Calcium [Crestor] 5 mg PO HS 05/23/21 02/16/23 History Sennosides/Docusate Sodium 2 tab PO BID 05/23/21 02/16/23 History [Senna-S 8.6-50 mg Tablet] Melatonin 3 mg PO HS 10/02/21 02/16/23 History Albuterol Sulfate [Ventolin HFA] 2 puff INHALATION RT-QID PRN 02/16/23 02/16/23 History Famotidine [Pepcid] 20 mg PO BID 02/16/23 02/16/23 History Vit C/E/Zn/Coppr/Lutein/Zeaxan 1 cap PO BID 02/16/23 02/16/23 History [Preservision Areds 2 Softgel] Allergies Allergy/AdvReac Type Severity Reaction Status Date / Time Iodinated Contrast Media Allergy FLUSHING, Verified 02/16/23 16:12 [Iodinated Contrast Media - ITCHING, IV Dye] felt warm Macrolide Antibiotics Allergy INTERACTS Verified 02/16/23 16:12 WITH ASTHMA MEDS mold Allergy asthma Verified 02/16/23 16:12 symptoms Sulfa (Sulfonamide Allergy FLUSHING , Verified 02/16/23 16:12 Antibiotics) ITCHING fungus Allergy ASTHMA Uncoded 07/11/22 09:13 SYMPTOMS SMOKE Allergy ASTHMA Uncoded 07/11/22 09:13 SYMPTOMS Surgical - Exam Vital Signs Temp Pulse Resp BP Pulse Ox 97.9 F 86 19 110/74 97 02/16/23 16:10 02/16/23 16:10 02/16/23 16:10 02/16/23 16:10 02/16/23 16:10 General appearance: The patient is alert, oriented, appears in no acute distress. HET: Head is normocephalic and atraumatic. Pupils are equal and reactive. Neck: Supple. Heart: Regular. Lungs: Equal expansion, normal respiratory effort. Abdomen: Soft, nontender, nondistended. Extremities: Normal skin color and turgor. Right dunne with ecchymosis. Bilateral palpable femoral pulses, right lower extremity palpable PT pulse, left lower extremity palpable PT and DP pulses. Lower extremities pink, warm to the touch with good capillary refill and sensory motor intact. Neurological: No focal deficits. Strength and sensation are grossly intact. Results - Labs 02/16/23 16:44 02/16/23 16:44 Abnormal Lab Results - Last 24 Hours (Table) 02/16/23 Range/Units 16:44 Glucose 143 H (74-99) mg/dL Diabetes panel 02/16/23 Range/Units 16:44 Sodium 139 (137-145) mmol/L Potassium 3.8 (3.5-5.1) mmol/L Chloride 106 (98-107) mmol/L Carbon Dioxide 24 (22-30) mmol/L BUN 14 (7-17) mg/dL Creatinine 0.70 (0.52-1.04) mg/dL Glucose 143 H (74-99) mg/dL Calcium 9.7 (8.4-10.2) mg/dL AST 18 (14-36) U/L ALT 13 (4-34) U/L Alkaline Phosphatase 105 (38-126) U/L Total Protein 6.5 (6.3-8.2) g/dL Albumin 3.6 (3.5-5.0) g/dL Calcium panel 02/16/23 Range/Units 16:44 Calcium 9.7 (8.4-10.2) mg/dL Albumin 3.6 (3.5-5.0) g/dL Pituitary panel 02/16/23 Range/Units 16:44 Sodium 139 (137-145) mmol/L Potassium 3.8 (3.5-5.1) mmol/L Chloride 106 (98-107) mmol/L Carbon Dioxide 24 (22-30) mmol/L BUN 14 (7-17) mg/dL Creatinine 0.70 (0.52-1.04) mg/dL Glucose 143 H (74-99) mg/dL Calcium 9.7 (8.4-10.2) mg/dL Adrenal panel 02/16/23 Range/Units 16:44 Sodium 139 (137-145) mmol/L Potassium 3.8 (3.5-5.1) mmol/L Chloride 106 (98-107) mmol/L Carbon Dioxide 24 (22-30) mmol/L BUN 14 (7-17) mg/dL Creatinine 0.70 (0.52-1.04) mg/dL Glucose 143 H (74-99) mg/dL Calcium 9.7 (8.4-10.2) mg/dL Total Bilirubin 0.5 (0.2-1.3) mg/dL AST 18 (14-36) U/L ALT 13 (4-34) U/L Alkaline Phosphatase 105 (38-126) U/L Total Protein 6.5 (6.3-8.2) g/dL Albumin 3.6 (3.5-5.0) g/dL - Imaging Comments: Lumbar spine x-ray reports diffuse osteopenia, mild dextrorotoscoliosis lumbar spine, moderate to marked degenerative disease throughout the lumbar spine, facet degeneration in the mid lower lumbar spine, no evidence of acute fracture. Right knee x-ray report mild osteoarthritic changes of the medial lateral compartment there is no fracture, focal intraosseous abnormality or joint effusi on. Hip/pelvis x-ray reports no acute fracture or dislocation in the pelvis or right hip. Mild osteo-arthritic change of the right hip. Note is made of a left hip prosthesis which appears anatomic. Lower extremity arterial duplex reviewed with normal ABIs and normal waveforms. Assessment and Plan Assessment: 1. Chronic right leg pain 2. Recent fall 3. Gait disturbance Plan: 1. Arterial duplex lower extremity ordered and reviewed with normal JOSE LUIS 2. Await recommendations from orthopedics 3. There is no indication for any vascular surgical intervention. Patient can follow-up with vascular surgery as needed. Thank you for this consultation, patient is cleared for discharge from vascular surgery. The impression and plan of care has been dictated as directed. I performed a history and examination of this patient, discussed the same with the dictator. I agree with the dictator's note ,documented as a scribe. Any additional findings or plans will be noted.
--- NOTE | 2023-02-17 10:29 | P.CNOR ---
History of Present Illness - [facility] Consult date: 02/17/23 Consult reason: joint pain (Right hip pain.) History of present illness: This is an 83-year-old female admitted through the emergency department yesterday with complaint of her right lower extremity "giving out" on her and severe right hip pain. The patient denies any recent fall or injury. She does have history of hemiarthroplasty of the left hip in 2019 after a fall and sustained a hip fracture. She states that since that time her right side has gotten progressively weak. She denies any numbness or tingling. She admits to pain radiating all the way down the leg. She states that she occasionally feels a catching in her right groin. She states that she is now using a walker secondary to her instability. She lives alone but does have family nearby. Past Medical History Past Medical History: Asthma, COPD, CVA/TIA, GERD/Reflux, Hyperlipidemia, Thyroid Disorder Additional Past Medical History / Comment(s): hiatel hernia, hypotension, possible TIA,migraines, deviated septum, chronic constipation, past hx of low blood sugar, esophageal stricture with difficulty swallowing . 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, states polyp removed from uterus (got punctured uterus and intestine and had to have surgery to repair uterus and intestine) cataract, EGD, COLONOSCOPY, L hip Past Anesthesia/Blood Transfusion Reactions: Previous Problems w/ Anesthesia Additional Past Anesthesia/Blood Transfusion Reaction / Comm: STATES DIFFICULTY WAKING UP Past Psychological History: Depression Smoking Status: Never smoker Past Alcohol Use History: None Reported Past Drug Use History: None Reported - Past Family History Mother Family Medical History: Myocardial Infarction (ND) Additional Family Medical History / Comment(s): Mother of a ND at the age of 44 yrs. Father Family Medical History: Diabetes Mellitus Brother(s) Family Medical History: Cancer Additional Family Medical History / Comment(s): PROSTATE Medications and Allergies Home Medications Medication Instructions Recorded Confirmed Type Levothyroxine Sodium [Synthroid] 100 mcg PO MOTUWETHFR 09/10/13 02/16/23 History Aspirin 81 mg PO HS 05/23/21 02/16/23 History Budesonide/Formoterol Fumarate 2 puff INHALATION RT-BID 05/23/21 02/16/23 History [Symbicort 160-4.5 Mcg Inhaler] Cholecalciferol [Vitamin D3 (25 25 mcg PO DAILY 05/23/21 02/16/23 History Mcg = 1000 Iu)] Rosuvastatin Calcium [Crestor] 5 mg PO HS 05/23/21 02/16/23 History Sennosides/Docusate Sodium 2 tab PO BID 05/23/21 02/16/23 History [Senna-S 8.6-50 mg Tablet] Melatonin 3 mg PO HS 10/02/21 02/16/23 History Albuterol Sulfate [Ventolin HFA] 2 puff INHALATION RT-QID PRN 02/16/23 02/16/23 History Famotidine [Pepcid] 20 mg PO BID 02/16/23 02/16/23 History Vit C/E/Zn/Coppr/Lutein/Zeaxan 1 cap PO BID 02/16/23 02/16/23 History [Preservision Areds 2 Softgel] Allergies Allergy/AdvReac Type Severity Reaction Status Date / Time Iodinated Contrast Media Allergy FLUSHING, Verified 02/16/23 16:12 [Iodinated Contrast Media - ITCHING, IV Dye] felt warm Macrolide Antibiotics Allergy INTERACTS Verified 02/16/23 16:12 WITH ASTHMA MEDS mold Allergy asthma Verified 02/16/23 16:12 symptoms Sulfa (Sulfonamide Allergy FLUSHING , Verified 02/16/23 16:12 Antibiotics) ITCHING fungus Allergy ASTHMA Uncoded 07/11/22 09:13 SYMPTOMS SMOKE Allergy ASTHMA Uncoded 07/11/22 09:13 SYMPTOMS Physical Examination This is a pleasant 83-year-old female in no acute distress. She is alert and oriented 3. Exam of the head neck reveal no obvious deformity. She has fairly good cervical spine motion without difficulty or pain. Exam of the upper extremities reveals no obvious deformity. She has fairly good shoulder, elbow, wrist and finger motion bilaterally. Neurovascular status to the upper extremities is intact. Exam of the thoracic and lumbar spine reveals obvious deformity with kyphosis and scoliosis. She is nontender with palpation about the thoracic or lumbar spine. Minimally tender over the right-sided paraspinal musculature. Exam of the lower extremities reveals no obvious shortening or rotational deformity. Some ecchymosis to the anterior dunne area on the right leg. Minimal swelling. She can lift each leg off the bed independently. She does have some groin pain with extreme external and internal rotation. Logroll does not produce pain. She has full knee motion without difficulty or pain. Minimal crepitus with knee motion. Full foot and ankle motion bilaterally. Neurovascular status to the lower extremities grossly intact. Results Reveal no obvious fracture. There is mild degenerative arthritis to the hip. Implants intact in the left hip without evidence of loosening. X-rays of the right knee reveal minimal arthritic changes. No obvious fracture or bony abnormality. X-rays of the lumbar spine reveal severe degenerative changes with scoliosis and kyphosis. Degenerative disc disease noted. Grade 2 spondylolisthesis noted at L5-S1. - Labs Labs: Abnormal Lab Results - Last 24 Hours (Table) 02/16/23 Range/Units 16:44 Glucose 143 H (74-99) mg/dL H & H 02/16/23 Range/Units 16:44 Hgb 13.3 (11.4-16.0) gm/dL Hct 40.4 (34.0-46.0) % Result Diagrams: 02/16/23 16:44 02/16/23 16:44 Assessment and Plan (1) Lumbar degenerative disc disease Current Visit: Yes Status: Acute Code(s): M51.36 - OTHER INTERVERTEBRAL DISC DEGENERATION, LUMBAR REGION SNOMED Code(s): 98868824 (2) Degenerative arthritis of lumbar spine Current Visit: Yes Status: Acute Code(s): M47.816 - SPONDYLOSIS W/O MYELOPATHY OR RADICULOPATHY, LUMBAR REGION SNOMED Code(s): 908312234 (3) Scoliosis Current Visit: Yes Status: Acute Code(s): M41.9 - SCOLIOSIS, UNSPECIFIED SNOMED Code(s): 179016915 (4) Kyphosis Current Visit: Yes Status: Acute Code(s): M40.209 - UNSPECIFIED KYPHOSIS, SITE UNSPECIFIED SNOMED Code(s): 209243817 (5) Difficulty in walking Current Visit: Yes Status: Acute Code(s): R26.2 - DIFFICULTY IN WALKING, NOT ELSEWHERE CLASSIFIED SNOMED Code(s): 413479977 (6) Right leg pain Current Visit: Yes Status: Acute Code(s): M79.604 - PAIN IN RIGHT LEG SNOMED Code(s): 906446321 Plan: The clinical and x-ray findings are discussed with the patient. There is minimal arthritis to the right hip. No obvious x-ray findings consistent with fracture. No recent fall or traumatic event. It is discussed with the patient that she potentially has lumbar contribution to her weakness and pain in her right leg. It is recommended that she be evaluated by pain management for possible epidural steroid injection and possible right hip injection. Pain management may recommend MRI prior to injections. Follow-up with orthopedics as needed.
--- NOTE | 2023-02-17 11:37 | US ---
EXAMINATION TYPE: US arterial LE single level DATE OF EXAM: 02/17/2023 11:30 AM CLINICAL INDICATION: Female, 83 years old with history of right leg pain, non-palpable DP pulse right ; Right hip pain. Hx left hip replacement. History of: Smoker: No Hypertension: No Diabetic: No Hyperlipidemia: No TIA/CVA: No Previous Vascular Surgery: No CAD: Yes Vascular Ulcers: No Claudication: No Gangrene: No Doppler Waveforms: Right: Multiphasic Left: Multiphasic Right Brachial Pressure: Deferred due to IV Left Brachial Pressure: 128 Ankle-Brachial Indices: Right: 1.1 Left: 1.1 Toe Brachial Indices: Right: 0.6 Left: 0.7 IMPRESSION: Normal bilateral ankle-brachial indices.
[2023-02-17] MEDS: NAPROXEN 250 MG TAB PO SCH ×3 (12:26→22:08)
[2023-02-17] MEDS: PSYLLIUM HUSK 100% 6 GM PACKET PO SCH (12:28)
--- NOTE | 2023-02-17 15:13 | P.PAINPG ---
Objective - Vital Signs Vital signs: Vital Signs Temp 97.5 F L 02/17/23 08:10 Pulse 66 02/17/23 08:10 Resp 16 02/17/23 08:10 BP 128/73 02/17/23 08:10 Pulse Ox 94 L 02/17/23 08:10 FiO2 Intake & Output 02/16/23 02/17/23 02/17/23 18:59 06:59 18:59 Intake Total 236 Balance 236 Weight 48.081 kg 48.081 kg Intake: Oral 236 Other: Voiding Method Bedside Commode # Voids 2 2 - Labs CBC & Chem 7: 02/16/23 16:44 02/16/23 16:44 Labs: Abnormal Lab Results - Last 24 Hours (Table) 02/16/23 Range/Units 16:44 Glucose 143 H (74-99) mg/dL PQRS Measure Charge Sheet Comment: HISTORY OF PRESENT ILLNESS: A 83 yr old inpatient female as a referral from [facility] presents today w severe R hip pain secondary to fall, OA for evaluation. Pt states pain level is provoked at 9/10 in intensity, constant, localized in the R hip, sharp/ stabbing in character without shooting pain. Pain is provoked by weight bearing activities. Pain is alleviated by medications ([place] 5/325mg, Tyl, ASA, Naproxen), repositioning and rest. PMH: OA, Asthma, COPD, CVA, GERD, LBBB, Hyperlipidemia, Hypothyroid Disorder, HH, OP PSH: Deviated Septum, Esophageal Stricture, Cholecystectomy, Heart Catheterization, L Hip Replacement, R Foot Surgery, Tubal Ligation, Sinus Surgery x3, Cataract Removal, EGD/ Colonoscopy SH: Negative x3 FH: Bro- Prostate CA. Fa- DM. Mo- [place]/ at age 42. All: See list Meds: See list REVIEW OF ORGAN SYSTEMS: CONSTITUTIONAL: No fevers or chills. No recent weight loss. NEUROLOGICAL: + numbness and tingling along the distal extremities. No seizure disorders or headaches. MUSCULOSKELETAL: + pain PSYCHIATRIC: Denies current depression or suicidal thoughts. Physical Examinations : Constitutional : Cooperative , not in acute distress . Neurologic : Cranial nerve II to XII intact. No focal neurological deficits. Psychiatric : alert & oriented x 3. Matching mood & appropriate affect. Judgment & insight intact. Musculoskeletal : Cervical Spine Motor strength in the deltoid and biceps: Normal right side. Normal Left side Motor strength biceps and the wrist extensors: Normal right side . Normal left side Motor strength in the triceps muscle: Normal right side. Normal left side Deep tendon reflexes: Normal at the biceps. Normal at Brachioradialis. Normal at triceps Vertebral body tenderness to deep palpation over Cervical facet loading test: positive bilaterally Spurling test: positive bilaterally Neck distraction test: positive bilaterally Chris sign: positive bilaterally Lumbar spine +R hip diffuse TTP Motor strength lower extremities ,thigh and legs 5/5 Right side , 5/5 Left side Deep tendon reflexes : Normal Knee Jerk. Normal Ankle Jerk Vertebral body tenderness over Gil Test positive Lumbar facet Loading Test: positive Right / positive Left Range of motion of the lumbar spine Flexion 30 degrees, extension 10 degrees Straight Leg Raise test: Left/ Right positive at degree Eriberto test: positive right / positive left. Severe tenderness over the Sacroiliac joint on the Right / Left sides Gaenslen test: positive bilaterally Seated flexion test: positive bilaterally. Sacral spine : Severe tenderness over the Sacroiliac joint: right side / left side Range of motion: Flexion of the lumbar spine <60 degrees Range of motion: Extension of the lumbar spine <20 degrees Gaenslen's Test positive Stephan's Test positive Eriberto test: positive right side / left side Thigh Thrust Test Sacral Thrust Test Imaging: X ray of R hip from 02/16/23 reviewed Assessment/ Plan : R Hip OA Recommendation of MRI without contrast of R hip, pending for 10:30 am 02/18/23. Risks, benefits discussed and patient verbalized understanding. Pt is on aspirin currently. Will discuss treatment options thereafter. All questions answered. I have spent greater than 30 minutes on patient care today. Dr Wheeler was available by phone for the evaluation of this patient. The time was used to review the medical records including relevant urine studies and Prescription history (MAPs), review of the available imaging, evaluation and examination of the patient, coordination of care with the medical staff and if applicable referring physicians, as well as creation of the medical record Pain Comment: Patient states only mild pain ("about a 1 or 2 right now") off and on to right lower extremity, patient declined pain medication at this time and encouraged to inform RN if she should like any pharmacological interventions or if pain increases. PQRS Narrative: Smoking Status Never smoker Blood Pressure [Left Arm] 128/73 Blood Pressure 125/77 Pain Intensity 3 Pain Scale Used Numeric (1 - 10) Scale Used Numeric (1 - 10) Home Medications: Ambulatory Orders Levothyroxine Sodium [Synthroid] 100 mcg PO MOTUWETHFR 09/10/13 Aspirin 81 mg PO HS 05/23/21 Budesonide/Formoterol Fumarate [Symbicort 160-4.5 Mcg Inhaler] 2 puff INHALATION RT-BID 05/23/21 Cholecalciferol [Vitamin D3 (25 Mcg = 1000 Iu)] 25 mcg PO DAILY 05/23/21 Rosuvastatin Calcium [Crestor] 5 mg PO HS 05/23/21 Sennosides/Docusate Sodium [Senna-S 8.6-50 mg Tablet] 2 tab PO BID 05/23/21 Melatonin 3 mg PO HS 10/02/21 Albuterol Sulfate [Ventolin HFA] 2 puff INHALATION RT-QID PRN 02/16/23 Famotidine [Pepcid] 20 mg PO BID 02/16/23 Vit C/E/Zn/Coppr/Lutein/Zeaxan [Preservision Areds 2 Softgel] 1 cap PO BID 02/16/23 Controlled Substance Measures - Controlled Substance Measures Is patient prescribed a controlled substance at discharge?: No
--- NOTE | 2023-02-17 18:33 | P.HPIM ---
History of Present Illness H&P Date: 02/17/23 Chief Complaint: Right hip giving way This is a pleasant 83-year-old patient, follows with Dr. Casas. Chronic stable medical conditions include asthma, GERD, hyperlipidemia, hypothyroid, hiatal hernia, chronic constipation takes laxatives, esophageal stricture and difficulty swallowing, osteoporosis, varicose veins,. Abdomen baseline does use a walker. Lives alone. Patient has left hip arthroplasty. Does walk uneven. Has started his noticing that she gets pain in the right hip and sometimes the right leg goes out. Pain is mainly localized to the right hip. Presented for the same. Appetite fair. No fever no chills. No recent trauma. Review of systems: GEN.: None EYES: None HEENT: None NECK: None RESPIRATORY: None CARDIOVASCULAR: None GASTROINTESTINAL: Chronic constipation GENITOURINARY: None MUSCULOSKELETAL: Joint pains LYMPHATICS: None HEMATOLOGICAL: None PSYCHIATRY: None NEUROLOGICAL: Uses a walker Social history: Lives alone. No smoking or alcohol. Uses a walker Physical examination: VITAL SIGNS: 97.5, 66, 16, 128/73, 94% room air GENERAL: BMI 21.4, reclining when awake comfortable. EYES: Pupils equal. Conjunctiva normal. HEENT: External appearance of nose and ears normal, oral cavity grossly normal. NECK: JVD not raised; masses not palpable. HEART: First and second heart sounds are normal; no edema. LUNGS: Respiratory rate normal; clear to auscultation. ABDOMEN: Soft, nontender, liver spleen not palpable, no masses palpable. PSYCH: Alert and oriented x3; mood and affect normal. MUSCULOSKELETAL:No Clubbing/cyanosis;muscles-grossly intact. Evidence of OA in several joints. Able to raise the right leg to about 30. Left leg 45. NEUROLOGICAL: Cranial nerves grossly intact; no facial asymmetry, power and sensation grossly intact. LYMPHATICS: No lymph nodes palpable in the axilla and neck INVESTIGATIONS, reviewed in the clinical context: White count 5.7 1113.3 platelets 236 sodium 139 potassium 3.8 creatinine 0.7 Lumbar spine: Diffuse osteopenia. Marked DJD. No fracture. Dextroscoliosis. Right hip x-ray. No fracture. Osteoarthritic changes. Assessment and plan: -Acute on chronic osteoarthritis of the right hip joint. Causing localized pain. Also sometimes the leg gives away. Patient does use a walker at baseline. MRI of the right hip. Orthopedics consulted. -Primary osteoarthritis multiple joints including lumbar spine. Naproxen 250; 3 times a day. -Moderate persistent asthma Symbicort 160/4.52+ twice a day. Albuterol when necessary -GERD Pepcid -Hypothyroid Synthroid -Hyperlipidemia Crestor 5 mg daily at bedtime -Chronic constipation Add Metamucil. Continue Senokot-S Care was discussed with the patient. MRI right hip. Follow with orthopedic. They have consulted pain management. Past Medical History Past Medical History: Asthma, COPD, CVA/TIA, GERD/Reflux, Hyperlipidemia, Thyroid Disorder Additional Past Medical History / Comment(s): hiatel hernia, hypotension, possible TIA,migraines, deviated septum, chronic constipation, past hx of low blood sugar, esophageal stricture with difficulty swallowing . 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, states polyp removed from uterus (got punctured uterus and intestine and had to have surgery to repair uterus and intestine) cataract, EGD, COLONOSCOPY, L hip Past Anesthesia/Blood Transfusion Reactions: Previous Problems w/ Anesthesia Additional Past Anesthesia/Blood Transfusion Reaction / Comment(s): STATES DIFFICULTY WAKING UP Past Psychological History: Depression Smoking Status: Never smoker Past Alcohol Use History: None Reported Past Drug Use History: None Reported - Past Family History Mother Family Medical History: Myocardial Infarction (AR) Additional Family Medical History / Comment(s): Mother of a AR at the age of 44 yrs. Father Family Medical History: Diabetes Mellitus Brother(s) Family Medical History: Cancer Additional Family Medical History / Comment(s): PROSTATE Medications and Allergies Home Medications Medication Instructions Recorded Confirmed Type Levothyroxine Sodium [Synthroid] 100 mcg PO MOTUWETHFR 09/10/13 02/16/23 History Aspirin 81 mg PO HS 05/23/21 02/16/23 History Budesonide/Formoterol Fumarate 2 puff INHALATION RT-BID 05/23/21 02/16/23 History [Symbicort 160-4.5 Mcg Inhaler] Cholecalciferol [Vitamin D3 (25 25 mcg PO DAILY 05/23/21 02/16/23 History Mcg = 1000 Iu)] Rosuvastatin Calcium [Crestor] 5 mg PO HS 05/23/21 02/16/23 History Sennosides/Docusate Sodium 2 tab PO BID 05/23/21 02/16/23 History [Senna-S 8.6-50 mg Tablet] Melatonin 3 mg PO HS 10/02/21 02/16/23 History Albuterol Sulfate [Ventolin HFA] 2 puff INHALATION RT-QID PRN 02/16/23 02/16/23 History Famotidine [Pepcid] 20 mg PO BID 02/16/23 02/16/23 History Vit C/E/Zn/Coppr/Lutein/Zeaxan 1 cap PO BID 02/16/23 02/16/23 History [Preservision Areds 2 Softgel] Allergies Allergy/AdvReac Type Severity Reaction Status Date / Time Iodinated Contrast Media Allergy FLUSHING, Verified 02/16/23 16:12 [Iodinated Contrast Media - ITCHING, IV Dye] felt warm Macrolide Antibiotics Allergy INTERACTS Verified 02/16/23 16:12 WITH ASTHMA MEDS mold Allergy asthma Verified 02/16/23 16:12 symptoms Sulfa (Sulfonamide Allergy FLUSHING , Verified 02/16/23 16:12 Antibiotics) ITCHING fungus Allergy ASTHMA Uncoded 07/11/22 09:13 SYMPTOMS SMOKE Allergy ASTHMA Uncoded 07/11/22 09:13 SYMPTOMS Physical Exam Vitals: Vital Signs Temp Pulse Pulse Resp BP BP Pulse Ox 02/17/23 08:10 97.5 F L 66 16 128/73 94 L 02/17/23 00:45 97.6 F 69 18 112/70 99 02/16/23 21:50 97.4 F L 66 20 121/80 95 02/16/23 21:07 65 16 125/77 97 02/16/23 19:20 70 16 115/78 97 02/16/23 16:10 97.9 F 86 19 110/74 97 Intake and Output 02/16/23 02/17/23 02/17/23 22:59 06:59 14:59 Intake Total 118 Balance 118 Intake: Oral 118 Other: Voiding Method Bedside Commode Bedside Commode # Voids 2 Weight 48.081 kg Results CBC & Chem 7: 02/16/23 16:44 02/16/23 16:44 Labs: Abnormal Lab Results - Last 24 Hours (Table) 02/16/23 Range/Units 16:44 Glucose 143 H (74-99) mg/dL
[2023-02-17] MEDS ORDERED: MELATONIN 3 MG TABLET PO SCH (21:00)
[2023-02-17] MEDS ORDERED: ASPIRIN 81 MG PO SCH (21:00)
[2023-02-17] MEDS ORDERED: ATORVASTATIN 10 MG TAB PO SCH (21:00)
[2023-02-18] MEDS: LEVOTHYROXINE 100 MCG TAB PO SCH (05:50)
[2023-02-18 07:57] VITALS: RESP 14
[2023-02-18] MEDS: PSYLLIUM HUSK 100% 6 GM PACKET PO SCH (09:10)
[2023-02-18] MEDS: FAMOTIDINE 20 MG TAB PO SCH (09:10)
[2023-02-18] MEDS: VIT A,C & E-LUTEIN-MINERALS 1 EACH TAB PO SCH (09:11)
[2023-02-18] MEDS: SENNOSIDES-DOCUSATE SODIUM 1 EACH TAB PO SCH (09:11)
[2023-02-18] MEDS: NAPROXEN 250 MG TAB PO SCH ×2 (09:12→16:27)
[2023-02-18] MEDS: SYMBICORT 160-4.5 MCG INHALER INHALATION SCH (09:40)
[2023-02-18 13:59] VITALS: BP 120/75; PULSE 75; TEMP 98.2
--- NOTE | 2023-02-18 17:27 | P.DS ---
Providers Date of admission: 02/16/23 18:15 Expected date of discharge: 02/18/23 Attending physician: Kane Jose Consults: 02/16/23 19:05 Consult Physician Urgent Consulting Provider: Ana Lima Consult Reason/Comments: right hip pain Do you want consulting provider notified?: Yes, Notify in am 02/16/23 19:09 Consult Physician Urgent Consulting Provider: Sharifa Cates Consult Reason/Comments: R leg pain Do you want consulting provider notified?: Yes, Notify in am Primary care physician: [facility] Course: Chief Complaint: Right hip giving way This is a pleasant 83-year-old patient, follows with Dr. Casas. Chronic stable medical conditions include asthma, GERD, hyperlipidemia, hypothyroid, hiatal hernia, chronic constipation takes laxatives, esophageal stricture and difficulty swallowing, osteoporosis, varicose veins,. Abdomen baseline does use a walker. Lives alone. Patient has left hip arthroplasty. Does walk uneven. Has started his noticing that she gets pain in the right hip and sometimes the right leg goes out. Pain is mainly localized to the right hip. Presented for the same. Appetite fair. No fever no chills. No recent trauma. On February 18: Right hip pain is better. Discussed with patient. She will go home. She'll follow-up with orthopedics outpatient. MRI of the right hip is pending. No further intervention per orthopedics at this point. Patient will have to be off aspirin for 5 days for pain procedure injection. Relevant the patient follow up outpatient with pain management 2. Did talk at length with the patient about eating assisted living/more help at home. She will talk to her son's about that. Social history: Lives alone. No smoking or alcohol. Uses a walker Physical examination: VITAL SIGNS: 98.2, 35, 14, 120/75, 95% room air GENERAL: Sitting of age of the bed, comfortable EYES: Pupils equal. Conjunctiva normal. HEENT: External appearance of nose and ears normal, oral cavity grossly normal. NECK: JVD not raised; masses not palpable. HEART: First and second heart sounds are normal; no edema. LUNGS: Respiratory rate normal; clear to auscultation. ABDOMEN: Soft, nontender, liver spleen not palpable, no masses palpable. PSYCH: Alert and oriented x3; mood and affect normal. MUSCULOSKELETAL:No Clubbing/cyanosis;muscles-grossly intact. Evidence of OA in several joints. Able to raise the right leg to about 30. Left leg 45. INVESTIGATIONS, reviewed in the clinical context: It MRI: Results pending White count 5.7 1113.3 platelets 236 sodium 139 potassium 3.8 creatinine 0.7 Lumbar spine: Diffuse osteopenia. Marked DJD. No fracture. Dextroscoliosis. Right hip x-ray. No fracture. Osteoarthritic changes. Assessment and plan: -Acute on chronic osteoarthritis of the right hip joint. Causing localized pain. Also sometimes the leg gives away.: Better Naproxen 250 mg twice a day Patient does use a walker at baseline. MRI of the right hip.-Results pending Follow-up with Dr. Bess and pain management outpatient -Primary osteoarthritis multiple joints including lumbar spine. Naproxen 250; twice a day -Moderate persistent asthma Symbicort 160/4.52+ twice a day. Albuterol when necessary -GERD Pepcid -Hypothyroid Synthroid -Hyperlipidemia Crestor 5 mg daily at bedtime -Chronic constipation Metamucil. Continue Senokot-S Disposition: Home Plan - Discharge Summary New Discharge Prescriptions: New Psyllium Husk 100% [Metamucil Packet] 6 gm PO DAILY #30 packet Naproxen [Naprosyn] 250 mg PO BID #28 tab Acetaminophen Tab [Tylenol] 650 mg PO Q6HR PRN tab PRN Reason: Mild Pain Or Fever > 100.5 Continue Levothyroxine Sodium [Synthroid] 100 mcg PO MOTUWETHFR Budesonide/Formoterol Fumarate [Symbicort 160-4.5 Mcg Inhaler] 2 puff INHALATION RT-BID Aspirin 81 mg PO HS Vit C/E/Zn/Coppr/Lutein/Zeaxan [Preservision Areds 2 Softgel] 1 cap PO BID Albuterol Sulfate [Ventolin HFA] 2 puff INHALATION RT-QID PRN PRN Reason: Shortness Of Breath Famotidine [Pepcid] 20 mg PO BID Rosuvastatin Calcium [Crestor] 5 mg PO HS Sennosides/Docusate Sodium [Senna-S 8.6-50 mg Tablet] 2 tab PO BID Cholecalciferol [Vitamin D3 (25 Mcg = 1000 Iu)] 25 mcg PO DAILY Melatonin 3 mg PO HS Discharge Medication List Levothyroxine Sodium [Synthroid] 100 mcg PO MOTUWETHFR 09/10/13 [History] Aspirin 81 mg PO HS 05/23/21 [History] Budesonide/Formoterol Fumarate [Symbicort 160-4.5 Mcg Inhaler] 2 puff INHALATION RT-BID 05/23/21 [History] Cholecalciferol [Vitamin D3 (25 Mcg = 1000 Iu)] 25 mcg PO DAILY 05/23/21 [History] Rosuvastatin Calcium [Crestor] 5 mg PO HS 05/23/21 [History] Sennosides/Docusate Sodium [Senna-S 8.6-50 mg Tablet] 2 tab PO BID 05/23/21 [History] Melatonin 3 mg PO HS 10/02/21 [History] Albuterol Sulfate [Ventolin HFA] 2 puff INHALATION RT-QID PRN 02/16/23 [History] Famotidine [Pepcid] 20 mg PO BID 02/16/23 [History] Vit C/E/Zn/Coppr/Lutein/Zeaxan [Preservision Areds 2 Softgel] 1 cap PO BID 02/16/23 [History] Acetaminophen Tab [Tylenol] 650 mg PO Q6HR PRN tab 02/18/23 [Rx] Naproxen [Naprosyn] 250 mg PO BID #28 tab 02/18/23 [Rx] Psyllium Husk 100% [Metamucil Packet] 6 gm PO DAILY #30 packet 02/18/23 [Rx] Follow up Appointment(s)/Referral(s): Jace Casas DO [Primary Care Provider] - 1-2 days Reinier Bess MD [Medical Doctor] - 2 Weeks
--- NOTE | 2023-02-19 11:49 | MR ---
EXAMINATION TYPE: MR hip RT wo con DATE OF EXAM: 02/18/2023 COMPARISON: Radiograph 02/16/2023 HISTORY: 83-year-old female Inability to ambulate, Rt hip pain TECHNIQUE: Multiplanar, multisequence images of the right hip were obtained without IV contrast. FINDINGS: There is severe degenerative change of the right hip with complete loss of cartilage and joint space especially along the superolateral weightbearing aspect of the hip joint. There is marginal spurring and extensive subchondral marrow edema on both sides of the joint. However, the edema is more extensive on the femoral side of the joint and there are couple focal area s of articular surface flattening with low T1-weighted signal, for example, along the anterior weight bearing aspect measuring 1.1 x 1.1 cm and also along the lateral weightbearing aspect measuring 1.0 x 0.8 cm. Edema extends throughout the femoral head and femoral neck. On coronal series 301 image 8, there is l ow T1-weighted signal along the transcervical inferior femoral neck margin. There is a moderate to large right hip joint effusion, likely reactive. Degenerative change at the bilateral SI joints. Some reactive subarticular marrow edema on the right. There is sigmoid diverticulosis. 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 Extensive susceptibility artifact of the left related to the patient's left hip hemiarthroplasty. IMPRESSION: 1. Moderate to large joint effusion with moderate to severe right hip OA, particularly along the supe rolateral weightbearing aspect of the joint. Extensive marrow edema throughout the right femoral head and femoral neck may reflect early changes of rapidly destructive OA or an acute exacerbation of OA. 2. Alternatively, the extensive edema could be secondary to a couple subtle subchondral insufficiency fractures measuring 1.1 x 1.1 cm along the anterior weightbearing aspect of the femoral head and 1.0 x 0.8 cm along the lateral weightbearing aspect of the femoral head. 3. There is also some focal low signal intensity along the transcervical inferior femoral neck margin . This could be due to marrow heterogeneity. A developing incomplete insufficiency fracture here is n ot excluded. No displaced fractures are seen. 4. Prominent metal artifact relating to the patient's left hip hemiarthroplasty.
--- NOTE | 2023-02-19 15:12 | P.PN ---
Subjective Progress Note Date: 02/18/23 Patient is examined bedside this afternoon with Dr. Bess. Right hip MRI was obtained earlier today. Per her nurse and internal medicine team, patient is feeling better and like to return home this evening. She is able to ambulate with a walker. She is taking naproxen for pain. Objective - Vital Signs Vital signs: Vital Signs Temp 98.2 F 02/18/23 13:57 Pulse 75 02/18/23 13:57 Resp 14 02/18/23 13:57 BP 120/75 02/18/23 13:57 Pulse Ox 95 02/18/23 13:57 FiO2 Intake & Output 02/18/23 02/19/23 02/19/23 18:59 06:59 18:59 Other: # Voids 2 - Exam On examination, patient is sitting up in bed in no apparent distress. She is alert and oriented 3. A focused examination of the right hip was conducted. There is moderate pain with attempts at passive range of motion of the right hip. Right lower extremity is warm and well-perfused. Motor and sensory is grossly intact of the right lower extremity. - Labs CBC & Chem 7: 02/16/23 16:44 02/16/23 16:44 - Imaging and Cardiology Right hip MRI 02/18/23- Radiology report not yet available. Although review of images show bone marrow edema of the right femoral head and a large joint effusion, suggestive of sever right hip OA. No acute fractures identified. Assessment and Plan Assessment: Severe right hip OA Right hip pain History left hip hemiarthroplasty for femoral neck fracture Plan: - Patient is examined this afternoon with Dr. Bess. Discussed clinical and imaging findings with the patient. We discussed her right hip pain is most likely related to severe arthritis. We discussed treatment options including observation, oral/topical NSAIDs, cortisone injection, activity modification. We discussed the surgical treatment wound be a DIGNA. Patient is not interested in surgical intervention. Patient is clear for discharge form an orthopedic standpoint. She was instructed to ambulate with a walker for balance. We will discuss setting up a right hip cortisone injection in the office on an outpatient basis.
== END 2023-02-18 18:25 | disposition home or self-care (01) ==
LOC: EC 16:02 → 6NMEDSUR 18:15
PROVIDERS: ADMIT Hospitalist; ATTEND Hospitalist
DX: M15.9 Polyosteoarthritis, unspecified (principal); R26.2 Difficulty in walking, not elsewhere classified; K21.9 Gastro-esophageal reflux disease without esophagitis; E78.5 Hyperlipidemia, unspecified; E06.3 Autoimmune thyroiditis; J42 Unspecified chronic bronchitis; J45.40 Moderate persistent asthma, uncomplicated; K59.09 Other constipation; F32.A Depression, unspecified; Z86.73 Personal history of transient ischemic attack (TIA), and cerebral infarction without residual deficits; Z91.81 History of falling; Z96.642 Presence of left artificial hip joint; Z79.890 Hormone replacement therapy; Z79.82 Long term (current) use of aspirin; Z79.899 Other long term (current) drug therapy; Z79.51 Long term (current) use of inhaled steroids; Z88.2 Allergy status to sulfonamides; Z88.1 Allergy status to other antibiotic agents; M51.36 Other intervertebral disc degeneration, lumbar region; M41.9 Scoliosis, unspecified
CPT/HCPCS: 99285; 36415; 94640 ×2; 97161; 97166; 80053; 85025; 81003; 72100; 73502; 73562; 93922; 73721; G0378 ×3

== ENCOUNTER 2023-02-27 12:23 | Emergency (ER) | payer MEDICARE ==
--- NOTE | 2023-02-27 13:04 | ED ---
General Adult HPI - General Chief complaint: Neuro Symptoms/Deficit Stated complaint: numbnes Time Seen by Provider: 02/27/23 12:30 Source: patient, EMS, RN notes reviewed, old records reviewed Mode of arrival: EMS Limitations: no limitations - History of Present Illness Initial comments: This is an 83-year-old female who presents emergency Department complaining that she was lying on her side in bed she rolled her pickup and realized both of her legs were tingling from the hips to the feet and it slowly improved to the point where she just had tingling in both of her feet. Patient states they were always able to move and it was no pain. Patient denies back pain but she states she has severe osteoporosis. Patient denies any abdominal pain. Patient states she does have chronic hip problems. Patient denies any fever chills per patient denies any other symptoms at this time. Patient states she sees Dr. Dee for peripheral artery disease. - Related Data Home Medications Medication Instructions Recorded Confirmed Levothyroxine Sodium [Synthroid] 100 mcg PO MOTUWETHFR 09/10/13 02/27/23 Aspirin 81 mg PO HS 05/23/21 02/27/23 Budesonide/Formoterol Fumarate 2 puff INHALATION RT-BID 05/23/21 02/27/23 [Symbicort 160-4.5 Mcg Inhaler] Cholecalciferol [Vitamin D3 (25 25 mcg PO DAILY 05/23/21 02/27/23 Mcg = 1000 Iu)] Rosuvastatin Calcium [Crestor] 5 mg PO HS 05/23/21 02/27/23 Sennosides/Docusate Sodium 2 tab PO BID 05/23/21 02/27/23 [Senna-S 8.6-50 mg Tablet] Melatonin 3 mg PO HS 10/02/21 02/27/23 Albuterol Sulfate [Ventolin HFA] 2 puff INHALATION RT-QID PRN 02/16/23 02/27/23 Famotidine [Pepcid] 20 mg PO BID 02/16/23 02/27/23 Vit C/E/Zn/Coppr/Lutein/Zeaxan 1 cap PO BID 02/16/23 02/27/23 [Preservision Areds 2 Softgel] Naproxen [Naprosyn] 250 mg PO BID PRN 02/27/23 02/27/23 Previous Rx's Medication Instructions Recorded Acetaminophen Tab [Tylenol] 650 mg PO Q6HR PRN tab 02/18/23 Psyllium Husk 100% [Metamucil 6 gm PO DAILY #30 packet 02/18/23 Packet] Allergies Allergy/AdvReac Type Severity Reaction Status Date / Time Iodinated Contrast Media Allergy FLUSHING, Verified 02/27/23 14:33 [Iodinated Contrast Media - ITCHING, IV Dye] felt warm Macrolide Antibiotics Allergy INTERACTS Verified 02/27/23 14:33 WITH ASTHMA MEDS mold Allergy asthma Verified 02/27/23 14:33 symptoms Sulfa (Sulfonamide Allergy FLUSHING , Verified 02/27/23 14:33 Antibiotics) ITCHING fungus Allergy ASTHMA Uncoded 02/27/23 12:33 SYMPTOMS SMOKE Allergy ASTHMA Uncoded 02/27/23 12:33 SYMPTOMS Review of Systems ROS Statement: Those systems with pertinent positive or pertinent negative responses have been documented in the HPI. ROS Other: All systems not noted in ROS Statement are negative. Past Medical History Past Medical History: Asthma, COPD, CVA/TIA, GERD/Reflux, Hyperlipidemia, Thyroid Disorder Additional Past Medical History / Comment(s): hiatel hernia, hypotension, possible TIA,migraines, deviated septum, chronic constipation, past hx of low blood sugar, esophageal stricture with difficulty swallowing . 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, states polyp removed from uterus (got punctured uterus and intestine and had to have surgery to repair uterus and intestine) cataract, EGD, COLONOSCOPY, L hip Past Anesthesia/Blood Transfusion Reactions: Previous Problems w/ Anesthesia Additional Past Anesthesia/Blood Transfusion Reaction / Comment(s): STATES DIFFICULTY WAKING UP Past Psychological History: Depression Smoking Status: Never smoker Past Alcohol Use History: None Reported Past Drug Use History: None Reported - Past Family History Mother Family Medical History: Myocardial Infarction (KS) Additional Family Medical History / Comment(s): Mother of a [place] at the age of 44 yrs. Father Family Medical History: Diabetes Mellitus Brother(s) Family Medical History: Cancer Additional Family Medical History / Comment(s): PROSTATE General Exam - General Exam Comments Initial Comments: GENERAL: Patient is well-developed and well-nourished. Patient is nontoxic and well- hydrated and is in no acute distress. ENT: Neck is soft and supple. No significant lymphadenopathy is noted. Oropharynx is clear. Moist mucous membranes. Neck has full range of motion without eliciting any pain. EYES: The sclera were anicteric and conjunctiva were pink and moist. Extraocular movements were intact and pupils were equal round and reactive to light. Eyelids were unremarkable. PULMONARY: Unlabored respirations. Good breath sounds bilaterally. No audible rales rhonchi or wheezing was noted. CARDIOVASCULAR: There is a regular rate and rhythm without any murmurs gallops or rubs. ABDOMEN: Soft and nontender with normal bowel sounds. No palpable organomegaly was noted. There is no palpable pulsatile mass. SKIN: Skin is clear with no lesions or rashes and otherwise unremarkable. NEUROLOGIC: Patient is alert and oriented x3. Cranial nerves II through XII are grossly intact. Patient has normal motor movement of her feet knees and hips. Patient states that she has some tingling in the lower legs and feet. She does have flight touch sensation which is normal Normal speech, volume and content. Symmetrical smile. MUSCULOSKELETAL: Normal extremities with adequate strength and full range of motion. No lower extremity swelling or edema. No calf tenderness. Patient has good posterior tibial and dorsalis pedis pulse on the left and on the right she has a good posterior tibial but no dorsalis pedis pulse LYMPHATICS: No significant lymphadenopathy is noted PSYCHIATRIC: Normal psychiatric evaluation. Limitations: no limitations Course Vital Signs 02/27/23 02/27/23 12:28 15:46 Temperature 97.1 F L Pulse Rate 62 71 Respiratory 18 18 Rate Blood Pressure 130/84 113/74 O2 Sat by Pulse 100 96 Oximetry Medical Decision Making - Medical Decision Making EKG is interpreted by myself. EKG shows a sinus rhythm at 65 bpm MS interval 270 QRS on 13 QT interval 420 QTC is 432. Patient's EKG shows no ST segment elevation or depression. Was pt. sent in by a medical professional or institution (GINNA Umanzor, COIL REWIND MACHINE OPERATOR, urgent care, hospital, or assisted...) When possible be specific @ -No Did you speak to anyone other than the patient for history (EMS, parent, family, police, friend...)? What history was obtained from this source @ -No Did you review nursing and triage notes (agree or disagree)? Why? @ -I reviewed and agree with nursing and triage notes Were old charts reviewed (outside hosp., previous admission, EMS record, old EKG, old radiological studies, urgent care reports/EKG's, assisted records)? Report findings @ -I reviewed prior charts of prior labwork on this patient Differential Diagnosis (chest pain, altered mental status, abdominal pain women, abdominal pain men, vaginal bleeding, weakness, fever, dyspnea, syncope, headache, dizziness, GI bleed, back pain, seizure, CVA, palpatations, mental health, musculoskeletal)? @ -Paresthesias, arterial insufficiency, arterial occlusion, radicular back pain this is not all inclusive list EKG interpreted by me (3pts min.). @ -As above X-rays interpreted by me (1pt min.). @ -Lumbosacral spine shows no acute abnormality. KUB shows significant constipation. CT interpreted by me (1pt min.). @ -None done U/S interpreted by me (1pt. min.). @ -None done What testing was considered but not performed or refused? (CT, X-rays, U/S, labs)? Why? @ -None What meds were considered but not given or refused? Why? @ -None Did you discuss the management of the patient with other professionals (professionals i.e. GINNA Umanzor, COIL REWIND MACHINE OPERATOR, lab, RT, psych nurse, high school social studies teacher, wool mixer, teacher, professional security officer, watch case polisher)? Give summary @ -No Was smoking cessation discussed for >3mins.? @ -No Was critical care preformed (if so, how long)? @ -No Were there social determinants of health that impacted care today? How? (Homelessness, low income, unemployed, alcoholism, drug addiction, transportation, low edu. Level, literacy, decrease access to med. care, [facility], rehab)? @ -No Was there de-escalation of care discussed even if they declined (Discuss DNR or withdrawal of care, Hospice)? DNR status @ -No What co-morbidities impacted this encounter? (DM, HTN, Smoking, COPD, CAD, Cancer, CVA, ARF, Chemo, Hep., AIDS, mental health diagnosis, sleep apnea, morbi d obesity)? @ -None Was patient admitted / discharged? Hospital course, mention meds given and route, prescriptions, significant lab abnormalities, going to OR and other pertinent info. @ -Since sensation came back to normal while in the emergency department she was able to ambulate without problem. Patient's KUB didn't show significant co nstipation and patient did not want an enema so we gave her legs citrate to take Bottle today and have the bottle tomorrow if she does not have good results. Undiagnosed new problem with uncertain prognosis? @ -No Drug Therapy requiring intensive monitoring for toxicity (Heparin, Nitro, Insulin, Cardizem)? @ -No Were any procedures done? @ -No Diagnosis/symptom? @ -Paresthesias Acute, or Chronic, or Acute on Chronic? @ -Acute on chronic Uncomplicated (without systemic symptoms) or Complicated (systemic symptoms)? @ -Uncomplicated Side effects of treatment? @ -No Exacerbation, Progression, or Severe Exacerbation? @ -No Poses a threat to life or bodily function? How? (Chest pain, [place], [place], pneumonia, PE, COPD, DKA, ARF, appy, cholecystitis, CVA, Diverticulitis, Homicidal, Suicidal, threat to staff... and all critical care pts) @ -No Diagnosis/symptom? @ -Arterial insufficiency Acute, or Chronic, or Acute on Chronic? @ -Chronic Uncomplicated (without systemic symptoms) or Complicated (systemic symptoms)? @ -Uncomplicated Side effects of treatment? @ -none Exacerbation, Progression, or Severe Exacerbation] @ -no Poses a threat to life or bodily function? @ -no Diagnosis/symptom? @ -Constipation Acute, or Chronic, or Acute on Chronic? @ -Acute Uncomplicated (without systemic symptoms) or Complicated (systemic symptoms)? @ -Uncomplicated Side effects of treatment? @ -none Exacerbation, Progression, or Severe Exacerbation] @ -no Poses a threat to life or bodily function? @ -no - Lab Data Result diagrams: 02/27/23 13:46 02/27/23 14:28 Lab Results 02/27/23 02/27/23 Range/Units 13:46 14:28 WBC 5.4 (3.8-10.6) k/uL RBC 4.31 (3.80-5.40) m/uL Hgb 13.5 (11.4-16.0) gm/dL Hct 40.5 (34.0-46.0) % MCV 93.9 (80.0-100.0) fL MCH 31.4 (25.0-35.0) pg MCHC 33.5 (31.0-37.0) g/dL RDW 13.5 (11.5-15.5) % Plt Count 210 (150-450) k/uL MPV 7.6 Neutrophils % 45 % Lymphocytes % 27 % Monocytes % 7 % Eosinophils % 19 % Basophils % 1 % Neutrophils # 2.5 (1.3-7.7) k/uL Lymphocytes # 1.4 (1.0-4.8) k/uL Monocytes # 0.4 (0-1.0) k/uL Eosinophils # 1.0 H (0-0.7) k/uL Basophils # 0.0 (0-0.2) k/uL Sodium 140 (137-145) mmol/L Potassium 4.2 (3.5-5.1) mmol/L Chloride 111 H (98-107) mmol/L Carbon Dioxide 22 (22-30) mmol/L Anion Gap 7 mmol/L BUN 12 (7-17) mg/dL Creatinine 0.74 (0.52-1.04) mg/dL Est GFR (CKD-EPI)AfAm 86 (>60 ml/min/1.73 sqM) Est GFR (CKD-EPI)NonAf 75 (>60 ml/min/1.73 sqM) Glucose 103 H (74-99) mg/dL Calcium 9.4 (8.4-10.2) mg/dL Total Bilirubin 0.5 (0.2-1.3) mg/dL AST 18 (14-36) U/L ALT 12 (4-34) U/L Alkaline Phosphatase 112 (38-126) U/L Total Protein 6.4 (6.3-8.2) g/dL Albumin 3.6 (3.5-5.0) g/dL Disposition Clinical Impression: Arterial insufficiency, Constipation, Paresthesias Disposition: HOME SELF-CARE Condition: Good Instructions (If sedation given, give patient instructions): Constipation (ED), High Fiber Diet (ED), Paresthesia (ED) Additional Instructions: Patient should take half a bottle of mag citrate today when she gets home if she does not get good results she should take the other half the bottle tomorrow morning Is patient prescribed a controlled substance at d/c from ED?: No Referrals: Jace Casas DO [Primary Care Provider] - 1-2 days Time of Disposition: 16:37
[2023-02-27 13:54] LABS: Basophils % (A) 1 %; Eosinophils % (A) 19 %; HCT 40.5 % (34.0-46.0); HGB 13.5 gm/dL (11.4-16.0); Lymphocytes # (A) 1.4 k/uL (1.0-4.8); Lymphocytes % (A) 27 %; MCH 31.4 pg (25.0-35.0); MCHC 33.5 g/dL (31.0-37.0); MCV 93.9 fL (80.0-100.0); Mean Platelet Volume 7.6; Monocytes # (A) 0.4 k/uL (0-1.0); Monocytes % (A) 7 %; Neutrophils # (A) 2.5 k/uL (1.3-7.7); Neutrophils % (A) 45 %; Platelet Count 210 k/uL (150-450); RBC 4.31 m/uL (3.80-5.40); RDW 13.5 % (11.5-15.5); WBC 5.4 k/uL (3.8-10.6)
--- NOTE | 2023-02-27 14:00 | XR ---
EXAMINATION TYPE: XR lumbosacral spine min 4V DATE OF EXAM: 02/27/2023 COMPARISON: 02/16/2023 HISTORY: Numbness in legs TECHNIQUE: five-view lumbar spine FINDINGS: There are 5 lumbar-type vertebral bodies. Pedicles are intact. Scoliosis is present. Facet degenerative changes are present. No spondylolytic defects are evident. Degenerative loss of disc hei ght is evident throughout the lumbar spine. Findings appear stable over the interval. IMPRESSION: 1. Scoliosis. 2. Degenerative disc changes. 3. No acute osseous abnormality radiographically apparent
[2023-02-27 14:43] LABS: ALT 12 U/L (4-34); AST 18 U/L (14-36); African American GFR (CKD) 86 (>60 ml/min/1.73 sqM); Albumin 3.6 g/dL (3.5-5.0); Alkaline Phosphatase 112 U/L (38-126); Anion Gap 7 mmol/L; Blood Urea Nitrogen 12 mg/dL (7-17); Calcium 9.4 mg/dL (8.4-10.2); Carbon Dioxide 22 mmol/L (22-30); Chloride 111 mmol/L (98-107); Glucose 103 mg/dL (74-99); Non-African American GFR(CKD) 75 (>60 ml/min/1.73 sqM); Potassium 4.2 mmol/L (3.5-5.1); Sodium 140 mmol/L (137-145); Total Bilirubin 0.5 mg/dL (0.2-1.3); Total Protein 6.4 g/dL (6.3-8.2)
--- NOTE | 2023-02-27 16:34 | XR ---
EXAMINATION TYPE: XR KUB DATE OF EXAM: 02/27/2023 COMPARISON: 11/18/2020 INDICATION: Abdomen pain TECHNIQUE: Single view abdomen upright view FINDINGS: There is moderate fecal retention greater within the ascending colon and transverse colon regions. Ps oas margins are normal. Scoliosis within the thoracolumbar spine. Left hip prosthesis is present. No organomegaly is present. No suspicious air-fluid levels or differential air-fluid levels are present. No free air is present. IMPRESSION: 1. Mild fecal retention
[2023-02-27] MEDS ORDERED: MAGNESIUM CITRATE 296 ML BOTTLE PO ONE (16:37)
[2023-02-27 17:09] VITALS: BP 122/72; PULSE 60; RESP 16; TEMP 97.9
== END 2023-02-27 16:51 | disposition home or self-care (01) ==
LOC: EC 12:23
DX: I77.1 Stricture of artery (principal); K59.00 Constipation, unspecified; E78.5 Hyperlipidemia, unspecified; J44.89 Other specified chronic obstructive pulmonary disease; F32.A Depression, unspecified; Z79.51 Long term (current) use of inhaled steroids; Z79.899 Other long term (current) drug therapy; Z88.2 Allergy status to sulfonamides; Z88.8 Allergy status to other drugs, medicaments and biological substances; Z90.49 Acquired absence of other specified parts of digestive tract
CPT/HCPCS: 36415; 72110; 74018; 80053; 85025; 93005; 99285

== ENCOUNTER 2023-03-15 08:18 | Emergency (ER) | payer MEDICARE ==
--- NOTE | 2023-03-15 08:46 | ED ---
General Adult HPI - General Chief complaint: Abdominal Pain Stated complaint: bowl issues Time Seen by Provider: 03/15/23 08:25 Source: patient, RN notes reviewed Mode of arrival: wheelchair Limitations: no limitations - History of Present Illness Initial comments: This is an 83-year-old female who presents to the emergency department for constipation. States that she has not had a normal bowel movement in at least 2 weeks. She was evaluated here earlier this month for right hip and abdominal pain. She was told that she had constipation at that time and was sent home with a bottle of mag citrate. She did take 2 doses of the mag citrate and is now taking other sibk-pev-kizybyw treatments such as Senokot Tea with no relief in symptoms. Denies any abdominal pain associated with this. However, states that she feels full to the top of her stomach. Denies any nausea or vomiting. States that she is now belching more than normal. She does have a known hiatal hernia. - Related Data Home Medications Medication Instructions Recorded Confirmed Levothyroxine Sodium [Synthroid] 100 mcg PO MOTUWETHFR 09/10/13 02/27/23 Aspirin 81 mg PO HS 05/23/21 02/27/23 Budesonide/Formoterol Fumarate 2 puff INHALATION RT-BID 05/23/21 02/27/23 [Symbicort 160-4.5 Mcg Inhaler] Cholecalciferol [Vitamin D3 (25 25 mcg PO DAILY 05/23/21 02/27/23 Mcg = 1000 Iu)] Rosuvastatin Calcium [Crestor] 5 mg PO HS 05/23/21 02/27/23 Sennosides/Docusate Sodium 2 tab PO BID 05/23/21 02/27/23 [Senna-S 8.6-50 mg Tablet] Melatonin 3 mg PO HS 10/02/21 02/27/23 Albuterol Sulfate [Ventolin HFA] 2 puff INHALATION RT-QID PRN 02/16/23 02/27/23 Famotidine [Pepcid] 20 mg PO BID 02/16/23 02/27/23 Vit C/E/Zn/Coppr/Lutein/Zeaxan 1 cap PO BID 02/16/23 02/27/23 [Preservision Areds 2 Softgel] Naproxen [Naprosyn] 250 mg PO BID PRN 02/27/23 02/27/23 Previous Rx's Medication Instructions Recorded Acetaminophen Tab [Tylenol] 650 mg PO Q6HR PRN tab 02/18/23 Psyllium Husk 100% [Metamucil 6 gm PO DAILY #30 packet 02/18/23 Packet] Allergies Allergy/AdvReac Type Severity Reaction Status Date / Time Iodinated Contrast Media Allergy FLUSHING, Verified 03/15/23 08:23 [Iodinated Contrast Media - ITCHING, IV Dye] felt warm Macrolide Antibiotics Allergy INTERACTS Verified 03/15/23 08:23 WITH ASTHMA MEDS mold Allergy asthma Verified 03/15/23 08:23 symptoms Sulfa (Sulfonamide Allergy FLUSHING , Verified 03/15/23 08:23 Antibiotics) ITCHING fungus Allergy ASTHMA Uncoded 03/15/23 08:23 SYMPTOMS SMOKE Allergy ASTHMA Uncoded 03/15/23 08:23 SYMPTOMS Review of Systems ROS Statement: Those systems with pertinent positive or pertinent negative responses have been documented in the HPI. ROS Other: All systems not noted in ROS Statement are negative. Past Medical History Past Medical History: Asthma, COPD, CVA/TIA, GERD/Reflux, Hyperlipidemia, Thyroid Disorder Additional Past Medical History / Comment(s): hiatel hernia, hypotension, possible TIA,migraines, deviated septum, chronic constipation, past hx of low blood sugar, esophageal stricture with difficulty swallowing . 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, states polyp removed from uterus (got punctured uterus and intestine and had to have surgery to repair uterus and intestine) cataract, EGD, COLONOSCOPY, L hip Past Anesthesia/Blood Transfusion Reactions: Previous Problems w/ Anesthesia Additional Past Anesthesia/Blood Transfusion Reaction / Comment(s): STATES DIFFICULTY WAKING UP Past Psychological History: Depression Smoking Status: Never smoker Past Alcohol Use History: None Reported Past Drug Use History: None Reported - Past Family History Mother Family Medical History: Myocardial Infarction ([place]) Additional Family Medical History / Comment(s): Mother of a [place] at the age of 44 yrs. Father Family Medical History: Diabetes Mellitus Brother(s) Family Medical History: Cancer Additional Family Medical History / Comment(s): PROSTATE General Exam Limitations: no limitations General appearance: alert, in no apparent distress Head exam: Present: atraumatic, normocephalic, normal inspection Respiratory exam: Present: normal lung sounds bilaterally. Absent: respiratory distress, wheezes, rales, rhonchi, stridor Cardiovascular Exam: Present: regular rate, normal rhythm, normal heart sounds. Absent: systolic murmur, diastolic murmur, rubs, gallop, clicks GI/Abdominal exam: Present: soft, normal bowel sounds. Absent: distended, tenderness, guarding, rebound, rigid Neurological exam: Present: alert, oriented X3, CN II-XII intact Psychiatric exam: Present: normal affect, normal mood Skin exam: Present: warm, dry, intact, normal color. Absent: rash Medical Decision Making - Medical Decision Making This is an 83-year-old female who presents to the emergency department for constipation. Was pt. sent in by a medical professional or institution? @ -No Did you speak to anyone other than the patient for history? @ -No Did you review nursing and triage notes? @ -Yes, and I agree, it is accurate with regards to the patient's symptoms. Were old charts reviewed? @ -No Differential Diagnosis? @ -Differential Constipation: Ileus, bowel obstruction, medication, immobility, dietary intake, this is not meant to be an all-inclusive list. EKG interpreted by me (3pts min.)? @ -Not obtained X-rays interpreted by me (1pt min.)? @ -KUB x-ray obtained. My interpretation identifies no evidence of small bowel loop dilation. CT interpreted by me (1pt min.)? @ -Not obtained U/S interpreted by me (1pt. min.)? @ -Not obtained What testing was considered but not performed? (CT, X-rays, U/S, labs)? Why? @ -None What meds were considered but not given? Why? @ -None Did you discuss the management of the patient with other professionals? @ -No Did you reconcile home meds? @ -No Was smoking cessation discussed for >3mins.? @ -No Was critical care preformed (if so, how long)? @ -No Were there social determinants of health that impacted care today? How? (Homelessness, low income, unemployed, alcoholism, drug addiction, transportation, low edu. Level, literacy, decrease access to med. care, fdc, rehab)? @ -No Was there de-escalation of care discussed even if they declined? (Discuss DNR or withdrawal of care, Hospice)? @ -No What co-morbidities impacted this encounter? (DM, HTN, Smoking, COPD, CAD, Cancer, CVA, Hep., AIDS, mental health diagnosis, sleep apnea, morbid obesity)? @ -Osteoarthritis Was patient admitted / discharged? @ -Discharged. Patient had no abdominal pain, nausea, or vomiting that would make her case suspicious for a bowel obstruction. Her abdomen was also very soft on palpation. We obtained a KUB x-ray, and this identified an overall nonobstructive bowel gas pattern with no significant stool burden. Discussed the findings with the patient in that the next step would be to try enema. Patient wishes to proceed. Fleet enema administered and she did produce a large bowel movement and states that she felt better. We discussed using OTC MiraLAX daily for further relief and making sure that she drinks plenty of fluids. Patient expresses understanding and was discharged home in stable condition with instructions to have close follow-up with her primary care provider. Undiagnosed new problem with uncertain prognosis? @ -None Drug Therapy requiring intensive monitoring for toxicity (Heparin, Nitro, Insulin, Cardizem)? @ -None Were any procedures done? @ -None Diagnosis/symptom? @ -Constipation Acute, or Chronic, or Acute on Chronic? @ -Acute Uncomplicated (without systemic symptoms) or Complicated (systemic symptoms)? @ -Uncomplicated Side effects of treatment? @ -None Exacerbation, Progression, or Severe Exacerbation] @ -Not applicable Poses a threat to life or bodily function? @ -If the constipation were to progress, it could turn into a bowel obstruction. Return precautions reviewed in depth, the patient is instructed to return to the emergency department with any new, worsening, or concerning symptoms. Patient verbalized understanding. This case was discussed in detail with the attending ED physician, Dr. Durbin. Presentation, findings, and treatment plan discussed in detail as well. - Radiology Data Radiology results: report reviewed, image reviewed Disposition Clinical Impression: Constipation Disposition: HOME SELF-CARE Instructions (If sedation given, give patient instructions): Constipation (ED) Additional Instructions: Return to the emergency department with any new, worsening, or concerning symptoms. Begin taking MiraLAX daily for management of the constipation. Try to avoid using the magnesium citrate more than once a week. Make sure that you are drinking plenty of fluids. Follow up with your primary care provider in 1-2 days. Is patient prescribed a controlled substance at d/c from ED?: No Referrals: Jace Casas DO [Primary Care Provider] - 1-2 days
--- NOTE | 2023-03-15 09:02 | XR ---
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 No evidence for free intraperitoneal air. No dilated small bowel or air-fluid levels are seen. Cholecystectomy clips. No significant stool burden. Partially visualized left hip hemiarthroplasty. Impression: No significant stool burden. Nonspecific, overall nonobstructive bowel gas pattern.
[2023-03-15] MEDS ORDERED: NA PHOS,M-B/NA PHOS,DI-BA 133 ML ENEMA RECTAL ONE (09:30)
[2023-03-15 10:35] VITALS: BP 144/68; PULSE 84; RESP 18
== END 2023-03-15 10:27 | disposition home or self-care (01) ==
LOC: EC 08:18
DX: K59.00 Constipation, unspecified (principal); J44.89 Other specified chronic obstructive pulmonary disease; E78.5 Hyperlipidemia, unspecified; E07.9 Disorder of thyroid, unspecified; Z86.73 Personal history of transient ischemic attack (TIA), and cerebral infarction without residual deficits; Z79.51 Long term (current) use of inhaled steroids; Z79.890 Hormone replacement therapy; Z79.899 Other long term (current) drug therapy; Z79.82 Long term (current) use of aspirin; Z91.041 Radiographic dye allergy status; Z88.2 Allergy status to sulfonamides; Z88.8 Allergy status to other drugs, medicaments and biological substances; Z91.018 Allergy to other foods; Z88.1 Allergy status to other antibiotic agents; Z90.49 Acquired absence of other specified parts of digestive tract
CPT/HCPCS: 74018; 99284

== ENCOUNTER 2023-03-22 13:22 | Emergency (ER) | payer MEDICARE ==
[2023-03-22 13:42] VITALS: RESP 18; TEMP 98.2
--- NOTE | 2023-03-22 14:13 | ED ---
Headache HPI - General Chief Complaint: Headache Stated Complaint: headache-ear pain Time Seen by Provider: 03/22/23 14:12 Source: patient, family, RN notes reviewed Mode of arrival: ambulatory Limitations: no limitations - History of Present Illness Initial Comments: patient is an 83-year-old female presented ER with chief complaint of headache. Patient was sent here from urgent care. Patient received Toradol and steroid injection at urgent care. Patient states that her current pain is better than before. She has a history of tubes in her ears and states told her her ear drum is perforated. Patient states pain started 2 days ago and has gotten worse and the pain has spread to her forehead. She notes a small bump on the back of her head. Her son, at bedside, states that she picks at it a lot. Patient denies any injuries, fevers, chills, or blood thinners, - Related Data Home Medications Medication Instructions Recorded Confirmed Levothyroxine Sodium [Synthroid] 100 mcg PO MOTUWETHFR 09/10/13 02/27/23 Aspirin 81 mg PO HS 05/23/21 02/27/23 Budesonide/Formoterol Fumarate 2 puff INHALATION RT-BID 05/23/21 02/27/23 [Symbicort 160-4.5 Mcg Inhaler] Cholecalciferol [Vitamin D3 (25 25 mcg PO DAILY 05/23/21 02/27/23 Mcg = 1000 Iu)] Rosuvastatin Calcium [Crestor] 5 mg PO HS 05/23/21 02/27/23 Sennosides/Docusate Sodium 2 tab PO BID 05/23/21 02/27/23 [Senna-S 8.6-50 mg Tablet] Melatonin 3 mg PO HS 10/02/21 02/27/23 Albuterol Sulfate [Ventolin HFA] 2 puff INHALATION RT-QID PRN 02/16/23 02/27/23 Famotidine [Pepcid] 20 mg PO BID 02/16/23 02/27/23 Vit C/E/Zn/Coppr/Lutein/Zeaxan 1 cap PO BID 02/16/23 02/27/23 [Preservision Areds 2 Softgel] Naproxen [Naprosyn] 250 mg PO BID PRN 02/27/23 02/27/23 Previous Rx's Medication Instructions Recorded Acetaminophen Tab [Tylenol] 650 mg PO Q6HR PRN tab 02/18/23 Psyllium Husk 100% [Metamucil 6 gm PO DAILY #30 packet 02/18/23 Packet] Allergies Allergy/AdvReac Type Severity Reaction Status Date / Time Iodinated Contrast Media Allergy FLUSHING, Verified 03/22/23 13:42 [Iodinated Contrast Media - ITCHING, IV Dye] felt warm Macrolide Antibiotics Allergy INTERACTS Verified 03/22/23 13:42 WITH ASTHMA MEDS mold Allergy asthma Verified 03/22/23 13:42 symptoms Sulfa (Sulfonamide Allergy FLUSHING , Verified 03/22/23 13:42 Antibiotics) ITCHING fungus Allergy ASTHMA Uncoded 03/22/23 13:42 SYMPTOMS SMOKE Allergy ASTHMA Uncoded 03/22/23 13:42 SYMPTOMS Review of Systems ROS Statement: Those systems with pertinent positive or pertinent negative responses have been documented in the HPI. ROS Other: All systems not noted in ROS Statement are negative. Past Medical History Past Medical History: Asthma, COPD, CVA/TIA, GERD/Reflux, Hyperlipidemia, Thyroid Disorder Additional Past Medical History / Comment(s): hiatel hernia, hypotension, possible TIA,migraines, deviated septum, chronic constipation, past hx of low blood sugar, esophageal stricture with difficulty swallowing . 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, states polyp removed from uterus (got punctured uterus and intestine and had to have surgery to repair uterus and intestine) cataract, EGD, COLONOSCOPY, L hip Past Anesthesia/Blood Transfusion Reactions: Previous Problems w/ Anesthesia Additional Past Anesthesia/Blood Transfusion Reaction / Comment(s): STATES DIFFICULTY WAKING UP Past Psychological History: Depression Smoking Status: Never smoker Past Alcohol Use History: None Reported Past Drug Use History: None Reported - Past Family History Mother Family Medical History: Myocardial Infarction ([place]) Additional Family Medical History / Comment(s): Mother of a [place] at the age of 44 yrs. Father Family Medical History: Diabetes Mellitus Brother(s) Family Medical History: Cancer Additional Family Medical History / Comment(s): PROSTATE General Exam Limitations: no limitations General appearance: alert, in no apparent distress Head exam: Present: atraumatic, normocephalic, normal inspection, other (skin tag on occiptial scalp) Eye exam: Present: normal appearance, PERRL, EOMI. Absent: scleral icterus, conjunctival injection, periorbital swelling ENT exam: Present: normal exam, mucous membranes moist, TM's normal bilaterally (sclerosis noted on left TM) Neck exam: Present: normal inspection. Absent: tenderness, meningismus, lymphadenopathy Respiratory exam: Present: normal lung sounds bilaterally. Absent: respiratory distress, wheezes, rales, rhonchi, stridor Cardiovascular Exam: Present: regular rate, normal rhythm, normal heart sounds. Absent: systolic murmur, diastolic murmur, rubs, gallop, clicks Neurological exam: Present: alert, oriented X3, CN II-XII intact Psychiatric exam: Present: normal affect, normal mood Skin exam: Present: warm, dry, intact, normal color. Absent: rash Course Vital Signs 03/22/23 13:39 Temperature 98.2 F Pulse Rate 71 Respiratory 18 Rate Blood Pressure 112/82 O2 Sat by Pulse 96 Oximetry Medical Decision Making - Medical Decision Making Was pt. sent in by a medical professional or institution (GINNA Umanzor, [employer], urgent care, hospital, or fci...) When possible be specific @ -Urgent Care Did you speak to anyone other than the patient for history (EMS, parent, family, police, friend...)? What history was obtained from this source @ -Family Did you review nursing and triage notes (agree or disagree)? Why? @ -I reviewed and agree with nursing and triage notes Were old charts reviewed (outside hosp., previous admission, EMS record, old EKG, old radiological studies, urgent care reports/EKG's, fci records)? Report findings @ -No old charts were reviewed Differential Diagnosis (chest pain, altered mental status, abdominal pain women, abdominal pain men, vaginal bleeding, weakness, fever, dyspnea, syncope, headache, dizziness, GI bleed, back pain, seizure, CVA, palpatations, mental health, musculoskeletal)? @ -Differential Headache:Migraine, tension, cluster, carbon monoxide, central venous thrombosis, pension karma temporal arteritis, acute closure glaucoma, intercranial hemorrhage, mastoiditis, sinusitis, head injury, this is not meant to be an all-inclusive list.le] EKG interpreted by me (3pts min.). @ -None X-rays interpreted by me (1pt min.). @ -None done CT interpreted by me (1pt min.). @ -CT brain shows no acute intracranial process/mass effect. U/S interpreted by me (1pt. min.). @ -None done What testing was considered but not performed or refused? (CT, X-rays, U/S, labs)? Why? @ -None What meds were considered but not given or refused? Why? @ -I offered the patient pain medication but she refused. She stated she received tramadol and steroid at urgent care and is not in pain currently. Did you discuss the management of the patient with other professionals (professionals i.e. , PA, [employer], lab, RT, psych nurse, nursing home social worker, lens inserter, teacher, financial compliance officer, case folder)? Give summary @ -No Was smoking cessation discussed for >3mins.? @ -No Was critical care preformed (if so, how long)? @ -No Were there social determinants of health that impacted care today? How? (Homelessness, low income, unemployed, alcoholism, drug addiction, transportation, low edu. Level, literacy, decrease access to med. care, care home, rehab)? @ -No Was there de-escalation of care discussed even if they declined (Discuss DNR or withdrawal of care, Hospice)? DNR status @ -No What co-morbidities impacted this encounter? (DM, HTN, Smoking, COPD, CAD, Cancer, CVA, ARF, Chemo, Hep., AIDS, mental health diagnosis, sleep apnea, morbid obesity)? @ -None Was patient admitted / discharged? Hospital course, mention meds given and route, prescriptions, significant lab abnormalities, going to OR and other pert inent info. @ -Discharge. Patient's vitals remained stable. Upon exam, there was sclerosis noted of left TM. Brain CT was negative for acute intracranial process/mass effect. Patient will be discharged in stable condition with follow-up to ENT and PCP. Patient will take home a [employer] starter pack. Return parameters were discussed. Patient and son, at bedside, expressed understanding and agreement with care plan. Undiagnosed new problem with uncertain prognosis? @ -No Drug Therapy requiring intensive monitoring for toxicity (Heparin, Nitro, Insulin, Cardizem)? @ -No Were any procedures done? @ -No Diagnosis/symptom? @ -Headache Acute, or Chronic, or Acute on Chronic? @ -Acute Uncomplicated (without systemic symptoms) or Complicated (systemic symptoms)? @ -Uncomplicated Side effects of treatment? @ -No Exacerbation, Progression, or Severe Exacerbation? @ -No Poses a threat to life or bodily function? How? (Chest pain, [place], [place], pneumonia, PE, COPD, DKA, ARF, appy, cholecystitis, CVA, Diverticulitis, Homicidal, Suicidal, threat to staff... and all critical care pts) @ -No - Radiology Data Radiology results: report reviewed, image reviewed Disposition Clinical Impression: Headache Disposition: HOME SELF-CARE Condition: Stable Instructions (If sedation given, give patient instructions): Acute Headache (ED) Additional Instructions: Please return to the Emergency Department if symptoms worsen or any other concerns. Please follow-up with ENT. Is patient prescribed a controlled substance at d/c from ED?: No Referrals: Jace Casas DO [Primary Care Provider] - 1-2 days Time of Disposition: 17:22
--- NOTE | 2023-03-22 15:26 | CT ---
EXAMINATION TYPE: CT brain wo con DATE OF EXAM: 03/22/2023 COMPARISON: 02/28/2019 HISTORY: weakness and pain CT DLP: 1099.4 mGycm Automated exposure control for dose reduction was used. FINDINGS: The ventricles, basal cisterns and sulci over the convexities within normal limits and there is no ma ss effect or shift of midline structures. There is marked diffuse decreased signal intensity in the white matter both cerebral hemispheres cons istent with marked chronic ischemic white matter demyelination. There is no acute intra or extra-axial hemorrhage. The posterior fossa including the brainstem, fourth ventricle and cerebellar pontine angles appear no rmal. There is complete opacification of the frontal sinuses majority of ethmoid sinuses and maxillary sinu ses consistent with chronic sinusitis. The mastoid air cells are well aerated. The intraorbital contents are normal and symmetric IMPRESSION: 1. No acute bleed or mass effect. 2. Marked chronic ischemic white matter demyelination which is stable. 3. Marked chronic pansinusitis which is worsened in the interval since the prior study. IMPRESSION:
[2023-03-22] MEDS ORDERED: ACET/COD 300 MG/30 MG STARTER PACK 6 TAB BTL PO STA (17:21)
[2023-03-22 17:54] VITALS: BP 119/78; PULSE 83
== END 2023-03-22 17:36 | disposition home or self-care (01) ==
LOC: EC 13:22
DX: R51.9 Headache, unspecified (principal); I67.82 Cerebral ischemia; J32.4 Chronic pansinusitis; J44.89 Other specified chronic obstructive pulmonary disease; E07.9 Disorder of thyroid, unspecified; E78.5 Hyperlipidemia, unspecified; Z86.73 Personal history of transient ischemic attack (TIA), and cerebral infarction without residual deficits; Z86.59 Personal history of other mental and behavioral disorders; Z79.890 Hormone replacement therapy; Z79.82 Long term (current) use of aspirin; Z79.899 Other long term (current) drug therapy; Z79.51 Long term (current) use of inhaled steroids; Z91.041 Radiographic dye allergy status; Z88.2 Allergy status to sulfonamides; Z91.018 Allergy to other foods; Z88.8 Allergy status to other drugs, medicaments and biological substances
CPT/HCPCS: 70450; 99284

== ENCOUNTER → 2023-04-01 | Outpatient (CLI) | payer MEDICARE | END | disposition home or self-care (01) | LOC: LABWHC1 13:34 | PROVIDERS: ATTEND Orthopaedic Surgery | DX: M16.11 Unilateral primary osteoarthritis, right hip (principal); E55.9 Vitamin D deficiency, unspecified | CPT/HCPCS: 36415; 82306 ==

== ENCOUNTER 2023-08-09 18:38 | Observation (INO) | payer MEDICARE ==
--- NOTE | 2023-08-09 19:39 | ED ---
General Adult HPI - General Chief complaint: Neuro Symptoms/Deficit Stated complaint: left sided numbness Time Seen by Provider: 08/09/23 18:47 Source: patient Mode of arrival: ambulatory Limitations: no limitations - History of Present Illness Initial comments: 83-year-old female with a past medical history significant for prior stroke presenting to the ED with a chief complaint of weakness. Patient reports approximately an hour prior to arrival to the ED she was getting the mail when she felt her left hand cramp up and she could not use it for a few minutes. Also at the same time started to experience a pulling/numbness/tingling sensation to her left arm and to the left side of her face. Reports that this sensation is still present at this time. Denies any headache. No chest pain shortness of breath. No abdominal pain. No change in bowel or bladder habits. No fever or chills. No other complaints at this time. - Related Data Home Medications Medication Instructions Recorded Confirmed Levothyroxine Sodium [Synthroid] 100 mcg PO MOTUWETHFR 09/10/13 02/27/23 Aspirin 81 mg PO HS 05/23/21 02/27/23 Budesonide/Formoterol Fumarate 2 puff INHALATION RT-BID 05/23/21 02/27/23 [Symbicort 160-4.5 Mcg Inhaler] Cholecalciferol [Vitamin D3 (25 25 mcg PO DAILY 05/23/21 02/27/23 Mcg = 1000 Iu)] Rosuvastatin Calcium [Crestor] 5 mg PO HS 05/23/21 02/27/23 Sennosides/Docusate Sodium 2 tab PO BID 05/23/21 02/27/23 [Senna-S 8.6-50 mg Tablet] Melatonin 3 mg PO HS 10/02/21 02/27/23 Albuterol Sulfate [Ventolin HFA] 2 puff INHALATION RT-QID PRN 02/16/23 02/27/23 Famotidine [Pepcid] 20 mg PO BID 02/16/23 02/27/23 Vit C/E/Zn/Coppr/Lutein/Zeaxan 1 cap PO BID 02/16/23 02/27/23 [Preservision Areds 2 Softgel] Naproxen [Naprosyn] 250 mg PO BID PRN 02/27/23 02/27/23 Previous Rx's Medication Instructions Recorded Acetaminophen Tab [Tylenol] 650 mg PO Q6HR PRN tab 02/18/23 Psyllium Husk 100% [Metamucil 6 gm PO DAILY #30 packet 02/18/23 Packet] Allergies Allergy/AdvReac Type Severity Reaction Status Date / Time Iodinated Contrast Media Allergy FLUSHING, Verified 08/09/23 18:46 [Iodinated Contrast Media - ITCHING, IV Dye] felt warm Macrolide Antibiotics Allergy INTERACTS Verified 08/09/23 18:46 WITH ASTHMA MEDS mold Allergy asthma Verified 08/09/23 18:46 symptoms Sulfa (Sulfonamide Allergy FLUSHING , Verified 08/09/23 18:46 Antibiotics) ITCHING fungus Allergy ASTHMA Uncoded 08/09/23 18:46 SYMPTOMS SMOKE Allergy ASTHMA Uncoded 08/09/23 18:46 SYMPTOMS Review of Systems ROS Statement: Those systems with pertinent positive or pertinent negative responses have been documented in the HPI. ROS Other: All systems not noted in ROS Statement are negative. Past Medical History Past Medical History: Asthma, COPD, CVA/TIA, GERD/Reflux, Hyperlipidemia, Thyroid Disorder Additional Past Medical History / Comment(s): hiatel hernia, hypotension, possible TIA,migraines, deviated septum, chronic constipation, past hx of low blood sugar, esophageal stricture with difficulty swallowing . 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, states polyp removed from uterus (got punctured uterus and intestine and had to have surgery to repair uterus and intestine) cataract, EGD, COLONOSCOPY, L hip Past Anesthesia/Blood Transfusion Reactions: Previous Problems w/ Anesthesia Additional Past Anesthesia/Blood Transfusion Reaction / Comment(s): STATES DIFFICULTY WAKING UP Past Psychological History: Depression Smoking Status: Never smoker Past Alcohol Use History: None Reported Past Drug Use History: None Reported - Past Family History Mother Family Medical History: Myocardial Infarction (AL) Additional Family Medical History / Comment(s): Mother of a AL at the age of 44 yrs. Father Family Medical History: Diabetes Mellitus Brother(s) Family Medical History: Cancer Additional Family Medical History / Comment(s): PROSTATE General Exam Limitations: no limitations General appearance: alert, in no apparent distress Eye exam: Present: normal appearance, PERRL, EOMI ENT exam: Present: mucous membranes moist Neck exam: Present: normal inspection Respiratory exam: Present: normal lung sounds bilaterally Cardiovascular Exam: Present: regular rate GI/Abdominal exam: Present: soft, normal bowel sounds. Absent: distended, tenderness, guarding, rebound, rigid Neurological exam: Present: alert, oriented X3, CN II-XII intact, other ([id number], eesa-la-enoa, rapid alternating hand movements intact. NIH stroke scale 0.) Skin exam: Present: warm, dry Course Vital Signs 08/09/23 18:39 Temperature 97.4 F L Pulse Rate 84 Respiratory 18 Rate Blood Pressure 125/81 O2 Sat by Pulse 97 Oximetry Medical Decision Making - Medical Decision Making Was pt. sent in by a medical professional or institution (, PA, BUYER AGENT, urgent care, hospital, or fdc...) When possible be specific @ -No Did you speak to anyone other than the patient for history (EMS, parent, family, police, friend...)? What history was obtained from this source @ -Spoke to the patient's brother who reports that she is currently acting her normal self. Did you review nursing and triage notes (agree or disagree)? Why? @ -I reviewed and agree with nursing and triage notes Were old charts reviewed (outside hosp., previous admission, EMS record, old EKG, old radiological studies, urgent care reports/EKG's, fdc records)? Report findings @ -No old charts were reviewed Differential Diagnosis (chest pain, altered mental status, abdominal pain women, abdominal pain men, vaginal bleeding, weakness, fever, dyspnea, syncope, headache, dizziness, GI bleed, back pain, seizure, CVA, palpatations, mental health, musculoskeletal)? @ -Differential Weakness: Hypoglycemia, shock, sepsis, hyponatremia, anemia, infection, AL, ETOH, adverse medicine reaction, overdose, stroke, this is not meant to be an all-inclusive list. EKG interpreted by me (3pts min.). @ -EKG interpreted by me which reveals a sinus rhythm with nonspecific findings at a rate of 71 bpm. RI 167, QRS 112, QT/QTc 403/426. X-rays interpreted by me (1pt min.). @ -Chest x-ray interpreted me which revealed no evidence of acute finding CT interpreted by me (1pt min.). @ -CT brain and CT angio head and neck interpreted me which revealed no evidence of acute finding. U/S interpreted by me (1pt. min.). @ -None done What testing was considered but not performed or refused? (CT, X-rays, U/S, labs)? Why? @ -None What meds were considered but not given or refused? Why? @ -None Did you discuss the management of the patient with other professionals (professionals i.e. , PA, BUYER AGENT, lab, RT, psych nurse, social media job titles, brewery pumper, teacher, senior major gifts officer, rn field case manager)? Give summary @ -Case discussed with Latricia who accepts admission under [facility]. Was smoking cessation discussed for >3mins.? @ -No Was critical care preformed (if so, how long)? @ -No Were there social determinants of health that impacted care today? How? (Homelessness, low income, unemployed, alcoholism, drug addiction, tr ansportation, low edu. Level, literacy, decrease access to med. care, retirement, rehab)? @ -No Was there de-escalation of care discussed even if they declined (Discuss DNR or withdrawal of care, Hospice)? DNR status @ -No What co-morbidities impacted this encounter? (DM, HTN, Smoking, COPD, CAD, Cancer, CVA, ARF, Chemo, Hep., AIDS, mental health diagnosis, sleep apnea, morbid obesity)? @ -History of CVA. Was patient admitted / discharged? Hospital course, mention meds given and route, prescriptions, significant lab abnormalities, going to OR and other pertinent info. @ -Admission 83-year-old female presenting to the ED with complaints of weakness lasting 5 minutes to her left upper extremity however continuous complaints of paresthesias to the left side of her face and left upper extremity. Laboratory studies reviewed. Labs including CBC, CMP, UA unremarkable. Troponin undetectable. CT of the brain and CTA head and neck revealed no evidence of acute finding. Patient will be admitted to observation with consult to neurology. Undiagnosed new problem with uncertain prognosis? @ -No Drug Therapy requiring intensive monitoring for toxicity (Heparin, Nitro, Insulin, Cardizem)? @ -No Were any procedures done? @ -No Diagnosis/symptom? @ -Paresthesias, weakness now resolved Acute, or Chronic, or Acute on Chronic? @ -Acute Uncomplicated (without systemic symptoms) or Complicated (systemic symptoms)? @ -Complicated Side effects of treatment? @ -No Exacerbation, Progression, or Severe Exacerbation? @ -No Poses a threat to life or bodily function? How? (Chest pain, USA, AL, pneumonia, PE, COPD, DKA, ARF, appy, cholecystitis, CVA, Diverticulitis, Homicidal, Suicidal, threat to staff... and all critical care pts) @ -Possibly however unlikely - Lab Data Result diagrams: 08/09/23 19:36 08/09/23 19:36 Lab Results 08/09/23 08/09/23 08/09/23 Range/Units 19:36 19:36 19:36 WBC 5.9 (3.8-10.6) k/uL RBC 4.60 (3.80-5.40) m/uL Hgb 13.6 (11.4-16.0) gm/dL Hct 43.5 (34.0-46.0) % MCV 94.7 (80.0-100.0) fL MCH 29.5 (25.0-35.0) pg MCHC 31.1 (31.0-37.0) g/dL RDW 13.4 (11.5-15.5) % Plt Count 269 (150-450) k/uL MPV 8.0 Neutrophils % 46 % Lymphocytes % 28 % Monocytes % 9 % Eosinophils % 14 % Basophils % 1 % Neutrophils # 2.7 (1.3-7.7) k/uL Lymphocytes # 1.6 (1.0-4.8) k/uL Monocytes # 0.5 (0-1.0) k/uL Eosinophils # 0.8 H (0-0.7) k/uL Basophils # 0.1 (0-0.2) k/uL PT 9.9 L (10.0-12.5) sec INR 0.9 (<1.2) APTT 23.3 (22.0-30.0) sec Sodium 140 (137-145) mmol/L Potassium 4.6 (3.5-5.1) mmol/L Chloride 108 H (98-107) mmol/L Carbon Dioxide 27 (22-30) mmol/L Anion Gap 5 mmol/L BUN 11 (7-17) mg/dL Creatinine 0.79 (0.52-1.04) mg/dL Est GFR (CKD-EPI)AfAm 80 (>60 ml/min/1.73 sqM) Est GFR (CKD-EPI)NonAf 69 (>60 ml/min/1.73 sqM) Glucose 91 (74-99) mg/dL Calcium 9.7 (8.4-10.2) mg/dL Magnesium 2.6 H (1.6-2.3) mg/dL Total Bilirubin 0.4 (0.2-1.3) mg/dL AST 18 (14-36) U/L ALT 13 (4-34) U/L Alkaline Phosphatase 144 H (38-126) U/L Troponin I (0.000-0.034) ng/mL Total Protein 7.2 (6.3-8.2) g/dL Albumin 4.2 (3.5-5.0) g/dL Urine Color Urine Appearance (Clear) Urine pH (5.0-8.0) Ur Specific [place] (1.001-1.035) Urine Protein (Negative) Urine Glucose (UA) (Negative) Urine Ketones (Negative) Urine Blood (Negative) Urine Nitrite (Negative) Urine Bilirubin (Negative) Urine Urobilinogen (<2.0) mg/dL Ur Leukocyte Esterase (Negative) 08/09/23 08/09/23 Range/Units 19:36 21:00 WBC (3.8-10.6) k/uL RBC (3.80-5.40) m/uL Hgb (11.4-16.0) gm/dL Hct (34.0-46.0) % MCV (80.0-100.0) fL MCH (25.0-35.0) pg MCHC (31.0-37.0) g/dL RDW (11.5-15.5) % Plt Count (150-450) k/uL MPV Neutrophils % % Lymphocytes % % Monocytes % % Eosinophils % % Basophils % % Neutrophils # (1.3-7.7) k/uL Lymphocytes # (1.0-4.8) k/uL Monocytes # (0-1.0) k/uL Eosinophils # (0-0.7) k/uL Basophils # (0-0.2) k/uL PT (10.0-12.5) sec INR (<1.2) APTT (22.0-30.0) sec Sodium (137-145) mmol/L Potassium (3.5-5.1) mmol/L Chloride (98-107) mmol/L Carbon Dioxide (22-30) mmol/L Anion Gap mmol/L BUN (7-17) mg/dL Creatinine (0.52-1.04) mg/dL Est GFR (CKD-EPI)AfAm (>60 ml/min/1.73 sqM) Est GFR (CKD-EPI)NonAf (>60 ml/min/1.73 sqM) Glucose (74-99) mg/dL Calcium (8.4-10.2) mg/dL Magnesium (1.6-2.3) mg/dL Total Bilirubin (0.2-1.3) mg/dL AST (14-36) U/L ALT (4-34) U/L Alkaline Phosphatase (38-126) U/L Troponin I <0.012 (0.000-0.034) ng/mL Total Protein (6.3-8.2) g/dL Albumin (3.5-5.0) g/dL Urine Color Colorless Urine Appearance Clear (Clear) Urine pH 7.0 (5.0-8.0) Ur Specific [place] 1.017 (1.001-1.035) Urine Protein Negative (Negative) Urine Glucose (UA) Negative (Negative) Urine Ketones Negative (Negative) Urine Blood Negative (Negative) Urine Nitrite Negative (Negative) Urine Bilirubin Negative (Negative) Urine Urobilinogen <2.0 (<2.0) mg/dL Ur Leukocyte Esterase Negative (Negative) Disposition Clinical Impression: Weakness, Paresthesias Disposition: ADMITTED IP TO THIS [facility] Condition: Good Referrals: Jace Casas DO [Primary Care Provider] - 1-2 days Time of Disposition: 21:30
[2023-08-09] MEDS: methylPREDNISolone SOD SUCCI 125 MG/2 ML VIAL IV STA (19:43)
[2023-08-09] MEDS: FAMOTIDINE 20 MG/2 ML VIAL IV STA (19:44)
[2023-08-09] MEDS: diphenhydrAMINE 50 MG/ML 1 ML VIAL IVP STA (19:44)
[2023-08-09 20:05] LABS: Basophils # (A) 0.1 k/uL (0-0.2); Basophils % (A) 1 %; Eosinophils # (A) 0.8 k/uL (0-0.7); Eosinophils % (A) 14 %; HCT 43.5 % (34.0-46.0); HGB 13.6 gm/dL (11.4-16.0); Lymphocytes # (A) 1.6 k/uL (1.0-4.8); Lymphocytes % (A) 28 %; MCH 29.5 pg (25.0-35.0); MCHC 31.1 g/dL (31.0-37.0); MCV 94.7 fL (80.0-100.0); Monocytes # (A) 0.5 k/uL (0-1.0); Monocytes % (A) 9 %; Neutrophils # (A) 2.7 k/uL (1.3-7.7); Neutrophils % (A) 46 %; Platelet Count 269 k/uL (150-450); RDW 13.4 % (11.5-15.5); WBC 5.9 k/uL (3.8-10.6)
--- NOTE | 2023-08-09 20:33 | CT ---
EXAMINATION TYPE: CT brain wo con CT DLP: 1144.9 mGycm, Automated exposure control for dose reduction was used. DATE OF EXAM: 08/09/2023 8:25 PM COMPARISON: 03/22/2023. CLINICAL INDICATION:Female, 83 years old with history of l arm weakness/paresthesias, left facial par esthesia, left sided weakness TECHNIQUE: Brain: Axial CT images of the brain were obtained with coronal and sagittal reformats created and rev iewed. Contrast used: None. Oral contrast used: None. FINDINGS: Brain: Extra-axial spaces: No abnormal extra-axial fluid collections. Ventricular system: Dilatation in proportion to cerebral atrophy. Cerebral parenchyma: Cerebral atrophy. No acute intraparenchymal hemorrhage or mass effect. The [place] -white junction is well differentiated. Scattered hypoattenuating areas are seen within the white mat ter. Cerebellum: Unremarkable. Mass effect: No evidence of midline shift. Intracranial vasculature: unremarkable Soft tissues: Normal. Calvarium/osseous structures: No depressed skull fracture. Paranasal sinuses and mastoid air cells: Mild scattered paranasal sinus disease. Visualized orbits: Bilateral aphakia IMPRESSION: 1. No acute intracranial process. 2. Nonspecific white matter changes, likely secondary to chronic small vessel ischemic disease.
[2023-08-09 20:35] LABS: ALT 13 U/L (4-34); AST 18 U/L (14-36); African American GFR (CKD) 80 (>60 ml/min/1.73 sqM); Albumin 4.2 g/dL (3.5-5.0); Alkaline Phosphatase 144 U/L (38-126); Anion Gap 5 mmol/L; Blood Urea Nitrogen 11 mg/dL (7-17); Calcium 9.7 mg/dL (8.4-10.2); Carbon Dioxide 27 mmol/L (22-30); Chloride 108 mmol/L (98-107); Glucose 91 mg/dL (74-99); Magnesium 2.6 mg/dL (1.6-2.3); Non-African American GFR(CKD) 69 (>60 ml/min/1.73 sqM); Potassium 4.6 mmol/L (3.5-5.1); Sodium 140 mmol/L (137-145); Total Bilirubin 0.4 mg/dL (0.2-1.3); Total Protein 7.2 g/dL (6.3-8.2)
--- NOTE | 2023-08-09 20:40 | XR ---
EXAMINATION TYPE: XR chest 2V DATE OF EXAM: 08/09/2023 8:34 PM CLINICAL INDICATION:Female, 83 years old with history of Chest Pain; COMPARISON: Chest radiographs from 07/11/2022. TECHNIQUE: XR chest 2V Frontal and lateral views of the chest. FINDINGS: Lungs/Pleura: Prominent interstitial lung markings are seen scattered throughout the lungs with lisa ening of the diaphragm and increased lucency of the lung apices. No evidence of focal consolidation, pneumothorax or pleural effusion. Pulmonary vascularity: Unremarkable. Heart/mediastinum: Cardiomediastinal silhouette is enlarged and stable. Musculoskeletal: No acute osseous pathology. IMPRESSION: Chronic changes without acute pulmonary process. No significant change from prior.
[2023-08-09 20:54] LABS: INR 0.9 (<1.2); Partial Thromboplastin Time 23.3 sec (22.0-30.0); Prothrombin Time 9.9 sec (10.0-12.5)
--- NOTE | 2023-08-09 21:37 | CT ---
EXAMINATION TYPE: CT angio head neck CT DLP: 273.5 mGycm, Automated exposure control for dose reduction was used. DATE OF EXAM: 08/09/2023 8:40 PM COMPARISON: CT head same day. CLINICAL INDICATION:Female, 83 years old with history of l arm weakness/paresthesias, left facial par esthes; PHH, left sided weakness TECHNIQUE: Axially acquired helical CT angiogram of the head and neck was obtained with contrast. Axi al images are supplemented with 3D reconstructions and MIP images which were post-processed at an in dependent workstation. NASCET criteria used. Contrast used:65cc mL of Isovue 370 with IV Contrast, Oral contrast used: None. FINDINGS: CTA HEAD: No evidence of acute intracranial hemorrhage, mass effect, or midline shift. The ventricles, sulci, a nd cisterns are unremarkable. Severe paranasal sinus disease with chronic changes to the adjacent oss eous structures. There is near complete opacification of the frontal, maxillary and ethmoidal paranas al sinuses. The visualized portions of the internal carotid arteries, middle cerebral arteries, anterior cerebral arteries, and posterior cerebral arteries are patent. Hypoplastic right A1 segment. The basilar and vertebral arteries are patent. CTA NECK: Right Carotid System: The common carotid artery and external carotid artery are patent. The carotid bifurcation demonstrate s no evidence of hemodynamically significant stenosis. The remaining portions of the internal carotid artery demonstrate normal size without significant narrowing. Left Carotid System: The common carotid artery and external carotid artery are patent. The carotid bifurcation demonstrate s no evidence of hemodynamically significant stenosis. The remaining portions of the internal carotid artery demonstrate normal size without significant narrowing. Vertebral arteries are patent without evidence hemodynamically significant stenosis. There is a three-vessel aortic arch. The origins of the great vessels are patent. No evidence of hemo dynamically significant stenosis. Upper thorax: IMPRESSION: 1. No evidence of dissection of the cervical internal carotid arteries or vertebral arteries or any e vidence of significant stenosis at the carotid bifurcations. 2. No evidence of intracranial high-grade stenosis or intracranial aneurysm. 3. 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
[2023-08-09 21:38] LABS: Appearance,Urine Clear (Clear); Bilirubin,Urine Negative (Negative); Blood,Urine Negative (Negative); Color,Urine Colorless; Glucose,Urine (UA) Negative (Negative); Ketones,Urine Negative (Negative); Leukocyte Esterase,Urine Negative (Negative); Nitrite,Urine Negative (Negative); Protein,Urine Negative (Negative); Specific Gravity,Urine 1.017 (1.001-1.035); Urobilinogen,Urine <2.0 mg/dL (<2.0)
[2023-08-09] MEDS ORDERED: KETOROLAC 15 MG/ML 1 ML VIAL IVP PRN (22:00)
[2023-08-09] MEDS ORDERED: ONDANSETRON 4 MG/2 ML VIAL IVP PRN (22:00)
[2023-08-09] MEDS ORDERED: NALOXONE 0.4 MG/ML 1 ML VIAL IV PRN (22:00)
[2023-08-10] MEDS ORDERED: ALBUTEROL NEBULIZED 2.5 MG/3 ML INHALATION PRN (09:55)
[2023-08-10] MEDS: ACETAMINOPHEN TAB 325 MG TAB PO PRN (13:55)
--- NOTE | 2023-08-10 18:07 | P.HPIM ---
History of Present Illness H&P Date: 08/10/23 Chief Complaint: Weakness/left-sided numbness 83-year-old female with a past medical history significant for prior stroke, hyperlipidemia, hypothyroidism, COPD, presenting to the ED with a chief complaint of weakness. Patient reports approximately an hour prior to arrival t o the ED she was getting the mail when she felt her left hand cramp up and she could not use it for a few minutes. Also at the same time started to experience a pulling/numbness/tingling sensation to her left arm and to the left side of her face. Reports that this sensation is still present at this time. Denies any headache. No chest pain shortness of breath. No abdominal pain. No change in bowel or bladder habits. No fever or chills. No other complaints at this time. -At the time of my evaluation patient denies any numbness CT of the brain and CTA head and neck revealed no evidence of acute finding. Blood work reveals WBC 5.9, hemoglobin of 13.6 and platelet count of 269, sodium 140, potassium 4.6, BUNs/creatinine of 11/0.79 and blood glucose of 91 Review of Systems REVIEW OF SYSTEMS: CONSTITUTIONAL: No fever, no malaise, no fatigue. HEENT: No recent visual problems or hearing problems. Denied any sore throat. CARDIOVASCULAR: No chest pain, orthopnea, PND, no palpitations, no syncope. PULMONARY: No shortness of breath, no cough, no hemoptysis. GASTROINTESTINAL: No diarrhea, no nausea, no vomiting, no abdominal pain. NEUROLOGICAL: No headaches, no weakness, no numbness. HEMATOLOGICAL: Denies any bleeding or petechiae. GENITOURINARY: Denies any burning micturition, frequency, or urgency. MUSCULOSKELETAL/RHEUMATOLOGICAL: Denies any joint pain, swelling, or any muscle pain. ENDOCRINE: Denies any polyuria or polydipsia. The rest of the 14-point review of systems is negative. Past Medical History Past Medical History: Asthma, COPD, CVA/TIA, GERD/Reflux, Hyperlipidemia, Thyroid Disorder Additional Past Medical History / Comment(s): hiatel hernia, hypotension, possible TIA,migraines, deviated septum, chronic constipation, past hx of low blood sugar, esophageal stricture with difficulty swallowing . 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 Smoking Status: Never smoker Past Alcohol Use History: None Reported Additional Past Alcohol Use History / Comment(s): . Past Drug Use History: None Reported - Past Family History Mother Family Medical History: Myocardial Infarction (ME) Additional Family Medical History / Comment(s): Mother of a ME at the age of 44 yrs. Father Family Medical History: Diabetes Mellitus Brother(s) Family Medical History: Cancer Additional Family Medical History / Comment(s): PROSTATE Medications and Allergies Home Medications Medication Instructions Recorded Confirmed Type Levothyroxine Sodium [Synthroid] 100 mcg PO MOTUWETHFR 09/10/13 08/10/23 History Aspirin 81 mg PO HS 05/23/21 08/10/23 History Budesonide/Formoterol Fumarate 2 puff INHALATION RT-BID 05/23/21 08/10/23 History [Symbicort 160-4.5 Mcg Inhaler] Cholecalciferol [Vitamin D3 (25 25 mcg PO DAILY 05/23/21 08/10/23 History Mcg = 1000 Iu)] Rosuvastatin Calcium [Crestor] 5 mg PO HS 05/23/21 08/10/23 History Sennosides/Docusate Sodium 2 tab PO BID 05/23/21 08/10/23 History [Senna-S 8.6-50 mg Tablet] Melatonin 3 mg PO HS 10/02/21 08/10/23 History Albuterol Sulfate [Ventolin HFA] 2 puff INHALATION RT-QID PRN 02/16/23 08/10/23 History Famotidine [Pepcid] 20 mg PO BID 02/16/23 08/10/23 History Vit C/E/Zn/Coppr/Lutein/Zeaxan 1 cap PO BID 02/16/23 08/10/23 History [Preservision Areds 2 Softgel] Allergies Allergy/AdvReac Type Severity Reaction Status Date / Time Iodinated Contrast Media Allergy FLUSHING, Verified 08/10/23 09:41 [Iodinated Contrast Media - ITCHING, IV Dye] felt warm Macrolide Antibiotics Allergy INTERACTS Verified 08/10/23 09:41 WITH ASTHMA MEDS mold Allergy asthma Verified 08/10/23 09:41 symptoms Sulfa (Sulfonamide Allergy FLUSHING , Verified 08/10/23 09:41 Antibiotics) ITCHING, swelling fungus Allergy ASTHMA Uncoded 08/09/23 18:46 SYMPTOMS SMOKE Allergy ASTHMA Uncoded 08/09/23 18:46 SYMPTOMS Physical Exam Vitals: Vital Signs Temp Pulse Pulse Resp BP BP Pulse Ox 08/10/23 08:00 98.1 F 65 18 103/75 98 08/10/23 04:03 98.1 F 72 14 92/58 96 08/09/23 23:59 97.9 F 86 16 100/62 96 08/09/23 18:39 97.4 F L 84 18 125/81 97 Intake and Output 08/09/23 08/10/23 08/10/23 22:59 06:59 14:59 Other: # Voids 2 Weight 47.627 kg 47.627 kg General appearance: alert, in no apparent distress Eye exam: Present: normal appearance, PERRL, EOMI ENT exam: Present: mucous membranes moist Neck exam: Present: normal inspection Respiratory exam: Present: normal lung sounds bilaterally Cardiovascular Exam: Present: regular rate GI/Abdominal exam: Present: soft, normal bowel sounds. Absent: distended, tenderness, guarding, rebound, rigid Neurological exam: Present: alert, oriented X3, CN II-XII intact, other ([id number], [id number], rapid alternating hand movements intact. NIH stroke scale 0.) Skin exam: Present: warm, dry Results CBC & Chem 7: 08/09/23 19:36 08/09/23 19:36 Labs: Abnormal Lab Results - Last 24 Hours (Table) 08/09/23 08/09/23 08/09/23 Range/Units 19:36 19:36 19:36 Eosinophils # 0.8 H (0-0.7) k/uL PT 9.9 L (10.0-12.5) sec Chloride 108 H (98-107) mmol/L Magnesium 2.6 H (1.6-2.3) mg/dL Alkaline Phosphatase 144 H (38-126) U/L Thrombosis Risk Factor Assmnt - Choose All That Apply Each Factor Represents 1 point: Abnormal pulmonary function (COPD) Each Risk Factor Represents 3 Points: Elevated anticardiolipin antibodies Thrombosis Risk Factor Assessment Total Risk Factor Score: 4 Thrombosis Risk Factor Assessment Level: Moderate Risk Assessment and Plan Assessment: 1. Weakness/paresthesias; CT of the brain is negative for acute intracranial --CTA does not reveal any evidence of dissection of internal carotid arteries or vertebral arteries or any significant stenosis; no evidence of intracranial high-grade stenosis or aneurysm. --Patient does have a previous history of stroke -- Has been admitted for close monitoring; neurochecks per protocol -- Neurology consulted for further evaluation 2. 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 Hypothyroidism; thyroxine 100 mcg daily 4. Hyperlipidemia; Crestor 5 mg nightly 5. COPD/asthma; albuterol inhaler 4 times daily as needed along with Symbicort 160-4.5 mcg twice daily 6. CVA/TIA; patient remains on aspirin and Crestor DVT prophylaxis; SCDs CODE STATUS; full code
[2023-08-10] MEDS: SYMBICORT 160-4.5 MCG INHALER INHALATION SCH (19:46)
[2023-08-10] MEDS: FAMOTIDINE 20 MG TAB PO SCH (19:53)
[2023-08-10] MEDS: ATORVASTATIN 10 MG TAB PO SCH (19:53)
[2023-08-10] MEDS: ASPIRIN 81 MG PO SCH (19:53)
[2023-08-10] MEDS: MELATONIN 3 MG TABLET PO SCH (19:53)
[2023-08-11 03:43] VITALS: PULSE 72; TEMP 98.3
[2023-08-11 08:22] VITALS: BP 105/71; RESP 16
[2023-08-11] MEDS: CHOLECALCIFEROL 25 MCG (1000 IU) TABLET PO SCH (09:26)
[2023-08-11] MEDS: SENNOSIDES-DOCUSATE SODIUM 1 EACH TAB PO SCH (09:26)
[2023-08-11] MEDS: LEVOTHYROXINE 100 MCG TAB PO SCH (09:41)
--- NOTE | 2023-08-12 11:34 | P.CNNES ---
History of Present Illness Consult date: 08/11/23 Requesting physician: Lg Yadav Reason for Consult: Paresthesias/weakness History of Present Illness: Patient is a 83-year-old female came to the hospital day before yesterday (On Friday) at 6:38 PM for left hand cramping. Patient states that she brought the mail inside her home. She sat in the recliner, was sorting through the mail, when all of a sudden her left hand cramped up. She dropped and straighten her fingers out and the cramp resolved in 1 minute or 2. It scared her. She did immediately go to the mirror and checked her face and it there was no droop. She spoke some sentences to herself and there was no slurring of her speech or in any problem with the speech. No visual disturbance. No focal numbness or tingling or weakness otherwise. She was able to walk without any problem. She called her oldest son who lives in [place], who reassured her and told that everything was fine. However he called back and said that maybe she should be checked out. Therefore he called his uncle (patient's brother), who brought her to the hospital. Vital signs on arrival blood pressure 125/81 pulse rate 84 temperature 97.4. Blood test shows normal CBC, PT PTT, normal CMP. Magnesium 2.6. UA negative. Troponin negative. CT head revealed no acute process. Nonspecific white matter changes, likely secondary to chronic small vessel ischemic disease. I personally reviewed CT head, agree with the findings. EKG shows sinus rhythm. Chest x-ray showed chronic changes without acute pulmonary process. No significant change from prior. Patient takes levothyroxine, Symbicort, Crestor 5 mg, vitamin D, aspirin 81 mg, melatonin, albuterol and Pepcid. Patient does have macular degeneration for which she gets shot in the left eye about once a month. Last Friday, she was given a different type of shot in the left eye, and she felt pain in her left eye first time ever involving the left maxillary region and around the eye. Patient states that typically after the injection she sees floaters that last for several hours. Patient denies any diabetes, never smoked, does not drink alcohol. Review of Systems All review of systems unremarkable, except pertinent positives and negatives as mentioned in the HPI. Past Medical History Past Medical History: Asthma, COPD, CVA/TIA, GERD/Reflux, Hyperlipidemia, Thyroid Disorder Additional Past Medical History / Comment(s): hiatel hernia, hypotension, possible TIA,migraines, deviated septum, chronic constipation, past hx of low blood sugar, esophageal stricture with difficulty swallowing . 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 Smoking Status: Never smoker Past Alcohol Use History: None Reported Additional Past Alcohol Use History / Comment(s): . Past Drug Use History: None Reported - Past Family History Mother Family Medical History: Myocardial Infarction (ND) Additional Family Medical History / Comment(s): Mother of a ND at the age of 44 yrs. Father Family Medical History: Diabetes Mellitus Brother(s) Family Medical History: Cancer Additional Family Medical History / Comment(s): PROSTATE Medications and Allergies Home Medications Medication Instructions Recorded Confirmed Type Levothyroxine Sodium [Synthroid] 100 mcg PO MOTUWETHFR 09/10/13 08/10/23 History Aspirin 81 mg PO HS 05/23/21 08/10/23 History Budesonide/Formoterol Fumarate 2 puff INHALATION RT-BID 05/23/21 08/10/23 History [Symbicort 160-4.5 Mcg Inhaler] Cholecalciferol [Vitamin D3 (25 25 mcg PO DAILY 05/23/21 08/10/23 History Mcg = 1000 Iu)] Rosuvastatin Calcium [Crestor] 5 mg PO HS 05/23/21 08/10/23 History Sennosides/Docusate Sodium 2 tab PO BID 05/23/21 08/10/23 History [Senna-S 8.6-50 mg Tablet] Melatonin 3 mg PO HS 10/02/21 08/10/23 History Albuterol Sulfate [Ventolin HFA] 2 puff INHALATION RT-QID PRN 02/16/23 08/10/23 History Famotidine [Pepcid] 20 mg PO BID 02/16/23 08/10/23 History Vit C/E/Zn/Coppr/Lutein/Zeaxan 1 cap PO BID 02/16/23 08/10/23 History [Preservision Areds 2 Softgel] Acetaminophen Tab [Tylenol] 650 mg PO Q6HR PRN tab 08/11/23 Rx Allergies Allergy/AdvReac Type Severity Reaction Status Date / Time Iodinated Contrast Media Allergy FLUSHING, Verified 08/10/23 09:41 [Iodinated Contrast Media - ITCHING, IV Dye] felt warm Macrolide Antibiotics Allergy INTERACTS Verified 08/10/23 09:41 WITH ASTHMA MEDS mold Allergy asthma Verified 08/10/23 09:41 symptoms Sulfa (Sulfonamide Allergy FLUSHING , Verified 08/10/23 09:41 Antibiotics) ITCHING, swelling fungus Allergy ASTHMA Uncoded 08/09/23 18:46 SYMPTOMS SMOKE Allergy ASTHMA Uncoded 08/09/23 18:46 SYMPTOMS Physical Examination - Vital Signs Vital Signs: Vital Signs Temp Pulse Resp BP BP Pulse Ox 08/11/23 07:41 98.3 F 72 16 105/71 97 08/11/23 02:07 98.3 F 72 15 141/58 97 08/10/23 19:11 98.1 F 75 15 108/54 100 08/10/23 13:58 98.2 F 67 18 101/67 97 Intake and Output 08/10/23 08/11/23 08/11/23 22:59 06:59 14:59 Intake Total 240 Balance 240 Intake: Oral 240 Other: # Voids 4 2 Patient is an elderly female, very pleasant, in no acute distress. Patient is alert awake oriented to time place and person. Speech and language functions are normal. Patient can name and repeat very well. No aphasia or dysarthria. Attention, concentration and fund of knowledge is adequate. On cranial nerve examination, pupils are equal, round and reacting to light, visual dorsey are full on confrontation, with no neglect on double simultaneous stimulation. Extraocular muscles are intact with no nystagmus. Face is symmetric, tongue protrudes to the midline. Palatal elevation and sensation normal, hearing and shoulder shrug normal, facial sensation normal. On muscle strength testing, there is no pronator drift and the strength is normal in arms and legs distally and proximally. Deep tendon reflexes are symmetric, 1+ plantars downgoing. Sensory to touch is equal with no neglect on double simultaneous stimulation. Cerebellar function showed no ataxia for [id number] testing. No dysdiadochokinesia. No ataxia for [id number] testing on either side. Tone and bulk of muscles normal. Gait deferred.. On general examination, there is no carotid bruit or murmur, S1-S2 audible. Chest is clear on consultation. Abdomen is soft nontender. No organomegaly, bowel sounds present. Peripheral pulses are present. No peripheral edema. Results - Laboratory Findings CBC and BMP: 08/09/23 19:36 08/09/23 19:36 Abnormal Lab Findings: Abnormal Labs 08/09/23 08/09/23 08/09/23 19:36 19:36 19:36 Eosinophils # 0.8 H PT 9.9 L Chloride 108 H Magnesium 2.6 H Alkaline Phosphatase 144 H Assessment and Plan Assessment: * Left hand cramp, that occurred while she was sorting out the mail. There were no associated focal neurological symptoms with it. This was not a TIA. Probably a benign muscle cramp. * COPD * Hyperlipidemia * Hypothyroidism Plan: * Patient's examination is normal. Patient did not have a TIA. Likely it was a small muscle cramp. * CTA of head and neck revealed no evidence of dissection of the cervical internal carotid arteries or vertebral arteries or any evidence of significant stenosis at the carotid bifurcations. No evidence of intracranial high-grade stenosis or intracranial aneurysm. 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 * Recommend continue aspirin 81 mg and Crestor 5 mg daily. * B12, 446, folate 8.10, TSH normal 1.32. Hemoglobin A1c 6.1. All normal. * No other workup indicated. Patient is cleared from neurology standpoint. * Thank you for the consult.
== END 2023-08-11 12:50 | disposition home or self-care (01) ==
LOC: EC 18:38 → 4SSUR 21:46 → 6NMEDSUR 08-10 11:21
PROVIDERS: ADMIT Internal Medicine; ATTEND Internal Medicine
DX: R20.0 Anesthesia of skin (principal); R25.2 Cramp and spasm; E78.5 Hyperlipidemia, unspecified; E03.9 Hypothyroidism, unspecified; J44.9 Chronic obstructive pulmonary disease, unspecified; M81.0 Age-related osteoporosis without current pathological fracture; J32.9 Chronic sinusitis, unspecified; K21.9 Gastro-esophageal reflux disease without esophagitis; Z79.890 Hormone replacement therapy; Z79.82 Long term (current) use of aspirin; Z79.899 Other long term (current) drug therapy; Z88.8 Allergy status to other drugs, medicaments and biological substances; Z88.2 Allergy status to sulfonamides; Z91.041 Radiographic dye allergy status; Z86.73 Personal history of transient ischemic attack (TIA), and cerebral infarction without residual deficits; Z79.51 Long term (current) use of inhaled steroids
CPT/HCPCS: 96374; 96375; 99285; 36415; 94640 ×2; 93005; 80053; 84443; 82607; 82746; 83735; 84484; 85025; 85610; 85730; 81003; 83036; 71046; 70496; 70450; 70498; G0378 ×5; J1200; J3490; Q9967; J2919

== ENCOUNTER 2024-08-20 15:35 | Observation (INO) | payer MEDICARE ==
--- NOTE | 2024-08-20 15:52 | ED ---
General Adult HPI - General Chief complaint: Shortness of Breath Stated complaint: RADHA Time Seen by Provider: 08/20/24 15:40 Source: patient, EMS Mode of arrival: EMS Limitations: no limitations - History of Present Illness Initial comments: Dictation was produced using [employer] dictation software. please excuse any grammatical, word or spelling errors. Chief Complaint: 84-year-old female with dyspnea History of Present Illness: Patient is 84-year-old female she is brought in by EMS from home. According to EMS family is concerned patient was having allergic reaction because she started to have dyspnea after taking a dose of Augmentin used to treat a URI. Patient is a poor historian unable to provide history of present illness. EMS gave patient Benadryl for can some concern however she had stable vitals. Unable to obtain detailed ROS secondary mental status - Related Data Home Medications Medication Instructions Recorded Confirmed Aspirin 81 mg PO HS 05/23/21 08/20/24 Budesonide/Formoterol Fumarate 2 puff INHALATION RT-BID 05/23/21 08/20/24 [Symbicort 160-4.5 Mcg Inhaler] Cholecalciferol [Vitamin D3 (25 25 mcg PO DAILY 05/23/21 08/20/24 Mcg = 1000 Iu)] Rosuvastatin Calcium [Crestor] 5 mg PO HS 05/23/21 08/20/24 Melatonin 3 mg PO HS PRN 10/02/21 08/20/24 Albuterol Sulfate [Ventolin HFA] 2 puff INHALATION RT-QID PRN 02/16/23 08/20/24 Famotidine [Pepcid] 20 mg PO BID 02/16/23 08/20/24 Albuterol Nebulized [Ventolin 2.5 mg INHALATION RT-BID 08/20/24 08/20/24 Nebulized] Amoxic-Pot Clav 250-62.5MG/5Ml 500 mg PO BID 08/20/24 08/20/24 [Augmentin 250-62.5 mg/5 ml Susp.] Levothyroxine Sodium [Synthroid] 50 mcg PO MOTUWETHFR 08/20/24 08/20/24 Vit C/E/Zn/Coppr/Lutein/Zeaxan 1 tab PO BID 08/20/24 08/20/24 [Preservision Areds 2 Chew Tab] predniSONE See Taper PO DAILY 08/20/24 08/20/24 Allergies Allergy/AdvReac Type Severity Reaction Status Date / Time Iodinated Contrast Media Allergy FLUSHING, Verified 08/20/24 16:35 [Iodinated Contrast Media - ITCHING, IV Dye] felt warm Macrolide Antibiotics Allergy INTERACTS Verified 08/20/24 16:35 WITH ASTHMA MEDS mold Allergy asthma Verified 08/20/24 16:35 symptoms Sulfa (Sulfonamide Allergy FLUSHING , Verified 08/20/24 16:35 Antibiotics) ITCHING, swelling fungus Allergy ASTHMA Uncoded 08/20/24 16:35 SYMPTOMS SMOKE Allergy ASTHMA Uncoded 08/20/24 16:35 SYMPTOMS Review of Systems ROS Statement: Those systems with pertinent positive or pertinent negative responses have been documented in the HPI. ROS Other: All systems not noted in ROS Statement are negative. Past Medical History Past Medical History: Asthma, COPD, CVA/TIA, GERD/Reflux, Hyperlipidemia, Thyroid Disorder Additional Past Medical History / Comment(s): hiatel hernia, hypotension, possible TIA,migraines, deviated septum, chronic constipation, past hx of low blood sugar, esophageal stricture with difficulty swallowing . 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, states polyp removed from uterus (got punctured uterus and intestine and had to have surgery to repair uterus and intestine) cataract, EGD, COLONOSCOPY, L hip, several heart cath Past Anesthesia/Blood Transfusion Reactions: Previous Problems w/ Anesthesia Additional Past Anesthesia/Blood Transfusion Reaction / Comment(s): STATES DIFFICULTY WAKING UP Past Psychological History: Depression Smoking Status: Never smoker Past Alcohol Use History: None Reported Past Drug Use History: None Reported - Past Family History Mother Family Medical History: Myocardial Infarction (OR) Additional Family Medical History / Comment(s): Mother of a OR at the age of 44 yrs. Father Family Medical History: Diabetes Mellitus Brother(s) Family Medical History: Cancer Additional Family Medical History / Comment(s): PROSTATE General Exam - General Exam Comments Initial Comments: PHYSICAL EXAM: General Impression: Alert and oriented x3, not in acute distress HEENT: Normocephalic atraumatic, extra-ocular movements intact, pupils equal and reactive to light bilaterally, mucous membranes moist. Cardiovascular: Heart regular rate and rhythm Chest: Coughing, dyspneic, diminished lung sounds to the left lung dorsey Abdomen: abdomen soft, non-tender, non-distended, no organomegaly Musculoskeletal: Pulses present and equal in all extremities, no peripheral edema, severe scoliosis Motor: no focal deficits noted Neurological: CN II-XII grossly intact, no focal motor or sensory deficits noted Skin: Intact with no visualized rashes Psych: Normal affect and mood Limitations: no limitations Course Vital Signs 08/20/24 08/20/24 08/20/24 15:38 15:55 16:37 Temperature 97.9 F Pulse Rate 111 H 104 H 98 Respiratory 26 H 23 24 Rate Blood Pressure 119/85 119/85 100/75 O2 Sat by Pulse 95 92 L 96 Oximetry EKG Findings - EKG Comments: EKG Findings:: My EKG interpretation: Ventricular rate sinus tachycardia, 108, MT 151, QRS 118, QTc 415. No MT prolongation, no QTC prolongation, no ST or T- wave changes noted. EKG compared to August 09, 2023 showing no changes. Overall, this EKG is unremarkable Medical Decision Making - Medical Decision Making Was pt. sent in by a medical professional or institution (, PA, STEAMER BLOCKER, urgent care, hospital, or penitentiary...) When possible be specific @ -No Did you speak to anyone other than the patient for history (EMS, parent, family, police, friend...)? What history was obtained from this source @ -No Did you review nursing and triage notes (agree or disagree)? Why? @ -I reviewed and agree with nursing and triage notes Were old charts reviewed (outside hosp., previous admission, EMS record, old EKG, old radiological studies, urgent care reports/EKG's, penitentiary records)? Report findings @ -No old charts were reviewed Differential Diagnosis (chest pain, altered mental status, abdominal pain women, abdominal pain men, vaginal bleeding, musculoskeletal, weakness, fever, dyspnea, syncope, headache, dizziness, GI bleed, back pain, seizure, CVA, palpatations, mental health)? @ -Differential Dyspnea: Coronary syndrome, arrhythmia, tamponade, asthma, COPD, pulmonary embolism, pneumonia, pneumothorax, pulmonary effusion, anaphylaxis, diabetic ketoacidosis, flailed chest, pulmonary contusion, diaphragmatic rupture, anemia, neuromuscular, this is not meant to be an all-inclusive list. EKG interpreted by me (3pts min.). @ -See above X-rays interpreted by me (1pt min.). @ -Chest x-ray is nonacute CT interpreted by me (1pt min.). @ -CT angiography chest shows no PE U/S interpreted by me (1pt. min.). @ -None done What testing was considered but not performed or refused? (CT, X-rays, U/S, labs)? Why? @ -None What meds were considered but not given or refused? Why? @ -None Was smoking cessation discussed for >3mins.? @ -No Were there social determinants of health that impacted care today? How? (Homelessness, low income, unemployed, alcoholism, drug addiction, transportation, low edu. Level, literacy, decrease access to med. care, shelter, rehab)? @ -No Was there de-escalation of care discussed even if they declined (Discuss DNR or withdrawal of care, Hospice)? DNR status @ -No What co-morbidities impacted this encounter? (DM, HTN, Smoking, COPD, CAD, Cancer, CVA, ARF, Chemo, Hep., AIDS, mental health diagnosis, sleep apnea, morbid obesity)? @ -None Was patient admitted / discharged? Hospital course, mention meds given and route, prescriptions, significant lab abnormalities, going to OR and other pertinent info. @ -84-year-old female presents emergency department with dyspnea. She has a history of asthma COPD. Patient apparently was very dyspneic per EMS. By the time she arrived she had relatively clear lung sounds. She was not hypoxic. Patient's symptoms improved spontaneously despite no intervention. Laboratory evaluation is unremarkable. Imaging studies are negative. No PE. Venous blood gas normal. Patient will be admitted observation for monitoring. Did you discuss the management of the patient with other professionals (professionals i.e. , PA, STEAMER BLOCKER, lab, RT, psych nurse, addiction social worker, marketing sales manager, teacher, surveillance dual rate officer, mattress spring encaser)? Give summary @ -Case discussed with hospitalist for admission Was critical care preformed (if so, how long)? @ -No Undiagnosed new problem with uncertain prognosis? @ -No Drug Therapy requiring intensive monitoring for toxicity (Heparin, Nitro, Insulin, Cardizem)? @ -No Were any procedures done? @ -No Diagnosis/symptom? Acute, or Chronic, or Acute on Chronic? Uncomplicated (without systemic symptoms) or Complicated (systemic symptoms)? @ -Respiratory failure Side effects of treatment? @ -No Exacerbation, Progression, or Severe Exacerbation? @ -No Poses a threat to life or bodily function? How? (Chest pain, USA, OR, pneumonia, PE, COPD, DKA, ARF, appy, cholecystitis, CVA, Diverticulitis, Homicidal, Suicidal, threat to staff... and all critical care pts) @ -No - Lab Data Result diagrams: 08/20/24 15:49 08/20/24 15:49 Lab Results 08/20/24 08/20/24 08/20/24 Range/Units 15:49 15:49 15:49 WBC 7.60 (4.50-10.00) 10*3/uL RBC 4.64 (4.10-5.20) 10*6/uL Hgb 14.3 (12.0-15.0) g/dL Hct 43.1 (37.2-46.3) % MCV 92.9 (80.0-97.0) fL MCH 30.8 (27.0-32.0) pg MCHC 33.2 (32.0-37.0) g/dL Plt Count 278 (140-440) 10*3/uL MPV 9.6 (9.5-12.2) fL Immature Gran % (Auto) 0.4 % Neutrophils % 71.7 % Lymphocytes % 24.7 % Monocytes % 2.4 % Eosinophils % 0.4 % Basophils % 0.4 % Immature Gran # 0.03 (0.00-0.04) 10*3/uL Neutrophils # 5.45 (1.80-7.70) 10*3/uL Lymphocytes # 1.88 (0.90-5.00) 10*3/uL Monocytes # 0.18 L (0.20-1.00) 10*3/uL Eosinophils # 0.03 L (0.04-0.35) 10*3/uL Basophils # 0.03 (0.00-0.10) 10*3/uL D-Dimer (<0.60) mg/L FEU VBG pH (7.31-7.41) VBG pCO2 (37-51) mmHg VBG HCO3 (24-28) mmol/L Sodium 137 (137-145) mmol/L Potassium 4.4 (3.5-5.1) mmol/L Chloride 106 (98-107) mmol/L Carbon Dioxide 21 L (22-30) mmol/L Anion Gap 10 mmol/L BUN 14 (7-17) mg/dL Creatinine 0.90 (0.52-1.04) mg/dL Est GFR (CKD-EPI)AfAm 67 (>60 ml/min/1.73 sqM) Est GFR (CKD-EPI)NonAf 58 (>60 ml/min/1.73 sqM) Glucose 210 H (74-99) mg/dL Plasma Lactic Acid Geo 1.6 (0.7-2.0) mmol/L Calcium 9.6 (8.4-10.2) mg/dL Magnesium 2.3 (1.6-2.3) mg/dL Total Bilirubin 0.7 (0.2-1.3) mg/dL AST 20 (14-36) U/L ALT 17 (4-34) U/L Alkaline Phosphatase 117 (38-126) U/L Troponin I (0.000-0.034) ng/mL Total Protein 6.3 (6.3-8.2) g/dL Albumin 3.7 (3.5-5.0) g/dL Influenza Type A (PCR) (Not Detectd) Influenza Type B (PCR) (Not Detectd) RSV (PCR) (Not Detectd) SARS-CoV-2 (PCR) (Not Detectd) 08/20/24 08/20/24 08/20/24 Range/Units 15:49 15:49 15:54 WBC (4.50-10.00) 10*3/uL RBC (4.10-5.20) 10*6/uL Hgb (12.0-15.0) g/dL Hct (37.2-46.3) % MCV (80.0-97.0) fL MCH (27.0-32.0) pg MCHC (32.0-37.0) g/dL Plt Count (140-440) 10*3/uL MPV (9.5-12.2) fL Immature Gran % (Auto) % Neutrophils % % Lymphocytes % % Monocytes % % Eosinophils % % Basophils % % Immature Gran # (0.00-0.04) 10*3/uL Neutrophils # (1.80-7.70) 10*3/uL Lymphocytes # (0.90-5.00) 10*3/uL Monocytes # (0.20-1.00) 10*3/uL Eosinophils # (0.04-0.35) 10*3/uL Basophils # (0.00-0.10) 10*3/uL D-Dimer 0.91 H (<0.60) mg/L FEU VBG pH (7.31-7.41) VBG pCO2 (37-51) mmHg VBG HCO3 (24-28) mmol/L Sodium (137-145) mmol/L Potassium (3.5-5.1) mmol/L Chloride (98-107) mmol/L Carbon Dioxide (22-30) mmol/L Anion Gap mmol/L BUN (7-17) mg/dL Creatinine (0.52-1.04) mg/dL Est GFR (CKD-EPI)AfAm (>60 ml/min/1.73 sqM) Est GFR (CKD-EPI)NonAf (>60 ml/min/1.73 sqM) Glucose (74-99) mg/dL Plasma Lactic Acid Geo (0.7-2.0) mmol/L Calcium (8.4-10.2) mg/dL Magnesium (1.6-2.3) mg/dL Total Bilirubin (0.2-1.3) mg/dL AST (14-36) U/L ALT (4-34) U/L Alkaline Phosphatase (38-126) U/L Troponin I <0.012 (0.000-0.034) ng/mL Total Protein (6.3-8.2) g/dL Albumin (3.5-5.0) g/dL Influenza Type A (PCR) Not Detected (Not Detectd) Influenza Type B (PCR) Not Detected (Not Detectd) RSV (PCR) Not Detected (Not Detectd) SARS-CoV-2 (PCR) Not Detected (Not Detectd) 08/20/24 Range/Units 15:54 WBC (4.50-10.00) 10*3/uL RBC (4.10-5.20) 10*6/uL Hgb (12.0-15.0) g/dL Hct (37.2-46.3) % MCV (80.0-97.0) fL MCH (27.0-32.0) pg MCHC (32.0-37.0) g/dL Plt Count (140-440) 10*3/uL MPV (9.5-12.2) fL Immature Gran % (Auto) % Neutrophils % % Lymphocytes % % Monocytes % % Eosinophils % % Basophils % % Immature Gran # (0.00-0.04) 10*3/uL Neutrophils # (1.80-7.70) 10*3/uL Lymphocytes # (0.90-5.00) 10*3/uL Monocytes # (0.20-1.00) 10*3/uL Eosinophils # (0.04-0.35) 10*3/uL Basophils # (0.00-0.10) 10*3/uL D-Dimer (<0.60) mg/L FEU VBG pH 7.44 H (7.31-7.41) VBG pCO2 35 L (37-51) mmHg VBG HCO3 23 L (24-28) mmol/L Sodium (137-145) mmol/L Potassium (3.5-5.1) mmol/L Chloride (98-107) mmol/L Carbon Dioxide (22-30) mmol/L Anion Gap mmol/L BUN (7-17) mg/dL Creatinine (0.52-1.04) mg/dL Est GFR (CKD-EPI)AfAm (>60 ml/min/1.73 sqM) Est GFR (CKD-EPI)NonAf (>60 ml/min/1.73 sqM) Glucose (74-99) mg/dL Plasma Lactic Acid Geo (0.7-2.0) mmol/L Calcium (8.4-10.2) mg/dL Magnesium (1.6-2.3) mg/dL Total Bilirubin (0.2-1.3) mg/dL AST (14-36) U/L ALT (4-34) U/L Alkaline Phosphatase (38-126) U/L Troponin I (0.000-0.034) ng/mL Total Protein (6.3-8.2) g/dL Albumin (3.5-5.0) g/dL Influenza Type A (PCR) (Not Detectd) Influenza Type B (PCR) (Not Detectd) RSV (PCR) (Not Detectd) SARS-CoV-2 (PCR) (Not Detectd) Disposition Clinical Impression: Respiratory failure Disposition: ADMITTED IP TO THIS HOSP Condition: Fair Referrals: aJce Casas DO [Primary Care Provider] - 1-2 days Decision Time: 18:32
[2024-08-20 15:57] LABS: Basophils # (A) 0.03 10*3/uL (0.00-0.10); Basophils % (A) 0.4 %; Eosinophils # (A) 0.03 10*3/uL (0.04-0.35); Eosinophils % (A) 0.4 %; HCT 43.1 % (37.2-46.3); HGB 14.3 g/dL (12.0-15.0); Lymphocytes # (A) 1.88 10*3/uL (0.90-5.00); Lymphocytes % (A) 24.7 %; MCH 30.8 pg (27.0-32.0); MCHC 33.2 g/dL (32.0-37.0); MCV 92.9 fL (80.0-97.0); Mean Platelet Volume 9.6 fL (9.5-12.2); Monocytes # (A) 0.18 10*3/uL (0.20-1.00); Monocytes % (A) 2.4 %; Neutrophils # (A) 5.45 10*3/uL (1.80-7.70); Neutrophils % (A) 71.7 %; Platelet Count 278 10*3/uL (140-440); RBC 4.64 10*6/uL (4.10-5.20); RDW 13.9 % (11.5-14.5)
[2024-08-20 16:00] LABS: VBG PH 7.44 (7.31-7.41)
[2024-08-20 16:10] LABS: ALT 17 U/L (4-34); AST 20 U/L (14-36); African American GFR (CKD) 67 (>60 ml/min/1.73 sqM); Albumin 3.7 g/dL (3.5-5.0); Alkaline Phosphatase 117 U/L (38-126); Anion Gap 10 mmol/L; Blood Urea Nitrogen 14 mg/dL (7-17); Calcium 9.6 mg/dL (8.4-10.2); Carbon Dioxide 21 mmol/L (22-30); Chloride 106 mmol/L (98-107); Glucose 210 mg/dL (74-99); Magnesium 2.3 mg/dL (1.6-2.3); Non-African American GFR(CKD) 58 (>60 ml/min/1.73 sqM); Potassium 4.4 mmol/L (3.5-5.1); Sodium 137 mmol/L (137-145); Total Bilirubin 0.7 mg/dL (0.2-1.3); Total Protein 6.3 g/dL (6.3-8.2)
--- NOTE | 2024-08-20 16:13 | XR ---
EXAMINATION TYPE: XR chest 2V DATE OF EXAM: 08/20/2024 4:08 PM COMPARISON: Chest radiographs from 08/09/2023 TECHNIQUE: XR chest 2V Frontal and lateral views of the chest. CLINICAL INDICATION:Female, 84 years old with history of dyspnea; FINDINGS: Lungs/Pleura: There is flattening of the diaphragm with increased lucency of the lungs. No evidence o f pneumothorax, pleural effusion or focal consolidation. Pulmonary vascularity: Unremarkable. Heart/mediastinum: Cardiomediastinal silhouette is prominent in size. Musculoskeletal: Multiple level degenerative disc disease changes seen throughout the spine. Increase d thoracic kyphosis. Remote right-sided rib fractures. Increased AP diameter. IMPRESSION: 1. No acute cardiopulmonary disease process. 2. COPD changes. [facility], , 08/20/2024 4:11 PM
[2024-08-20 16:33] LABS: Influenza A Not Detected (Not Detectd); Influenza B Not Detected (Not Detectd); RSV Not Detected (Not Detectd)
[2024-08-20] MEDS: diphenhydrAMINE 50 MG/ML 1 ML VIAL IVP STA (16:44)
[2024-08-20] MEDS: FAMOTIDINE 20 MG/2 ML VIAL IV STA (16:44)
[2024-08-20] MEDS: methylPREDNISolone SOD SUCCI 125 MG/2 ML VIAL IV STA (16:44)
--- NOTE | 2024-08-20 17:45 | CT ---
EXAMINATION TYPE: CT angio chest DATE OF EXAM: 08/20/2024 5:38 PM COMPARISON: None. CLINICAL INDICATION: Female, 84 years old with history of positive D-dimer, Elevated D-dimer. Cough. RADHA., TECHNIQUE: Axial CT was performed with sagittal and coronal reformats. 3D reconstruction and/or MIP imaging was also performed on a separate workstation. IV CONTRAST: with IV Contrast, patient injected with 80mL mL of Isovue 370. (None if empty) CT DLP: 256.8 mGycm, Automated exposure control for dose reduction was used. FINDINGS: PULMONARY ARTERIES: The pulmonary arteries and their major tributaries are patent. I do not see opal dence for sizable filling defect to suggest pulmonary embolic process. LUNGS: The lungs are clear and free of infiltrate. Atelectasis right lower lobe. No pulmonary nodule or mass is detected. No pleural effusion. MEDIASTINUM: Thoracic aorta is of normal caliber,however, evaluation is limited given timing of the contrast bolus. If there is concern for thoracic aortic pathology consider NAHUN. Correlate clinicall y. No evidence for mediastinal mass. No mediastinal lymph nodes greater than 1cm. HEART: Size within normal limits. No significant coronary artery calcifications. HILAR STRUCTURES: No evidence for mass. No hilar lymph nodes greater than 1 cm. UPPER ABDOMEN: Moderate fixed hiatal hernia. Large cyst upper pole left kidney. Gallbladder surgicall y absent. IMPRESSION: 1. No evidence for Pulmonary embolism at this time. [facility], , 08/20/2024 5:43 PM
[2024-08-20] MEDS ORDERED: NALOXONE 0.4 MG/ML 1 ML VIAL IV PRN (18:24)
[2024-08-20] MEDS: SODIUM CHLORIDE 0.9% 1,000 ML IV SCH (18:54)
[2024-08-20] MEDS ORDERED: IPRATROPIUM-ALBUTEROL 3 ML NEB INHALATION PRN (21:57)
[2024-08-20] MEDS: ALBUTEROL NEBULIZED 2.5 MG/3 ML INHALATION PRN (22:11)
[2024-08-20] MEDS: ASPIRIN 81 MG PO SCH (22:42)
[2024-08-20] MEDS: FAMOTIDINE 20 MG TAB PO SCH (22:42)
[2024-08-20] MEDS: guaiFENesin SYRUP 100MG/5ML 200 MG/10 ML CUP PO PRN (22:43)
[2024-08-20] MEDS: ATORVASTATIN 10 MG TAB PO SCH (22:43)
[2024-08-20] MEDS: MELATONIN 3 MG TABLET PO PRN (22:43)
[2024-08-20] MEDS: LEVOTHYROXINE 50 MCG TAB PO SCH (23:09)
[2024-08-20] MEDS: methylPREDNISolone SOD SUCCI 40 MG/ML 1 ML VIAL IV SCH (23:36)
[2024-08-21] MEDS: IPRATROPIUM-ALBUTEROL 3 ML NEB INHALATION SCH (03:20)
[2024-08-21] MEDS: SYMBICORT 160-4.5 MCG INHALER INHALATION SCH (06:25)
[2024-08-21] MEDS: ALBUTEROL NEBULIZED 2.5 MG/3 ML INHALATION SCH (06:26)
[2024-08-21 07:48] VITALS: RESP 14
[2024-08-21] MEDS: CHOLECALCIFEROL 25 MCG (1000 IU) TABLET PO SCH (09:17)
[2024-08-21] MEDS: VIT A,C & E-LUTEIN-MINERALS 1 EACH TAB PO SCH (09:21)
[2024-08-21] MEDS: AMOXIC-POT CLAV 200-28.5MG/5ML 100 ML BOTTLE PO SCH (09:23)
[2024-08-21 15:10] VITALS: BMI 15.7
--- NOTE | 2024-08-21 20:23 | P.HPIM ---
History of Present Illness This is a pleasant 84 years old female with past medical history of COPD and asthma and other medical problems as below. Presents because of worsening shortness of breath over several days. 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 She uses a walker to walk no other neurological symptoms She is not a smoker no alcohol no illicit drugs. She is hemodynamically stable afebrile Unremarkable CBC, BMP, LFT, troponin Influenza and COVID and RSV were undetected D-dimer was elevated at 0.91 but CTA was negative for PE and lungs were clear from infection or consolidation Chest x-ray showing no acute process but COPD changes which are chronic Venous pH is elevated 7.44 and CO2 is low at 35. Patient started on Augmentin and Solu-Medrol Review of Systems Review of systems CONSTITUTIONAL: No fever, no malaise, no fatigue. HEENT: No recent visual problems or hearing problems. Denied any sore throat. CARDIOVASCULAR: No orthopnea, PND, no palpitations, no syncope. PULMONARY: no cough, no hemoptysis. GASTROINTESTINAL: No diarrhea, no nausea, no vomiting, no abdominal pain. Normoactive bowel sounds. NEUROLOGICAL: No headaches, no weakness, no numbness. HEMATOLOGICAL: Denies any bleeding or petechiae. GENITOURINARY: Denies any burning micturition, frequency, or urgency. MUSCULOSKELETAL/RHEUMATOLOGICAL: Denies any joint pain, swelling, or any muscle pain. ENDOCRINE: Denies any polyuria or polydipsia. Past Medical History Past Medical History: Asthma, COPD, GERD/Reflux, Hyperlipidemia, Thyroid Disorder Additional Past Medical History / Comment(s): hiatel hernia, hypotension, possible TIA,migraines, deviated septum, chronic constipation, past hx of low blood sugar, esophageal stricture with difficulty swallowing . 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 Smoking Status: Never smoker Past Alcohol Use History: None Reported Additional Past Alcohol Use History / Comment(s): . Past Drug Use History: None Reported - Past Family History Mother Family Medical History: Myocardial Infarction (MA) Additional Family Medical History / Comment(s): Mother of a MA at the age of 44 yrs. Father Family Medical History: Diabetes Mellitus Brother(s) Family Medical History: Cancer Additional Family Medical History / Comment(s): PROSTATE Medications and Allergies Home Medications Medication Instructions Recorded Confirmed Type Aspirin 81 mg PO HS 05/23/21 08/20/24 History Budesonide/Formoterol Fumarate 2 puff INHALATION RT-BID 05/23/21 08/20/24 History [Symbicort 160-4.5 Mcg Inhaler] Cholecalciferol [Vitamin D3 (25 25 mcg PO DAILY 05/23/21 08/20/24 History Mcg = 1000 Iu)] Rosuvastatin Calcium [Crestor] 5 mg PO HS 05/23/21 08/20/24 History Melatonin 3 mg PO HS PRN 10/02/21 08/20/24 History Albuterol Sulfate [Ventolin HFA] 2 puff INHALATION RT-QID PRN 02/16/23 08/20/24 History Famotidine [Pepcid] 20 mg PO BID 02/16/23 08/20/24 History Albuterol Nebulized [Ventolin 2.5 mg INHALATION RT-BID 08/20/24 08/20/24 History Nebulized] Amoxic-Pot Clav 250-62.5MG/5Ml 500 mg PO BID 08/20/24 08/20/24 History [Augmentin 250-62.5 mg/5 ml Susp.] Levothyroxine Sodium [Synthroid] 50 mcg PO MOTUWETHFR 08/20/24 08/20/24 History Vit C/E/Zn/Coppr/Lutein/Zeaxan 1 tab PO BID 08/20/24 08/20/24 History [Preservision Areds 2 Chew Tab] predniSONE See Taper PO DAILY 08/20/24 08/20/24 History Allergies Allergy/AdvReac Type Severity Reaction Status Date / Time Iodinated Contrast Media Allergy FLUSHING, Verified 08/20/24 16:35 [Iodinated Contrast Media - ITCHING, IV Dye] felt warm Macrolide Antibiotics Allergy INTERACTS Verified 08/20/24 16:35 WITH ASTHMA MEDS mold Allergy asthma Verified 08/20/24 16:35 symptoms Sulfa (Sulfonamide Allergy FLUSHING , Verified 08/20/24 16:35 Antibiotics) ITCHING, swelling fungus Allergy ASTHMA Uncoded 08/20/24 16:35 SYMPTOMS SMOKE Allergy ASTHMA Uncoded 08/20/24 16:35 SYMPTOMS Physical Exam Vitals: Vital Signs Temp Pulse Pulse Resp BP BP Pulse Ox 08/21/24 07:18 97.4 F L 86 14 111/71 97 08/21/24 06:35 76 08/21/24 06:25 76 08/21/24 01:58 98.6 F 75 12 111/66 97 08/20/24 22:22 90 08/20/24 22:12 88 08/20/24 20:00 97.3 F L 88 14 119/80 95 08/20/24 19:32 98.1 F 87 16 104/67 96 08/20/24 18:54 89 16 106/72 96 08/20/24 16:37 98 24 100/75 96 08/20/24 15:55 104 H 23 119/85 92 L 08/20/24 15:38 97.9 F 111 H 26 H 119/85 95 Intake and Output 08/20/24 08/21/24 08/21/24 22:59 06:59 14:59 Intake Total 540 240 Balance 540 240 Intake: Oral 540 240 Other: Voiding Method Bedside Commode Incontinent # Voids 1 Weight 44.452 kg GENERAL: The patient is alert and oriented x3, not in any acute distress. Well developed, well nourished. HEENT: Pupils are round and equally reacting to light. EOMI. No scleral icterus. No conjunctival pallor. Normocephalic, atraumatic. No pharyngeal erythema. No thyromegaly. CARDIOVASCULAR: S1 and S2 present. No murmurs, rubs, or gallops. -PULMONARY: Chest is clear to auscultation, bilateral scattered wheezing , no crackles. ABDOMEN: Soft, nontender, nondistended, normoactive bowel sounds. No palpable organomegaly. MUSCULOSKELETAL: No joint swelling or deformity. EXTREMITIES: No cyanosis, clubbing, or pedal edema. NEUROLOGICAL: Gross neurological examination did not reveal any focal deficits. SKIN: No rashes. no petechiae. Results CBC & Chem 7: 08/20/24 15:49 08/20/24 15:49 Labs: Abnormal Lab Results - Last 24 Hours (Table) 08/20/24 08/20/24 08/20/24 Range/Units 15:49 15:49 15:49 Monocytes # 0.18 L (0.20-1.00) 10*3/uL Eosinophils # 0.03 L (0.04-0.35) 10*3/uL D-Dimer 0.91 H (<0.60) mg/L FEU VBG pH (7.31-7.41) VBG pCO2 (37-51) mmHg VBG HCO3 (24-28) mmol/L Carbon Dioxide 21 L (22-30) mmol/L Glucose 210 H (74-99) mg/dL 08/20/24 Range/Units 15:54 Monocytes # (0.20-1.00) 10*3/uL Eosinophils # (0.04-0.35) 10*3/uL D-Dimer (<0.60) mg/L FEU VBG pH 7.44 H (7.31-7.41) VBG pCO2 35 L (37-51) mmHg VBG HCO3 23 L (24-28) mmol/L Carbon Dioxide (22-30) mmol/L Glucose (74-99) mg/dL Assessment and Plan Assessment: Acute COPD exacerbation GERD Hypothyroidism Hypertension Hyperlipidemia History of TIA History of migraine History of osteoporosis History of depression Plan: Continue with IV Solu-Medrol Continue the bronchodilator Pulmonary consult Resume home medication Further recommendation based on the clinical course GI prophylaxis Pepcid DVT prophylaxis subcu heparin
[2024-08-21] MEDS: HEPARIN SODIUM,PORCINE 5,000 UNIT/ML 1 ML VIAL SQ SCH (21:32)
[2024-08-22 09:46] LABS: Basophils # (A) 0.01 X 10*3/uL (0.00-0.10); Basophils % (A) 0.1 %; Eosinophils # (A) 0 X 10*3/uL (0.04-0.35); Eosinophils % (A) 0 %; HCT 40.8 % (37.2-46.3); HGB 12.8 g/dL (12.0-15.0); Lymphocytes # (A) 0.58 X 10*3/uL (0.90-5.00); Lymphocytes % (A) 6.8 %; MCH 29.2 pg (27.0-32.0); MCHC 31.4 g/dL (32.0-37.0); MCV 93.2 FL (80.0-97.0); Mean Platelet Volume 10.2 FL (9.5-12.2); Monocytes # (A) 0.32 X 10*3/uL (0.20-1.00); Monocytes % (A) 3.7 %; NRBC Per 100 WBC 0 X 10*3/uL (0.00-0.01); Platelet Count 240 X 10*3/uL (140-440); RBC 4.38 X 10*6/uL (4.10-5.20); RDW 14.1 % (11.5-14.5); WBC 8.54 X 10*3/uL (4.50-10.00)
[2024-08-22 11:14] LABS: BUN/Creat Ratio 14.67 Ratio (12.00-20.00); Blood Urea Nitrogen 13.2 mg/dL (9.0-27.0); Calcium 9.4 mg/dL (8.7-10.3); Carbon Dioxide 22.3 mmol/L (21.6-31.8); Chloride 111 mmol/L (96-109); Glucose 157 mg/dL (70-110); Potassium 4.2 mmol/L (3.5-5.5); Sodium 145 mmol/L (135-145)
[2024-08-22 12:00] VITALS: BP 127/79; TEMP 98.4
[2024-08-22 12:14] VITALS: PULSE 80
--- NOTE | 2024-08-22 20:33 | P.CNPUL ---
History of Present Illness Consult date: 08/22/24 Reason for consult: dyspnea History of present illness: This is a 84-year-old female patient with past medical exacerbation of asthma history of outpatient treatment. Patient was initially seen in urgent care and subsequently patient was seen in pulmonary clinic on 08/16/2024 where the patient was given a course of Augmentin, Depo-Medrol shot and a prednisone burst taper. She came into the emergency department having worsening shortness of breath. Over the past 24 hours, the patient was given IV Solu-Medrol and the patient improved considerably and she is currently on room air oxygen without any ongoing respiratory difficulties, chest tightness or wheezing and she feels her overall respiratory status is back to his baseline. She is a non-smoker. No reported fever or chills. No swelling in lower extremities. No pleurisy or hemoptysis. I reviewed her chest x-ray from this current admission shows no acute abnormalities. CT of the chest was also done that showed no evidence of any pulmonary embolism. Lungs were free of any acute pulm infiltrates. There was thoracic kyphoscoliosis involving the T-spine. The blood work shows a white cell count of 8.5 with a hemoglobin 12.8 and a platelet count of 240. Electrolytes are all within normal limits. Troponins are negative. Procalcitonin is less than 0.2. Lactic acid level is 1.6. UA is negative. The viral screen was also negative. Review of Systems Constitutional: Reports fatigue Eyes: denies as per HPI, denies blurred vision, denies bulging eye, denies decreased vision, denies diplopia, denies discharge, denies dry eye, denies irritation, denies itching, denies pain, denies photophobia, denies loss of peripheral vision, denies loss of vision, denies tunnel vision/blind spots Ears: deny: decreased hearing, ear discharge, earache, tinnitus Ears, nose, mouth and throat: Reports as per HPI Breasts: absent: as per HPI, change in shape, gynecomastia, masses, nipple discharge, pain, skin changes, swelling Cardiovascular: Reports decreased exercise tolerance, Reports dyspnea on exertion Respiratory: Reports cough, Reports dyspnea, Reports wheezing Gastrointestinal: Reports as per HPI Genitourinary: Reports as per HPI Menstruation: Reports as per HPI Musculoskeletal: Reports as per HPI Musculoskeletal: absent: ankle pain, ankle stiffness, ankle swelling, as per HPI, elbow pain, elbow stiffness, elbow swelling, foot pain, foot stiffness, chriss t swelling, hand pain, hand stiffness, hand swelling, hip pain, hip stiffness, hip swelling, knee pain, knee stiffness, knee swelling, shoulder pain, shoulder stiffness, shoulder swelling, wrist pain, wrist stiffness, wrist swelling Integumentary: Reports as per HPI Neurological: Reports as per HPI Psychiatric: Reports as per HPI Endocrine: Reports as per HPI Hematologic/Lymphatic: Reports as per HPI Allergic/Immunologic: Reports as per HPI Past Medical History Past Medical History: Asthma, COPD, GERD/Reflux, Hyperlipidemia, Thyroid Disorder Additional Past Medical History / Comment(s): hiatel hernia, hypotension, possible TIA,migraines, deviated septum, chronic constipation, past hx of low blood sugar, esophageal stricture with difficulty swallowing . 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 Smoking Status: Never smoker Past Alcohol Use History: None Reported Additional Past Alcohol Use History / Comment(s): . Past Drug Use History: None Reported - Past Family History Mother Family Medical History: Myocardial Infarction ([place]) Additional Family Medical History / Comment(s): Mother of a [place] at the age of 44 yrs. Father Family Medical History: Diabetes Mellitus Brother(s) Family Medical History: Cancer Additional Family Medical History / Comment(s): PROSTATE Medications and Allergies Home Medications Medication Instructions Recorded Confirmed Type Aspirin 81 mg PO HS 05/23/21 08/20/24 History Budesonide/Formoterol Fumarate 2 puff INHALATION RT-BID 05/23/21 08/20/24 History [Symbicort 160-4.5 Mcg Inhaler] Cholecalciferol [Vitamin D3 (25 25 mcg PO DAILY 05/23/21 08/20/24 History Mcg = 1000 Iu)] Rosuvastatin Calcium [Crestor] 5 mg PO HS 05/23/21 08/20/24 History Melatonin 3 mg PO HS PRN 10/02/21 08/20/24 History Famotidine [Pepcid] 20 mg PO BID 02/16/23 08/20/24 History Levothyroxine Sodium [Synthroid] 50 mcg PO MOTUWETHFR 08/20/24 08/20/24 History Vit C/E/Zn/Coppr/Lutein/Zeaxan 1 tab PO BID 08/20/24 08/20/24 History [Preservision Areds 2 Chew Tab] Albuterol Nebulized [Ventolin 2.5 mg INHALATION RT-BID #200 ml 08/22/24 Rx Nebulized] Albuterol Sulfate [Ventolin HFA] 2 puff INHALATION RT-QID PRN #1 08/22/24 Rx each predniSONE 10 mg PO DIRECTED #18 tab 08/22/24 Rx Allergies Allergy/AdvReac Type Severity Reaction Status Date / Time Iodinated Contrast Media Allergy FLUSHING, Verified 08/20/24 16:35 [Iodinated Contrast Media - ITCHING, IV Dye] felt warm Macrolide Antibiotics Allergy INTERACTS Verified 08/20/24 16:35 WITH ASTHMA MEDS mold Allergy asthma Verified 08/20/24 16:35 symptoms Sulfa (Sulfonamide Allergy FLUSHING , Verified 08/20/24 16:35 Antibiotics) ITCHING, swelling fungus Allergy ASTHMA Uncoded 08/20/24 16:35 SYMPTOMS SMOKE Allergy ASTHMA Uncoded 08/20/24 16:35 SYMPTOMS Physical Exam Vitals: Vital Signs Temp Pulse Pulse Resp BP Pulse Ox 08/22/24 07:11 97.9 F 82 14 126/79 98 08/22/24 06:35 80 08/22/24 06:29 80 08/22/24 01:45 98.7 F 82 14 127/81 98 08/21/24 20:26 88 08/21/24 20:12 86 08/21/24 20:00 98.5 F 94 14 124/74 97 08/21/24 12:14 97.6 F 87 14 100/65 98 08/21/24 11:28 84 08/21/24 11:21 80 Intake and Output 08/21/24 08/22/24 08/22/24 22:59 06:59 14:59 Intake Total 700 540 Balance 700 540 Intake: Intake, IV Titration 160 Amount Sodium Chloride 0.9% 1, 160 000 ml @ 20 mls/hr IV . Q24H [facility] Rx#:[id number] Oral 540 540 Other: Voiding Method Toilet Diaper # Voids 1 1 1 Weight 44.452 kg The patient appeared well nourished and normally developed. Vital signs as documented. Head exam is unremarkable. No scleral icterus or corneal arcus noted. Neck is without jugular venous distension, thyromegaly, or carotid bruits. Carotid upstrokes are brisk bilaterally. Lungs reveal thoracic kyphoscoliosis, diminished breath sounds otherwise there is no wheezing or rhonchi or crackles appreciated. Cardiac exam reveals the PMI to be normally sized and situated. Rhythm is regular. First and second heart sounds normal. No murmurs, rubs or gallops. Abdominal exam reveals normal bowel sounds, no masses, no organomegaly and no aortic enlargement. Extremities are nonedematous and both femoral and pedal pulses are normal. Examination of the skin revealed no evidence of significant rashes, suspicious appearing nevi or other concerning lesions. Neurologically, the patient is awake and alert and the patient does not have any focal neurological deficit. Cranial nerves are essentially intact. Results - Laboratory Findings CBC and BMP: 08/22/24 05:36 08/22/24 05:36 PT/INR, D-dimer D-Dimer 0.91 mg/L FEU (<0.60) H 08/20/24 15:49 Abnormal lab findings: Abnormal Labs 08/20/24 08/20/24 08/20/24 15:49 15:49 15:49 Monocytes # 0.18 L Eosinophils # 0.03 L D-Dimer 0.91 H VBG pH VBG pCO2 VBG HCO3 Carbon Dioxide 21 L Glucose 210 H 08/20/24 15:54 Monocytes # Eosinophils # D-Dimer VBG pH 7.44 H VBG pCO2 35 L VBG HCO3 23 L Carbon Dioxide Glucose - Diagnostic Findings Chest x-ray: image reviewed CT scan - chest: image reviewed Assessment and Plan Plan: Acute asthma/COPD exacerbation, improved, the patient is currently on room air oxygen. Chest x-ray and CAT scan of the chest showed no acute abnormalities. The viral screen has been negative. The patient has a negative procalcitonin level. Spine deformity with thoracic kyphoscoliosis Hypertension Hiatal hernia Chronic migraines Chronic constipation History of esophageal stricture with ongoing dysphagia Osteoporosis Varicose veins Remote history of bowel obstruction History of Zafar's thyroiditis with subsequent hypothyroid Hyperlipidemia Plan Discharged home on a prednisone burst taper in addition to routine rescue medication to be followed up on outpatient basis by Dr. Santos
--- NOTE | 2024-08-23 01:13 | P.DS ---
Providers Date of admission: 08/20/24 18:26 Attending physician: Nicolle Worthy Consults: 08/21/24 20:22 Consult Physician Routine Consulting Provider: Mitchell Bowers Consult Reason/Comments: known to your service, sob Do you want consulting provider notified?: Yes [facility] Course: Diagnoses: Acute COPD exacerbation GERD Hypothyroidism Hypertension Hyperlipidemia History of TIA History of migraine History of osteoporosis History of depression Hospital course: This is a pleasant 84 years old female with past medical history of COPD and asthma and other medical problems as below. Presents because of worsening shortness of breath over several days. 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 She uses a walker to walk no other neurological symptoms. Patient was treated with IV Solu-Medrol 40 mg Patient showed interval improvement and today her dyspnea and wheezing significantly improved patient evaluated by pulmonary service who cleared her for discharge as confirmed to [facility] bedside nurse. Patient also was saturating well on room air she did not need any oxygen. Patient will be discharged on short course of oral steroids. Procalcitonin came back negative. Patient with no fever or leukocytosis. We do not think patient needs antibiotics and a Augmentin which is a home medication was discontinued Extensive instructions provided for the patient, granddaughter and at bedside Problems and management plan were discussed with the patient and he verbalized understanding and acceptance Patient was found stable and can be discharged home in guarded prognosis however he needs follow-up as an outpatient. Patient was instructed to follow up with PCP within one week and patient agrees Patient was instructed to follow-up with her maintenance shop welder Dr. Willingham in 2 weeks and she agrees Physical exam Gen: patient is a AAOx3, no distress CVS: S1-S2, RRR, no murmur Lungs: B/L CTA, no wheezing Abdomen: soft, no distention, no tenderness, positive bowel sounds Extremity: no leg edema or induration Time spent more than 35 minutes Patient Condition at Discharge: Fair Plan - Discharge Summary Discharge Rx Participant: No New Discharge Prescriptions: New predniSONE 10 mg PO DIRECTED #18 tab Continue Budesonide/Formoterol Fumarate [Symbicort 160-4.5 Mcg Inhaler] 2 puff INHALATION RT-BID Aspirin 81 mg PO HS Famotidine [Pepcid] 20 mg PO BID Levothyroxine Sodium [Synthroid] 50 mcg PO MOTUWETHFR Albuterol Nebulized [Ventolin Nebulized] 2.5 mg INHALATION RT-BID #200 ml Rosuvastatin Calcium [Crestor] 5 mg PO HS Cholecalciferol [Vitamin D3 (25 Mcg = 1000 Iu)] 25 mcg PO DAILY Melatonin 3 mg PO HS PRN PRN Reason: Insomnia Vit C/E/Zn/Coppr/Lutein/Zeaxan [Preservision Areds 2 Chew Tab] 1 tab PO BID Albuterol Sulfate [Ventolin HFA] 2 puff INHALATION RT-QID PRN #1 each PRN Reason: Shortness Of Breath Discontinued predniSONE See Taper PO DAILY Amoxic-Pot Clav 250-62.5MG/5Ml [Augmentin 250-62.5 mg/5 ml Susp.] 500 mg PO BID Discharge Medication List Aspirin 81 mg PO HS 05/23/21 [History] Budesonide/Formoterol Fumarate [Symbicort 160-4.5 Mcg Inhaler] 2 puff INHALATION RT-BID 05/23/21 [History] Cholecalciferol [Vitamin D3 (25 Mcg = 1000 Iu)] 25 mcg PO DAILY 05/23/21 [History] Rosuvastatin Calcium [Crestor] 5 mg PO HS 05/23/21 [History] Melatonin 3 mg PO HS PRN 10/02/21 [History] Famotidine [Pepcid] 20 mg PO BID 02/16/23 [History] Levothyroxine Sodium [Synthroid] 50 mcg PO MOTUWETHFR 08/20/24 [History] Vit C/E/Zn/Coppr/Lutein/Zeaxan [Preservision Areds 2 Chew Tab] 1 tab PO BID 08/20/24 [History] Albuterol Nebulized [Ventolin Nebulized] 2.5 mg INHALATION RT-BID #200 ml 08/22/24 [Rx] Albuterol Sulfate [Ventolin HFA] 2 puff INHALATION RT-QID PRN #1 each 08/22/24 [Rx] predniSONE 10 mg PO DIRECTED #18 tab 08/22/24 [Rx] Follow up Appointment(s)/Referral(s): Jace Casas, [Primary Care Provider] - 1-2 days (Please call office and schedule own appts. Office is closed at time of discharge. ) Bernardo Santos DO [Doctor of Osteopathic Medicine] - 2 Weeks (Please call office and schedule own appts. Office is closed at time of discharge. ) Patient Instructions/Handouts: Albuterol (By breathing), Prednisone (By mouth), COPD (Chronic Obstructive Pulmonary Disease) (DC), How to Use a Nebulizer (DC) Activity/Diet/Wound Care/Special Instructions: Heart healthy diet, low carbohydrate diet Limited activity until you see your doctor If you get agitated on increasing anxiety from prednisone, please contact your Primary care doctor. Discharge Disposition: HOME SELF-CARE
== END 2024-08-22 16:40 | disposition home or self-care (01) ==
LOC: EC 15:35 → 4SSUR 18:26 → 5NMEDONC 19:32
PROVIDERS: ADMIT Hospitalist; ATTEND Hospitalist
DX: J44.1 Chronic obstructive pulmonary disease with (acute) exacerbation (principal); J45.901 Unspecified asthma with (acute) exacerbation; K21.9 Gastro-esophageal reflux disease without esophagitis; E06.3 Autoimmune thyroiditis; I10 Essential (primary) hypertension; E78.5 Hyperlipidemia, unspecified; G43.909 Migraine, unspecified, not intractable, without status migrainosus; M81.0 Age-related osteoporosis without current pathological fracture; R79.89 Other specified abnormal findings of blood chemistry; K44.9 Diaphragmatic hernia without obstruction or gangrene; I83.90 Asymptomatic varicose veins of unspecified lower extremity; M41.84 Other forms of scoliosis, thoracic region; K59.09 Other constipation; R13.10 Dysphagia, unspecified; F32.A Depression, unspecified; Z79.82 Long term (current) use of aspirin; Z79.51 Long term (current) use of inhaled steroids; Z79.890 Hormone replacement therapy; Z79.52 Long term (current) use of systemic steroids; Z79.899 Other long term (current) drug therapy; Z88.1 Allergy status to other antibiotic agents; Z91.041 Radiographic dye allergy status; Z88.2 Allergy status to sulfonamides; Z91.048 Other nonmedicinal substance allergy status; Z11.52 Encounter for screening for COVID-19; Z11.59 Encounter for screening for other viral diseases; Z86.73 Personal history of transient ischemic attack (TIA), and cerebral infarction without residual deficits; Z87.19 Personal history of other diseases of the digestive system
CPT/HCPCS: 96376 ×3; 96372 ×2; 96374; 96375; 99285; 36415; 94640 ×5; 93005; 85379; 80053; 80048; 82803; 83605; 83735; 84484 ×3; 85025 ×2; 84145; 87636; 71046; 71275; G0378 ×4; J1200; J1644 ×2; Q9967; J2919 ×4; J1308